=== PATIENT | male | born 1960 | race Caucasian/White ===

== ENCOUNTER 2023-10-10 07:27 | Observation (INO) | payer BC, SELFPAY ==
[2023-10-10] VITALS (17 sets, daily range): BP systolic 120–154; BP diastolic 62–80; PULSE 73–101; RESP 16; TEMP 35.9–36.6; O2SAT 94–98; BMI 29.1
[2023-10-10] MEDS: Gabapentin 600 MG Tablet PO (06:26)
[2023-10-10] MEDS: Lactated Ringers 1,000 ML 999 ML IV (06:26)
[2023-10-10] MEDS: Lactated Ringers 1,000 ML 75 ML IV ×2 (06:26→08:22)
[2023-10-10] MEDS: Acetaminophen 500 MG Tablet 1000 MG PO ×3 (06:26→21:06)
[2023-10-10] MEDS: Insulin Lispro 100 UNIT/ML INSULN.PEN SC ×3 (06:50→23:08)
[2023-10-10 07:03] LABS: Bedside Glucose 202 mg/dL (74-106)
--- NOTE | 2023-10-10 07:14 | PCM.OPRPT ---
Report of Operation Date of Procedure: 10/10/23 Description of Surgical Findings:: Preop diagnosis: 1. Lumbar stenosis, L4-5, L5-S1 with spondylosis 2. Lumbar degenerative disc disease L4-5, L5-S1 Postop diagnosis: 1. Lumbar stenosis, L4-5, L5-S1 with spondylosis 2. Lumbar degenerative disc disease L4-5, L5-S1 Procedures performed: 1. L4-5 posterior lumbar interbody fusion 2. L5-S1 posterior lumbar interbody fusion 3. Insertion of intervertebral biomechanical device x 2 4.. Structural allograft for spinal fusion 5. L4 bilateral laminectomies, foraminotomies, facetectomies, decompression of bilateral nerve roots 6. L5 bilateral laminectomies, foraminotomies, facetectomies, decompression of bilateral nerve roots 7. L3-4, L4-5, L5-S1 posterolateral fusion 8. Pedicle screw fixation L3-4, L4-5, and L5-S1 9. Local autograft for spinal fusion 10. Neuro monitoring bilateral upper and bilateral lower extremities Statement of medical necessity: The patient is a 63-year-old male with intractable back and leg pain. Image studies confirm the above diagnoses. They have failed conservative treatments to include medications physical therapy and injections and have opted for operative intervention understanding the risk to include but not limited to infection, bleeding, damage to nerves arteries and veins, possibility of spinal fluid leak, nonunion, hardware failure, continued pain, need for further surgery, deep vein thrombosis, pulmonary embolism, heart attack, risk of stroke or . Description of the procedure: The patient was identified in the preoperative holding area. There they received preoperative IV antibiotics and was then transferred to the operative suite. Once in the operative suite after general endotracheal anesthesia was established, the patient was positioned prone on the [place] operating table. All bony prominences were padded accordingly. The lumbar spine was prepped and draped in a standard fashion. Bear hugger's were not turned on until the drapes were placed and sealed with Ioban. A midline incision was made and taken down to the fascia. The fascia was divided and subperiosteal dissection was taken down to the level of the transverse processes and sacral ala of L4, L5, and S1 bilaterally. Deep retractors were placed. A bone scalpel was used to make cuts in the lamina and then a series of rongeurs and Kerrisons were used removing the spinous process and lamina of L4 and L5. Then facetectomies of greater than 50% were performed as well as foraminotomies at L4-5 and L5-S1 bilaterally decompressing the bilateral nerve roots. Given the severity of the stenosis I needed to perform wide bilateral laminectomies and near complete facetectomies in order to decompress the neural elements. Disc created instability necessitating the fusion. I then proceeded with interbody fusion. The nerve roots and dura were identified and retracted medially. A knife was utilized to perform an annulotomy at L4-5. Endplate elevators, curettes, and pituitaries were utilized to remove disc material. Endplates were prepared with a rasp. An appropriate sized intervertebral peek cage device measuring was packed with structural allograft and impacted into position completing the posterior lumbar interbody fusion at the L4-5 level. The same steps were repeated at L5-S1. An appropriate sized intervertebral peek cage device measuring was packed with morselized cancellous allograft and impacted into position completing the posterior lumbar interbody fusion at the L5-S1 level. I then proceeded with pedicle screw fixation. After the decompression there was some concern for stability of the L3-4 level. Therefore, I made the decision to put screws at L3 as well to stabilize this level. Starting points were found at the junction of the superior articular process and transverse processes and sacral ala. A power bur was used for the starting points. Pedicle probes were placed bilaterally and then 6.5 x 55 mm screws were placed bilaterally at L3, L4 and L5 and 6.5 x 45 mm screws were placed bilaterally at S1. The screws were tested with intraoperative neurophysiologic monitoring and tested within normal limits. Connector rods were applied and secured with set screws. I then proceeded with the posterolateral fusion. This was accomplished by decorticating the transverse processes bilaterally at L3, L4 and L5 and the sacral ala bilaterally at S1. This decorticated bone was then bridged with local autograft from the decompression as well as morselized cancellous allograft completing the posterolateral fusion of the L3-4, L4-5 and L5-S1 level. The incision was thoroughly irrigated. Tisseel was placed over the dura as a hemostatic agent. The fascia was closed with #1 Vicryl, subcutaneous with 2-0 Vicryl and skin with 2-0 nylon. A sterile dressing was applied with 4 x 4's ABD and tape. Sponge instrument and needle counts were correct at the end of the case. Neurophysiologic monitoring was maintained at baseline throughout the duration of the case. The patient was extubated and taken to the PACU without incident Surgeon: Rolf Jhaveri Type of Anesthesia: General Estimated Blood Loss (mL): 850 cc Fluids Replaced: 2900 cc Grafts/Implants Used: Unified spine Complications None Admit VTE Documentation VTE Present on Admission: No
--- NOTE | 2023-10-10 07:18 | PCM.PN.ORT ---
Subjective Subjective Seen and examined postop. Resting comfortably. Pain controlled. No complaints Objective Data Objective Data Vital Signs: Vital Signs Temp Pulse Resp BP Pulse Ox O2 Del Method 97.4 F L 73 16 153/80 H 96 Room Air 10/10/23 06:07 10/10/23 06:07 10/10/23 06:07 10/10/23 06:07 10/10/23 06:07 10/10/23 06:07 Oxygen Delivery Method Room Air Weight: 186 lb Body Mass Index (BMI) 29.1 Lab / Micro Data Labs: Laboratory Results - last 24 hr 10/10/23 06:06: POC Glucose 202 H 10/10/23 06:22: Magnesium 2.0 Physical Exam Const alert, oriented x3 and no apparent distress General Appearance: cooperative, comfortable and well kempt HEENT normocephalic and head/scalp atraumatic Eyes EOMs intact bilaterally and conjunctivae normal Neck full ROM General: normal visual inspection Chest inspection of chest normal and palpation of chest normal Resp normal respiratory effort and normal air movement Cardio regular rate, regular rhythm and peripheral pulses 2+ throughout GI soft to palpation, non-tender and non-distended Back/Spine Back/Spine Narrative: Dressing clean dry and intact Cervical Spine: cervical ROM normal Thoracic Spine / Upper Back: normal to inspection Lumbar Spine / Lower Back: normal to inspection Extremity normal to inspection, full ROM, normal capillary refill, no clubbing, cyanosis or edema and no calf tenderness Skin no rashes or lesions noted General Skin Exam: no breakdown Neuro oriented x3, CN's II-XII intact bilaterally, moves all extremities, no focal motor deficits, no sensory deficits noted and deep tendon reflexes 2+ bilaterally Motor Exam: muscle tone normal throughout Assessment & Plan Assessment/Plan (1) Lumbar stenosis: PLAN: Okay to admit See orders Discharge planning, likely home tomorrow
--- NOTE | 2023-10-10 07:19 | DS.PCM_ITS ---
Providers Date of Admission: 10/10/23 Primary Care Physician: Dr. Meliton Pelayo MD Reason For Visit: LUMBAR STENOSIS Diagnosis Discharge Diagnosis (1) Lumbar stenosis: Status: Acute Code(s): M48.061 - Spinal stenosis, lumbar region without neurogenic claudication Plan: Okay to admit See orders Discharge planning, likely home tomorrow Medications at Discharge Home Medications albuterol sulfate 90 mcg/actuation aerosol inhaler 1 inh inhalation PRN PRN shortness of breath or wheezing 09/16/23 cetirizine 5 mg-pseudoephedrine ER 120 mg tablet,extended release,12hr (All Day Allergy-D) 1 tab PO DAILY 09/16/23 doxazosin 8 mg tablet 8 mg PO DAILY 09/16/23 dulaglutide 1.5 mg/0.5 mL subcutaneous pen injector (Trulicity) 1.5 mg subcut JALLOH 09/16/23 fluticasone furoate 100 mcg/actuation blister powder for inhalation (Arnuity Ellipta) 1 inh inhalation DAILY 09/16/23 gabapentin 100 mg capsule 100 mg PO BID 09/16/23 loratadine 10 mg capsule 10 mg PO DAILY 09/16/23 metformin 1,000 mg tablet 500 mg PO BID 09/16/23 montelukast 10 mg tablet 10 mg PO QHS 09/16/23 omeprazole 20 mg capsule,delayed release 20 mg PO BID 09/16/23 pravastatin 40 mg tablet 40 mg PO QHS 09/16/23 hydrocodone-acetaminophen 5-325mg 5mg-325mg 1 tab PO Q6H 7 days #28 tabs 10/10/23 Hospital Course Operations - (L4-5, L5-S1 posterior lumbar interbody fusion, decompression, posterior spinal fusion with instrumentation, use of allograft) Summary of Care Provided Minutes Spent on Discharge: 15 Hospital Course: The patient is a 63-year-old male who underwent L4-5 and L5-S1 posterior lumbar interbody fusion, decompression, posterior spinal fusion with instrumentation, use of allograft on 10/10/2023. He was subsequently admitted. The hospitalist was consulted for medical management. The patient progressed well. His pain was controlled and he was mobilizing well. No significant medical issues were reported. He was subsequently discharged home on 10/11/2023 to follow-up with Dr. Jhaveri in 3 weeks Physical Exam Const alert, oriented x3 and no apparent distress General Appearance: cooperative, comfortable and well kempt Neck full ROM General: normal visual inspection Resp normal respiratory effort and normal air movement Effort and Inspection: able to speak in complete sentences Cardio regular rate and peripheral pulses 2+ throughout GI soft to palpation, non-tender and non-distended Back/Spine Back/Spine Narrative: Dressing clean dry and intact. Incision well-approximated with interrupted sutures in place. No tenderness erythema drainage or fluctuance Cervical Spine: cervical ROM normal Thoracic Spine / Upper Back: normal to inspection Lumbar Spine / Lower Back: normal to inspection Extremity normal to inspection, full ROM, normal capillary refill, no clubbing, cyanosis or edema and no calf tenderness Skin no rashes or lesions noted General Skin Exam: no breakdown Neuro oriented x3, CN's II-XII intact bilaterally, moves all extremities, no focal motor deficits, no sensory deficits noted and deep tendon reflexes 2+ bila terally Motor Exam: strength 5/5 throughout and muscle tone normal throughout Weight / BMI Weight Weight: 186 lb Body Mass Index (BMI) 29.1 ABG / Lab / Microbiology Data Laboratory: Laboratory Results - last 24 hr 10/10/23 06:06: POC Glucose 202 H 10/10/23 06:22: Magnesium 2.0 D/C Instructions Discharge Diet: No restrictions Additional Activity Instructions: No repetitive bending twisting or lifting greater than 5 pounds. Wear back brace at all times. Call your doctor if your incision/area has: Continuous Slow Oozing, Sudden Increased Bleeding, Increased Pain/ Swelling, Increased Redness, Foul Smelling Discharge and Swelling at the incision site Call your doctor if you observe: Fever of 101 or Higher, Coldness, Increased Pain, Numbness or Tingling, Change in Color, Inability to urinate, Inability to have a bowel movement, Using more than 1 pad per hour, Shortness of breath, Dizziness, Fainting spells, Swelling in the ankles, Chest pain, Prolonged hiccupping, Increased palpitations (irregular heartbeat), Calf discomfort and Uncontrolled pain Additional Dressing/Incision Instructions: Change dressing daily with gauze and tape Additional Instructions: 1. During your procedure, you received sedation through your IV. Please follow these instructions for the next 24 hours: Do not drive a motor vehicle, do not drink any alcoholic beverages, and do not sign any legal documents or make personal or business decisions. A responsible adult should stay with you at least 6 hours after the procedure. 2. Keep your surgical site/incision clean and the dressing dry and intact. You may use an ice pack at the surgical site to reduce any swelling or discomfort. 3. Monitor the incision site for any signs or symptoms of infection. Watch for redness, excessive swelling or drainage, or continued pain at the incision site after 3 days. Contact your physician immediately for a fever, chills or a temperature of 101.5? F or greater. 4. Take your medication exactly as prescribed by your physician. Do not attempt to wean yourself off any of your medications even though your pain is improving. This process needs to be carefully monitored by your doctor. Take any antibiotics prescribed exactly as directed and until they are gone. 5. Avoid stretching, bending, pulling, twisting or any sudden movements. Do not bend or twist at the waist. Wear back brace at all times 6. No lifting greater than 5 pounds. 7. Do not operate a motor vehicle, equipment or a power tool while taking pain medication 8. Do not have any manipulation done by a chiropractor or any other physician without first consulting with the surgeon 9. Please contact our office if you are even scheduled for a CT scan or an MRI. 10. Please call us if you have any questions, problems or concerns. Please Follow Up With: Rolf Jhaveri DO When: 3 weeks Meaningful Use Info Meaningful Use Diagnoses (Choose all that apply): None applicable Discharge Plan Admission Admit Date/Time: 10/10/23 07:27 Attending Provider: Roly Santana Primary Care Provider: Meliton Pelayo Consulting Providers: Hailee Julien; Chavo Ryan; Danielle,Denise; Angel,Frakes; Sarah Sanchez; Osiris Fournier; Birgit Cantu; Roly Cunningham; Roly Santana; Rashad Kimble; Leland Poe; Barron Enriquez; Jason Guillen; Aleksey Garrett; Glory Goyal; Dion Espino; Claudia Clark; Genaro Thao; Chandra Sainz; Juarez Lucia; Beth Oates; Bradley Killian; Jasmin Sam NP; Gray Rudolph; Rolf Jhaveri Instructions Additional Instructions / Restrictions: 1. During your procedure, you received sedation through your IV. Please follow these instructions for the next 24 hours: Do not drive a motor vehicle, do not drink any alcoholic beverages, and do not sign any legal documents or make personal or business decisions. A responsible adult should stay with you at least 6 hours after the procedure. 2. Keep your surgical site/incision clean and the dressing dry and intact. You may use an ice pack at the surgical site to reduce any swelling or discomfort. 3. Monitor the incision site for any signs or symptoms of infection. Watch for redness, excessive swelling or drainage, or continued pain at the incision site after 3 days. Contact your physician immediately for a fever, chills or a temperature of 101.5? F or greater. 4. Take your medication exactly as prescribed by your physician. Do not attempt to wean yourself off any of your medications even though your pain is improving. This process needs to be carefully monitored by your doctor. Take any antibiotics prescribed exactly as directed and until they are gone. 5. Avoid stretching, bending, pulling, twisting or any sudden movements. Do not bend or twist at the waist. Wear back brace at all times 6. No lifting greater than 5 pounds. 7. Do not operate a motor vehicle, equipment or a power tool while taking pain medication 8. Do not have any manipulation done by a chiropractor or any other physician without first consulting with the surgeon 9. Please contact our office if you are even scheduled for a CT scan or an MRI. 10. Please call us if you have any questions, problems or concerns. Discharge Orders/Prescriptions Prescriptions: New hydrocodone-acetaminophen 5-325 mg tablet 1 tab PO Q6H 7 Days Qty: 28 0RF Continued metformin 1,000 mg tablet 500 mg PO BID Patient Comments: TAKE 1 TABLET BY MOUTH TWICE A DAY Trulicity 1.5 mg/0.5 mL pen injector 1.5 mg SUBCUT JALLOH Patient Comments: INJECT 1.5MG UNDER THE SKIN ONCE WEEKLY albuterol sulfate 90 mcg/actuation HFA aerosol inhaler 1 inh INHALATION PRN PRN (Reason: shortness of breath or wheezing) Patient Comments: INHALE 2 PUFFS BY MOUTH 4 TIMES A DAY NEEDED doxazosin 8 mg tablet 8 mg PO DAILY Patient Comments: TAKE 1 TABLET BY MOUTH EVERY DAY montelukast 10 mg tablet 10 mg PO QHS Patient Comments: TAKE ONE TABLET BY MOUTH EVERY DAY pravastatin 40 mg tablet 40 mg PO QHS Patient Comments: TAKE 1 TABLET BY MOUTH EVERY NIGHT AT BEDTIME loratadine 10 mg capsule 10 mg PO DAILY cetirizine-pseudoephedrine [All Day Allergy-D] 5-120 mg tablet extended release 12 hr 1 tab PO DAILY omeprazole 20 mg capsule,delayed release(DR/EC) 20 mg PO BID Patient Comments: TAKE 1 CAPSULE BY MOUTH TWICE A DAY BEFORE MEALS gabapentin 100 mg capsule 100 mg PO BID Patient Comments: TAKE 1 CAPSULE TWICE DAILY. MAY INCREASE BY 1 CAPSULE EVERY 3 DAYS, MAX OF TAKE 3 CAPSULES TWICE A DAY Arnuity Ellipta 100 mcg/actuation blister with device 1 inh INHALATION DAILY Patient Comments: INHALE 1 PUFF BY MOUTH DAILY (RINSE MOUTH AFTER) Discontinued meloxicam 15 mg tablet 15 mg PO QHS Patient Comments: TAKE 1 TABLET BY MOUTH EVERY DAY Referrals / Follow Up: Rolf Jhaveri DO [Med Staff - Active Staff] - Disposition Disposition (needs filled in before D/C Order can be placed): Home, Self Care
[2023-10-10] MEDS: Magnesium 1 GM over 15 mins IV (07:28)
[2023-10-10] MEDS: Cefazolin 2 GM in 0.9% Normal Saline (100mL Bag) 100 ML IV (07:55)
--- NOTE | 2023-10-10 07:55 | RAD_ITS ---
PROCEDURE: Posterior L4-L5 and L5-S1 fusion. DATE OF EXAMINATION: October 10, 2023. INDICATION: Male, 63 years old. Chronic low back pain. FLUOROSCOPY TIME (if supplied): (149 seconds) minutes/seconds. 62.41 mGy. 5 images were submitted. RAD/Lumbar Spine 2 or 3 Views IMPRESSION: Intraoperative imaging provided for L4-L5 and L5-S1 posterior fusion with prosthetic disc. Electronically Signed: Kieran Cruz MD at 15:21 EDT ,
[2023-10-10] MEDS: THROMBIN (RECOMBINANT) 20,000 UNIT VIAL 20000 UNIT TOPICAL (08:37)
[2023-10-10] MEDS: Heparin 10,000 UNITS/10 ML Vial 10000 UNITS (08:37)
[2023-10-10 10:03] LABS: Bedside Glucose 206 mg/dL (74-106)
[2023-10-10 11:49] LABS: Bedside Glucose 222 mg/dL (74-106)
[2023-10-10] MEDS: Bupivacaine 0.25% 30 ML Vial (13:03)
[2023-10-10 14:31] LABS: Bedside Glucose 267 mg/dL (74-106)
[2023-10-10] MEDS: Cefazolin 1 GM/50 ML BAG IV (16:45)
[2023-10-10] MEDS: Lactated Ringers 1,000 ML 100 ML IV (18:08)
[2023-10-10] MEDS: metFORMIN HCl 500 MG Tablet PO (18:11)
[2023-10-10] MEDS: Ensure Surgery 237 ML LIQUID PO (18:19)
[2023-10-10] MEDS: oxyCODONE 5 MG Tablet PO (19:54)
[2023-10-10] MEDS: Budesonide Respules 0.5 MG/2 ML AMPUL.NEB. INHALATION (20:03)
--- NOTE | 2023-10-10 20:41 | PCM.CONS.GEN ---
Assessment & Plan Assessment/Plan (1) Lumbar stenosis: PLAN: Plan This is scheduled gentleman being seen for perioperative management of lumbar spinal stenosis status post surgery 1. 1. Perioperative management of lumbar spinal stenosis L4-5 and L5-S1 with spondylosis, degenerative disc disease: Patient is admitted on MedSurg floor. Patient had L4-5 and L5-S1 posterior lumbar interbody fusion and intervertebral biomechanical device with allograft. Bilateral L4-5 laminectomies. Patient has operative region pain. PT and OT ordered. Patient has Abraham catheter and urine is clear. Incentive spirometry ordered. DVT prophylaxis as per spine surgeon. 2. Chronic mild persistent asthma: On DuoNeb Q4 hourly as needed. Patient on Ellipta Anoro at home, changed to Pulmicort aerosol. Incentive spirometry to continue. No acute shortness of breath or wheezing. 3. Peripheral neuropathy on gabapentin continued. 4. Diabetes mellitus type 2: Hold metformin. Accu-Chek insulin coverage Humalog sliding scale 5. GERD: On PPI omeprazole. 6. Dyslipidemia on pravastatin 40 mg daily at bedtime. Laboratory Results 10/10/23 06:06: POC Glucose 202 H 10/10/23 06:22: Magnesium 2.0 10/10/23 09:44: POC Glucose 206 H 10/10/23 11:31: POC Glucose 222 H 10/10/23 14:12: POC Glucose 267 H HPI Consult Data Date of Consult: 10/10/23 HPI Narrative Reason for Consultation: Perioperative management for hypertension and history of asthma HPI Narrative: MARGE MICHAUD, is a 63 M who was admitted after surgery for lumbar spinal stenosis L4-5 and L5-S1 spondylosis. Patient is stated that he has a chronic lower back pain with radiation to the right lower extremity up to the foot that is started in July. Patient failed conservative treatment with physical therapy injection and therefore operative treatment was planned. Patient denies coronary artery disease or chronic heart disease. Patient was seen after the surgery on the MedSurg floor. Denies chest pain pressure or tightness. No acute shortness of breath or wheezing. Patient has history of chronic mild asthma and states he needs rescue inhaler sometimes. On maintenance inhaler. Patient has Abraham catheter and the urine in the bag looks clear. [facility] Medical History Arthritis Asthma Back pain Blackout Diabetes Dietary restriction Gastric reflux High cholesterol History of echocardiogram History of irregular heartbeat History of pain when walking Injury of head and neck Leg cramps Low iron Non-smoker Prostate disease Shortness of breath on exertion Wears glasses Home Medications albuterol sulfate 90 mcg/actuation aerosol inhaler 1 inh inhalation PRN PRN shortness of breath or wheezing 09/16/23 [History Last Taken Unknown] cetirizine 5 mg-pseudoephedrine ER 120 mg tablet,extended release,12hr (All Day Allergy-D) 1 tab PO DAILY 09/16/23 [History Last Taken Unknown] doxazosin 8 mg tablet 8 mg PO DAILY 09/16/23 [History Last Taken 10/10/23 04:45] dulaglutide 1.5 mg/0.5 mL subcutaneous pen injector (Trulicity) 1.5 mg subcut JALLOH 09/16/23 [History Last Taken Unknown] fluticasone furoate 100 mcg/actuation blister powder for inhalation (Arnuity Ellipta) 1 inh inhalation DAILY 09/16/23 [History Last Taken 10/10/23 04:45] gabapentin 100 mg capsule 100 mg PO BID 09/16/23 [History Last Taken Unknown] loratadine 10 mg capsule 10 mg PO DAILY 09/16/23 [History Last Taken Unknown] metformin 1,000 mg tablet 500 mg PO BID 09/16/23 [History Last Taken Unknown] montelukast 10 mg tablet 10 mg PO QHS 09/16/23 [History Last Taken Unknown] omeprazole 20 mg capsule,delayed release 20 mg PO BID 09/16/23 [History Last Taken 10/10/23 04:45] pravastatin 40 mg tablet 40 mg PO QHS 09/16/23 [History Last Taken Unknown] hydrocodone-acetaminophen 5-325mg 5mg-325mg 1 tab PO Q6H 7 days #28 tabs 10/10/23 [Rx Last Taken Unknown] Allergy/AdvReac Type Severity Reaction Status Date / Time No Known Allergies Allergy Verified 10/10/23 05:57 Family History Other CVA (cerebral vascular accident) Diabetes Surgical History Hx of colonoscopy Hx of tonsillectomy Social History Smoking Status: Never smoker ROS ROS Narrative Constitutional: Reports fatigue and weakness. No fever. HEENT: Reports systems reviewed and no addt'l complaints, except as documented Respiratory/Chest: No acute shortness of breath or respiratory distress or wheezing. CVS: No chest pain tightness. Gastrointestinal: Denies coffee ground emesis, hematemesis or vomiting Genitourinary: Denies burning urination or new urinary tract symptoms Musculoskeletal: Denies acute joint pain or limited range of motion. No acute injury Spine: L4-L5 lumbar spine surgery. Mild pain expected. Neurologic: Denies seizure-like symptoms. skin: No ulcer. No rash Endocrinology: Reports systems reviewed and no addt'l complaints, except as documented Hematologic/Lymphatic: Reports systems reviewed and no addt'l complaints, except as documented Rest 14 ROS are negative except as mentioned in HPI Physical Exam Narrative General: Alert, Oriented x3, Cooperative HEENT: Atraumatic, PERRLA, EOMI, Normocephalic Oral:Oral mucosa moist. No Gingival or Mucosal Lesions/ Ulcerations Neck: Supple, No JVD, Negative Carotid Bruits Chest wall/Lungs: Air entry diminished in bilateral lung bases. No crepitation/rhonchi Cardiovascular: Regular rate, Regular Rhythm, Normal S1, Normal S2, No M/G/R Abdomen: Bowel Sounds Present, Soft, Non Tender, Non-Distended : No dysuria. No renal angle tenderness. No suprapubic tenderness. Extremities: No edema, Capillary Refill Less than 3 Seconds Skin: No rashes, No breakdown Musculoskeletal: No Tenderness to Palpation of Joints or Extremities. ROM lower extremities intact Spine: Surgical dressing is dry. Mild tenderness present. Neurological: Cranial nerves II-XII grossly intact, DTR 2+/4. No acute focal neurological deficit. Psych/Mental Status: Normal Affect, Appropriate. Lab / Micro Data Labs: Laboratory Results - last 24 hr 10/10/23 06:06: POC Glucose 202 H 10/10/23 06:22: Magnesium 2.0 10/10/23 09:44: POC Glucose 206 H 10/10/23 11:31: POC Glucose 222 H 10/10/23 14:12: POC Glucose 267 H Imaging Radiology Impression Lumbar Spine X-Ray 10/10/23 07:55 IMPRESSION: Intraoperative imaging provided for L4-L5 and L5-S1 posterior fusion with prosthetic disc. Electronically Signed: Kieran Cruz MD at 15:21 EDT , Charges/Coding Visit Charges Office Visits / Consults: [id number] IP Consult L3
[2023-10-10] MEDS: Montelukast 10 MG Tablet PO (21:06)
[2023-10-10] MEDS: Gabapentin 100 MG Capsule PO (21:06)
[2023-10-10] MEDS: Pravastatin 40 MG Tablet PO (21:06)
[2023-10-10] MEDS: Pantoprazole Sodium 20 MG Tablet PO (21:06)
[2023-10-10 23:28] LABS: Bedside Glucose 331 mg/dL (74-106)
[2023-10-11] VITALS (7 sets, daily range): BP systolic 120–151; BP diastolic 55–69; PULSE 68–100; RESP 16–18; TEMP 36.4–37.1; O2SAT 94–98; BMI 29.1
[2023-10-11] MEDS: Cefazolin 1 GM/50 ML BAG IV (00:18)
[2023-10-11] MEDS: BENZOCAINE/MENTHOL 1 LOZENGE MUCOUS MEM ×2 (01:09→21:32)
[2023-10-11] MEDS: oxyCODONE 5 MG Tablet PO ×4 (01:39→19:42)
[2023-10-11] MEDS: Insulin Lispro 100 UNIT/ML INSULN.PEN SC ×4 (06:23→21:26)
[2023-10-11] MEDS: Acetaminophen 500 MG Tablet 1000 MG PO ×3 (06:24→21:26)
[2023-10-11 06:59] LABS: Bedside Glucose 224 mg/dL (74-106)
--- NOTE | 2023-10-11 07:30 | PCM.PN.HOSP ---
Reason for Visit Reason for Visit: Diagnoses Spinal stenosis, lumbar region without neurogenic claudication (10/10/23) Encounter for other preprocedural examination (10/10/23) Subjective Subjective GENERAL: cooperative HEENT: Atraumatic; normocephalic EYES; Anicteric, Normal Conjunctiva NECK; supple, normal thyroid, RESPIRATORY: Diminished to auscultation CARDIOVASCULAR: Regular S1 S2, GI: soft, normoactive bowel sounds, : No Renal angle tenderness; EXTREMITIES: No edema, no clubbing, MUSCULOSKELETAL: no muscle wasting NEURO: Awake; no lateralizing signs. SKIN: No Rash PSYCH; Flat affect Objective Data Objective Data Vital Signs: Vital Signs Temp Pulse Resp BP Pulse Ox O2 Del Method O2 Flow Rate 97.9 F 92 16 127/63 H 96 Room Air 2 10/11/23 04:18 10/11/23 04:18 10/11/23 04:18 10/11/23 04:18 10/11/23 04:18 10/11/23 04:18 10/11/23 00:20 Oxygen Flow Rate (L/min) 2 Oxygen Delivery Method Room Air Weight: 84.36 kg Body Mass Index (BMI) 29.1 Intake & Output: Intake and Output for Last 24 Hours 10/09/23 10/10/23 10/11/23 23:59 23:59 23:59 Intake Total 2834.5 / 2834.5 1593.17 / 1593.17 Output Total 600 / 3200 2900 / 2900 Balance 2234.5 / -365.5 -1306.83 / -1306.83 Lab / Micro Data Labs: Laboratory Results - last 24 hr 10/10/23 09:44: POC Glucose 206 H 10/10/23 11:31: POC Glucose 222 H 10/10/23 14:12: POC Glucose 267 H 10/10/23 23:00: POC Glucose 331 H 10/11/23 06:22: POC Glucose 224 H Radiography Diagnostic Testing: Radiology Impression Lumbar Spine X-Ray 10/10/23 07:55 IMPRESSION: Intraoperative imaging provided for L4-L5 and L5-S1 posterior fusion with prosthetic disc. Electronically Signed: Kieran Cruz MD at 15:21 EDT , Physical Exam Narrative General: Alert, Oriented x3, Cooperative HEENT: Atraumatic, PERRLA, EOMI, Normocephalic Oral:Oral mucosa moist. No Gingival or Mucosal Lesions/ Ulcerations Neck: Supple, No JVD, Negative Carotid Bruits Chest wall/Lungs: Air entry diminished in bilateral lung bases. No crepitation/rhonchi Cardiovascular: Regular rate, Regular Rhythm, Normal S1, Normal S2, No M/G/R Abdomen: Bowel Sounds Present, Soft, Non Tender, Non-Distended : No dysuria. No renal angle tenderness. No suprapubic tenderness. Extremities: No edema, Capillary Refill Less than 3 Seconds Skin: No rashes, No breakdown Musculoskeletal: No Tenderness to Palpation of Joints or Extremities. ROM lower extremities intact Spine: Surgical dressing is dry. Mild tenderness present. Neurological: Cranial nerves II-XII grossly intact, DTR 2+/4. No acute focal neurological deficit. Psych/Mental Status: Normal Affect, Appropriate. Assessment & Plan Assessment/Plan (1) Lumbar stenosis: PLAN: Plan Patient is a 63-year-old gentleman who was admitted with lumbar stenosis involving L4-L5, L5-S1 with spondylosis as well as lumbar degenerative disc disease who underwent lumbar interbody fusion as well as L4 and L5 laminectomy, foraminotomies, facetectomies, decompression of bilateral nerve roots the hospitalist service was consulted to assist with management of patient medical comorbidities 1.. Lumbar stenosis involving L4-L5, L5-S1 with spondylosis as well as lumbar degenerative disc disease ? underwent lumbar interbody fusion as well as L4 and L5 laminectomy, foraminotomies, facetectomies, decompression of bilateral nerve roots on 10/10/[address] Jhaveri. Patient postoperative orders regarding pain management DVT prophylaxis and PT OT deferred to primary service 2. Diabetes mellitus type II -patient's oral hypoglycemics held. Placed on long acting insulin, Accu-Cheks a.c. and at bedtime and covered with sliding scale insulin 3. Overweight with BMI of 29.1 ? Complicating care weight loss advised 4. Mild intermittent asthma ? Currently not in exacerbation did continue with home meds 5. Peripheral neuropathy ? Patient is on gabapentin discontinued 6. GERD ? On PPI 7. Dyslipidemia -Patient is on statin therapy, continued at home dose 8. DVT prophylaxis ? Deferred to primary service Time spent in the patient's overall evaluation,decision-making process, review of diagnostic data, adjustment of management, discussion with other providers, nursing nursing and ancillary staff involved in patient's care documentation, 35 minutes Charges/Coding Visit Charges Inpatient E&M: 16474 Subs Hosp L2
[2023-10-11] MEDS: Budesonide Respules 0.5 MG/2 ML AMPUL.NEB. INHALATION ×2 (07:39→19:18)
[2023-10-11] MEDS: Pantoprazole Sodium 20 MG Tablet PO ×2 (08:33→21:25)
[2023-10-11] MEDS: Ensure Surgery 237 ML LIQUID PO ×3 (08:33→16:50)
[2023-10-11] MEDS: Gabapentin 100 MG Capsule PO ×2 (08:33→21:25)
[2023-10-11] MEDS: Doxazosin 4 MG Tablet 8 MG PO (08:33)
--- NOTE | 2023-10-11 09:32 | CASEMGMT ---
Pt DC order is in place. This RN CM to pt bedside at this time regarding DC planning. Pt states that he is ind and lives at home with his and also that he has a walker. Pt states that he is about to work with PT. Pt sitting up in chair currently. At this time, the pt states that he wishes to DC home with no additional needs. Pt is denying the need for HHC or OP therapy. This RN CM stated to the pt that we will see how the pt does with therapy. Will follow. Pt states that his can help the pt at home if needs. Pt states that his had the same surgery x 6 months ago and they still have all of the DME from that surgery. This includes a walker, shower chair/seat with GB. Pt states that his will pick him up from [facility] around 1400. Pt denies further needs at this time. CM to follow for safe DC home.
--- NOTE | 2023-10-11 09:53 | PHA.DC.MC.R ---
Pharmacy [facility] has performed discharge medication reconciliation and counseling for this patient. The patient's discharge medication list was reviewed for discrepancies and discrepancies were resolved. The patient was counseled on the following discharge medications and changes in medications for homegoing were reviewed. The Reason for Use, instructions for use, and potential side effects were reviewed for all new medications. The patient's questions regarding all of their medications were answered. 1. Hydrocodone-acetaminophen 5/325 mg PO Q6H The patient was able to verbally demonstrate an understanding of their discharge medications. Medications at Discharge Home Medications albuterol sulfate 90 mcg/actuation aerosol inhaler 1 inh inhalation PRN PRN shortness of breath or wheezing 09/16/23 cetirizine 5 mg-pseudoephedrine ER 120 mg tablet,extended release,12hr (All Day Allergy-D) 1 tab PO DAILY 09/16/23 doxazosin 8 mg tablet 8 mg PO DAILY 09/16/23 dulaglutide 1.5 mg/0.5 mL subcutaneous pen injector (Trulicity) 1.5 mg subcut JALLOH 09/16/23 fluticasone furoate 100 mcg/actuation blister powder for inhalation (Arnuity Ellipta) 1 inh inhalation DAILY 09/16/23 gabapentin 100 mg capsule 100 mg PO BID 09/16/23 loratadine 10 mg capsule 10 mg PO DAILY 09/16/23 metformin 1,000 mg tablet 500 mg PO BID 09/16/23 montelukast 10 mg tablet 10 mg PO QHS 09/16/23 omeprazole 20 mg capsule,delayed release 20 mg PO BID 09/16/23 pravastatin 40 mg tablet 40 mg PO QHS 09/16/23 hydrocodone-acetaminophen 5-325mg 5mg-325mg 1 tab PO Q6H 7 days #28 tabs 10/10/23
--- NOTE | 2023-10-11 10:22 | CASEMGMT ---
Social Work SW met with pt to discuss advance directives.? Pt confirms she has completed a living will and health care POA naming his Rita Cantor.? Pt notified that documents are not on file at [facility] and SW requested they be brought in for scanning into the EMR.? YUKI Haro
[2023-10-11 11:35] LABS: Bedside Glucose 338 mg/dL (74-106)
[2023-10-11] MEDS: 0.9% NaCl Peripheral Flush Adult/Peds IV (17:03)
[2023-10-11] MEDS: Morphine 4 MG/ML Syringe IV (17:03)
[2023-10-11 17:10] LABS: Bedside Glucose 371 mg/dL (74-106)
[2023-10-11] MEDS: Senna Tablet 2 TABLET PO (21:23)
[2023-10-11] MEDS: Montelukast 10 MG Tablet PO (21:23)
[2023-10-11] MEDS: Pravastatin 40 MG Tablet PO (21:25)
[2023-10-11 22:26] LABS: Bedside Glucose 332 mg/dL (74-106)
[2023-10-12] MEDS: oxyCODONE 5 MG Tablet PO ×3 (00:05→08:44)
[2023-10-12 02:26] VITALS: BP 145/76; PULSE 92; RESP 18; TEMP 36.9; O2SAT 94
[2023-10-12] MEDS: Acetaminophen 500 MG Tablet 1000 MG PO (05:52)
[2023-10-12] MEDS: Insulin Lispro 100 UNIT/ML INSULN.PEN SC (06:29)
[2023-10-12] MEDS: Budesonide Respules 0.5 MG/2 ML AMPUL.NEB. INHALATION (07:21)
[2023-10-12 07:30] VITALS: PULSE 92; RESP 18
--- NOTE | 2023-10-12 07:43 | PCM.PN.HOSP ---
Reason for Visit Reason for Visit: Diagnoses Spinal stenosis, lumbar region without neurogenic claudication (10/10/23) Encounter for other preprocedural examination (10/10/23) Subjective Subjective Plan also patient to be discharged home the day prior however his discharge was canceled given significant pain. CBC a.m. pain is much improved. Blood glucose levels reviewed glucose levels not optimal Objective Data Objective Data Vital Signs: Vital Signs Temp Pulse Resp BP Pulse Ox O2 Del Method O2 Flow Rate 98.4 F 92 18 145/76 H 94 Room Air 2 10/12/23 02:26 10/12/23 02:26 10/12/23 02:26 10/12/23 02:26 10/12/23 02:10/12/23 02:10/11/23 00:20 Oxygen Flow Rate (L/min) 2 Oxygen Delivery Method Room Air Weight: 84.36 kg Body Mass Index (BMI) 29.1 Intake & Output: Intake and Output for Last 24 Hours 10/10/23 10/11/23 10/12/23 23:59 23:59 23:59 Intake Total 2834.5 / 2834.5 1593.17 / 1593.17 1400 / 1400 Output Total 600 / 3200 3200 / 3200 450 / 450 Balance 2234.5 / -365.5 -1606.83 / -1606.83 950 / 950 Lab / Micro Data Labs: Laboratory Results - last 24 hr 10/11/23 11:15: POC Glucose 338 H 10/11/23 16:48: POC Glucose 371 H 10/11/23 21:22: POC Glucose 332 H Physical Exam Narrative GENERAL: cooperative HEENT: Atraumatic; normocephalic EYES; Anicteric, Normal Conjunctiva NECK; supple, normal thyroid, RESPIRATORY: Diminished to auscultation CARDIOVASCULAR: Regular S1 S2, GI: soft, normoactive bowel sounds, : No Renal angle tenderness; EXTREMITIES: No edema, no clubbing, MUSCULOSKELETAL: no muscle wasting NEURO: Awake; no lateralizing signs. SKIN: No Rash PSYCH; Flat affect Assessment & Plan Assessment/Plan (1) Lumbar stenosis: PLAN: Plan Patient is a 63-year-old gentleman who was admitted with lumbar stenosis involving L4-L5, L5-S1 with spondylosis as well as lumbar degenerative disc disease who underwent lumbar interbody fusion as well as L4 and L5 laminectomy, foraminotomies, facetectomies, decompression of bilateral nerve roots the hospitalist service was consulted to assist with management of patient medical comorbidities 1.. Lumbar stenosis involving L4-L5, L5-S1 with spondylosis as well as lumbar degenerative disc disease ? underwent lumbar interbody fusion as well as L4 and L5 laminectomy, foraminotomies, facetectomies, decompression of bilateral nerve roots on 10/10/[address] Jhaveri. Patient postoperative orders regarding pain management DVT prophylaxis and PT OT deferred to primary service ? 10/12/2023; pain control optimal 2. Diabetes mellitus type II -patient's oral hypoglycemics held. Placed on long acting insulin, Accu-Cheks a.c. and at bedtime and covered with sliding scale insulin ? 10/12/2023 added long-acting insulin to patient insulin regimen 3. Overweight with BMI of 29.1 ? Complicating care weight loss advised 4. Mild intermittent asthma ? Currently not in exacerbation did continue with home meds 5. Peripheral neuropathy ? Patient is on gabapentin discontinued 6. GERD ? On PPI 7. Dyslipidemia -Patient is on statin therapy, continued at home dose 8. DVT prophylaxis ? Deferred to primary service Time spent in the patient's overall evaluation,decision-making process, review of diagnostic data, adjustment of management, discussion with other providers, nursing nursing and ancillary staff involved in patient's care documentation, 35 minutes Charges/Coding Visit Charges Inpatient E&M: 38067 Subs Hosp L2
[2023-10-12 08:42] VITALS: BP 136/74; PULSE 95; RESP 18; TEMP 36.6; O2SAT 95
[2023-10-12] MEDS: Doxazosin 4 MG Tablet 8 MG PO (08:44)
[2023-10-12] MEDS: Gabapentin 100 MG Capsule PO (08:45)
[2023-10-12] MEDS: Pantoprazole Sodium 20 MG Tablet PO (08:45)
[2023-10-12] MEDS: Insulin Glargine-YFGN 100 UNIT/ML Pen 20 UNIT SC (08:45)
[2023-10-12] MEDS: Senna Tablet 2 TABLET PO (08:53)
[2023-10-12] MEDS: Ensure Surgery 237 ML LIQUID PO (08:53)
[2023-10-12 10:33] LABS: Bedside Glucose 220 mg/dL (74-106)
== END 2023-10-12 12:26 | disposition home or self-care (01) ==
LOC: SDC 14:41 → MS3 14:41
PROVIDERS: Anesthesiology; Admitting Provider Orthopaedic Surgery; PCP Internal Medicine; Referring Provider Orthopaedic Surgery; Visit Provider Internal Medicine
PROC: 0SG10AJ Fusion of 2 or more Lumbar Vertebral Joints with Interbody Fusion Device, Posterior Approach, Anterior Column, Open Approach (ICD-10-PCS; CPT 22630; principal; 2023-10-10 07:00)
DX: M48.061 Spinal stenosis, lumbar region without neurogenic claudication (principal); E11.42 Type 2 diabetes mellitus with diabetic polyneuropathy; E78.00 Pure hypercholesterolemia, unspecified; M47.816 Spondylosis without myelopathy or radiculopathy, lumbar region; M47.817 Spondylosis without myelopathy or radiculopathy, lumbosacral region; Z79.51 Long term (current) use of inhaled steroids; I10 Essential (primary) hypertension; M51.36 Other intervertebral disc degeneration, lumbar region; J45.909 Unspecified asthma, uncomplicated; Z79.899 Other long term (current) drug therapy; Z79.84 Long term (current) use of oral hypoglycemic drugs; K21.9 Gastro-esophageal reflux disease without esophagitis; R06.02 Shortness of breath
CPT/HCPCS: 22633; 22634 ×2; 22853 ×2; 20930; 20936; 22842; 63052; 63053 ×2; 00670; 72100; 76000; 82962; 83735; 94640; 94668; 96361; 96365; 96366; 96375; 97116; 97162; 97530; 99221; C1713; J7120; A4216; G0378; J2405; J3475; J3490

== ENCOUNTER 2023-10-26 09:31 | Emergency (ER) | payer BC, SELFPAY ==
[2023-10-26 09:32] VITALS: BP 150/79; PULSE 104; RESP 16; TEMP 36.4; O2SAT 95; BMI 29.2
--- NOTE | 2023-10-26 09:58 | EX.ED.DYSGE1 ---
HPI History of Present Illness Chief Complaint: Wound Check Informant: patient and spouse/S.O. Onset/Context/Timing Onset: Today Context: Gradual Onset Timing: Continuous Maximum Severity: Mild Narrative Narrative: 63-year-old male history of lumbar stenosis, recent back surgery on October 09 about 16 days ago and history of diabetes. Patient been doing well. He had L4-5 and [address] Jhaveri of orthopedic spine and is now having some drainage. Denies any fever. Denies any leg weakness. Denies any pain going down his legs. Prior similar symptoms: No Recent Illness/Hospitalization: Yes [facility] Medical History Arthritis Asthma Back pain Blackout Diabetes Dietary restriction Gastric reflux High cholesterol History of echocardiogram History of irregular heartbeat History of pain when walking Injury of head and neck Leg cramps Low iron Non-smoker Prostate disease Shortness of breath on exertion Wears glasses Home Medications albuterol sulfate 90 mcg/actuation aerosol inhaler 1 inh inhalation PRN PRN shortness of breath or wheezing 09/16/23 [History Last Taken Unknown] cetirizine 5 mg-pseudoephedrine ER 120 mg tablet,extended release,12hr (All Day Allergy-D) 1 tab PO DAILY 09/16/23 [History Last Taken Unknown] doxazosin 8 mg tablet 8 mg PO DAILY 09/16/23 [History Last Taken 10/10/23 04:45] dulaglutide 1.5 mg/0.5 mL subcutaneous pen injector (Trulicity) 1.5 mg subcut JALLOH 09/16/23 [History Last Taken Unknown] fluticasone furoate 100 mcg/actuation blister powder for inhalation (Arnuity Ellipta) 1 inh inhalation DAILY 09/16/23 [History Last Taken 10/10/23 04:45] gabapentin 100 mg capsule 100 mg PO BID 09/16/23 [History Last Taken Unknown] loratadine 10 mg capsule 10 mg PO DAILY 09/16/23 [History Last Taken Unknown] metformin 1,000 mg tablet 500 mg PO BID 09/16/23 [History Last Taken Unknown] montelukast 10 mg tablet 10 mg PO QHS 09/16/23 [History Last Taken Unknown] omeprazole 20 mg capsule,delayed release 20 mg PO BID 09/16/23 [History Last Taken 10/10/23 04:45] pravastatin 40 mg tablet 40 mg PO QHS 09/16/23 [History Last Taken Unknown] hydrocodone-acetaminophen 5-325mg 5mg-325mg 1 tab PO Q6H 7 days #28 tabs 10/10/23 [Rx Last Taken Unknown] cephalexin 500 mg capsule 500 mg PO Q8H 7 days #21 caps 10/26/23 [Rx Last Taken Unknown] Allergy/AdvReac Type Severity Reaction Status Date / Time No Known Allergies Allergy Verified 10/26/23 09:32 Family History Other CVA (cerebral vascular accident) Diabetes Surgical History Hx of colonoscopy Hx of tonsillectomy Social History Smoking Status: Never smoker ROS ROS ED ROS Narrative Denies any fever, vomiting or diarrhea. No recent illness. Review of Systems ROS Unobtainable: Denies due to encephalopathy Constitutional Constitutional ED: Denies chills or fever(s) Eyes Eyes: Denies blurry vision ENT ENT ED: Denies ear pain Cardiovascular Cardiovascular: Denies chest pain Respiratory/Chest Respiratory/Chest: Denies cough or dyspnea Gastrointestinal Gastrointestinal: Denies abdominal pain, diarrhea, nausea or vomiting Genitourinary Genitourinary ED: Denies dysuria or hematuria Musculoskeletal Musculoskeletal: Denies arthralgias or back pain Integumentary Denies abscess or Abrasions Neurologic Neurologic: Denies headache(s) Psychiatric Psychiatric: Denies anxiety or depression Endocrine Endocrinology: Denies cold intolerance Hematologic/Lymphatic Hematologic/Lymphatic: Reports none Allergic/Immunologic Allergic/Immunologic ED: Denies mouth swelling, tongue swelling or urticaria EXAM Physical Exam Narrative Exam Narrative: Well-appearing 63-year-old male. Vital signs stable afebrile. Patient does not look septic toxic or in any distress. H EENT exam unremarkable. Neck nontender no lymphadenopathy. Lungs clear to auscultation bilaterally. Heart regular rhythm rate about 100 no murmur. Abdomen soft nontender. Moving all 4 extremities. Normal motor strength. Normal dorsi plantarflexion both lower extremities. No cauda equina. No saddle anesthesia. Normal sensation. Back is about a 6 inch lumbar surgical incision. At the proximal end at the top he appears to have a small amount of pus and wound infection. I do not see any obvious abscess. I am unable to express any more pus. I do not visualize an abscess. There is no fluctuance. There is no signs signs of cellulitis. The wound otherwise is in good shape. The sutures are in place. Patient is awake and alert. He has no focal motor or sensory deficits. Const Vital Signs: 10/26/23 09:32 Temperature 97.6 F L Temperature Source Temporal Pulse Rate 104 H Respiratory Rate 16 Blood Pressure 150/79 H Blood Pressure Mean 102 Pulse Ox 95 Oxygen Delivery Method Room Air Positive well nourished and well developed; Negative for obese, cachectic, contractures or unkempt General Appearance ED: well developed and NAD; Negative for unkempt, cachectic, contractures, cyanotic, diaphoretic or pallor Nutritional Appearance: Negative for cachectic or obese HEENT Reports moist mucous membranes Negative for trauma or tenderness Eyes PERRL and EOMs intact bilaterally General Eye ED: Negative for pale conjunctiva or scleral icterus Neck no lymphadenopathy, supple and no JVD General: Negative for tenderness Lymph Lymphatic: Negative for other Chest Wall inspection of chest normal and palpation of chest normal Chest: Negative for other Resp clear to auscultation bilaterally Effort and Inspection: Negative for retractions Auscultation: Negative for rales, rhonchi or wheezes Cardio regular rate, regular rhythm, S1 normal heart sound, S2 normal heart sound and no murmurs Palpation: Negative for palpable S3 or palpable S4 Rate: Negative for bradycardia or tachycardic Rhythm: Negative for abnormal rhythm GI normal to inspection, nondistended, normoactive bowel sounds, non-tender, non-distended and no masses Inspection: Negative for abdominal distention Auscultation: normoactive bowel sounds Palpation: soft; Negative for tender, guarding or rebound tenderness present Back/Spine no CVA tenderness Back/Spine Narrative: Well-healing lumbar spine surgical incision. Proximal and there is an area of the small amount of pus at the proximal aspect of the incision. The sutures are in place. There is no surrounding cellulitis. I do not palpate any abscess and I am unable to express any larger amount of pus. The wound will be cleaned. Redressed. Patient be started on Keflex. Cervical Spine: Negative for cervical spine tenderness Thoracic Spine / Upper Back: Negative for thoracic spinal tenderness Lumbar Spine / Lower Back: Negative for lumbar spinal tenderness Extremity normal to inspection Extremity Narrative: Both lower extremities have normal sensation. Normal motor strength. General Extremety ED: Negative for edema or tenderness General Extremity: Negative for edema Neuro oriented x3 and CN's II-XII intact bilaterally Sensorium / Orientation: alert; Negative for orientation impaired, lethargic or stuporous Motor Exam: strength 5/5 throughout Psych mental status grossly normal Appearance: Negative for unkempt Attitude: No agitated Mood & Affect: Negative for depressed, anxious or tearful Skin no rashes or lesions noted and no wounds General Skin Exam: Negative for jaundice or pallor Lesions: No lesion noted Rashes: No rashes noted Wounds: Negative for wounds noted Image ED - Body Diagram Man: 1. Status post back surgery with lumbar incision. Proximal and small amount of pus. Early wound infection. No abscess. No cellulitis. MDM MDM MDM Narrative Medical decision making narrative: 63-year-old male diabetic status post lumbar back surgery. Has an early wound infection. He will be started on Keflex 503 times a day for 1 week. He has an appointment to see his spine surgeon this coming Saturday I explained to him and his that he should call them on Saturday and possibly move up the appointment. He does not need any imaging or labs. He has no systemic symptoms. He has no weakness or numbness in his lower extremities at this time. Discharge Plan Triage Chief Complaint: Wound Check ED Provider: Kyle Renee Dx/Rx/DC Orders Clinical Impression: Postoperative wound infection, History of back surgery, History of diabetes mellitus Instructions: ED Wound Check (Infection) Prescriptions: New cephalexin 500 mg capsule 500 mg PO Q8H 7 Days Qty: 21 0RF No Action metformin 1,000 mg tablet 500 mg PO BID Patient Comments: TAKE 1 TABLET BY MOUTH TWICE A DAY Trulicity 1.5 mg/0.5 mL pen injector 1.5 mg SUBCUT JALLOH Patient Comments: INJECT 1.5MG UNDER THE SKIN ONCE WEEKLY albuterol sulfate 90 mcg/actuation HFA aerosol inhaler 1 inh INHALATION PRN PRN (Reason: shortness of breath or wheezing) Patient Comments: INHALE 2 PUFFS BY MOUTH 4 TIMES A DAY NEEDED doxazosin 8 mg tablet 8 mg PO DAILY Patient Comments: TAKE 1 TABLET BY MOUTH EVERY DAY montelukast 10 mg tablet 10 mg PO QHS Patient Comments: TAKE ONE TABLET BY MOUTH EVERY DAY pravastatin 40 mg tablet 40 mg PO QHS Patient Comments: TAKE 1 TABLET BY MOUTH EVERY NIGHT AT BEDTIME loratadine 10 mg capsule 10 mg PO DAILY cetirizine-pseudoephedrine [All Day Allergy-D] 5-120 mg tablet extended release 12 hr 1 tab PO DAILY omeprazole 20 mg capsule,delayed release(DR/EC) 20 mg PO BID Patient Comments: TAKE 1 CAPSULE BY MOUTH TWICE A DAY BEFORE MEALS gabapentin 100 mg capsule 100 mg PO BID Patient Comments: TAKE 1 CAPSULE TWICE DAILY. MAY INCREASE BY 1 CAPSULE EVERY 3 DAYS, MAX OF TAKE 3 CAPSULES TWICE A DAY Arnuity Ellipta 100 mcg/actuation blister with device 1 inh INHALATION DAILY Patient Comments: INHALE 1 PUFF BY MOUTH DAILY (RINSE MOUTH AFTER) hydrocodone-acetaminophen 5-325 mg tablet 1 tab PO Q6H 7 Days Qty: 28 0RF Primary Care Provider: Meliton Pelayo Referrals: Rolf Jhaveri DO [Med Staff - Active Staff] - 2 Days Meliton Pelayo MD [Primary Care Provider] - Activity Restrictions/Additional Instructions: Clean daily with peroxide and water. Keep dry. The antibiotic Keflex 1 pill 3 times a day for the next week. You have an early wound infection. Call and follow-up with Dr. Jhaveri on this on Saturday. If you are getting worse it is getting significantly red on your back. You develop a fever you need to be reevaluated. Otherwise follow-up with Dr. Jhaveri. Disposition Disposition: Home, Self Care
[2023-10-26] MEDS: Cephalexin 250 MG Capsule 500 MG PO (10:13)
[2023-10-26 10:18] VITALS: BP 145/78; PULSE 78; RESP 18; TEMP 36.6; O2SAT 97
== END 2023-10-26 10:24 | disposition home or self-care (01) ==
LOC: ED 10:03
PROVIDERS: Emergency Provider Emergency Medicine; Visit Provider Emergency Medicine
DX: T81.49XA Infection following a procedure, other surgical site, initial encounter (principal); E11.9 Type 2 diabetes mellitus without complications; E78.00 Pure hypercholesterolemia, unspecified; Z79.85 Long-term (current) use of injectable non-insulin antidiabetic drugs; Z79.84 Long term (current) use of oral hypoglycemic drugs; K21.9 Gastro-esophageal reflux disease without esophagitis; Z79.899 Other long term (current) drug therapy
CPT/HCPCS: 99282; A4216

== ENCOUNTER 2023-10-27 16:40 | Inpatient (IN) | payer BC, SELFPAY ==
[2023-10-27] VITALS (10 sets, daily range): BP systolic 98–162; BP diastolic 63–98; PULSE 84–110; RESP 15–26; TEMP 36.4–36.9; O2SAT 96–98; BMI 28.5; BMI 25.8
--- NOTE | 2023-10-27 18:15 | EDS_ITS ---
HPI History of Present Illness Chief Complaint: Wound Check Informant: patient and spouse/S.O. Narrative Narrative: 63-year-old male presenting to the emergency room with a chief complaint of concerns for surgical incision infection. Patient was seen in the emergency room yesterday. He has noted to have lumbar surgery with Dr. Jhaveri for October of this year: 1. L4-5 posterior lumbar interbody fusion 2. L5-S1 posterior lumbar interbody fusion 3. Insertion of intervertebral biomechanical device x 2 4.. Structural allograft for spinal fusion 5. L4 bilateral laminectomies, foraminotomies, facetectomies, decompression of bilateral nerve roots 6. L5 bilateral laminectomies, foraminotomies, facetectomies, decompression of bilateral nerve roots 7. L3-4, L4-5, L5-S1 posterolateral fusion 8. Pedicle screw fixation L3-4, L4-5, and L5-S1 9. Local autograft for spinal fusion The patient's notes that she noticed some increased drainage today particularly after a shower. He is a diabetic. Have not spoken with Dr. Jhaveri. He has had 4 doses of Keflex which was prescribed yesterday. [facility] Medical History Arthritis Asthma Back pain Blackout Diabetes Dietary restriction Gastric reflux High cholesterol History of echocardiogram History of irregular heartbeat History of pain when walking Injury of head and neck Leg cramps Low iron Non-smoker Prostate disease Shortness of breath on exertion Wears glasses Home Medications albuterol sulfate 90 mcg/actuation aerosol inhaler 1 inh inhalation PRN PRN shortness of breath or wheezing 09/16/23 [History Last Taken Unknown] cetirizine 5 mg-pseudoephedrine ER 120 mg tablet,extended release,12hr (All Day Allergy-D) 1 tab PO DAILY 09/16/23 [History Last Taken Unknown] doxazosin 8 mg tablet 8 mg PO DAILY 09/16/23 [History Last Taken 10/10/23 04:45] dulaglutide 1.5 mg/0.5 mL subcutaneous pen injector (Trulicity) 1.5 mg subcut JALLOH 09/16/23 [History Last Taken Unknown] fluticasone furoate 100 mcg/actuation blister powder for inhalation (Arnuity Ellipta) 1 inh inhalation DAILY 09/16/23 [History Last Taken 10/10/23 04:45] gabapentin 100 mg capsule 100 mg PO BID 09/16/23 [History Last Taken Unknown] loratadine 10 mg capsule 10 mg PO DAILY 09/16/23 [History Last Taken Unknown] metformin 1,000 mg tablet 500 mg PO BID 09/16/23 [History Last Taken Unknown] montelukast 10 mg tablet 10 mg PO QHS 09/16/23 [History Last Taken Unknown] omeprazole 20 mg capsule,delayed release 20 mg PO BID 09/16/23 [History Last Taken 10/10/23 04:45] pravastatin 40 mg tablet 40 mg PO QHS 09/16/23 [History Last Taken Unknown] hydrocodone-acetaminophen 5-325mg 5mg-325mg 1 tab PO Q6H 7 days #28 tabs 10/10/23 [Rx Last Taken Unknown] cephalexin 500 mg capsule 500 mg PO Q8H 7 days #21 caps 10/26/23 [Rx Last Taken Unknown] Allergy/AdvReac Type Severity Reaction Status Date / Time No Known Allergies Allergy Verified 10/27/23 16:41 Family History Other CVA (cerebral vascular accident) Diabetes Surgical History Hx of colonoscopy Hx of tonsillectomy Social History Smoking Status: Never smoker ROS ROS ED Constitutional Constitutional ED: Denies chills, fever(s) or weight loss Eyes Eyes: Denies change in vision or diplopia ENT ENT ED: Denies ear pain, rhinorrhea or sore throat Cardiovascular Cardiovascular: Denies chest pain, orthopnea, palpitations or racing heartbeat Respiratory/Chest Respiratory/Chest: Denies cough, dyspnea or orthopnea Gastrointestinal Gastrointestinal: Denies abdominal pain, diarrhea, nausea or vomiting Genitourinary Genitourinary ED: Denies dysuria, hematuria or urinary frequency Musculoskeletal Musculoskeletal: Reports back pain and other; Denies arthralgias or myalgias Integumentary Reports other Details: Surgical incision and drainage ; Denies abscess or rash Neurologic Neurologic: Denies headache(s) or weakness Psychiatric Psychiatric: Denies anxiety, depression, suicidal ideation or suicidal thoughts Endocrine Endocrinology: Denies polydipsia, polyphagia or polyuria Allergic/Immunologic Allergic/Immunologic ED: Denies mouth swelling, tongue swelling or urticaria EXAM Physical Exam Const Vital Signs: 10/27/23 16:41 10/27/23 16:41 10/27/23 17:46 Temperature 97.8 F 97.8 F 98.2 F Temperature Source Temporal Temporal Oral Pulse Rate 110 H 110 H 95 Respiratory Rate 18 18 16 Blood Pressure 126/65 H 126/65 H 154/63 H Blood Pressure Mean 85 85 93 Pulse Ox 97 97 97 Oxygen Delivery Method Room Air Room Air Room Air 10/27/23 17:59 10/27/23 18:59 10/27/23 19:19 Temperature 98.3 F 98.5 F 98.2 F Temperature Source Oral Oral Oral Pulse Rate 98 88 87 Respiratory Rate 16 16 17 Blood Pressure 146/67 H 124/76 H 121/98 H Blood Pressure Mean 93 92 105 Pulse Ox 97 96 97 Oxygen Delivery Method Room Air Room Air Room Air Positive well nourished and well developed General Appearance ED: well developed HEENT Reports normocephalic, head/scalp atraumatic and moist mucous membranes Eyes PERRL and EOMs intact bilaterally Neck no lymphadenopathy, supple and no JVD Resp normal respiratory effort and clear to auscultation bilaterally Cardio regular rate, regular rhythm and no murmurs Rate: tachycardic GI normal to inspection, nondistended, normoactive bowel sounds and non-tender Palpation: soft Back/Spine no CVA tenderness Extremity normal to inspection General Extremety ED: Negative for edema General Extremity: Negative for edema Neuro oriented x3 and CN's II-XII intact bilaterally Sensorium / Orientation: alert Motor Exam: strength 5/5 throughout Psych mental status grossly normal Mood & Affect: Negative for depressed or tearful Skin no rashes or lesions noted Skin Narrative: The skin lumbar surgical midline incision shows some mild erythema of the incise skin but the surrounding tissue is not erythematous. There are some mild edema of the incision. Once I remove the dressing there presents to be spontaneously draining from the cephalad and inferior points of the incision. The cephalad incision continue to drain. A new dressing was applied. Mild increased warmth. MDM MDM MDM Narrative Medical decision making narrative: After evaluating the patient I spoke with Dr. Jhaveri who is coming to the emergency room to see the patient. White count 8.6 with 78.4 neutrophils. ESR is 58 CRP is 79.1 glucose 325 ALT is 70 creatinine 0.91. Blood cultures were obtained. Wound culture was obtained from the drainage. Dressing was reapplied. Patient has been able to ambulate to the bathroom on his own. He received vancomycin and Zosyn after discussion of antibiotics with Dr. Jhaveri. Hospitalist has been consulted for medical management. Plan is admission. History & Record Review Discussion w/independent historian: Patient and Significant other Additional record(s) reviewed:: Prior inpatient record and Prior labs Lab Data Attestation: I reviewed the patient's lab results. Labs: Laboratory Results - last 24 hr 10/27/23 18:15 WBC 8.6 RBC 3.30 L Hgb 9.9 L Hct 28.4 L MCV 86.1 MCH 30.0 MCHC 34.9 RDW Std Deviation 38.3 RDW Coeff of Jacob 12.1 Plt Count 595 H MPV 8.8 Immature Gran % (Auto) 0.900 Neut % (Auto) 78.4 H Lymph % (Auto) 9.0 L [place] % (Auto) 10.7 H Eos % (Auto) 0.5 Baso % (Auto) 0.5 Absolute Neuts (auto) 6.8 Absolute Lymphs (auto) 0.78 L Nucleated RBC % 0 ESR 58 H Sodium 128 L Potassium 3.8 Chloride 96 L Carbon Dioxide 24.0 Anion Gap 8 BUN 14 Creatinine 0.91 Estim Creat Clear Calc 86.60 Est GFR (MDRD) Af Amer 109 Est GFR (MDRD) Non-Af 90 BUN/Creatinine Ratio 15.4 Glucose 325 H Calcium 8.8 Total Bilirubin 0.50 Direct Bilirubin 0.19 AST 24 ALT 70 H Alkaline Phosphatase 90 C-React Prot Ext Range 79.10 H Total Protein 7.2 Albumin 2.7 L Globulin 4.5 H Management Discussion w/another healthcare provider: Hospitalist (Dr. Sanchez) and [place] [employer] (Dr Jhaveri) Discharge Plan Triage Chief Complaint: Wound Check ED Provider: Rashad Moore Dx/Rx/DC Orders Primary Care Provider: Meliton Rosado
[2023-10-27 18:27] LABS: Absolute Lymphocyte Count 0.78 X10^3/uL (0.83-4.51); Absolute Neutrophil Count 6.8 X10^3/uL (2.0-7.7); Basophil# 0.04 X10^3/uL; Basophil% 0.5 % (0-1); Eosinophil# 0.04 X10^3/uL; Eosinophils% 0.5 % (0-5); Hematocrit 28.4 % (40-54); Hemoglobin 9.9 g/dL (13.0-16.5); Lymphocyte # 0.78 X10^3/ul (0.83-4.51); Mean Corp Hgb Conc 34.9 g/dL (32-36); Mean Corpuscular Volume 86.1 fL (80-94); Mean Platelet Vol. 8.8 fl (6.2-12.0); Monocyte# 0.92 X10^3/uL; Monocyte% 10.7 % (0-10); NRBC Flagged by Analyzer 0 % (0-5); Neutrophil # 6.77 X10^3/uL (2.7-7.7); Neutrophil % 78.4 % (47-70); Platelet Count 595 K/mm3 (150-450); RBC Distribution Width CV 12.1 % (11.6-14.6); RBC Distribution Width SD 38.3 fl (35.1-43.9); White Blood Count 8.6 K/mm3 (4.4-11.0)
[2023-10-27 18:30] LABS: Erythrocyte Sedimentation Rate 58 mm/hr (0-20)
[2023-10-27] MEDS: Piperacil/Tazobactam 4.5 GM in 0.9% Normal Saline (100mL MB+) 100 ML IV (18:42)
[2023-10-27 18:49] LABS: AST(SGOT) 24 U/L (15-37); Alanine Aminotransfer ALT/SGPT 70 U/L (16-61); Albumin, Serum 2.7 g/dL (3.2-5.0); Alkaline Phosphatase 90 U/L (45-117); Anion Gap 8 (5-15); BUN 14 mg/dL (7-18); BUN/Creat Ratio 15.4 RATIO (10-20); Bilirubin, Direct 0.19 mg/dL (0.00-0.30); Calcium,Total 8.8 mg/dL (8.5-10.1); Chloride 96 mmol/L (98-107); Creatinine, Serum 0.91 mg/dL (0.70-1.30); EST Glomerular Filtration Rate 90 mL/min (>60); Est Glom Filt Rate - Afr Amer 109 mL/min (>60); Globulin 4.5 g/dL (2.2-4.2); Glucose 325 mg/dL (74-106); Potassium 3.8 mmol/L (3.5-5.1); Protein, Total 7.2 g/dL (6.4-8.2); Sodium Level 128 mmol/L (136-145)
--- NOTE | 2023-10-27 19:21 | PN.HOSP_ITS ---
Reason for Visit Reason for Visit: Surgical site infection Subjective Subjective 63-year-old male with history of type 2 diabetes, asthma presenting for concerns regarding surgical incisions site infection. He underwent L4-L5 posterior lumbar interbody fusion on 10/10/2023. Internal medicine team has been consulted for management of his medications during the perioperative period. He was examined in ED. Presented to the ED for concerns of worsening back pa in and discharge from his surgical site. Feels that his diabetes is overall well controlled. No significant cardiac history. Has a history of asthma but not on any home oxygen. Overall, no concerns other that the pain Objective Data Objective Data Vital Signs: Vital Signs Temp Pulse Resp BP Pulse Ox O2 Del Method 98.2 F 87 17 121/98 H 97 Room Air 10/27/23 19:19 10/27/23 19:19 10/27/23 19:19 10/27/23 19:19 10/27/23 19:19 10/27/23 19:19 Oxygen Delivery Method Room Air Weight: 182 lb 5.156 oz Body Mass Index (BMI) 28.5 Intake & Output: Intake and Output for Last 24 Hours 10/25/23 10/26/23 10/27/23 23:59 23:59 23:59 Intake Total 100 / 100 Balance 100 / 100 Lab / Micro Data Attestation: I reviewed the patient's lab results. 10/27/23 18:15 10/27/23 18:15 Labs: Laboratory Results - last 24 hr 10/27/23 18:15: WBC 8.6, RBC 3.30 L, Hgb 9.9 L, Hct 28.4 L, MCV 86.1, MCH 30.0, MCHC 34.9, RDW Std Deviation 38.3, RDW Coeff of Jacob 12.1, Plt Count 595 H, MPV 8.8, Immature Gran % (Auto) 0.900, Neut % (Auto) 78.4 H, Lymph % (Auto) 9.0 L, [place] % (Auto) 10.7 H, Eos % (Auto) 0.5, Baso % (Auto) 0.5, Absolute Neuts (auto) 6.8, Absolute Lymphs (auto) 0.78 L, Nucleated RBC % 0, ESR 58 H, Sodium 128 L, Potassium 3.8, Chloride 96 L, Carbon Dioxide 24.0, Anion Gap 8, BUN 14, Creatinine 0.91, Estim Creat Clear Calc 86.60, Est GFR (MDRD) Af Amer 109, Est GFR (MDRD) Non-Af 90, BUN/Creatinine Ratio 15.4, Glucose 325 H, Calcium 8.8, To zulma Bilirubin 0.50, Direct Bilirubin 0.19, AST 24, ALT 70 H, Alkaline Phospha tase 90, C-React Prot Ext Range 79.10 H, Total Protein 7.2, Albumin 2.7 L, Globulin 4.5 H Physical Exam Const alert and oriented x3 HEENT head/scalp atraumatic Eyes PERRL Neck no lymphadenopathy Resp normal respiratory effort Cardio regular rate GI normal to inspection, nondistended, normoactive bowel sounds Extremity normal to inspection Extremity Narrative: Back examination: Surgical site dressing is dry, LANDEN suture site inflamed and swollen, mild leakage of pus from the lower border of the suture Neuro oriented x3 Assessment & Plan Assessment/Plan (1) History of back surgery: PLAN: Plan 63-year-old male presents to the ED for concerns regarding surgical site infection as it being planned for drainage tomorrow morning. He has a history of type 2 diabetes that is controlled with metformin and Trulicity. #Type 2 diabetes: -Hold metformin while inpatient -Sliding scale insulin to control target glucose 140 to 180 mg/dL #Chronic mild persistent asthma: -Patient on Ellipta Anoro at home, changed to Pulmicort aerosol -Incentive spirometry #Peripheral neuropathy: Continue gabapentin #GERD: PPI omeprazole continue same #Dyslipidemia: Continue pravastatin 40 mg daily #DVT prophylaxis: After the surgery can be started on heparin as deemed appropriate by the surgery team
[2023-10-27] MEDS: Vancomycin HCl 2,000 MG in 0.9% Normal Saline (500mL Bag) 500 ML 250 MG IV (19:31)
--- NOTE | 2023-10-27 20:26 | HP.PCM_ITS ---
HPI - General General Date of Admission: 10/27/23 Date of Service: 10/27/23 HPI Narrative The patient is a 63-year-old male who underwent L3-S1 fusion on 10/10/2023. He is accompanied by his who contributed to the medical history. He states that Saturday he noticed drainage coming from his incision. They did present to the ER yesterday for evaluation and were subsequently discharged home. However drainage persisted and they return to the ER today. He denies any fever chills nausea or vomiting. He does have some mild pain and stiffness in the back which is manageable. He does complain of mild episodic paresthesias in the lower extremities which are not present at this time. [facility] Medical History Arthritis Asthma Back pain Blackout Diabetes Dietary restriction Gastric reflux High cholesterol History of echocardiogram History of irregular heartbeat History of pain when walking Injury of head and neck Leg cramps Low iron Non-smoker Prostate disease Shortness of breath on exertion Wears glasses Home Medications albuterol sulfate 90 mcg/actuation aerosol inhaler 1 inh inhalation PRN PRN shortness of breath or wheezing 09/16/23 [History Last Taken Unknown] cetirizine 5 mg-pseudoephedrine ER 120 mg tablet,extended release,12hr (All Day Allergy-D) 1 tab PO DAILY 09/16/23 [History Last Taken Unknown] doxazosin 8 mg tablet 8 mg PO DAILY 09/16/23 [History Last Taken 10/10/23 04:45] dulaglutide 1.5 mg/0.5 mL subcutaneous pen injector (Trulicity) 1.5 mg subcut JALLOH 09/16/23 [History Last Taken Unknown] fluticasone furoate 100 mcg/actuation blister powder for inhalation (Arnuity Ellipta) 1 inh inhalation DAILY 09/16/23 [History Last Taken 10/10/23 04:45] gabapentin 100 mg capsule 100 mg PO BID 09/16/23 [History Last Taken Unknown] loratadine 10 mg capsule 10 mg PO DAILY 09/16/23 [History Last Taken Unknown] metformin 1,000 mg tablet 500 mg PO BID 09/16/23 [History Last Taken Unknown] montelukast 10 mg tablet 10 mg PO QHS 09/16/23 [History Last Taken Unknown] omeprazole 20 mg capsule,delayed release 20 mg PO BID 09/16/23 [History Last Taken 10/10/23 04:45] pravastatin 40 mg tablet 40 mg PO QHS 09/16/23 [History Last Taken Unknown] hydrocodone-acetaminophen 5-325mg 5mg-325mg 1 tab PO Q6H 7 days #28 tabs 10/10/23 [Rx Last Taken Unknown] cephalexin 500 mg capsule 500 mg PO Q8H 7 days #21 caps 10/26/23 [Rx Last Taken Unknown] Allergy/AdvReac Type Severity Reaction Status Date / Time No Known Allergies Allergy Verified 10/27/23 16:41 Family History Other CVA (cerebral vascular accident) Diabetes Surgical History Hx of colonoscopy Hx of tonsillectomy Social History Smoking Status: Never smoker Vital Signs Vital Signs Vital Signs: 10/27/23 16:41 10/27/23 16:41 10/27/23 17:46 Temperature 97.8 F 97.8 F 98.2 F Temperature Source Temporal Temporal Oral Pulse Rate 110 H 110 H 95 Respiratory Rate 18 18 16 Blood Pressure 126/65 H 126/65 H 154/63 H Blood Pressure Mean 85 85 93 Pulse Ox 97 97 97 Oxygen Delivery Method Room Air Room Air Room Air 10/27/23 17:59 10/27/23 18:59 10/27/23 19:19 Temperature 98.3 F 98.5 F 98.2 F Temperature Source Oral Oral Oral Pulse Rate 98 88 87 Respiratory Rate 16 16 17 Blood Pressure 146/67 H 124/76 H 121/98 H Blood Pressure Mean 93 92 105 Pulse Ox 97 96 97 Oxygen Delivery Method Room Air Room Air Room Air Weight Weight: 182 lb 5.156 oz Body Mass Index (BMI) 28.5 Physical Exam Const alert, oriented x3 and no apparent distress General Appearance: cooperative, comfortable and well kempt Neck full ROM General: normal visual inspection Chest inspection of chest normal and palpation of chest normal Resp normal respiratory effort and normal air movement Effort and Inspection: able to speak in complete sentences Cardio regular rate, regular rhythm and peripheral pulses 2+ throughout GI soft to palpation, non-tender and non-distended Back/Spine Back/Spine Narrative: Back dressing clean dry and intact. There is a 6 inch vertical incision in the lumbar midline that is well-approximated with interrupted sutures in place. Mild erythema. Scant purulent drainage able to be expressed from the superior and inferior corners of the incision. Minimal tenderness. No fluctuance Cervical Spine: cervical ROM normal Thoracic Spine / Upper Back: normal to inspection Lumbar Spine / Lower Back: normal to inspection Extremity normal to inspection, full ROM, normal capillary refill, no clubbing, cyanosis or edema and no calf tenderness Skin no rashes or lesions noted General Skin Exam: no breakdown Neuro oriented x3, CN's II-XII intact bilaterally, moves all extremities, no focal motor deficits, no sensory deficits noted and deep tendon reflexes 2+ bilaterally Motor Exam: strength 5/5 throughout and muscle tone normal throughout Results Lab / Micro Data 10/27/23 18:15 10/27/23 18:15 Labs: Laboratory Results - last 24 hr 10/27/23 18:15: WBC 8.6, RBC 3.30 L, Hgb 9.9 L, Hct 28.4 L, MCV 86.1, MCH 30.0, MCHC 34.9, RDW Std Deviation 38.3, RDW Coeff of Jacob 12.1, Plt Count 595 H, MPV 8.8, Immature Gran % (Auto) 0.900, Neut % (Auto) 78.4 H, Lymph % (Auto) 9.0 L, Henry % (Auto) 10.7 H, Eos % (Auto) 0.5, Baso % (Auto) 0.5, Absolute Neuts (auto) 6.8, Absolute Lymphs (auto) 0.78 L, Nucleated RBC % 0, ESR 58 H, Sodium 128 L, Potassium 3.8, Chloride 96 L, Carbon Dioxide 24.0, Anion Gap 8, BUN 14, Creatinine 0.91, Estim Creat Clear Calc 86.60, Est GFR (MDRD) Af Amer 109, Est GFR (MDRD) Non-Af 90, BUN/Creatinine Ratio 15.4, Glucose 325 H, Calcium 8.8, Total Bilirubin 0.50, Direct Bilirubin 0.19, AST 24, ALT 70 H, Alkaline Phosphatase 90, C-React Prot Ext Range 79.10 H, Total Protein 7.2, Albumin 2.7 L , Globulin 4.5 H Assessment & Plan Assessment/Plan (1) Postoperative wound infection: PLAN: I had a lengthy discussion with the patient. He does appear to have purulent drainage coming from his back incision. After discussing the risk benefits and alternatives and answering all of his questions I recommend lumbar irrigation debridement, wound exploration with primary closure versus wound VAC placement. We discussed the procedure in detail along with expected outcome and recovery and he agrees to proceed. We will get him admitted and plan to return to the OR tomorrow. The hospitalist has been consulted for medical management. He understands and agrees with treatment plan (2) Lumbar stenosis:
[2023-10-27] MEDS: Acetaminophen 500 MG Tablet 1000 MG PO (22:39)
[2023-10-27] MEDS: Montelukast 10 MG Tablet PO (22:41)
[2023-10-27] MEDS: Pantoprazole Sodium 20 MG Tablet PO (22:41)
[2023-10-27] MEDS: metFORMIN HCl 1,000 MG Tablet 500 MG PO (22:41)
[2023-10-27] MEDS: Pravastatin 40 MG Tablet PO (22:42)
[2023-10-27] MEDS: Gabapentin 100 MG Capsule PO (22:52)
[2023-10-27] MEDS: Lactated Ringers 1,000 ML 100 ML IV (22:58)
[2023-10-28] VITALS (18 sets, daily range): BP systolic 97–179; BP diastolic 53–79; PULSE 76–100; RESP 14–18; TEMP 36.2–37; O2SAT 92–97; BMI 25.8
[2023-10-28] MEDS: oxyCODONE 5 MG Tablet PO (03:24)
--- NOTE | 2023-10-28 05:00 | EKG12_ITS ---
Test Reason : AM EKG Blood Pressure : / mmHG Vent. Rate : 087 BPM Atrial Rate : 087 BPM P-R Int : 148 ms QRS Dur : 086 ms QT Int : 378 ms P-R-T Axes : 048 046 040 degrees QTc Int : 454 ms Normal sinus rhythm Normal ECG No previous ECGs available Confirmed by DEBI HIGGINS, ANIYAH ([id number]), health editor JUAN MEYERS ([id number]) on 11/04/2023 1:14:03 PM Referred By: ANTONIO Confirmed By:MODE CARRERA MD
[2023-10-28 05:46] LABS: Absolute Lymphocyte Count 0.77 X10^3/uL (0.83-4.51); Absolute Neutrophil Count 6.8 X10^3/uL (2.0-7.7); Basophil# 0.03 X10^3/uL; Basophil% 0.3 % (0-1); Eosinophil# 0.05 X10^3/uL; Eosinophils% 0.6 % (0-5); Hematocrit 27.6 % (40-54); Hemoglobin 9.4 g/dL (13.0-16.5); Lymphocyte # 0.77 X10^3/ul (0.83-4.51); Lymphocyte % 8.9 % (19-41); Mean Corp Hgb Conc 34.1 g/dL (32-36); Mean Corpuscular Hgb 29.3 pg (27.0-32.0); Monocyte# 0.85 X10^3/uL; Monocyte% 9.9 % (0-10); NRBC Flagged by Analyzer 0 % (0-5); Neutrophil # 6.82 X10^3/uL (2.7-7.7); Neutrophil % 79.3 % (47-70); Platelet Count 516 K/mm3 (150-450); RBC Distribution Width CV 12.1 % (11.6-14.6); RBC Distribution Width SD 37.8 fl (35.1-43.9); Red Blood Count 3.21 M/mm3 (4.6-6.2); White Blood Count 8.6 K/mm3 (4.4-11.0)
[2023-10-28 06:23] LABS: Anion Gap 9 (5-15); BUN 10 mg/dL (7-18); BUN/Creat Ratio 14.4 RATIO (10-20); Calcium,Total 8.3 mg/dL (8.5-10.1); Chloride 98 mmol/L (98-107); Creatinine, Serum 0.69 mg/dL (0.70-1.30); EST Glomerular Filtration Rate 123 mL/min (>60); Est Glom Filt Rate - Afr Amer 148 mL/min (>60); Estimated Creatinine Clearance 100.17 ml/min; Glucose 250 mg/dL (74-106); Potassium 3.8 mmol/L (3.5-5.1); Sodium Level 130 mmol/L (136-145)
[2023-10-28] MEDS: Budesonide Respules 0.5 MG/2 ML AMPUL.NEB. INHALATION ×2 (06:59→20:19)
--- NOTE | 2023-10-28 07:00 | NURSING ---
PT HAS AMBULATED AROUND LONG HALLS X 4 TIMES WITH SLOW STEADY GAIT. PT DOES REPORT SOME NUMBNESS TO BILAT LOWER EXTREMITIES.
[2023-10-28 07:02] LABS: Bedside Glucose 227 mg/dL (74-106)
[2023-10-28 07:38] LABS: Hemoglobin A1c 8.4 % (3.8-5.6)
[2023-10-28] MEDS: Acetaminophen 500 MG Tablet 1000 MG PO ×3 (07:53→21:46)
[2023-10-28] MEDS: Pantoprazole Sodium 20 MG Tablet PO ×2 (07:54→21:46)
[2023-10-28] MEDS: Doxazosin 4 MG Tablet 8 MG PO (07:54)
[2023-10-28] MEDS: Loratadine 10 MG Tablet PO (07:54)
[2023-10-28] MEDS: Gabapentin 100 MG Capsule PO ×2 (07:56→21:46)
[2023-10-28] MEDS: Lactated Ringers 1,000 ML 100 ML IV ×2 (07:59→16:53)
--- NOTE | 2023-10-28 08:44 | WOUNDNOTE ---
Received call form Dr Jhaveri. Dr Jhaveri plans to take patient to surgery today for an I&D of the lumbar incision. plan is to leave incision open and place a wound VAC. home VAC authorization started. will discuss with case management for home health care for dressing changes.
--- NOTE | 2023-10-28 09:23 | PCM.OPRPT ---
Problems Associated Problem List Diagnoses (1) History of back surgery: (2) Postoperative wound infection: (3) Lumbar stenosis: Report of Operation Date of Procedure: 10/28/23 Pre-Operative Diagnosis: 1. Postoperative wound infection, lumbar Post-Operative Diagnosis: 1. Postoperative wound infection, lumbar Surgery/Procedure Performed:: 1. Lumbar irrigation, debridement, wound exploration 2. Application of wound VAC Description of Surgical Findings:: Statement of medical necessity: The patient is a 63-year-old male status post lumbar fusion who presented to the ER with wound drainage. It was determined that he had a postoperative lumbar wound infection. They have opted for operative intervention understanding the risk to include but not limited to infection, bleeding, damage to nerves arteries and veins, possibility of spinal fluid leak, nonunion, hardware failure, continued pain, need for further surgery, deep vein thrombosis, pulmonary embolism, heart attack, risk of stroke or . Description of the procedure: The patient was identified in the preoperative holding area. There they received preoperative IV antibiotics and was then transferred to the operative suite. Once in the operative suite after general endotracheal anesthesia was established, the patient was positioned prone on the [facility] operating table. All bony prominences were padded accordingly. The lumbar spine was prepped and draped in a standard fashion. Bear hugger's were not turned on until the drapes were placed and sealed with Ioban. The previous midline lumbar incision was reopened. A moderate amount of purulent fluid was encountered and this was cultured. The incision was thoroughly irrigated. Any necrotic tissue was debrided including around the wound margins with a 15 blade scalpel. The fascia was inspected and found to have a 1 cm rent at the superior incision. The fascia was reopened. A small amount of purulent fluid was encountered. A second set of cultures were taken of this. The wound was then thoroughly irrigated with 6 L of saline through a pulse fire extinguisher tester. The wound was then inspected. No further necrotic tissue or purulent material was found. The fascia was closed with #1 PDS. A wound VAC was then applied to the lumbar incision. Sponge instrument and needle counts were correct at the end of the case. The patient was extubated and taken to the PACU without incident Surgeon: Rolf Jhaveri Type of Anesthesia: General Estimated Blood Loss (mL): 30 cc Fluids Replaced: 1000 cc Complications None Admit VTE Documentation VTE Present on Admission: No
--- NOTE | 2023-10-28 09:28 | DS.PCM_ITS ---
Providers Date of Admission: 10/27/23 Primary Care Physician: Dr. Meliton Rosado, Consultations 10/27/23 20:31 Consult: Hospitalist Routine Consulting Provider: Agustin Saavedra Reason for Consult: Medical Management EMERGENT Consult: No MD Notified: Yes Date Notified: 10/27/23 Time Notified: 20:31 Method of Notification: ED Physician Initiated Reason For Visit: POST OP INFECTION Diagnosis Discharge Diagnosis (1) History of back surgery: Status: Acute Code(s): Z98.890 - Other specified postprocedural states (2) Postoperative wound infection: Status: Acute Code(s): T81.49XA - Infection following a procedure, other surgical site, initial encounter Plan: I had a lengthy discussion with the patient. He does appear to have purulent drainage coming from his back incision. After discussing the risk benefits and alternatives and answering all of his questions I recommend lumbar irrigation debridement, wound exploration with primary closure versus wound VAC placement. We discussed the procedure in detail along with expected outcome and recovery and he agrees to proceed. We will get him admitted and plan to return to the OR tomorrow. The hospitalist has been consulted for medical management. He understands and agrees with treatment plan (3) Lumbar stenosis: Status: Acute Code(s): M48.061 - Spinal stenosis, lumbar region without neurogenic claudication Medications at Discharge Home Medications albuterol sulfate 90 mcg/actuation aerosol inhaler 1 inh inhalation PRN PRN shortness of breath or wheezing 09/16/23 cetirizine 5 mg-pseudoephedrine ER 120 mg tablet,extended release,12hr (All Day Allergy-D) 1 tab PO DAILY 09/16/23 doxazosin 8 mg tablet 8 mg PO DAILY bladder 09/16/23 dulaglutide 1.5 mg/0.5 mL subcutaneous pen injector (Trulicity) 3 mg subcut JALLOH diabetes 09/16/23 fluticasone furoate 100 mcg/actuation blister powder for inhalation (Arnuity Ellipta) 1 inh inhalation DAILY asthma 09/16/23 gabapentin 100 mg capsule 100 mg PO BID nerve release 09/16/23 loratadine 10 mg capsule 10 mg PO DAILY allergies 09/16/23 metformin 1,000 mg tablet 500 mg PO BID sugar 09/16/23 montelukast 10 mg tablet 10 mg PO DAILY asthma 09/16/23 omeprazole 20 mg capsule,delayed release 20 mg PO BID acid reflux 09/16/23 pravastatin 40 mg tablet 40 mg PO QHS cholesterol 09/16/23 hydrocodone-acetaminophen 5-325mg 5mg-325mg 1 tab PO Q6H 7 days #28 tabs 10/28/23 Hospital Course Operations - (Lumbar irrigation, debridement, wound exploration, application of wound VAC) Summary of Care Provided Minutes Spent on Discharge: 15 Hospital Course: The patient is a 63-year-old male who underwent lumbar irrigation, debridement, wound exploration, application of wound VAC for postoperative lumbar wound infection after lumbar fusion surgery. The hospitalist was consulted for medical management. Wound care was consulted for arrangement of home health for wound VAC changes. The patient progressed well. His pain was controlled and he was mobilizing well. He was subsequently discharged home on 10/29/2023 to follow-up with Dr. Jhaveri in 3 weeks Physical Exam Const alert, oriented x3 and no apparent distress General Appearance: cooperative, comfortable and well kempt HEENT normocephalic and head/scalp atraumatic Head and Scalp: normal to inspection Eyes EOMs intact bilaterally and conjunctivae normal Neck full ROM General: normal visual inspection Chest inspection of chest normal and palpation of chest normal Resp normal respiratory effort and normal air movement Effort and Inspection: able to speak in complete sentences Cardio regular rate and peripheral pulses 2+ throughout GI soft to palpation, non-tender and non-distended Back/Spine Back/Spine Narrative: Wound VAC in place and functioning in the lumbar region. No erythema or tenderness Cervical Spine: cervical ROM normal Thoracic Spine / Upper Back: normal to inspection Lumbar Spine / Lower Back: normal to inspection Extremity normal to inspection, full ROM, normal capillary refill, no clubbing, cyanosis or edema and no calf tenderness Skin no rashes or lesions noted General Skin Exam: no breakdown Neuro oriented x3, CN's II-XII intact bilaterally, moves all extremities, no focal motor deficits, no sensory deficits noted and deep tendon reflexes 2+ bilaterally Motor Exam: strength 5/5 throughout and muscle tone normal throughout Weight / BMI Weight Weight: 160 lb 4.417 oz Body Mass Index (BMI) 25.8 ABG / Lab / Microbiology Data 10/28/23 05:19 10/28/23 05:19 Laboratory: Laboratory Results - last 24 hr 10/27/23 18:15: WBC 8.6, RBC 3.30 L, Hgb 9.9 L, Hct 28.4 L, MCV 86.1, MCH 30.0, MCHC 34.9, RDW Std Deviation 38.3, RDW Coeff of Jacob 12.1, Plt Count 595 H, MPV 8.8, Immature Gran % (Auto) 0.900, Neut % (Auto) 78.4 H, Lymph % (Auto) 9.0 L, [place] % (Auto) 10.7 H, Eos % (Auto) 0.5, Baso % (Auto) 0.5, Absolute Neuts (auto) 6.8, Absolute Lymphs (auto) 0.78 L, Nucleated RBC % 0, ESR 58 H, Sodium 128 L, Potassium 3.8, Chloride 96 L, Carbon Dioxide 24.0, Anion Gap 8, BUN 14, Creatinine 0.91, Estim Creat Clear Calc 86.60, Est GFR (MDRD) Af Amer 109, Est GFR (MDRD) Non-Af 90, BUN/Creatinine Ratio 15.4, Glucose 325 H, Calcium 8.8, Total Bilirubin 0.50, Direct Bilirubin 0.19, AST 24, ALT 70 H, Alkaline Phosphatase 90, C-React Prot Ext Range 79.10 H, Total Protein 7.2, Albumin 2.7 L , Globulin 4.5 H 10/28/23 05:19: WBC 8.6, RBC 3.21 L, Hgb 9.4 L, Hct 27.6 L, MCV 86.0, MCH 29.3, MCHC 34.1, RDW Std Deviation 37.8, RDW Coeff of Jacob 12.1, Plt Count 516 H, MPV 9.0, Immature Gran % (Auto) 1.000 H, Neut % (Auto) 79.3 H, Lymph % (Auto) 8.9 L, [place] % (Auto) 9.9, Eos % (Auto) 0.6, Baso % (Auto) 0.3, Absolute Neuts (auto) 6.8, Absolute Lymphs (auto) 0.77 L, Nucleated RBC % 0, Sodium 130 L, Potassium 3.8, Chloride 98, Carbon Dioxide 23.0, Anion Gap 9, BUN 10, Creatinine 0.69 L, Estim Creat Clear Calc 100.17, Est GFR (MDRD) Af Amer 148, Est GFR (MDRD) Non-Af 123, BUN/Creatinine Ratio 14.4, Glucose 250 H, Hemoglobin A1c 8.4 H, Calcium 8.3 L 10/28/23 06:43: POC Glucose 227 H Microbiology: Microbiology 10/27/23 17:50 Wound - Back Gram Stain - Final D/C Instructions Discharge Diet: No restrictions Additional Activity Instructions: No repetitive bending twisting or lifting greater than 5 pounds. Wear back brace at all times Call your doctor if your incision/area has: Continuous Slow Oozing, Sudden Incre ased Bleeding, Increased Pain/ Swelling, Increased Redness, Foul Smelling Discharge and Swelling at the incision site Call your doctor if you observe: Fever of 101 or Higher, Coldness, Increased Pain, Numbness or Tingling, Change in Color, Inability to urinate, Inability to have a bowel movement, Using more than 1 pad per hour, Shortness of breath, Dizziness, Fainting spells, Swelling in the ankles, Chest pain, Prolonged hiccupping, Increased palpitations (irregular heartbeat), Calf discomfort and Uncontrolled pain Additional Dressing/Incision Instructions: Keep wound VAC clean dry and intact Additional Instructions: 1. During your procedure, you received sedation through your IV. Please follow these instructions for the next 24 hours: Do not drive a motor vehicle, do not drink any alcoholic beverages, and do not sign any legal documents or make personal or business decisions. A responsible adult should stay with you at least 6 hours after the procedure. 2. Keep your wound VAC clean dry and intact. You may use an ice pack at the surgical site to reduce any swelling or discomfort. 3. Monitor the incision site for any signs or symptoms of infection. Watch for redness, excessive swelling or drainage, or continued pain at the incision site after 3 days. Contact your physician immediately for a fever, chills or a temperature of 101.5? F or greater. 4. Take your medication exactly as prescribed by your physician. Do not attempt to wean yourself off any of your medications even though your pain is improving. This process needs to be carefully monitored by your doctor. Take any antibiotics prescribed exactly as directed and until they are gone. 5. Avoid stretching, bending, pulling, twisting or any sudden movements. Do not bend or twist at the waist. Wear back brace at all times 6. No lifting greater than 5 pounds. 7. Do not operate a motor vehicle, equipment or a power tool while taking pain medication 8. Do not have any manipulation done by a chiropractor or any other physician without first consulting with the surgeon 9. Please contact our office if you are even scheduled for a CT scan or an MRI. 10. Please call us if you have any questions, problems or concerns. Please Follow Up With: Rolf Jhaveri DO When: 3 weeks Meaningful Use Info Meaningful Use Meaningful Use Diagnoses (Choose all that apply): None applicable Ischemic Stroke Statin Dosing Therapy Reference: STATIN DOSE THERAPY REFERENCE: * Patients > 75 years receive moderate or high dose statin therapy. * Patients 75 years or YOUNGER should receive HIGH intensity statin dose unless contraindicated. You will be required to document reason for non-treatment if statin daily dose does not meet guidelines. HIGH DOSE STATIN THERAPY DAILY Atorvastatin > than or = to 40 mg Rosuvastatin > than or = to 20 mg Amlodipine + Atorvastatin > than or = to 2.5/40 mg Ezetimibe + Simvastatin 10/80 mg Simvastatin 80mg Discharge Plan Admission Admit Date/Time: 10/27/23 20:34 Attending Provider: Rolf Jhaveri Primary Care Provider: Meliton Rosado Consulting Providers: Chavo Ryan; Denise Ortiz; Sarah Sanchez; Osiris Fournier; Roly Cunningham; Roly Santana; Rashad Kimble; Leland Poe; Glory Goyal; Dion Espino; Claudia Clark; Genaro Thao; Chandra Sainz; Juarez Lucia; Beth Oates; Bradley Killian Instructions Additional Instructions / Restrictions: 1. During your procedure, you received sedation through your IV. Please follow these instructions for the next 24 hours: Do not drive a motor vehicle, do not drink any alcoholic beverages, and do not sign any legal documents or make personal or business decisions. A responsible adult should stay with you at least 6 hours after the procedure. 2. Keep your wound VAC clean dry and intact. You may use an ice pack at the surgical site to reduce any swelling or discomfort. 3. Monitor the incision site for any signs or symptoms of infection. Watch for redness, excessive swelling or drainage, or continued pain at the incision site after 3 days. Contact your physician immediately for a fever, chills or a temperature of 101.5? F or greater. 4. Take your medication exactly as prescribed by your physician. Do not attempt to wean yourself off any of your medications even though your pain is improving. This process needs to be carefully monitored by your doctor. Take any antibiotics prescribed exactly as directed and until they are gone. 5. Avoid stretching, bending, pulling, twisting or any sudden movements. Do not bend or twist at the waist. Wear back brace at all times 6. No lifting greater than 5 pounds. 7. Do not operate a motor vehicle, equipment or a power tool while taking pain medication 8. Do not have any manipulation done by a chiropractor or any other physician without first consulting with the surgeon 9. Please contact our office if you are even scheduled for a CT scan or an MRI. 10. Please call us if you have any questions, problems or concerns. Discharge Orders/Prescriptions Prescriptions: New hydrocodone-acetaminophen 5-325 mg tablet 1 tab PO Q6H 7 Days Qty: 28 0RF Continued metformin 1,000 mg tablet 500 mg PO BID Patient Comments: TAKE 1 TABLET BY MOUTH TWICE A DAY Trulicity 1.5 mg/0.5 mL pen injector 3 mg SUBCUT JALLOH Patient Comments: INJECT 1.5MG UNDER THE SKIN ONCE WEEKLY albuterol sulfate 90 mcg/actuation HFA aerosol inhaler 1 inh INHALATION PRN PRN (Reason: shortness of breath or wheezing) Patient Comments: INHALE 2 PUFFS BY MOUTH 4 TIMES A DAY NEEDED doxazosin 8 mg tablet 8 mg PO DAILY Patient Comments: TAKE 1 TABLET BY MOUTH EVERY DAY montelukast 10 mg tablet 10 mg PO DAILY Patient Comments: TAKE ONE TABLET BY MOUTH EVERY DAY pravastatin 40 mg tablet 40 mg PO QHS Patient Comments: TAKE 1 TABLET BY MOUTH EVERY NIGHT AT BEDTIME loratadine 10 mg capsule 10 mg PO DAILY cetirizine-pseudoephedrine [All Day Allergy-D] 5-120 mg tablet extended relea se 12 hr 1 tab PO DAILY omeprazole 20 mg capsule,delayed release(DR/EC) 20 mg PO BID Patient Comments: TAKE 1 CAPSULE BY MOUTH TWICE A DAY BEFORE MEALS gabapentin 100 mg capsule 100 mg PO BID Patient Comments: TAKE 1 CAPSULE TWICE DAILY. MAY INCREASE BY 1 CAPSULE EVERY 3 DAYS, MAX OF TAKE 3 CAPSULES TWICE A DAY Arnuity Ellipta 100 mcg/actuation blister with device 1 inh INHALATION DAILY Patient Comments: INHALE 1 PUFF BY MOUTH DAILY (RINSE MOUTH AFTER) Discontinued hydrocodone-acetaminophen 5-325 mg tablet 1 tab PO Q6H PRN (Reason: pain) cephalexin 500 mg capsule 500 mg PO Q8H 7 Days Qty: 21 0RF Referrals / Follow Up: Meliton Rosado DO [Primary Care Provider] - Rolf Jhaveri DO [Med Staff - Active Staff] - Disposition Disposition (needs filled in before D/C Order can be placed): Home Health Service
--- NOTE | 2023-10-28 09:53 | PCM.PN.HOSP ---
Reason for Visit Reason for Visit: Purulent drainage from recent spinal incision Subjective Subjective Mr. Cantor is a 63-year-old white male who recently had a posterior interbody fusion at L4-L5 on 10/10/2023 and presented to the emergency department due to purulent drainage from the incision site. He denied any fever, chills, nausea, or vomiting but did have some mild pain and stiffness in the back which was manageable. He was complaining of some mild episodic paresthesias in the lower extremity which were not present at the time of evaluation the emergency department. He was admitted by orthopedic surgery (Dr. Jhaveri) and taken to the OR for debridement and washout today. Hemoglobin A1c was obtained and found to be 8.4. He is on Trulicity and metformin at home. Objective Data Objective Data Vital Signs: Vital Signs Temp Pulse Resp BP Pulse Ox O2 Del Method 98.0 F 85 18 179/78 H 96 Room Air 10/28/23 07:43 10/28/23 07:43 10/28/23 07:43 10/28/23 07:43 10/28/23 07:43 10/28/23 07:43 Oxygen Delivery Method Room Air Weight: 72.7 kg Body Mass Index (BMI) 25.8 Intake & Output: Intake and Output for Last 24 Hours 10/26/23 10/27/23 10/28/23 23:59 23:59 23:59 Intake Total 100 / 300 1641.67 / 1641.67 Balance 100 / 300 1641.67 / 1641.67 Lab / Micro Data 10/28/23 05:19 10/28/23 05:19 Labs: Laboratory Results - last 24 hr 10/27/23 18:15: WBC 8.6, RBC 3.30 L, Hgb 9.9 L, Hct 28.4 L, MCV 86.1, MCH 30.0, MCHC 34.9, RDW Std Deviation 38.3, RDW Coeff of Jacob 12.1, Plt Count 595 H, MPV 8.8, Immature Gran % (Auto) 0.900, Neut % (Auto) 78.4 H, Lymph % (Auto) 9.0 L, [place] % (Auto) 10.7 H, Eos % (Auto) 0.5, Baso % (Auto) 0.5, Absolute Neuts (auto) 6.8, Absolute Lymphs (auto) 0.78 L, Nucleated RBC % 0, ESR 58 H, Sodium 128 L, Potassium 3.8, Chloride 96 L, Carbon Dioxide 24.0, Anion Gap 8, BUN 14, Creatinine 0.91, Estim Creat Clear Calc 86.60, Est GFR (MDRD) Af Amer 109, Est GFR (MDRD) Non-Af 90, BUN/Creatinine Ratio 15.4, Glucose 325 H, Calcium 8.8, Total Bilirubin 0.50, Direct Bilirubin 0.19, AST 24, ALT 70 H, Alkaline Phosphatase 90, C-React Prot Ext Range 79.10 H, Total Protein 7.2, Albumin 2.7 L, Globulin 4.5 H 10/28/23 05:19: WBC 8.6, RBC 3.21 L, Hgb 9.4 L, Hct 27.6 L, MCV 86.0, MCH 29.3, MCHC 34.1, RDW Std Deviation 37.8, RDW Coeff of Jacob 12.1, Plt Count 516 H, MPV 9.0, Immature Gran % (Auto) 1.000 H, Neut % (Auto) 79.3 H, Lymph % (Auto) 8.9 L, [place] % (Auto) 9.9, Eos % (Auto) 0.6, Baso % (Auto) 0.3, Absolute Neuts (auto) 6.8, Absolute Lymphs (auto) 0.77 L, Nucleated RBC % 0, Sodium 130 L, Potassium 3.8, Chloride 98, Carbon Dioxide 23.0, Anion Gap 9, BUN 10, Creatinine 0.69 L, Estim Creat Clear Calc 100.17, Est GFR (MDRD) Af Amer 148, Est GFR (MDRD) Non-Af 123, BUN/Creatinine Ratio 14.4, Glucose 250 H, Hemoglobin A1c 8.4 H, Calcium 8.3 L 10/28/23 06:43: POC Glucose 227 H Micro: Microbiology 10/27/23 17:50 Wound - Back Gram Stain - Final Physical Exam Const alert, oriented x3, no apparent distress, average body habitus, healthy appearing and well nourished Constitutional Narrative: Upper middle-aged, white male, lying in bed, at bedside, currently appears comfortable, eating Jell-O, nontoxic HEENT head/scalp atraumatic and moist oral mucous membranes Head and Scalp: normocephalic Resp normal respiratory effort, no retractions, no use of accessory muscles and clear to auscultation bilaterally Auscultation: Negative for rales, rhonchi or wheezes Cardio regular rate, regular rhythm, S1 normal heart sound, S2 normal heart sound, no murmurs, no rub, no gallops and no clicks GI normal to inspection, nondistended, normoactive bowel sounds, soft to palpation and non-tender Extremity no clubbing, cyanosis or edema Extremity Narrative: Pedal pulses are 2+ Neuro oriented x3 and no focal motor deficits Speech: speech normal Psych Psych Narrative: Affect is slightly flat, eye contact is good, mood seems slightly depressed Assessment & Plan Assessment/Plan (1) Postoperative wound infection: (2) History of back surgery: (3) Lumbar stenosis: PLAN: Plan Postoperative lumbar wound infection -OR on 10/10/2023 for interbody posterior fusion at L4-L5 -Wound with purulent drainage -Lumbar irrigation and debridement with wound exploration and primary closure versus wound VAC placement to be done today -A1c is not well-controlled at 8.4 which may be contributing to infection -Management per primary service Lumbar stenosis -Status post interbody posterior fusion L4-L5 -Management per primary service DM-2 -Uncontrolled with an A1c of 8.4 -Continue home metformin -Continue home Trulicity -Add SSI -Patient and his report he recently seen in the diabetes clinic and they have increased his Trulicity due to his elevating glucose numbers -Has outpatient follow-up with the diabetes clinic Asthma -As needed albuterol -Continue inhalers -Continue home loratadine -Continue home Singulair GERD -Continue home PPI Hyperlipidemia -Continue home statin Neuropathy -Continue home gabapentin 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 It sounds as if they need to arrange his home health care and his wound VAC needs to be approved by his insurance company and then he will be able to go home. He already has follow-up with the diabetes clinic and he has had recent changes in his regimen for his diabetes. Charges/Coding Visit Charges Inpatient E&M: 82623 Subs Hosp L2
[2023-10-28] MEDS: Cefazolin 2 GM in 0.9% Normal Saline (100mL Bag) 100 ML IV (10:31)
[2023-10-28 11:49] LABS: Bedside Glucose 202 mg/dL (74-106)
--- NOTE | 2023-10-28 14:48 | CASEMGMT ---
Addendum entered by Debby Villalobos 10/28/23 15:43: Received tc back from Akua at [facility], they are able to accept pt for SOC on Saturday. Updated pt. Original Note: RUDY CLEMENT Assessment: Face to Face with pt for initial transition planning/care coordination assessment. RUDY CLEMENT introduced self and role at [facility], pt voices understanding and consents to assessment. Pt is A&O x4 and answers all questions appropriately at this time. Pt defers to for all questions as he is with nurse. Pt agreeable to assessment questions. Care providers, pharmacy, and demographics verified/updated. Admitting Dx: post op infection PCP:Meliton Rosado Specialists:abby Jhaveri; Carla pulregine; Diabetic Clinic through [facility] Pharmacy: [facility] Insurance: [employer] Prescription Benefit: yes LNOK: Rita Cantor, ; Christie Gonzalezer, dtr Living Arrangements: Pt lives with in a two story home with 2 steps to enter that allows room for the walker with each step. Pt has been assisting pt with dressing and bathing since initial surgery. Pt provides meals, does laundry and gets groceries. Pt denies concerns at home. Transportation: Pt has not been driving. Pt has been providing transportation for pt. DME:shower chair, FWW x2, crutches, raised toilet seat, BGM with sufficient supply of strips and lancets HHC/SNF: Denies hx of Pt states no concerns with going home at time of dc. Patient's was provided a list of [facility] providers including quality and resource use data and consistent with the patient?s preferred geographic region, medical needs, and insurance network were provided from the [employer] Guide. Pt chose [facility] as first choice and [facility] as second choice. Pt is agreeable to 's choice. Pt states no further concerns/needs. CM to follow. Advised pt to ask CM if any further question/concerns/needs arise, voices understanding. Pt Goal: Home with HHC Plan: Home with C TC to [facility], referral left on vm. 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 Tae GRANT CM
[2023-10-28] MEDS: metFORMIN HCl 1,000 MG Tablet 1000 MG PO (16:47)
[2023-10-28] MEDS: Juven (unflavored) Packet 1 PACKET PO (16:47)
[2023-10-28] MEDS: Amox/Clavulanate 875 MG Tablet PO (16:47)
[2023-10-28] MEDS: Insulin Lispro 100 UNIT/ML INSULN.PEN SC ×2 (16:50→23:48)
[2023-10-28] MEDS: Ensure Surgery 237 ML LIQUID PO (16:50)
[2023-10-28 17:16] LABS: Bedside Glucose 225 mg/dL (74-106)
[2023-10-28] MEDS: Pravastatin 40 MG Tablet PO (21:46)
[2023-10-28] MEDS: Montelukast 10 MG Tablet PO (21:46)
[2023-10-28] MEDS: Doxycycline 100 MG CAPSULE PO (21:46)
[2023-10-28 22:33] LABS: Bedside Glucose 325 mg/dL (74-106)
[2023-10-28] MEDS: BENZOCAINE/MENTHOL 1 LOZENGE MUCOUS MEM (23:48)
[2023-10-29 00:59] VITALS: BP 158/71; PULSE 93; RESP 16; TEMP 36.9; O2SAT 99
[2023-10-29] MEDS: BENZOCAINE/MENTHOL 1 LOZENGE MUCOUS MEM ×2 (02:10→07:43)
[2023-10-29 04:59] VITALS: BP 151/86; PULSE 90; RESP 16; TEMP 36.8; O2SAT 95
[2023-10-29] MEDS: Acetaminophen 500 MG Tablet 1000 MG PO (05:55)
[2023-10-29] MEDS: Insulin Lispro 100 UNIT/ML INSULN.PEN SC ×2 (05:55→11:32)
[2023-10-29 06:31] LABS: Bedside Glucose 209 mg/dL (74-106)
[2023-10-29] MEDS: Budesonide Respules 0.5 MG/2 ML AMPUL.NEB. INHALATION (07:20)
[2023-10-29 07:21] VITALS: PULSE 85; RESP 16; O2SAT 96
[2023-10-29] MEDS: Ensure Surgery 237 ML LIQUID PO (07:40)
[2023-10-29] MEDS: Juven (unflavored) Packet 1 PACKET PO (07:41)
[2023-10-29] MEDS: Loratadine 10 MG Tablet PO (07:41)
[2023-10-29] MEDS: Pantoprazole Sodium 20 MG Tablet PO (07:41)
[2023-10-29] MEDS: metFORMIN HCl 1,000 MG Tablet 1000 MG PO (07:41)
[2023-10-29] MEDS: Doxazosin 4 MG Tablet 8 MG PO (07:42)
[2023-10-29] MEDS: Doxycycline 100 MG CAPSULE PO (07:42)
[2023-10-29] MEDS: Amox/Clavulanate 875 MG Tablet PO (07:42)
[2023-10-29] MEDS: Gabapentin 100 MG Capsule PO (07:43)
--- NOTE | 2023-10-29 10:08 | PHA.DC.MC.R ---
Pharmacy [facility] has performed discharge medication reconciliation and counseling for this patient. The patient's discharge medication list was reviewed for discrepancies and discrepancies were resolved. The patient was counseled on the following discharge medications and changes in medications for homegoing were reviewed. The Reason for Use, instructions for use, and potential side effects were reviewed for all new medications. The patient's questions regarding all of their medications were answered. 1. Hydrocodone/acetaminophen 5/325 mg PO Q6H The patient was able to verbally demonstrate an understanding of their discharge medications. Medications at Discharge Home Medications albuterol sulfate 90 mcg/actuation aerosol inhaler 1 inh inhalation PRN PRN shortness of breath or wheezing 09/16/23 cetirizine 5 mg-pseudoephedrine ER 120 mg tablet,extended release,12hr (All Day Allergy-D) 1 tab PO DAILY 09/16/23 doxazosin 8 mg tablet 8 mg PO DAILY bladder 09/16/23 dulaglutide 1.5 mg/0.5 mL subcutaneous pen injector (Trulicity) 3 mg subcut JALLOH diabetes 09/16/23 fluticasone furoate 100 mcg/actuation blister powder for inhalation (Arnuity Ellipta) 1 inh inhalation DAILY asthma 09/16/23 gabapentin 100 mg capsule 100 mg PO BID nerve release 09/16/23 loratadine 10 mg capsule 10 mg PO DAILY allergies 09/16/23 metformin 1,000 mg tablet 500 mg PO BID sugar 09/16/23 montelukast 10 mg tablet 10 mg PO DAILY asthma 09/16/23 omeprazole 20 mg capsule,delayed release 20 mg PO BID acid reflux 09/16/23 pravastatin 40 mg tablet 40 mg PO QHS cholesterol 09/16/23 hydrocodone-acetaminophen 5-325mg 5mg-325mg 1 tab PO Q6H 7 days #28 tabs 10/28/23
--- NOTE | 2023-10-29 10:11 | WOUNDNOTE ---
Pt had a Prevena Plus VAC in place. Dr Jhaveri had called this nurse prior to surgery yesterday and asked if a hospital VAC should be applied until a home VAC could get approved. this nurse had informed him that yes a hospital VAC should be applied and then this nurse could just switch over the tubing. This nurse had to remove the disposable VAC. did place more foam into the wound bed as well and placed a new trac pad. pt was place on a home VAC for discharge later today. will review alarms, etc. with when she arrives. pt tolerated well. home health will be out to change the VAC dressing tomorrow.
[2023-10-29 11:53] LABS: Bedside Glucose 323 mg/dL (74-106)
--- NOTE | 2023-10-29 14:27 | CASEMGMT ---
RUDY CLEMENT into pt room, pt aware that [facility] accepted. She requested that they call her number and call an hour ahead of visit so pt can shower. Updated Omayra at [facility] of this request.
[2023-10-29 14:32] VITALS: BP 119/54; PULSE 106; RESP 16; TEMP 36.6; O2SAT 95
== END 2023-10-29 14:38 | disposition home health service (06) | DRG 857 ==
LOC: ED 18:20 → MS3 20:54
PROVIDERS: Anesthesiology; Admitting Provider Orthopaedic Surgery; Emergency Provider Emergency Medicine; Visit Provider Orthopaedic Surgery
PROC: 0JB70ZZ Excision of Back Subcutaneous Tissue and Fascia, Open Approach (ICD-10-PCS; principal; 2023-10-28 09:20)
DX: T81.41XA Infection following a procedure, superficial incisional surgical site, initial encounter (principal); N13.8 Other obstructive and reflux uropathy; G62.9 Polyneuropathy, unspecified; E11.40 Type 2 diabetes mellitus with diabetic neuropathy, unspecified; J45.30 Mild persistent asthma, uncomplicated; M48.061 Spinal stenosis, lumbar region without neurogenic claudication; E78.5 Hyperlipidemia, unspecified; K21.9 Gastro-esophageal reflux disease without esophagitis; Z98.1 Arthrodesis status; Z79.51 Long term (current) use of inhaled steroids; Y82.9 Unspecified medical devices associated with adverse incidents; N40.1 Benign prostatic hyperplasia with lower urinary tract symptoms
CPT/HCPCS: 36415; 80048; 80076; 82962; 83036; 85025; 85652; 86140; 87040; 87070; 87075; 87077; 87186; 87205; 93005; 94640; 94668; 97110; 97116; 97161; 97802; 99285; J7040; J7120; A4216; J2405

== ENCOUNTER 2023-12-04 10:15 | Outpatient (RCR) | payer BC, SELFPAY ==
[2023-11-06 09:59] VITALS: BP 175/73; PULSE 105; TEMP 36.2; BMI 26.3
--- NOTE | 2023-11-06 14:04 | HP.PCM_ITS ---
History of Present Illness Date of Service: 11/06/23 Chief Complaint: dehisced lumbar surgical wound History of Wound: 63 year old white male with uncontrolled diabetes and had back surgery then dehisced and had an I&D done in . appears in severe pain with a wound vac that they want us to transfer of care. He also needs main managed also .He has home health from the hospital coming in 2 days a week and they change the vac once a week and the black foam has been sticking. He also picked up MRSA on cultures and is on 2 different antibiotics also. [facility] Medical History Arthritis Asthma Back pain Blackout Diabetes Dietary restriction Gastric reflux High cholesterol History of echocardiogram History of irregular heartbeat History of pain when walking Injury of head and neck Leg cramps Low iron Non-smoker Prostate disease Shortness of breath on exertion Wears glasses Home Medications albuterol sulfate 90 mcg/actuation aerosol inhaler 1 inh inhalation PRN PRN shortness of breath or wheezing 09/16/23 [History Last Taken Unknown] cetirizine 5 mg-pseudoephedrine ER 120 mg tablet,extended release,12hr (All Day Allergy-D) 1 tab PO DAILY 09/16/23 [History Last Taken Unknown] doxazosin 8 mg tablet 8 mg PO DAILY bladder 09/16/23 [History Last Taken 10/10/23 04:45] dulaglutide 1.5 mg/0.5 mL subcutaneous pen injector (Trulicity) 3 mg subcut JALLOH diabetes 09/16/23 [History Last Taken Unknown] fluticasone furoate 100 mcg/actuation blister powder for inhalation (Arnuity Ellipta) 1 inh inhalation DAILY asthma 09/16/23 [History Last Taken 10/10/23 04:45] gabapentin 100 mg capsule 100 mg PO BID nerve release 09/16/23 [History Last Taken Unknown] loratadine 10 mg capsule 10 mg PO DAILY allergies 09/16/23 [History Last Taken Unknown] metformin 1,000 mg tablet 1,000 mg PO BID sugar 09/16/23 [History Last Taken Unknown] montelukast 10 mg tablet 10 mg PO DAILY asthma 09/16/23 [History Last Taken Unknown] omeprazole 20 mg capsule,delayed release 20 mg PO BID acid reflux 09/16/23 [History Last Taken 10/10/23 04:45] pravastatin 40 mg tablet 40 mg PO QHS cholesterol 09/16/23 [History Last Taken Unknown] hydrocodone-acetaminophen 5-325mg 5mg-325mg 1 tab PO Q6H 7 days #28 tabs 10/28/23 [Rx Last Taken Unknown] amoxicillin 875 mg-potassium clavulanate 125 mg tablet 1 tab PO BID 11/06/23 [History Last Taken Unknown] doxycycline monohydrate 100 mg capsule 100 mg PO BID 11/06/23 [History Last Taken Unknown] Allergy/AdvReac Type Severity Reaction Status Date / Time No Known Allergies Allergy Verified 11/06/23 10:14 Family History Other CVA (cerebral vascular accident) Diabetes Surgical History Hx of colonoscopy Hx of tonsillectomy Social History Smoking Status: Never smoker ROS Constitutional Constitutional: Reports systems reviewed and no addt'l complaints, except as documented Eyes Eyes: Reports systems reviewed and no addt'l complaints, except as documented ENT HEENT: Reports systems reviewed and no addt'l complaints, except as documented Cardiovascular Cardiovascular: Reports systems reviewed and no addt'l complaints, except as documented Respiratory/Chest Respiratory/Chest: Reports systems reviewed and no addt'l complaints, except as documented Gastrointestinal Gastrointestinal: Reports systems reviewed and no addt'l complaints, except as documented Genitourinary Genitourinary: Reports systems reviewed and no addt'l complaints, except as documented Musculoskeletal Musculoskeletal: Reports systems reviewed and no addt'l complaints, except as documented Integumentary Integumentary: Reports wounds and other Details: open lumbar surgical wound with sutures and some hardware visible . Neurologic Neurologic: Reports systems reviewed and no addt'l complaints, except as documented Psychiatric Psychiatric: Reports systems reviewed and no addt'l complaints, except as d ocumented Endocrine Endocrinology: Reports systems reviewed and no addt'l complaints, except as documented Hematologic/Lymphatic Hematologic/Lymphatic: Reports systems reviewed and no addt'l complaints, except as documented Allergic/Immunologic Allergic/Immunologic: Reports systems reviewed and no addt'l complaints, except as documented Vital Signs Vital Signs Vital Signs: 11/06/23 09:59 Temperature 97.2 F L Temperature Source Temporal Pulse Rate 105 H Blood Pressure 175/73 H Blood Pressure Mean 107 Blood Pressure Source Monitor Blood Pressure Position Sitting Blood Pressure Location Right Arm Weight Weight: 168 lb Body Mass Index (BMI) 26.3 Physical Exam Const oriented x3 General Appearance: cooperative Exam Limitations: no limitations HEENT normocephalic Eyes PERRL General Eye: normal appearance of both eyes Resp normal respiratory effort Effort and Inspection: able to speak in complete sentences Auscultation: clear to auscultation bilaterally Cardio regular rate and regular rhythm Palpation: normal PMI Rate: regular rate Rhythm: regular rhythm Back/Spine Cervical Spine: cervical ROM normal Thoracic Spine / Upper Back: normal to inspection Lumbar Spine / Lower Back: normal to inspection Psych Appearance: grossly normal Speech: normal speech Thought Content: normal thought content Judgement: judgement good Debridement Note Debridement Note Wound debrided: lumbar dehisced wound Type of Debridement: Excisional debridement Anesthesia Used: 4% Lidocaine Solution and 5% Lidocaine Gel Depth: Down to and including healthy tissue, in the subcutaneous layer and to muscle Percentage of wound debrided: 100 Instrument Used: #15 blade, Forceps and - (scissors) Tissue Removed: devitalized tissue and fibrin Amount of bleeding with debridement: Mild Bleeding Controlled with: Compression and gauze Patient tolerated procedure: Patient tolerated procedure well Post-Debridement Measurements and Additional Note: Post-Debridement Measurements/Treatment ESTELLE - Nurse 1 - General Ulcer Assessment Start: 11/06/23 09:57 Freq: Status: Active Protocol: CULLEN Activity Type Activity Date Activity User E-sign Co-sign Detail Recorded Client Recorded Date Recorded By Document 11/06/23 09:59 DS Desktop 11/06/23 10:14 DS Edit Result 11/06/23 09:59 DS (1) Desktop 11/06/23 10:21 DS (1) Preferred language => [place] Channel Lip Wetter Required => No Able to Read => Yes Able to Write => Yes Communication Tools => None Right Hearing Abillity => Normal Left Hearing Abillity => Normal Visual Assistive Devices => Glasses Preferences => Verbal,Written, => Demonstration Barriers to Learning => None Readiness To Learn => Good Willingness to Engage in Self Management => High Activies Readiness to Engage in Self Management => High Activities Anxiety Level => Anxious Cooperation => Cooperative Perception => Coherent Interest in Health Problem => Asks Questions Education Importance => Acknowledges Need Does Patient Smoke tobacco or other => No substances Smoking Status => Never smoker Is Patient Diabetic => Yes Recent Decline in Ability to Perform => Ambulation Assistive Device With Patient => Yes Cultural/Jain Needs that may affect => No Treatment Plan *Welcome to the Wound Center - Person Taught => Patient,Family - Teaching Method => Discussion - Response to teaching => Verbalize => understanding 11/06/23 09:59 WC - Today's Visit Information Type of service Initial Visit Arrival Mode Ambulatory, Walker Safety Precautions NA Finger Stick Blood Sugar(mg/dl) (if 227 indicated): Blood Sugar Stated by Patient Height and Weight Height 5 ft 7 in Weight 168 lb Weight in Pounds 168.0 lbs Weight Measurement Method Estimated by Patient Body Mass Index (BMI) 26.3 BMI Classification Overweight BSA - John 1.88 Vital Signs Temperature (97.8 F-99.1 F) 97.2 F L Temperature Source Temporal Pulse Rate (60-100) 105 H Pulse Location Monitor Blood Pressure (90/60-120/80) 175/73 H Blood Pressure Mean 107 Source Monitor Position Sitting Blood Pressure Location Right Arm History Since Last Visit- (Skip if this is Patient's initial visit) Left Footwear Regular Shoe Right Footwear Regular Shoe Pain Scale: 0-10 Numeric Is Patient Pain Free? No back -Description Aching -Intensity 4 -Duration (hours) Acute -Pain Aggravating Factors Surgery -Alleviating Factors/Interventions Will continue to monitor, Patient denies need for intervention, Emotional Support Communication Assessment Preferred language [place] Channel Lip Wetter Required No Able to Read Yes Able to Write Yes Communication Tools None Right Hearing Abillity Normal Left Hearing Abillity Normal Visual Assistive Devices Glasses Teaching Assessment Preferences Verbal,Written, Demonstration Barriers to Learning None Readiness To Learn Good Willingness to Engage in Self Management High Activies Readiness to Engage in Self Management High Activities Anxiety Level Anxious Cooperation Cooperative Perception Coherent Interest in Health Problem Asks Questions Education Importance Acknowledges Need Does Patient Smoke tobacco or other No substances Smoking Status Never smoker Is Patient Diabetic Yes Functional Assessment Recent Decline in Ability to Perform Ambulation Assistive Device With Patient Yes Culture/Jain/[employer] Dean Cultural/Jain Needs that may affect No Treatment Plan Teaching: Wound Center *Welcome to the Wound Center -Person Taught Patient,Family -Teaching Method Discussion -Response to teaching Verbalize understanding ESTELLE - Nurse 1 - General Ulcer Measurement Start: 11/06/23 09:57 Freq: Status: Active Protocol: Activity Type Activity Date Activity User E-sign Co-sign Detail Recorded Client Recorded Date Recorded By Document 11/06/23 09:59 Desktop 11/06/23 10:14 DS 11/06/23 09:59 Wound Center Nurse 1 back -Current Size (cm) - Length 9.5 -Current Size (cm) - Width 3 -Current Size (cm) - Depth 1.2 -Total Square Cm 28.5 -Date of Last Picture (Recall this 11/06/23 field) -Photo Taken Yes -Tunneling No -Undermining/Tunneling No -Exudate Amt Large -Exudate Type Serosanguineous -Wound Margin Distinct, Outline Attached -Granulation Quality Red -Slough/Fibrin Yes -Necrosis Amt Large (67-100%) -Necrotic Tissue Type Adherent Slough -Texture (Neena-wound Skin Appearance) Assessed -Moisture (Neena-wound Skin Appearance) Assessed -Color (Neena-wound Skin Appearance) Assessed, Erythema -Temperature (Neena-wound Skin No Abnormality Appearance) (Pt Warm) -Tenderness on Palpation (Neena-wound Yes Skin Appearance) -Ulcer Cleansing Soap and Water -Anesthetic Used 4% Lidocaine Solution ESTELLE - Nurse 2 - General Ulcer CM Notes Start: 11/06/23 09:57 Freq: Status: Active Protocol: Activity Type Activity Date Activity User E-sign Co-sign Detail Recorded Client Recorded Date Recorded By Document 11/06/23 10:31 [facility] Desktop 11/06/23 10:42 [facility] 11/06/23 10:31 Wound Center Nurse 2 -Time 10:31 -Correct Patient Yes -Correct Side, Site, Position Yes -Correct Procedure Yes -Procedure Performed Yes -Type of Procedure Debridement -Clinical Debridement Subcutaneous -Tissue Removed Subcutaneous -Post Debridement (cm) - Length 9.7 -Post Debridement (cm) - Width 2.9 -Post Debridement (cm) - Depth 1.8 -Total Square (Post) (cm) 28.13 -Area of Debridement (cm) - Length 9.7 -Area of Debridement (cm) - Width 2.9 -Total Square (Area) (cm) 28.13 -Tunneling No -Undermining/Tunneling Yes -Undermining/Tunneling Starts (O'clock 12 ) -Undermining/Tunneling Ends (O'clock) 6 -Maximum Distance (cm) 1.4 -Circular Undermining No -Wound/Ulcer Outcome Not Healed -Ulcer Cleansing Rinsed/ Irrigated with Saline -Foul Odor after Cleansing No -Bioengineered Tissue No -Bleeding Controlled with Pressure -Treatment Response Procedure Tolerated Well -Offloading No -Debridement - Subq, 1st 20sq cm Yes -Debridement, SubQ, ea addt'l 20sq cm 8 or part thereof Pain Scale: 0-10 Numeric Is Patient Pain Free? Yes WC - Nurse 3 - General Ulcer D/C NN Start: 11/06/23 09:57 Freq: Status: Active Protocol: Activity Type Activity Date Activity User E-sign Co-sign Detail Recorded Client Recorded Date Recorded By Document 11/06/23 11:17 DS [id number] 11/06/23 13:47 DS Document 11/06/23 11:54 RB Desktop 11/06/23 11:59 RB 11/06/23 11/06/23 11:17 11:54 Wound Care Center Nurse 3 back -Ulcer Cleansing Rinsed/ Irrigated with Saline -Negative Pressure Wound Therapy Continue Continue -Setting (mmHg) 150 150 -Negative Pressure is Continuous Continuous -Other Dressing white base and undermining -NPWT Application Charge NPWT & NPWT & Debridement (nc Debridement (nc ) ) Neena-Wound Care Barrier Treatment Response Procedure Tolerated Well Pain Scale: 0-10 Numeric Is Patient Pain Free? No No back -Description Aching Aching -Intensity 8 8 -Pain Aggravating Factors Debridement Debridement -Alleviating Factors/Interventions Medication Medication -Effectiveness of Alleviating Factor/ Minimally Minimally Intervention effective effective WC - Visit Discharge Discharge Condition Stable Stable Ambulatory Status Ambulatory, Ambulatory Walker Transportation Private Auto Private Auto Medication Reconcilliation completed & No No provided to patient/care provider Clinical Summary of Care Provided Yes Yes Notes: pt applied adjustable back brace Assessment/Plan Assessment/Plan (1) Lumbar stenosis: CODE(S): M48.061 - Spinal stenosis, lumbar region without neurogenic claudication QUALIFIERS: Neurogenic claudication status: without neurogenic claudication Qualified Code(s): M48.061 - Spinal stenosis, lumbar region without neurogenic claudication PLAN: increase the wound vac to 150 mg ghh Use more white packing for the undermining and then black so non sticking follow up n 1 week (2) Dehiscence of surgical wound: CODE(S): T81.31XA - Disruption of external operation (surgical) wound, not elsewhere classified, initial encounter QUALIFIERS: Encounter type: initial encounter Qualified Code(s): T81.31XA - Disruption of external operation (surgical) wound, not elsewhere classified, initial encounter (3) Pain at surgical incision: CODE(S): L76.82 - Other postprocedural complications of skin and subcutaneous tissue PLAN: discussed using tramadol and Tylenol for the pain and may still use the gabapentin increase dose to 200 mg tid for pain (4) Uncontrolled diabetes mellitus with hyperglycemia: CODE(S): E11.65 - Type 2 diabetes mellitus with hyperglycemia QUALIFIERS: Diabetes mellitus type: type 2 Qualified Code(s): E11.65 - Type 2 diabetes mellitus with hyperglycemia PLAN: discussed at lenght about his diabetes and food plans and frequent small 1-2 oz of protein based snacks
[2023-11-13 09:58] VITALS: BP 138/66; PULSE 90; RESP 20; TEMP 36.4; BMI 26.3
--- NOTE | 2023-11-13 12:06 | PN.PCM_ITS ---
History of Present Illness Date of Service: 11/13/23 Chief Complaint: dehisced lumbar surgical wound History of Wound: 63 year old white male with uncontrolled diabetes and had back surgery then dehisced and had an I&D done in . appears in severe pain with a wound vac that they want us to transfer of care. He also needs main managed also .He has home health from the hospital coming in 2 days a week and they change the vac once a week and the black foam has been sticking. He also picked up MRSA on cultures and is on 2 different antibiotics also. Progress of Wound: Using the white foam has really helped with the wound VAC today much smaller no undermining noted. Wound looks beefy red and is starting to grow over the suturing and fascia. Patient is diabetic and has been very good about trying to get his blood sugars down and using Trulicity. Subjective Subjective and are extremely pleased with outcome so far. They are going to see their primary care doctor today about his blood sugars and his change in diet. Patient is tolerating the wound VAC at 150 mmHg. Still getting a lot of drainage in the containers. Objective Data Objective Data Measurements are definitely smaller we will continue using the wound VAC at this point too early to culture just finished antibiotics last week we will follow-up in 1 week Vital Signs: Vital Signs Temp Pulse Resp BP 97.6 F L 90 20 H 138/66 H 11/13/23 09:58 11/13/23 09:58 11/13/23 09:58 11/13/23 09:58 Weight: 168 lb Body Mass Index (BMI) 26.3 Physical Exam Const oriented x3 General Appearance: cooperative Exam Limitations: no limitations HEENT normocephalic Eyes PERRL General Eye: normal appearance of both eyes Resp normal respiratory effort Effort and Inspection: able to speak in complete sentences Auscultation: clear to auscultation bilaterally Cardio regular rate and regular rhythm Palpation: normal PMI Rate: regular rate Rhythm: regular rhythm Back/Spine Cervical Spine: cervical ROM normal Thoracic Spine / Upper Back: normal to inspection Lumbar Spine / Lower Back: normal to inspection Psych Appearance: grossly normal Speech: normal speech Thought Content: normal thought content Judgement: judgement good Debridement Note Debridement Note Wound debrided: lumbar dehisced wound Type of Debridement: Excisional debridement Anesthesia Used: 4% Lidocaine Solution and 5% Lidocaine Gel Depth: Down to and including healthy tissue, in the subcutaneous layer and to muscle Percentage of wound debrided: 100 Instrument Used: #15 blade, Forceps and - (scissors) Tissue Removed: devitalized tissue and fibrin Amount of bleeding with debridement: Mild Bleeding Controlled with: Compression and gauze Patient tolerated procedure: Patient tolerated procedure well Post-Debridement Measurements and Additional Note: Post-Debridement Measurements/Treatment - Nurse 1 - General Ulcer Assessment Start: 11/06/23 09:57 Freq: Status: Active Protocol: CULLEN Activity Type Activity Date Activity User E-sign Co-sign Detail Recorded Client Recorded Date Recorded By Document 11/06/23 09:59 DS Desktop 11/06/23 10:14 DS Edit Result 11/06/23 09:59 DS (1) Desktop 11/06/23 10:21 DS Document 11/13/23 09:58 DL Desktop 11/13/23 10:09 DL (1) Preferred language => Mexican 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 Maintenance Required => No Able to Read => Yes Able to Write => Yes Communication Tools => None Right Hearing Abillity => Normal Left Hearing Abillity => Normal Visual Assistive Devices => Glasses Preferences => Verbal,Written, => Demonstration Barriers to Learning => None Readiness To Learn => Good Willingness to Engage in Self Management => High Activies Readiness to Engage in Self Management => High Activities Anxiety Level => Anxious Cooperation => Cooperative Perception => Coherent Interest in Health Problem => Asks Questions Education Importance => Acknowledges Need Does Patient Smoke tobacco or other => No substances Smoking Status => Never smoker Is Patient Diabetic => Yes Recent Decline in Ability to Perform => Ambulation Assistive Device With Patient => Yes Cultural/Yarsanism Needs that may affect => No Treatment Plan *Welcome to the Wound Center - Person Taught => Patient,Family - Teaching Method => Discussion - Response to teaching => Verbalize => understanding 11/06/23 11/13/23 09:59 09:58 - Today's Visit Information Type of service Initial Visit Follow-up Visit (Physician/COMBER FIXER ) Arrival Mode Ambulatory, Ambulatory, Walker Walker Transfer Assistance None Patient Identification Verified (Name & Yes ) Patient Requires Transmission-Based No Precautions Safety Precautions NA Finger Stick Blood Sugar(mg/dl) (if 227 141 indicated): Blood Sugar Stated by Stated by Patient Patient Height and Weight Height 5 ft 7 in Weight 168 lb Weight in Pounds 168.0 lbs Weight Measurement Method Estimated by Patient Body Mass Index (BMI) 26.3 26.3 BMI Classification Overweight Overweight BSA - John 1.88 Vital Signs Temperature (97.8 F-99.1 F) 97.2 F L 97.6 F L Temperature Source Temporal Temporal Pulse Rate (60-100) 105 H 90 Pulse Location Monitor Monitor Respiratory Rate (12-18) 20 H Respiratory rate source Observation Blood Pressure (90/60-120/80) 175/73 H 138/66 H Blood Pressure Mean (mm Hg) 107 90 Source Monitor Monitor Position Sitting Blood Pressure Location Right Arm History Since Last Visit- (Skip if this is Patient's initial visit) Have you changed medications since your No last visit? Any new allergies or adverse reactions No Had a fall/change in ADL's that may No increase risk of falls Signs or symptoms of abuse and/or No neglect since last visit Have you been in the hospital since your No last visit? Has dressing in place as prescribed Yes Has compression in place as prescribed N/A Has offloadiing in place as prescribed Yes Experienced any changes in pain level or No management Left Footwear Regular Shoe Right Footwear Regular Shoe Pain Scale: 0-10 Numeric Is Patient Pain Free? No Yes back -Description Aching -Intensity 4 -Duration (hours) Acute -Pain Aggravating Factors Surgery -Alleviating Factors/Interventions Will continue to monitor, Patient denies need for intervention, Emotional Support Communication Assessment Preferred language [place] 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 Maintenance Required No Able to Read Yes Able to Write Yes Communication Tools None Right Hearing Abillity Normal Left Hearing Abillity Normal Visual Assistive Devices Glasses Teaching Assessment Preferences Verbal,Written, Demonstration Barriers to Learning None Readiness To Learn Good Willingness to Engage in Self Management High Activies Readiness to Engage in Self Management High Activities Anxiety Level Anxious Cooperation Cooperative Perception Coherent Interest in Health Problem Asks Questions Education Importance Acknowledges Need Does Patient Smoke tobacco or other No substances Smoking Status Never smoker Is Patient Diabetic Yes Functional Assessment Recent Decline in Ability to Perform Ambulation Assistive Device With Patient Yes 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 Cultural/Yarsanism Needs that may affect No Treatment Plan Teaching: Wound Center *Welcome to the Wound Center -Person Taught Patient,Family -Teaching Method Discussion -Response to teaching Verbalize understanding WC - Nurse 1 - General Ulcer Measurement Start: 11/06/23 09:57 Freq: Status: Active Protocol: Activity Type Activity Date Activity User E-sign Co-sign Detail Recorded Client Recorded Date Recorded By Document 11/06/23 09:59 DS Desktop 11/06/23 10:14 DS Document 11/13/23 09:58 DL Desktop 11/13/23 10:09 DL 11/06/23 11/13/23 09:59 09:58 Wound Center Nurse 1 back -Current Size (cm) - Length 9.5 9.6 -Current Size (cm) - Width 3 2.8 -Current Size (cm) - Depth 1.2 1.3 -Total Square Cm 28.5 26.88 -Date of Last Picture (Recall this 11/06/23 field) -Photo Taken Yes -Tunneling No -Undermining/Tunneling No -Undermining/Tunneling Starts (O'clock 9 ) -Undermining/Tunneling Ends (O'clock) 12 -Maximum Distance (cm) 1 -Exudate Amt Large Medium -Exudate Type Serosanguineous Yellow/Green -Wound Margin Distinct, Distinct, Outline Outline Attached Attached -Granulation Amt Large (67-100%) -Granulation Quality Red [place] -Slough/Fibrin Yes -Necrosis Amt Large (67-100%) Small (1-33%) -Necrotic Tissue Type Adherent Slough Adherent Slough -Structure Exposed N/A -Texture (Neena-wound Skin Appearance) Assessed Scarring -Moisture (Neena-wound Skin Appearance) Assessed No Abnormality -Color (Neena-wound Skin Appearance) Assessed, No Abnormality Erythema -Temperature (Neena-wound Skin No Abnormality No Abnormality Appearance) (Pt Warm) (Pt Warm) -Tenderness on Palpation (Neena-wound Yes No Skin Appearance) -Ulcer Cleansing Soap and Water Soap and Water -Foul Odor after Cleansing No -Anesthetic Used 4% Lidocaine 4% Lidocaine Solution Solution -Wound Comment(s) sutures intact WC - Nurse 2 - General Ulcer CM Notes Start: 11/06/23 09:57 Freq: Status: Active Protocol: Activity Type Activity Date Activity User E-sign Co-sign Detail Recorded Client Recorded Date Recorded By Document 11/06/23 10:31 F Desktop 11/06/23 10:42 [facility] Document 11/13/23 10:20 [facility] Desktop 11/13/23 10:26 BMF 11/06/23 11/13/23 10:31 10:20 Wound Center Nurse 2 back -Time 10:31 10:21 -Correct Patient Yes Yes -Correct Side, Site, Position Yes Yes -Correct Procedure Yes Yes -Procedure Performed Yes Yes -Type of Procedure Debridement Debridement -Clinical Debridement Subcutaneous Subcutaneous -Tissue Removed Subcutaneous Subcutaneous -Post Debridement (cm) - Length 9.7 9.5 -Post Debridement (cm) - Width 2.9 3.4 -Post Debridement (cm) - Depth 1.8 1.5 -Total Square (Post) (cm) 28.13 32.30 -Area of Debridement (cm) - Length 9.7 9.5 -Area of Debridement (cm) - Width 2.9 3.4 -Total Square (Area) (cm) 28.13 32.30 -Tunneling No No -Undermining/Tunneling Yes Yes -Undermining/Tunneling Starts (O'clock 12 11 ) -Undermining/Tunneling Ends (O'clock) 6 1 -Maximum Distance (cm) 1.4 0.5 -Circular Undermining No No -Wound/Ulcer Outcome Not Healed Not Healed -Ulcer Cleansing Rinsed/ Rinsed/ Irrigated with Irrigated with Saline Saline -Foul Odor after Cleansing No No -Bioengineered Tissue No No -Bleeding Controlled with Pressure Pressure -Treatment Response Procedure Procedure Tolerated Well Tolerated Well -Offloading No -Debridement - Subq, 1st 20sq cm Yes Yes -Debridement, SubQ, ea addt'l 20sq cm 8 1 or part thereof Pain Scale: 0-10 Numeric Is Patient Pain Free? Yes Yes WC - Nurse 3 - General Ulcer D/C NN Start: 11/06/23 09:57 Freq: Status: Active Protocol: Activity Type Activity Date Activity User E-sign Co-sign Detail Recorded Client Recorded Date Recorded By Document 11/06/23 11:17 DS [id number] 11/06/23 13:47 DS Document 11/06/23 11:54 RB Desktop 11/06/23 11:59 RB 11/06/23 11/06/23 11:17 11:54 Wound Care Center Nurse 3 back -Ulcer Cleansing Rinsed/ Irrigated with Saline -Negative Pressure Wound Therapy Continue Continue -Setting (mmHg) 150 150 -Negative Pressure is Continuous Continuous -Other Dressing white base and undermining -NPWT Application Charge NPWT & NPWT & Debridement (nc Debridement (nc ) ) Neena-Wound Care Barrier Treatment Response Procedure Tolerated Well Pain Scale: 0-10 Numeric Is Patient Pain Free? No No back -Description Aching Aching -Intensity 8 8 -Pain Aggravating Factors Debridement Debridement -Alleviating Factors/Interventions Medication Medication -Effectiveness of Alleviating Factor/ Minimally Minimally Intervention effective effective WC - Visit Discharge Discharge Condition Stable Stable Ambulatory Status Ambulatory, Ambulatory Walker Transportation Private Auto Private Auto Medication Reconcilliation completed & No No provided to patient/care provider Clinical Summary of Care Provided Yes Yes Notes: pt applied adjustable back brace Assessment/Plan Assessment/Plan (1) Lumbar stenosis: CODE(S): M48.061 - Spinal stenosis, lumbar region without neurogenic claudication QUALIFIERS: Neurogenic claudication status: without neurogenic claudication Qualified Code(s): M48.061 - Spinal stenosis, lumbar region without neurogenic claudication PLAN: increase the wound vac to 150 mg ghh Use more white packing for the undermining and then black so non sticking follow up n 1 week (2) Dehiscence of surgical wound: CODE(S): T81.31XA - Disruption of external operation (surgical) wound, not elsewhere classified, initial encounter QUALIFIERS: Encounter type: initial encounter Qualified Code(s): T81.31XA - Disruption of external operation (surgical) wound, not elsewhere classified, initial encounter (3) Pain at surgical incision: CODE(S): L76.82 - Other postprocedural complications of skin and subcutaneous tissue PLAN: discussed using tramadol and Tylenol for the pain and may still use the gabapentin increase dose to 200 mg tid for pain (4) Uncontrolled diabetes mellitus with hyperglycemia: CODE(S): E11.65 - Type 2 diabetes mellitus with hyperglycemia QUALIFIERS: Diabetes mellitus type: type 2 Qualified Code(s): E11.65 - Type 2 diabetes mellitus with hyperglycemia PLAN: discussed at lenght about his diabetes and food plans and frequent small 1-2 oz of protein based snacks
[2023-11-20 10:24] VITALS: BP 119/56; PULSE 112; RESP 20; TEMP 36.4; BMI 26.3
--- NOTE | 2023-11-20 12:44 | PN.PCM_ITS ---
History of Present Illness Date of Service: 11/20/23 Chief Complaint: dehisced lumbar surgical wound History of Wound: 63 year old white male with uncontrolled diabetes and had back surgery then dehisced and had an I&D done in . appears in severe pain with a wound vac that they want us to transfer of care. He also needs main managed also .He has home health from the hospital coming in 2 days a week and they change the vac once a week and the black foam has been sticking. He also picked up MRSA on cultures and is on 2 different antibiotics also. Progress of Wound: Lumbar wound healing nicely measurements are much smaller. Tolerating wound VAC very well. Undermining is gone new skin buds are forming throughout the wound covering the sutures finally. And some of the fascia. No sign of infection noted no odor no smells still drains a lot in the canisters. Subjective Subjective Patient and are very happy with outcomes. [facility] is hesitant with large crowds. I suggested they sit in the back and not be real close with people but he can go and listen and then leave minimal walking. Patient has appointment with physician next Saturday about physical therapy. With home health he has been refused physical therapy. I suggested we stop taking the wound VAC off 3 times a week and just put it on here and leave it on that would open him up so he can have physical therapy. We will discontinue home health care and manage the wound VAC only by us. Patient was very happy with this he is to continue minimal walking and good eating Objective Data Objective Data As stated above patient is doing well on the wound VAC measurements are better we discussed using alternative measures after the wound VAC is done such as skin substitutions. [facility] would like to [facility] and that is fine with me we will go ahead and allow him to visit with them but not stay for any length of time. He can talk with his doctor about physical therapy. Vital Signs: Vital Signs Temp Pulse Resp BP 97.5 F L 112 H 20 H 119/56 L 11/20/23 10:24 11/20/23 10:24 11/20/23 10:24 11/20/23 10:24 Weight: 168 lb Body Mass Index (BMI) 26.3 Physical Exam Const oriented x3 General Appearance: cooperative Exam Limitations: no limitations HEENT normocephalic Eyes PERRL General Eye: normal appearance of both eyes Resp normal respiratory effort Effort and Inspection: able to speak in complete sentences Auscultation: clear to auscultation bilaterally Cardio regular rate and regular rhythm Palpation: normal PMI Rate: regular rate Rhythm: regular rhythm Back/Spine Cervical Spine: cervical ROM normal Thoracic Spine / Upper Back: normal to inspection Lumbar Spine / Lower Back: normal to inspection Psych Appearance: grossly normal Speech: normal speech Thought Content: normal thought content Judgement: judgement good Debridement Note Debridement Note Wound debrided: lumbar dehisced wound Type of Debridement: Excisional debridement Anesthesia Used: 4% Lidocaine Solution and 5% Lidocaine Gel Depth: Down to and including healthy tissue, in the subcutaneous layer and to muscle Percentage of wound debrided: 100 Instrument Used: #15 blade, Forceps and - (scissors) Tissue Removed: devitalized tissue and fibrin Amount of bleeding with debridement: Mild Bleeding Controlled with: Compression and gauze Patient tolerated procedure: Patient tolerated procedure well Post-Debridement Measurements and Additional Note: Post-Debridement Measurements/Treatment WC - Nurse 1 - General Ulcer Assessment Start: 11/06/23 09:57 Freq: Status: Active Protocol: CULLEN Activity Type Activity Date Activity User E-sign Co-sign Detail Recorded Client Recorded Date Recorded By Document 11/06/23 09:59 DS Desktop 11/06/23 10:14 DS Edit Result 11/06/23 09:59 DS (1) Desktop 11/06/23 10:21 DS Document 11/13/23 09:58 DL Desktop 11/13/23 10:09 DL Document 11/20/23 10:24 DL [email or web address] 11/20/23 10:33 DL (1) Preferred language => Portuguese [employer] Required => No Able to Read => Yes Able to Write => Yes Communication Tools => None Right Hearing Abillity => Normal Left Hearing Abillity => Normal Visual Assistive Devices => Glasses Preferences => Verbal,Written, => Demonstration Barriers to Learning => None Readiness To Learn => Good Willingness to Engage in Self Management => High Activies Readiness to Engage in Self Management => High Activities Anxiety Level => Anxious Cooperation => Cooperative Perception => Coherent Interest in Health Problem => Asks Questions Education Importance => Acknowledges Need Does Patient Smoke tobacco or other => No substances Smoking Status => Never smoker Is Patient Diabetic => Yes Recent Decline in Ability to Perform => Ambulation Assistive Device With Patient => Yes Cultural/Religion Needs that may affect => No Treatment Plan *Welcome to the Wound Center - Person Taught => Patient,Family - Teaching Method => Discussion - Response to teaching => Verbalize => understanding 11/06/23 11/13/23 11/20/23 09:59 09:58 10:24 WC - Today's Visit Information Type of service Initial Visit Follow-up Visit Follow-up Visit (Physician/CREDIT CHARGE AUTHORIZER (Physician/CREDIT CHARGE AUTHORIZER ) ) Arrival Mode Ambulatory, Ambulatory, Ambulatory,Cane Walker Walker Transfer Assistance None None Patient Identification Verified (Name & Yes Yes ) Patient Requires Transmission-Based No No Precautions Safety Precautions NA Finger Stick Blood Sugar(mg/dl) (if [phone] indicated): Blood Sugar Stated by Stated by Stated by Patient Patient Patient Height and Weight Height 5 ft 7 in Weight 168 lb Weight in Pounds 168.0 lbs Weight Measurement Method Estimated by Patient Body Mass Index (BMI) 26.3 26.3 26.3 BMI Classification Overweight Overweight Overweight BSA - John 1.88 Vital Signs Temperature (97.8 F-99.1 F) 97.2 F L 97.6 F L 97.5 F L Temperature Source Temporal Temporal Temporal Pulse Rate (60-100) 105 H 90 112 H Pulse Location Monitor Monitor Monitor Respiratory Rate (12-18) 20 H 20 H Respiratory rate source Observation Observation Blood Pressure (90/60-120/80) 175/73 H 138/66 H 119/56 L Blood Pressure Mean (mm Hg) 107 90 77 Source Monitor Monitor Monitor Position Sitting Blood Pressure Location Right Arm History Since Last Visit- (Skip if this is Patient's initial visit) Have you changed medications since your No No last visit? Any new allergies or adverse reactions No No Had a fall/change in ADL's that may No No increase risk of falls Signs or symptoms of abuse and/or No No neglect since last visit Have you been in the hospital since your No No last visit? Has dressing in place as prescribed Yes Yes Has compression in place as prescribed N/A N/A Has offloadiing in place as prescribed Yes Yes Experienced any changes in pain level or No No management Left Footwear Regular Shoe Right Footwear Regular Shoe Pain Scale: 0-10 Numeric Is Patient Pain Free? No Yes Yes back -Description Aching -Intensity 4 -Duration (hours) Acute -Pain Aggravating Factors Surgery -Alleviating Factors/Interventions Will continue to monitor, Patient denies need for intervention, Emotional Support Communication Assessment Preferred language Portuguese [employer] Required No Able to Read Yes Able to Write Yes Communication Tools None Right Hearing Abillity Normal Left Hearing Abillity Normal Visual Assistive Devices Glasses Teaching Assessment Preferences Verbal,Written, Demonstration Barriers to Learning None Readiness To Learn Good Willingness to Engage in Self Management High Activies Readiness to Engage in Self Management High Activities Anxiety Level Anxious Cooperation Cooperative Perception Coherent Interest in Health Problem Asks Questions Education Importance Acknowledges Need Does Patient Smoke tobacco or other No substances Smoking Status Never smoker Is Patient Diabetic Yes Functional Assessment Recent Decline in Ability to Perform Ambulation Assistive Device With Patient Yes 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 Cultural/Religion Needs that may affect No Treatment Plan Teaching: Wound Center *Welcome to the Wound Center -Person Taught Patient,Family -Teaching Method Discussion -Response to teaching Verbalize understanding WC - Nurse 1 - General Ulcer Measurement Start: 11/06/23 09:57 Freq: Status: Active Protocol: Activity Type Activity Date Activity User E-sign Co-sign Detail Recorded Client Recorded Date Recorded By Document 11/06/23 09:59 DS Desktop 11/06/23 10:14 DS Document 11/13/23 09:58 DL Desktop 11/13/23 10:09 DL Document 11/20/23 10:24 DL [email or web address] 11/20/23 10:33 DL 11/06/23 11/13/23 11/20/23 09:59 09:58 10:24 Wound Center Nurse 1 back -Current Size (cm) - Length 9.5 9.6 8.8 -Current Size (cm) - Width 3 2.8 2.8 -Current Size (cm) - Depth 1.2 1.3 1.1 -Total Square Cm 28.5 26.88 24.64 -Date of Last Picture (Recall this 11/06/23 field) -Photo Taken Yes -Tunneling No -Undermining/Tunneling No -Undermining/Tunneling Starts (O'clock 9 10 ) -Undermining/Tunneling Ends (O'clock) 12 2 -Maximum Distance (cm) 1 0.8 -Undermining/Tunneling Starts #2 (O' 4 clock) -Undermining/Tunneling Ends #2 (O' 5 clock) -Maximum Distance #2 (cm) 0.4 -Exudate Amt Large Medium Medium -Exudate Type Serosanguineous Yellow/Green Serosanguineous -Wound Margin Distinct, Distinct, Distinct, Outline Outline Outline Attached Attached Attached -Granulation Amt Large (67-100%) Large (67-100%) -Granulation Quality Red [place] Red -Slough/Fibrin Yes -Necrosis Amt Large (67-100%) Small (1-33%) Small (1-33%) -Necrotic Tissue Type Adherent Slough Adherent Slough Adherent Slough -Structure Exposed N/A Tendon,Fascia -Texture (Neena-wound Skin Appearance) Assessed Scarring Scarring,Rash -Moisture (Neena-wound Skin Appearance) Assessed No Abnormality No Abnormality -Color (Neena-wound Skin Appearance) Assessed, No Abnormality No Abnormality Erythema -Temperature (Neena-wound Skin No Abnormality No Abnormality No Abnormality Appearance) (Pt Warm) (Pt Warm) (Pt Warm) -Tenderness on Palpation (Neena-wound Yes No No Skin Appearance) -Ulcer Cleansing Soap and Water Soap and Water Soap and Water -Foul Odor after Cleansing No No -Anesthetic Used 4% Lidocaine 4% Lidocaine 4% Lidocaine Solution Solution Solution -Wound Comment(s) sutures intact WC - Nurse 2 - General Ulcer CM Notes Start: 11/06/23 09:57 Freq: Status: Active Protocol: Activity Type Activity Date Activity User E-sign Co-sign Detail Recorded Client Recorded Date Recorded By Document 11/06/23 10:31 [facility] Desktop 11/06/23 10:42 [facility] Document 11/13/23 10:20 [facility] Desktop 11/13/23 10:26 [facility] Document 11/20/23 10:43 [facility] wound center 11/20/23 10:48 [facility] 11/06/23 11/13/23 11/20/23 10:31 10:20 10:43 Wound Center Nurse 2 back -Time 10:31 10:21 10:43 -Correct Patient Yes Yes Yes -Correct Side, Site, Position Yes Yes Yes -Correct Procedure Yes Yes Yes -Procedure Performed Yes Yes Yes -Type of Procedure Debridement Debridement Debridement -Clinical Debridement Subcutaneous Subcutaneous Subcutaneous -Tissue Removed Subcutaneous Subcutaneous Subcutaneous -Post Debridement (cm) - Length 9.7 9.5 9 -Post Debridement (cm) - Width 2.9 3.4 3 -Post Debridement (cm) - Depth 1.8 1.5 1.1 -Total Square (Post) (cm) 28.13 32.30 27 -Area of Debridement (cm) - Length 9.7 9.5 9 -Area of Debridement (cm) - Width 2.9 3.4 3 -Total Square (Area) (cm) 28.13 32.30 27 -Tunneling No No No -Undermining/Tunneling Yes Yes No -Undermining/Tunneling Starts (O'clock 12 11 ) -Undermining/Tunneling Ends (O'clock) 6 1 -Maximum Distance (cm) 1.4 0.5 -Circular Undermining No No No -Wound/Ulcer Outcome Not Healed Not Healed Not Healed -Ulcer Cleansing Rinsed/ Rinsed/ Rinsed/ Irrigated with Irrigated with Irrigated with Saline Saline Saline -Foul Odor after Cleansing No No No -Bioengineered Tissue No No No -Bleeding Controlled with Pressure Pressure Pressure -Treatment Response Procedure Procedure Procedure Tolerated Well Tolerated Well Tolerated Well -Offloading No -Debridement - Subq, 1st 20sq cm Yes Yes Yes -Debridement, SubQ, ea addt'l 20sq cm 8 1 7 or part thereof -Debridement - Muscle / Fascia, 1st No 20sq cm -Debridement - Bone, 1st 20sq cm No Pain Scale: 0-10 Numeric Is Patient Pain Free? Yes Yes Yes WC - Nurse 3 - General Ulcer D/C NN Start: 11/06/23 09:57 Freq: Status: Active Protocol: Activity Type Activity Date Activity User E-sign Co-sign Detail Recorded Client Recorded Date Recorded By Document 11/06/23 11:17 DS [id number] 11/06/23 13:47 DS Document 11/06/23 11:54 RB Desktop 11/06/23 11:59 RB Document 11/20/23 11:35 [id number] 11/20/23 11:36 JF 11/06/23 11/06/23 11/20/23 11:17 11:54 11:35 Wound Care Center Nurse 3 back -Ulcer Cleansing Rinsed/ Rinsed/ Irrigated with Irrigated with Saline Saline -Foul Odor after Cleansing No -Negative Pressure Wound Therapy Continue Continue Continue -Setting (mmHg) 150 150 150 -Negative Pressure is Continuous Continuous Continuous -Other Dressing white base and undermining -NPWT Application Charge NPWT & NPWT & NPWT & Debridement (nc Debridement (nc Debridement (nc ) ) ) Neena-Wound Care Barrier Treatment Response Procedure Tolerated Well Pain Scale: 0-10 Numeric Is Patient Pain Free? No No Yes back -Description Aching Aching -Intensity 8 8 -Pain Aggravating Factors Debridement Debridement -Alleviating Factors/Interventions Medication Medication -Effectiveness of Alleviating Factor/ Minimally Minimally Intervention effective effective WC - Visit Discharge Discharge Condition Stable Stable Stable Ambulatory Status Ambulatory, Ambulatory Ambulatory Walker Transportation Private Auto Private Auto Private Auto Accompanied by Medication Reconcilliation completed & No No Yes provided to patient/care provider Clinical Summary of Care Provided Yes Yes Yes Notes: pt applied adjustable back brace Assessment/Plan Assessment/Plan (1) Lumbar stenosis: CODE(S): M48.061 - Spinal stenosis, lumbar region without neurogenic claudication QUALIFIERS: Neurogenic claudication status: without neurogenic claudication Qualified Code(s): M48.061 - Spinal stenosis, lumbar region without neurogenic claudication PLAN: increase the wound vac to 150 mg Hgg only have changed once a week with us discontinue home health care Follow-up with surgeon for physical therapy start up Patient may start going to [facility] but no other extra activity follow up 1 week (2) Dehiscence of surgical wound: CODE(S): T81.31XA - Disruption of external operation (surgical) wound, not elsewhere classified, initial encounter QUALIFIERS: Encounter type: initial encounter Qualified Code(s): T81.31XA - Disruption of external operation (surgical) wound, not elsewhere classified, initial encounter (3) Pain at surgical incision: CODE(S): L76.82 - Other postprocedural complications of skin and subcutaneous tissue PLAN: discussed using tramadol and Tylenol for the pain and may still use the gabapentin increase dose to 200 mg tid for pain Can try extending hours rather than decreasing dose if getting better. Patient has already stopped gabapentin (4) Uncontrolled diabetes mellitus with hyperglycemia: CODE(S): E11.65 - Type 2 diabetes mellitus with hyperglycemia QUALIFIERS: Diabetes mellitus type: type 2 Qualified Code(s): E11.65 - Type 2 diabetes mellitus with hyperglycemia PLAN: discussed at lent about his diabetes and food plans and frequent small 1-2 oz of protein based snacks
--- NOTE | 2023-11-25 08:36 | WC ---
Patient's Rita called in this am emotional that her 's vac has been alarming since 2am this morning. She was upset that she had no one to contact and his HH was cancelled to where the vac was to be changed once a week at [facility]. Spoke to her over the phone and vac is working currently but very positional, would like him to be seen today for nurse visit and get HH reestablished for Saturday visits. [facility] is the HH and Rita spoke to Shahida who said to have an order sent over. Messaged Puja Medeiros NP who is the provider and awaiting for the okay to send them an order.
--- NOTE | 2023-11-25 08:42 | WC ---
Received okay from Puja Medeiros NP to have wound vac changed on Saturdays. Order to be sent to [facility].
[2023-11-25 09:56] VITALS: BP 150/69; PULSE 102; RESP 20; TEMP 36.4; BMI 26.3
[2023-11-27 09:55] VITALS: RESP 18; TEMP 36.3; BMI 26.3
--- NOTE | 2023-11-27 12:42 | PCM.WC.PN ---
History of Present Illness Date of Service: 11/27/23 Chief Complaint: dehisced lumbar surgical wound History of Wound: 63 year old white male with uncontrolled diabetes and had back surgery then dehisced and had an I&D done in . appears in severe pain with a wound vac that they want us to transfer of care. He also needs main managed also .He has home health from the hospital coming in 2 days a week and they change the vac once a week and the black foam has been sticking. He also picked up MRSA on cultures and is on 2 different antibiotics also. Progress of Wound: Lumbar wound healing nicely measurements are much smaller. Tolerating wound VAC very well. Had a bit of a problem last weekend where they could not get the wound VAC to work overall Saturday night kind of panicked we will have nursing go back into the home twice a week and only have the wound VAC change twice weekly. Undermining is gone new skin buds are forming throughout the wound covering the sutures finally. And some of the fascia. No sign of infection noted no odor no smells still drains a lot in the canisters. Subjective Subjective They are good with wound VAC continuing patient was able to go to [facility] on Saturday very happy. Objective Data Objective Data Healing well appears the sutures are being covered now with new skin fascia still open but the inferior side is better than the superior side it is deeper but coming along very well Vital Signs: Vital Signs Temp Pulse Resp BP 97.3 F L 102 H 18 150/69 H 11/27/23 09:55 11/25/23 09:56 11/27/23 09:55 11/25/23 09:56 Weight: 168 lb Body Mass Index (BMI) 26.3 Physical Exam Const oriented x3 General Appearance: cooperative Exam Limitations: no limitations HEENT normocephalic Eyes PERRL General Eye: normal appearance of both eyes Resp normal respiratory effort Effort and Inspection: able to speak in complete sentences Auscultation: clear to auscultation bilaterally Cardio regular rate and regular rhythm Palpation: normal PMI Rate: regular rate Rhythm: regular rhythm Back/Spine Cervical Spine: cervical ROM normal Thoracic Spine / Upper Back: normal to inspection Lumbar Spine / Lower Back: normal to inspection Psych Appearance: grossly normal Speech: normal speech Thought Content: normal thought content Judgement: judgement good Debridement Note Debridement Note Wound debrided: lumbar dehisced wound Type of Debridement: Excisional debridement Anesthesia Used: 4% Lidocaine Solution and 5% Lidocaine Gel Depth: Down to and including healthy tissue, in the subcutaneous layer and to muscle Percentage of wound debrided: 100 Instrument Used: #15 blade, Forceps and - (scissors) Tissue Removed: devitalized tissue and fibrin Amount of bleeding with debridement: Mild Bleeding Controlled with: Compression and gauze Patient tolerated procedure: Patient tolerated procedure well Post-Debridement Measurements and Additional Note: Post-Debridement Measurements/Treatment - Nurse 1 - General Ulcer Assessment Start: 11/06/23 09:57 Freq: Status: Active Protocol: CULLEN Activity Type Activity Date Activity User E-sign Co-sign Detail Recorded Client Recorded Date Recorded By Document 11/06/23 09:59 DS Desktop 11/06/23 10:14 DS Edit Result 11/06/23 09:59 DS (1) Desktop 11/06/23 10:21 DS Document 11/13/23 09:58 DL Desktop 11/13/23 10:09 DL Document 11/20/23 10:24 DL [id number] 11/20/23 10:33 DL Document 11/25/23 09:56 DL [email or web address] 11/25/23 10:13 DL Document 11/27/23 09:55 DL [email or web address] 11/27/23 10:02 DL (1) Preferred language => [place] Sheep Clipper Required => No Able to Read => Yes Able to Write => Yes Communication Tools => None Right Hearing Abillity => Normal Left Hearing Abillity => Normal Visual Assistive Devices => Glasses Preferences => Verbal,Written, => Demonstration Barriers to Learning => None Readiness To Learn => Good Willingness to Engage in Self Management => High Activies Readiness to Engage in Self Management => High Activities Anxiety Level => Anxious Cooperation => Cooperative Perception => Coherent Interest in Health Problem => Asks Questions Education Importance => Acknowledges Need Does Patient Smoke tobacco or other => No substances Smoking Status => Never smoker Is Patient Diabetic => Yes Recent Decline in Ability to Perform => Ambulation Assistive Device With Patient => Yes Cultural/Judaism Needs that may affect => No Treatment Plan *Welcome to the Wound Center - Person Taught => Patient,Family - Teaching Method => Discussion - Response to teaching => Verbalize => understanding 11/06/23 11/13/23 11/20/23 09:59 09:58 10:24 WC - Today's Visit Information Type of service Initial Visit Follow-up Visit Follow-up Visit (Physician/MACHINE DEICER ELEMENT WINDER (Physician/MACHINE DEICER ELEMENT WINDER ) ) Arrival Mode Ambulatory, Ambulatory, Ambulatory,Cane Walker Walker Transfer Assistance None None Patient Identification Verified (Name & Yes Yes ) Patient Requires Transmission-Based No No Precautions Safety Precautions NA Finger Stick Blood Sugar(mg/dl) (if [phone] indicated): Blood Sugar Stated by Stated by Stated by Patient Patient Patient Height and Weight Height 5 ft 7 in Weight 168 lb Weight in Pounds 168.0 lbs Weight Measurement Method Estimated by Patient Body Mass Index (BMI) 26.3 26.3 26.3 BMI Classification Overweight Overweight Overweight BSA - John 1.88 Vital Signs Temperature (97.8 F-99.1 F) 97.2 F L 97.6 F L 97.5 F L Temperature Source Temporal Temporal Temporal Pulse Rate (60-100) 105 H 90 112 H Pulse Location Monitor Monitor Monitor Respiratory Rate (12-18) 20 H 20 H Respiratory rate source Observation Observation Blood Pressure (90/60-120/80) 175/73 H 138/66 H 119/56 L Blood Pressure Mean (mm Hg) 107 90 77 Source Monitor Monitor Monitor Position Sitting Blood Pressure Location Right Arm History Since Last Visit- (Skip if this is Patient's initial visit) Have you changed medications since your No No last visit? Any new allergies or adverse reactions No No Had a fall/change in ADL's that may No No increase risk of falls Signs or symptoms of abuse and/or No No neglect since last visit Have you been in the hospital since your No No last visit? Has dressing in place as prescribed Yes Yes Has compression in place as prescribed N/A N/A Has offloadiing in place as prescribed Yes Yes Experienced any changes in pain level or No No management Left Footwear Regular Shoe Right Footwear Regular Shoe Pain Scale: 0-10 Numeric Is Patient Pain Free? No Yes Yes back -Description Aching -Intensity 4 -Duration (hours) Acute -Pain Aggravating Factors Surgery -Alleviating Factors/Interventions Will continue to monitor, Patient denies need for intervention, Emotional Support Communication Assessment Preferred language [place] Sheep Clipper Required No Able to Read Yes Able to Write Yes Communication Tools None Right Hearing Abillity Normal Left Hearing Abillity Normal Visual Assistive Devices Glasses Teaching Assessment Preferences Verbal,Written, Demonstration Barriers to Learning None Readiness To Learn Good Willingness to Engage in Self Management High Activies Readiness to Engage in Self Management High Activities Anxiety Level Anxious Cooperation Cooperative Perception Coherent Interest in Health Problem Asks Questions Education Importance Acknowledges Need Does Patient Smoke tobacco or other No substances Smoking Status Never smoker Is Patient Diabetic Yes Functional Assessment Recent Decline in Ability to Perform Ambulation Assistive Device With Patient Yes Culture/Judaism/[place] Cultural/Judaism Needs that may affect No Treatment Plan Teaching: Wound Center *Welcome to the Wound Center -Person Taught Patient,Family -Teaching Method Discussion -Response to teaching Verbalize understanding 11/25/23 11/27/23 09:56 09:55 WC - Today's Visit Information Type of service Nurse-only Follow-up Visit Visit (Physician/MACHINE DEICER ELEMENT WINDER ) Arrival Mode Ambulatory Ambulatory Transfer Assistance None None Patient Identification Verified (Name & Yes Yes ) Patient Requires Transmission-Based No No Precautions Safety Precautions Finger Stick Blood Sugar(mg/dl) (if 144 indicated): Blood Sugar Stated by Patient Height and Weight Height Weight Weight in Pounds Weight Measurement Method Body Mass Index (BMI) 26.3 26.3 BMI Classification Overweight Overweight [facility] [place] Vital Signs Temperature (97.8 F-99.1 F) 97.5 F L 97.3 F L Temperature Source Temporal Temporal Pulse Rate (60-100) 102 H Pulse Location Monitor Respiratory Rate (12-18) 20 H 18 Respiratory rate source Observation Blood Pressure (90/60-120/80) 150/69 H Blood Pressure Mean (mm Hg) 96 Source Monitor Position Blood Pressure Location History Since Last Visit- (Skip if this is Patient's initial visit) Have you changed medications since your No No last visit? Any new allergies or adverse reactions No No Had a fall/change in ADL's that may No No increase risk of falls Signs or symptoms of abuse and/or No No neglect since last visit Have you been in the hospital since your No No last visit? Has dressing in place as prescribed Yes Yes Has compression in place as prescribed N/A N/A Has offloadiing in place as prescribed Yes Yes Experienced any changes in pain level or No No management Left Footwear Right Footwear Pain Scale: 0-10 Numeric Is Patient Pain Free? Yes Yes back -Description -Intensity -Duration (hours) -Pain Aggravating Factors -Alleviating Factors/Interventions Communication Assessment Preferred border measurer Required Able to Read Able to Write Communication Tools Right Hearing Abillity Left Hearing Abillity Visual Assistive Devices Teaching Assessment Preferences Barriers to Learning Readiness To Learn Willingness to Engage in Self Management Activies Readiness to Engage in Self Management Activities Anxiety Level Cooperation Perception Interest in Health Problem Education Importance Does Patient Smoke tobacco or other substances Smoking Status Is Patient Diabetic Functional Assessment Recent Decline in Ability to Perform Assistive Device With Patient Culture/Judaism/[place] Cultural/Judaism Needs that may affect Treatment Plan Teaching: Wound Center *Welcome to the Wound Center -Person Taught -Teaching Method -Response to teaching WC - Nurse 1 - General Ulcer Measurement Start: 11/06/23 09:57 Freq: Status: Active Protocol: Activity Type Activity Date Activity User E-sign Co-sign Detail Recorded Client Recorded Date Recorded By Document 11/06/23 09:59 DS Desktop 11/06/23 10:14 DS Document 11/13/23 09:58 DL Desktop 11/13/23 10:09 DL Document 11/20/23 10:24 DL [email or web address] 11/20/23 10:33 DL Document 11/25/23 09:56 DL [email or web address] 11/25/23 10:13 DL Document 11/27/23 09:55 DL [email or web address] 11/27/23 10:02 DL 11/06/23 11/13/23 11/20/23 09:59 09:58 10:24 Wound Center Nurse 1 back -Current Size (cm) - Length 9.5 9.6 8.8 -Current Size (cm) - Width 3 2.8 2.8 -Current Size (cm) - Depth 1.2 1.3 1.1 -Total Square Cm 28.5 26.88 24.64 -Date of Last Picture (Recall this 11/06/23 field) -Photo Taken Yes -Tunneling No -Undermining/Tunneling No -Undermining/Tunneling Starts (O'clock 9 10 ) -Undermining/Tunneling Ends (O'clock) 12 2 -Maximum Distance (cm) 1 0.8 -Undermining/Tunneling Starts #2 (O' 4 clock) -Undermining/Tunneling Ends #2 (O' 5 clock) -Maximum Distance #2 (cm) 0.4 -Exudate Amt Large Medium Medium -Exudate Type Serosanguineous Yellow/Green Serosanguineous -Wound Margin Distinct, Distinct, Distinct, Outline Outline Outline Attached Attached Attached -Granulation Amt Large (67-100%) Large (67-100%) -Granulation Quality [place] Red -Slough/Fibrin Yes -Necrosis Amt Large (67-100%) Small (1-33%) Small (1-33%) -Necrotic Tissue Type Adherent Slough Adherent Slough Adherent Slough -Structure Exposed N/A Tendon,Fascia -Texture (Neena-wound Skin Appearance) Assessed Scarring Scarring,Rash -Moisture (Neena-wound Skin Appearance) Assessed No Abnormality No Abnormality -Color (Neena-wound Skin Appearance) Assessed, No Abnormality No Abnormality Erythema -Temperature (Neena-wound Skin No Abnormality No Abnormality No Abnormality Appearance) (Pt Warm) (Pt Warm) (Pt Warm) -Tenderness on Palpation (Neena-wound Yes No No Skin Appearance) -Ulcer Cleansing Soap and Water Soap and Water Soap and Water -Foul Odor after Cleansing No No -Anesthetic Used 4% Lidocaine 4% Lidocaine 4% Lidocaine Solution Solution Solution -Wound Comment(s) sutures intact 11/25/23 11/27/23 09:56 09:55 Wound Center Nurse 1 back -Current Size (cm) - Length 9 -Current Size (cm) - Width 2.6 -Current Size (cm) - Depth 0.5 -Total Square Cm 23.4 -Date of Last Picture (Recall this field) -Photo Taken Yes -Tunneling -Undermining/Tunneling -Undermining/Tunneling Starts (O'clock ) -Undermining/Tunneling Ends (O'clock) -Maximum Distance (cm) -Undermining/Tunneling Starts #2 (O' clock) -Undermining/Tunneling Ends #2 (O' clock) -Maximum Distance #2 (cm) -Exudate Amt Small Medium -Exudate Type Serosanguineous Serosanguineous -Wound Margin Distinct, Distinct, Outline Outline Attached Attached -Granulation Amt Large (67-100%) Large (67-100%) -Granulation Quality Red Red -Slough/Fibrin -Necrosis Amt None Present (0 None Present (0 %) %) -Necrotic Tissue Type -Structure Exposed Tendon,Fascia Tendon,Fascia -Texture (Neena-wound Skin Appearance) Scarring,Rash Scarring -Moisture (Neena-wound Skin Appearance) No Abnormality No Abnormality -Color (Neena-wound Skin Appearance) No Abnormality No Abnormality -Temperature (Neena-wound Skin No Abnormality No Abnormality Appearance) (Pt Warm) (Pt Warm) -Tenderness on Palpation (Neena-wound No No Skin Appearance) -Ulcer Cleansing Soap and Water Soap and Water -Foul Odor after Cleansing No No -Anesthetic Used 5% Lidocaine Gel -Wound Comment(s) WC - Nurse 2 - General Ulcer CM Notes Start: 11/06/23 09:57 Freq: Status: Active Protocol: Activity Type Activity Date Activity User E-sign Co-sign Detail Recorded Client Recorded Date Recorded By Document 11/06/23 10:[address] [facility] Desktop 11/06/23 10:42 BMF Document 11/13/23 10:20 BMF Desktop 11/13/23 10:26 BMF Document 11/20/23 10:[address] [facility] wound center 11/20/23 10:[address] [facility] Edit Result 11/20/23 10:[address] [facility] (1) [id number] 11/27/23 09:40 BM Document 11/27/23 10:[address] [facility] [id number] 11/27/23 10:11 BMF (1) back - Debridement - Muscle / Fascia, 1st No => 20sq cm - Debridement - Bone, 1st 20sq cm No => 11/06/23 11/13/23 11/20/23 10:31 10:20 10:43 Wound Center Nurse 2 back -Time 10:31 10:21 10:43 -Correct Patient Yes Yes Yes -Correct Side, Site, Position Yes Yes Yes -Correct Procedure Yes Yes Yes -Procedure Performed Yes Yes Yes -Type of Procedure Debridement Debridement Debridement -Clinical Debridement Subcutaneous Subcutaneous Subcutaneous -Tissue Removed Subcutaneous Subcutaneous Subcutaneous -Post Debridement (cm) - Length 9.7 9.5 9 -Post Debridement (cm) - Width 2.9 3.4 3 -Post Debridement (cm) - Depth 1.8 1.5 1.1 -Total Square (Post) (cm) 28.13 32.30 27 -Area of Debridement (cm) - Length 9.7 9.5 9 -Area of Debridement (cm) - Width 2.9 3.4 3 -Total Square (Area) (cm) 28.13 32.30 27 -Tunneling No No No -Undermining/Tunneling Yes Yes No -Undermining/Tunneling Starts (O'clock 12 11 ) -Undermining/Tunneling Ends (O'clock) 6 1 -Maximum Distance (cm) 1.4 0.5 -Circular Undermining No No No -Wound/Ulcer Outcome Not Healed Not Healed Not Healed -Ulcer Cleansing Rinsed/ Rinsed/ Rinsed/ Irrigated with Irrigated with Irrigated with Saline Saline Saline -Foul Odor after Cleansing No No No -Bioengineered Tissue No No No -Bleeding Controlled with Pressure Pressure Pressure -Treatment Response Procedure Procedure Procedure Tolerated Well Tolerated Well Tolerated Well -Offloading No -Debridement - Subq, 1st 20sq cm Yes Yes Yes -Debridement, SubQ, ea addt'l 20sq cm 8 1 7 or part thereof Pain Scale: 0-10 Numeric Is Patient Pain Free? Yes Yes Yes 11/27/23 10:08 Wound Center Nurse 2 back -Time 10:08 -Correct Patient Yes -Correct Side, Site, Position Yes -Correct Procedure Yes -Procedure Performed Yes -Type of Procedure Debridement -Clinical Debridement Subcutaneous -Tissue Removed Subcutaneous -Post Debridement (cm) - Length 9 -Post Debridement (cm) - Width 2.5 -Post Debridement (cm) - Depth 0.7 -Total Square (Post) (cm) 22.5 -Area of Debridement (cm) - Length 9 -Area of Debridement (cm) - Width 2.5 -Total Square (Area) (cm) 22.5 -Tunneling No -Undermining/Tunneling No -Undermining/Tunneling Starts (O'clock ) -Undermining/Tunneling Ends (O'clock) -Maximum Distance (cm) -Circular Undermining -Wound/Ulcer Outcome Not Healed -Ulcer Cleansing Rinsed/ Irrigated with Saline -Foul Odor after Cleansing No -Bioengineered Tissue No -Bleeding Controlled with Pressure -Treatment Response Procedure Tolerated Well -Offloading -Debridement - Subq, 1st 20sq cm Yes -Debridement, SubQ, ea addt'l 20sq cm 3 or part thereof Pain Scale: 0-10 Numeric Is Patient Pain Free? Yes WC - Nurse 3 - General Ulcer D/C NN Start: 11/06/23 09:57 Freq: Status: Active Protocol: Activity Type Activity Date Activity User E-sign Co-sign Detail Recorded Client Recorded Date Recorded By Document 11/06/23 11:17 DS [id number] 11/06/23 13:47 DS Document 11/06/23 11:54 RB Desktop 11/06/23 11:59 RB Document 11/20/23 11:35 [id number] 11/20/23 11:36 JF Document 11/25/23 09:56 DL [id number] 11/25/23 10:13 DL Document 11/27/23 10:41 RB wound center 11/27/23 10:42 RB 11/06/23 11/06/23 11/20/23 11:17 11:54 11:35 Wound Care Center Nurse 3 back -Ulcer Cleansing Rinsed/ Rinsed/ Irrigated with Irrigated with Saline Saline -Foul Odor after Cleansing No -Negative Pressure Wound Therapy Continue Continue Continue -Setting (mmHg) 150 150 150 -Negative Pressure is Continuous Continuous Continuous -Other Dressing white base and undermining -NPWT Application Charge NPWT & NPWT & NPWT & Debridement (nc Debridement (nc Debridement (nc ) ) ) Neena-Wound Care Barrier Treatment Response Procedure Tolerated Well Vital Signs Temperature (97.8 F-99.1 F) Temperature Source Pulse Rate (60-100) Pulse Location Respiratory Rate (12-18) Respiratory rate source Blood Pressure (90/60-120/80) Blood Pressure Mean (mm Hg) Source Pain Scale: 0-10 Numeric Is Patient Pain Free? No No Yes back -Description Aching Aching -Intensity 8 8 -Pain Aggravating Factors Debridement Debridement -Alleviating Factors/Interventions Medication Medication -Effectiveness of Alleviating Factor/ Minimally Minimally Intervention effective effective WC - Visit Discharge Discharge Condition Stable Stable Stable Ambulatory Status Ambulatory, Ambulatory Ambulatory Walker Transportation Private Auto Private Auto Private Auto Accompanied by Medication Reconcilliation completed & No No Yes provided to patient/care provider Clinical Summary of Care Provided Yes Yes Yes Notes: pt applied adjustable back brace Facility Type Orders Sent 11/25/23 11/27/23 09:56 10:41 Wound Care Center Nurse 3 back -Ulcer Cleansing Not Cleansed -Foul Odor after Cleansing No -Negative Pressure Wound Therapy Continue Continue -Setting (mmHg) 150 150 -Negative Pressure is Continuous Continuous -Other Dressing -NPWT Application Charge NPWT > 50 sq cm NPWT & ($) Debridement (nc ) Neena-Wound Care Barrier Treatment Response Procedure Procedure Tolerated Well Tolerated Well Vital Signs Temperature (97.8 F-99.1 F) 97.5 F L Temperature Source Temporal Pulse Rate (60-100) 102 H Pulse Location Monitor Respiratory Rate (12-18) 20 H Respiratory rate source Observation Blood Pressure (90/60-120/80) 150/69 H Blood Pressure Mean (mm Hg) 96 Source Monitor Pain Scale: 0-10 Numeric Is Patient Pain Free? Yes Yes back -Description -Intensity -Pain Aggravating Factors -Alleviating Factors/Interventions -Effectiveness of Alleviating Factor/ Intervention WC - Visit Discharge Discharge Condition Stable Stable Ambulatory Status Ambulatory Ambulatory Transportation Private Auto Private Auto Accompanied by Medication Reconcilliation completed & No provided to patient/care provider Clinical Summary of Care Provided Yes Notes: Facility Type Home Health Orders Sent Yes Assessment/Plan Assessment/Plan (1) Lumbar stenosis: CODE(S): M48.061 - Spinal stenosis, lumbar region without neurogenic claudication QUALIFIERS: Neurogenic claudication status: without neurogenic claudication Qualified Code(s): M48.061 - Spinal stenosis, lumbar region without neurogenic claudication PLAN: increase the wound vac to 150 mg Hgg continue home health care Follow-up with surgeon for physical therapy start up Patient may start going to [facility] on Saturday but no other extra activity follow up 1 week (2) Dehiscence of surgical wound: CODE(S): T81.31XA - Disruption of external operation (surgical) wound, not elsewhere classified, initial encounter QUALIFIERS: Encounter type: initial encounter Qualified Code(s): T81.31XA - Disruption of external operation (surgical) wound, not elsewhere classified, initial encounter (3) Pain at surgical incision: CODE(S): L76.82 - Other postprocedural complications of skin and subcutaneous tissue PLAN: discussed using tramadol and Tylenol for the pain and may still use the gabapentin increase dose to 200 mg tid for pain Can try extending hours rather than decreasing dose if getting better. Patient has already stopped gabapentin (4) Uncontrolled diabetes mellitus with hyperglycemia: CODE(S): E11.65 - Type 2 diabetes mellitus with hyperglycemia QUALIFIERS: Diabetes mellitus type: type 2 Qualified Code(s): E11.65 - Type 2 diabetes mellitus with hyperglycemia PLAN: discussed at lenght about his diabetes and food plans and frequent small 1-2 oz of protein based snacks
[2023-12-04 10:19] VITALS: BP 124/70; PULSE 102; RESP 18; TEMP 36; BMI 26.3
--- NOTE | 2023-12-04 13:31 | PN.PCM_ITS ---
History of Present Illness Date of Service: 12/04/23 Chief Complaint: dehisced lumbar surgical wound History of Wound: 63 year old white male with uncontrolled diabetes and had back surgery then dehisced and had an I&D done in . appears in severe pain with a wound vac that they want us to transfer of care. He also needs main managed also .He has home health from the hospital coming in 2 days a week and they change the vac once a week and the black foam has been sticking. He also picked up MRSA on cultures and is on 2 different antibiotics also. Progress of Wound: Lumbar wound healing nicely measurements are much smaller. Tolerating wound VAC very well. Had a bit of a problem last weekend where they could not get the wound VAC to work overall Saturday night kind of panicked we will have nursing go back into the home twice a week and only have the wound VAC change twice weekly. Undermining is gone new skin buds are forming throughout the wound covering the sutures finally. And some of the fascia. No sign of infection noted no odor no smells still drains a lot in the canisters. Subjective Subjective Very pleased with outcomes Objective Data Objective Data The superior side of the wound closest to his head is the deepest and and it is still showing visible sutures and fascia. The bottom half of the wound is is healing closing nicely with new skin over top. Unable to see sutures at this time. Will continue using a wound VAC at this time patient is to continue good sugar control. He will follow-up with his surgeon in another week. Vital Signs: Vital Signs Temp Pulse Resp BP 96.8 F L 102 H 18 124/70 H 12/04/23 10:19 12/04/23 10:19 12/04/23 10:19 12/04/23 10:19 Weight: 168 lb Body Mass Index (BMI) 26.3 Physical Exam Const oriented x3 General Appearance: cooperative Exam Limitations: no limitations HEENT normocephalic Eyes PERRL General Eye: normal appearance of both eyes Resp normal respiratory effort Effort and Inspection: able to speak in complete sentences Auscultation: clear to auscultation bilaterally Cardio regular rate and regular rhythm Palpation: normal PMI Rate: regular rate Rhythm: regular rhythm Back/Spine Cervical Spine: cervical ROM normal Thoracic Spine / Upper Back: normal to inspection Lumbar Spine / Lower Back: normal to inspection Psych Appearance: grossly normal Speech: normal speech Thought Content: normal thought content Judgement: judgement good Debridement Note Debridement Note Wound debrided: lumbar dehisced wound Type of Debridement: Excisional debridement Anesthesia Used: 4% Lidocaine Solution and 5% Lidocaine Gel Depth: Down to and including healthy tissue and in the subcutaneous layer Percentage of wound debrided: 100 Instrument Used: 7mm curette Tissue Removed: devitalized tissue and fibrin Amount of bleeding with debridement: Mild Bleeding Controlled with: Compression and gauze Patient tolerated procedure: Patient tolerated procedure well Post-Debridement Measurements and Additional Note: Post-Debridement Measurements/Treatment - Nurse 1 - General Ulcer Assessment Start: 11/06/23 09:57 Freq: Status: Active Protocol: CULLEN Activity Type Activity Date Activity User E-sign Co-sign Detail Recorded Client Recorded Date Recorded By Document 11/06/23 09:59 DS Desktop 11/06/23 10:14 DS Edit Result 11/06/23 09:59 DS (1) Desktop 11/06/23 10:21 DS Document 11/13/23 09:58 DL Desktop 11/13/23 10:09 DL Document 11/20/23 10:24 DL [email or web address] 11/20/23 10:33 DL Document 11/25/23 09:56 DL [email or web address] 11/25/23 10:13 DL Document 11/27/23 09:55 DL [email or web address] 11/27/23 10:02 DL Document 12/04/23 10:19 DL [email or web address] 12/04/23 10:28 DL (1) Preferred language => [place] Power Systems Engineer Required => No Able to Read => Yes Able to Write => Yes Communication Tools => None Right Hearing Abillity => Normal Left Hearing Abillity => Normal Visual Assistive Devices => Glasses Preferences => Verbal,Written, => Demonstration Barriers to Learning => None Readiness To Learn => Good Willingness to Engage in Self Management => High Activies Readiness to Engage in Self Management => High Activities Anxiety Level => Anxious Cooperation => Cooperative Perception => Coherent Interest in Health Problem => Asks Questions Education Importance => Acknowledges Need Does Patient Smoke tobacco or other => No substances Smoking Status => Never smoker Is Patient Diabetic => Yes Recent Decline in Ability to Perform => Ambulation Assistive Device With Patient => Yes Cultural/Samaritan Needs that may affect => No Treatment Plan *Welcome to the Wound Center - Person Taught => Patient,Family - Teaching Method => Discussion - Response to teaching => Verbalize => understanding 11/06/23 11/13/23 11/20/23 09:59 09:58 10:24 WC - Today's Visit Information Type of service Initial Visit Follow-up Visit Follow-up Visit (Physician/DIRECTOR OF HEALTH EDUCATION (Physician/DIRECTOR OF HEALTH EDUCATION ) ) Arrival Mode Ambulatory, Ambulatory, Ambulatory,Cane Walker Walker Transfer Assistance None None Patient Identification Verified (Name & Yes Yes ) Patient Requires Transmission-Based No No Precautions Safety Precautions NA Finger Stick Blood Sugar(mg/dl) (if 227 [id number] indicated): Blood Sugar Stated by Stated by Stated by Patient Patient Patient Height and Weight Height 5 ft 7 in Weight 168 lb Weight in Pounds 168.0 lbs Weight Measurement Method Estimated by Patient Body Mass Index (BMI) 26.3 26.3 26.3 BMI Classification Overweight Overweight Overweight BSA - John 1.88 Vital Signs Temperature (97.8 F-99.1 F) 97.2 F L 97.6 F L 97.5 F L Temperature Source Temporal Temporal Temporal Pulse Rate (60-100) 105 H 90 112 H Pulse Location Monitor Monitor Monitor Respiratory Rate (12-18) 20 H 20 H Respiratory rate source Observation Observation Blood Pressure (90/60-120/80) 175/73 H 138/66 H 119/56 L Blood Pressure Mean (mm Hg) 107 90 77 Source Monitor Monitor Monitor Position Sitting Blood Pressure Location Right Arm History Since Last Visit- (Skip if this is Patient's initial visit) Have you changed medications since your No No last visit? Any new allergies or adverse reactions No No Had a fall/change in ADL's that may No No increase risk of falls Signs or symptoms of abuse and/or No No neglect since last visit Have you been in the hospital since your No No last visit? Has dressing in place as prescribed Yes Yes Has compression in place as prescribed N/A N/A Has offloadiing in place as prescribed Yes Yes Experienced any changes in pain level or No No management Left Footwear Regular Shoe Right Footwear Regular Shoe Pain Scale: 0-10 Numeric Is Patient Pain Free? No Yes Yes back -Description Aching -Intensity 4 -Duration (hours) Acute -Pain Aggravating Factors Surgery -Alleviating Factors/Interventions Will continue to monitor, Patient denies need for intervention, Emotional Support Communication Assessment Preferred language [place] Power Systems Engineer Required No Able to Read Yes Able to Write Yes Communication Tools None Right Hearing Abillity Normal Left Hearing Abillity Normal Visual Assistive Devices Glasses Teaching Assessment Preferences Verbal,Written, Demonstration Barriers to Learning None Readiness To Learn Good Willingness to Engage in Self Management High Activies Readiness to Engage in Self Management High Activities Anxiety Level Anxious Cooperation Cooperative Perception Coherent Interest in Health Problem Asks Questions Education Importance Acknowledges Need Does Patient Smoke tobacco or other No substances Smoking Status Never smoker Is Patient Diabetic Yes Functional Assessment Recent Decline in Ability to Perform Ambulation Assistive Device With Patient Yes Culture/Samaritan/Back Panel Padder Cultural/Samaritan Needs that may affect No Treatment Plan Teaching: Wound Center *Welcome to the Wound Center -Person Taught Patient,Family -Teaching Method Discussion -Response to teaching Verbalize understanding 11/25/23 11/27/23 12/04/23 09:56 09:55 10:19 WC - Today's Visit Information Type of service Nurse-only Follow-up Visit Follow-up Visit Visit (Physician/DIRECTOR OF HEALTH EDUCATION (Physician/DIRECTOR OF HEALTH EDUCATION ) ) Arrival Mode Ambulatory Ambulatory Ambulatory Transfer Assistance None None None Patient Identification Verified (Name & Yes Yes Yes ) Patient Requires Transmission-Based No No No Precautions Safety Precautions Finger Stick Blood Sugar(mg/dl) (if 144 127 indicated): Blood Sugar Stated by Stated by Patient Patient Height and Weight Height Weight Weight in Pounds Weight Measurement Method Body Mass Index (BMI) 26.3 26.3 26.3 BMI Classification Overweight Overweight Overweight [facility] - John Vital Signs Temperature (97.8 F-99.1 F) 97.5 F L 97.3 F L 96.8 F L Temperature Source Temporal Temporal Temporal Pulse Rate (60-100) 102 H 102 H Pulse Location Monitor Monitor Respiratory Rate (12-18) 20 H 18 18 Respiratory rate source Observation Observation Blood Pressure (90/60-120/80) 150/69 H 124/70 H Blood Pressure Mean (mm Hg) 96 88 Source Monitor Monitor Position Blood Pressure Location History Since Last Visit- (Skip if this is Patient's initial visit) Have you changed medications since your No No No last visit? Any new allergies or adverse reactions No No No Had a fall/change in ADL's that may No No No increase risk of falls Signs or symptoms of abuse and/or No No No neglect since last visit Have you been in the hospital since your No No No last visit? Has dressing in place as prescribed Yes Yes Yes Has compression in place as prescribed N/A N/A N/A Has offloadiing in place as prescribed Yes Yes Yes Experienced any changes in pain level or No No No management Left Footwear Right Footwear Pain Scale: 0-10 Numeric Is Patient Pain Free? Yes Yes Yes back -Description -Intensity -Duration (hours) -Pain Aggravating Factors -Alleviating Factors/Interventions Communication Assessment Preferred languages and literature instructor Required Able to Read Able to Write Communication Tools Right Hearing Abillity Left Hearing Abillity Visual Assistive Devices Teaching Assessment Preferences Barriers to Learning Readiness To Learn Willingness to Engage in Self Management Activies Readiness to Engage in Self Management Activities Anxiety Level Cooperation Perception Interest in Health Problem Education Importance Does Patient Smoke tobacco or other substances Smoking Status Is Patient Diabetic Functional Assessment Recent Decline in Ability to Perform Assistive Device With Patient Culture/Samaritan/Back Panel Padder Cultural/Samaritan Needs that may affect Treatment Plan Teaching: Wound Center *Welcome to the Wound Center -Person Taught -Teaching Method -Response to teaching WC - Nurse 1 - General Ulcer Measurement Start: 11/06/23 09:57 Freq: Status: Active Protocol: Activity Type Activity Date Activity User E-sign Co-sign Detail Recorded Client Recorded Date Recorded By Document 11/06/23 09:59 DS Desktop 11/06/23 10:14 DS Document 11/13/23 09:58 DL Desktop 11/13/23 10:09 DL Document 11/20/23 10:24 DL [email or web address] 11/20/23 10:33 DL Document 11/25/23 09:56 DL [email or web address] 11/25/23 10:13 DL Document 11/27/23 09:55 DL [email or web address] 11/27/23 10:02 DL Document 12/04/23 10:19 DL [email or web address] 12/04/23 10:28 DL 11/06/23 11/13/23 11/20/23 09:59 09:58 10:24 Wound Center Nurse 1 back -Current Size (cm) - Length 9.5 9.6 8.8 -Current Size (cm) - Width 3 2.8 2.8 -Current Size (cm) - Depth 1.2 1.3 1.1 -Total Square Cm 28.5 26.88 24.64 -Date of Last Picture (Recall this 11/06/23 field) -Photo Taken Yes -Tunneling No -Undermining/Tunneling No -Undermining/Tunneling Starts (O'clock 9 10 ) -Undermining/Tunneling Ends (O'clock) 12 2 -Maximum Distance (cm) 1 0.8 -Undermining/Tunneling Starts #2 (O' 4 clock) -Undermining/Tunneling Ends #2 (O' 5 clock) -Maximum Distance #2 (cm) 0.4 -Exudate Amt Large Medium Medium -Exudate Type Serosanguineous Yellow/Green Serosanguineous -Wound Margin Distinct, Distinct, Distinct, Outline Outline Outline Attached Attached Attached -Granulation Amt Large (67-100%) Large (67-100%) -Granulation Quality Red [place] Red -Slough/Fibrin Yes -Necrosis Amt Large (67-100%) Small (1-33%) Small (1-33%) -Necrotic Tissue Type Adherent Slough Adherent Slough Adherent Slough -Structure Exposed N/A Tendon,Fascia -Texture (Neena-wound Skin Appearance) Assessed Scarring Scarring,Rash -Moisture (Neena-wound Skin Appearance) Assessed No Abnormality No Abnormality -Color (Neena-wound Skin Appearance) Assessed, No Abnormality No Abnormality Erythema -Temperature (Neena-wound Skin No Abnormality No Abnormality No Abnormality Appearance) (Pt Warm) (Pt Warm) (Pt Warm) -Tenderness on Palpation (Neena-wound Yes No No Skin Appearance) -Ulcer Cleansing Soap and Water Soap and Water Soap and Water -Foul Odor after Cleansing No No -Anesthetic Used 4% Lidocaine 4% Lidocaine 4% Lidocaine Solution Solution Solution -Wound Comment(s) sutures intact 11/25/23 11/27/23 12/04/23 09:56 09:55 10:19 Wound Center Nurse 1 back -Current Size (cm) - Length 9 8.8 -Current Size (cm) - Width 2.6 2.5 -Current Size (cm) - Depth 0.5 0.8 -Total Square Cm 23.4 22.00 -Date of Last Picture (Recall this field) -Photo Taken Yes -Tunneling -Undermining/Tunneling -Undermining/Tunneling Starts (O'clock ) -Undermining/Tunneling Ends (O'clock) -Maximum Distance (cm) -Undermining/Tunneling Starts #2 (O' clock) -Undermining/Tunneling Ends #2 (O' clock) -Maximum Distance #2 (cm) -Exudate Amt Small Medium Medium -Exudate Type Serosanguineous Serosanguineous Serosanguineous -Wound Margin Distinct, Distinct, Distinct, Outline Outline Outline Attached Attached Attached -Granulation Amt Large (67-100%) Large (67-100%) Large (67-100%) -Granulation Quality Red Red Red -Slough/Fibrin -Necrosis Amt None Present (0 None Present (0 Small (1-33%) %) %) -Necrotic Tissue Type Adherent Slough -Structure Exposed Tendon,Fascia Tendon,Fascia Tendon,Fascia -Texture (Neena-wound Skin Appearance) Scarring,Rash Scarring Scarring -Moisture (Neena-wound Skin Appearance) No Abnormality No Abnormality No Abnormality -Color (Neena-wound Skin Appearance) No Abnormality No Abnormality No Abnormality -Temperature (Neena-wound Skin No Abnormality No Abnormality No Abnormality Appearance) (Pt Warm) (Pt Warm) (Pt Warm) -Tenderness on Palpation (Neena-wound No No No Skin Appearance) -Ulcer Cleansing Soap and Water Soap and Water Soap and Water -Foul Odor after Cleansing No No No -Anesthetic Used 5% Lidocaine 5% Lidocaine Gel Gel -Wound Comment(s) WC - Nurse 2 - General Ulcer CM Notes Start: 11/06/23 09:57 Freq: Status: Active Protocol: Activity Type Activity Date Activity User E-sign Co-sign Detail Recorded Client Recorded Date Recorded By Document 11/06/23 10:31 [facility] Desktop 11/06/23 10:42 [facility] Document 11/13/23 10:20 [facility] Desktop 11/13/23 10:26 [facility] Document 11/20/23 10:43 [facility] wound center 11/20/23 10:48 [facility] Edit Result 11/20/23 10:43 [facility] (1) [id number] 11/27/23 09:40 [facility] Document 11/27/23 10:08 [facility] [id number] 11/27/23 10:11 [facility] Document 12/04/23 10:56 DS [id number] 12/04/23 11:00 DS Edit Result 12/04/23 10:56 DS (2) [id number] 12/04/23 11:02 DS (1) back - Debridement - Muscle / Fascia, 1st No => 20sq cm - Debridement - Bone, 1st 20sq cm No => (2) back - Debridement, SubQ, ea addt'l 20sq cm 3 => 1 or part thereof 11/06/23 11/13/23 11/20/23 10:31 10:20 10:43 Wound Center Nurse 2 back -Time 10:31 10:21 10:43 -Correct Patient Yes Yes Yes -Correct Side, Site, Position Yes Yes Yes -Correct Procedure Yes Yes Yes -Procedure Performed Yes Yes Yes -Type of Procedure Debridement Debridement Debridement -Clinical Debridement Subcutaneous Subcutaneous Subcutaneous -Tissue Removed Subcutaneous Subcutaneous Subcutaneous -Post Debridement (cm) - Length 9.7 9.5 9 -Post Debridement (cm) - Width 2.9 3.4 3 -Post Debridement (cm) - Depth 1.8 1.5 1.1 -Total Square (Post) (cm) 28.13 32.30 27 -Area of Debridement (cm) - Length 9.7 9.5 9 -Area of Debridement (cm) - Width 2.9 3.4 3 -Total Square (Area) (cm) 28.13 32.30 27 -Tunneling No No No -Undermining/Tunneling Yes Yes No -Undermining/Tunneling Starts (O'clock 12 11 ) -Undermining/Tunneling Ends (O'clock) 6 1 -Maximum Distance (cm) 1.4 0.5 -Circular Undermining No No No -Wound/Ulcer Outcome Not Healed Not Healed Not Healed -Ulcer Cleansing Rinsed/ Rinsed/ Rinsed/ Irrigated with Irrigated with Irrigated with Saline Saline Saline -Foul Odor after Cleansing No No No -Bioengineered Tissue No No No -Bleeding Controlled with Pressure Pressure Pressure -Treatment Response Procedure Procedure Procedure Tolerated Well Tolerated Well Tolerated Well -Offloading No -Debridement - Subq, 1st 20sq cm Yes Yes Yes -Debridement, SubQ, ea addt'l 20sq cm 8 1 7 or part thereof Pain Scale: 0-10 Numeric Is Patient Pain Free? Yes Yes Yes 11/27/23 12/04/23 10:08 10:56 Wound Center Nurse 2 back -Time 10:08 10:57 -Correct Patient Yes Yes -Correct Side, Site, Position Yes Yes -Correct Procedure Yes Yes -Procedure Performed Yes Yes -Type of Procedure Debridement Debridement -Clinical Debridement Subcutaneous Subcutaneous -Tissue Removed Subcutaneous Subcutaneous -Post Debridement (cm) - Length 9 8.9 -Post Debridement (cm) - Width 2.5 2.5 -Post Debridement (cm) - Depth 0.7 0.7 -Total Square (Post) (cm) 22.5 22.25 -Area of Debridement (cm) - Length 9 8.9 -Area of Debridement (cm) - Width 2.5 2.5 -Total Square (Area) (cm) 22.5 22.25 -Tunneling No No -Undermining/Tunneling No No -Undermining/Tunneling Starts (O'clock ) -Undermining/Tunneling Ends (O'clock) -Maximum Distance (cm) -Circular Undermining No -Wound/Ulcer Outcome Not Healed Not Healed -Ulcer Cleansing Rinsed/ Rinsed/ Irrigated with Irrigated with Saline Saline -Foul Odor after Cleansing No -Bioengineered Tissue No -Bleeding Controlled with Pressure Pressure -Treatment Response Procedure Procedure Tolerated Well Tolerated Well -Offloading -Debridement - Subq, 1st 20sq cm Yes Yes -Debridement, SubQ, ea addt'l 20sq cm 3 1 or part thereof Pain Scale: 0-10 Numeric Is Patient Pain Free? Yes Yes WC - Nurse 3 - General Ulcer D/C NN Start: 11/06/23 09:57 Freq: Status: Active Protocol: Activity Type Activity Date Activity User E-sign Co-sign Detail Recorded Client Recorded Date Recorded By Document 11/06/23 11:17 DS [id number] 11/06/23 13:47 DS Document 11/06/23 11:54 RB Desktop 11/06/23 11:59 RB Document 11/20/23 11:35 [id number] [id number] 11/20/23 11:36 JF Document 11/25/23 09:56 DL [email or web address] 11/25/23 10:13 DL Document 11/27/23 10:41 RB wound center 11/27/23 10:42 RB Document 12/04/23 11:08 BM [id number] 12/04/23 11:10 BM 11/06/23 11/06/23 11/20/23 11:17 11:54 11:35 Wound Care Center Nurse 3 back -Ulcer Cleansing Rinsed/ Rinsed/ Irrigated with Irrigated with Saline Saline -Foul Odor after Cleansing No -Negative Pressure Wound Therapy Continue Continue Continue -Setting (mmHg) 150 150 150 -Negative Pressure is Continuous Continuous Continuous -Other Dressing white base and undermining -NPWT Application Charge NPWT & NPWT & NPWT & Debridement (nc Debridement (nc Debridement (nc ) ) ) Neena-Wound Care Barrier Treatment Response Procedure Tolerated Well Vital Signs Temperature (97.8 F-99.1 F) Temperature Source Pulse Rate (60-100) Pulse Location Respiratory Rate (12-18) Respiratory rate source Blood Pressure (90/60-120/80) Blood Pressure Mean (mm Hg) Source Pain Scale: 0-10 Numeric Is Patient Pain Free? No No Yes back -Description Aching Aching -Intensity 8 8 -Pain Aggravating Factors Debridement Debridement -Alleviating Factors/Interventions Medication Medication -Effectiveness of Alleviating Factor/ Minimally Minimally Intervention effective effective WC - Visit Discharge Discharge Condition Stable Stable Stable Ambulatory Status Ambulatory, Ambulatory Ambulatory Walker Transportation Private Auto Private Auto Private Auto Accompanied by Medication Reconcilliation completed & No No Yes provided to patient/care provider Clinical Summary of Care Provided Yes Yes Yes Notes: pt applied adjustable back brace Facility Type Orders Sent 11/25/23 11/27/23 12/04/23 09:56 10:41 11:08 Wound Care Center Nurse 3 back -Ulcer Cleansing Not Cleansed Rinsed/ Irrigated with Saline -Foul Odor after Cleansing No No -Negative Pressure Wound Therapy Continue Continue Continue -Setting (mmHg) 150 150 150 -Negative Pressure is Continuous Continuous Continuous -Other Dressing vac applied per dl platform worker -NPWT Application Charge NPWT > 50 sq cm NPWT & NPWT & ($) Debridement (nc Debridement (nc ) ) Neena-Wound Care Barrier Treatment Response Procedure Procedure Procedure Tolerated Well Tolerated Well Tolerated Well Vital Signs Temperature (97.8 F-99.1 F) 97.5 F L Temperature Source Temporal Pulse Rate (60-100) 102 H Pulse Location Monitor Respiratory Rate (12-18) 20 H Respiratory rate source Observation Blood Pressure (90/60-120/80) 150/69 H Blood Pressure Mean (mm Hg) 96 Source Monitor Pain Scale: 0-10 Numeric Is Patient Pain Free? Yes Yes Yes back -Description -Intensity -Pain Aggravating Factors -Alleviating Factors/Interventions -Effectiveness of Alleviating Factor/ Intervention WC - Visit Discharge Discharge Condition Stable Stable Stable Ambulatory Status Ambulatory Ambulatory Ambulatory Transportation Private Auto Private Auto Private Auto Accompanied by Medication Reconcilliation completed & No provided to patient/care provider Clinical Summary of Care Provided Yes Notes: Facility Type Home Health Orders Sent Yes Assessment/Plan Assessment/Plan (1) Lumbar stenosis: CODE(S): M48.061 - Spinal stenosis, lumbar region without neurogenic claudication QUALIFIERS: Neurogenic claudication status: without neurogenic claudication Qualified Code(s): M48.061 - Spinal stenosis, lumbar region without neurogenic claudication PLAN: increase the wound vac to 150 mg Hgg continue home health care Follow-up with surgeon for physical therapy start up Patient may start going to [facility] on Saturday but no other extra activity follow up 1 week (2) Dehiscence of surgical wound: CODE(S): T81.31XA - Disruption of external operation (surgical) wound, not elsewhere classified, initial encounter QUALIFIERS: Encounter type: initial encounter Qualified Code(s): T81.31XA - Disruption of external operation (surgical) wound, not elsewhere classified, initial encounter (3) Pain at surgical incision: CODE(S): L76.82 - Other postprocedural complications of skin and subcutaneous tissue PLAN: discussed using tramadol and Tylenol for the pain and may still use the gabapentin increase dose to 200 mg tid for pain Can try extending hours rather than decreasing dose if getting better. Patient has already stopped gabapentin (4) Uncontrolled diabetes mellitus with hyperglycemia: CODE(S): E11.65 - Type 2 diabetes mellitus with hyperglycemia QUALIFIERS: Diabetes mellitus type: type 2 Qualified Code(s): E11.65 - Type 2 diabetes mellitus with hyperglycemia PLAN: discussed at [facility] about his diabetes and food plans and frequent small 1-2 oz of protein based snacks
== END 2023-12-06 23:59 | disposition home or self-care (01) ==
LOC: WC 10:15
PROVIDERS: Referring Provider Orthopaedic Surgery; Visit Provider Nurse Practitioner
DX: T81.31XA Disruption of external operation (surgical) wound, not elsewhere classified, initial encounter (principal); E11.65 Type 2 diabetes mellitus with hyperglycemia; L76.82 Other postprocedural complications of skin and subcutaneous tissue; Y83.8 Other surgical procedures as the cause of abnormal reaction of the patient, or of later complication, without mention of misadventure at the time of the procedure; M48.061 Spinal stenosis, lumbar region without neurogenic claudication; E78.00 Pure hypercholesterolemia, unspecified; Z79.85 Long-term (current) use of injectable non-insulin antidiabetic drugs; Z79.84 Long term (current) use of oral hypoglycemic drugs; Z79.899 Other long term (current) drug therapy
CPT/HCPCS: 11042; 11045; 97606; 99214; G0463

== ENCOUNTER 2024-01-01 10:15 | Outpatient (RCR) | payer BC, SELFPAY ==
[2023-12-07 01:33] VITALS: BP 124/70; PULSE 102; RESP 18; TEMP 36; BMI 26.3
[2023-12-11 10:29] VITALS: BP 103/66; PULSE 88; RESP 20; TEMP 36.4; BMI 26.3
--- NOTE | 2023-12-11 11:35 | PCM.WC.PN ---
History of Present Illness Date of Service: 12/11/23 Chief Complaint: dehisced lumbar surgical wound History of Wound: 63 year old white male with uncontrolled diabetes and had back surgery then dehisced and had an I&D done in . appears in severe pain with a wound vac that they want us to transfer of care. He also needs main managed also .He has home health from the hospital coming in 2 days a week and they change the vac once a week and the black foam has been sticking. He also picked up MRSA on cultures and is on 2 different antibiotics also. Progress of Wound: The suture lines appear to be completely covered now with new skin still has some yellow connective tissue apparently still open the deeper side which is the right upper end of the wound. Tolerating the wound VAC well they are going to increase his protein shakes to twice a day. Otherwise everything looks really good the skin around the wound is soft and supple and pink and warm and no sign of infection at all. Patient denies any pain at this time Subjective Subjective Patient is agreeable to the wound VAC in and encouragement was given Objective Data Objective Data No sign of infection and the measurements are smaller than last week he is doing very well continue to continue the good work continue changing the wound VAC as needed will follow-up in 1 week Vital Signs: Vital Signs Temp Pulse Resp BP 97.5 F L 88 20 H 103/66 12/11/23 10:29 12/11/23 10:29 12/11/23 10:29 12/11/23 10:29 Weight: 168 lb Body Mass Index (BMI) 26.3 Physical Exam Const oriented x3 General Appearance: cooperative Exam Limitations: no limitations HEENT normocephalic Eyes PERRL General Eye: normal appearance of both eyes Resp normal respiratory effort Effort and Inspection: able to speak in complete sentences Auscultation: clear to auscultation bilaterally Cardio regular rate and regular rhythm Palpation: normal PMI Rate: regular rate Rhythm: regular rhythm Back/Spine Cervical Spine: cervical ROM normal Thoracic Spine / Upper Back: normal to inspection Lumbar Spine / Lower Back: normal to inspection Psych Appearance: grossly normal Speech: normal speech Thought Content: normal thought content Judgement: judgement good Debridement Note Debridement Note Wound debrided: lumbar dehisced wound Type of Debridement: Excisional debridement Anesthesia Used: 4% Lidocaine Solution and 5% Lidocaine Gel Depth: Down to and including healthy tissue and in the subcutaneous layer Percentage of wound debrided: 100 Instrument Used: 7mm curette Tissue Removed: devitalized tissue and fibrin Amount of bleeding with debridement: Mild Bleeding Controlled with: Compression and gauze Patient tolerated procedure: Patient tolerated procedure well Post-Debridement Measurements and Additional Note: Post-Debridement Measurements/Treatment WC - Nurse 1 - General Ulcer Assessment Start: 12/11/23 10:27 Freq: Status: Active Protocol: CULLEN Activity Type Activity Date Activity User E-sign Co-sign Detail Recorded Client Recorded Date Recorded By Document 12/11/23 10:29 DL [email or web address] 12/11/23 10:36 DL 12/11/23 10:29 WC - Today's Visit Information Type of service Follow-up Visit (Physician/CANCER GENETIC COUNSELOR ) Arrival Mode Ambulatory Transfer Assistance None Patient Identification Verified (Name & Yes ) Patient Requires Transmission-Based No Precautions Height and Weight Body Mass Index (BMI) 26.3 BMI Classification Overweight Vital Signs Temperature (97.8 F-99.1 F) 97.5 F L Temperature Source Temporal Pulse Rate (60-100) 88 Pulse Location Monitor Respiratory Rate (12-18) 20 H Respiratory rate source Observation Blood Pressure (90/60-120/80) 103/66 Blood Pressure Mean (mm Hg) 78 Source Monitor History Since Last Visit- (Skip if this is Patient's initial visit) Have you changed medications since your No last visit? Any new allergies or adverse reactions No Had a fall/change in ADL's that may No increase risk of falls Signs or symptoms of abuse and/or No neglect since last visit Have you been in the hospital since your No last visit? Has dressing in place as prescribed Yes Has compression in place as prescribed N/A Has offloadiing in place as prescribed Yes Experienced any changes in pain level or No management Pain Scale: 0-10 Numeric Is Patient Pain Free? Yes - Nurse 1 - General Ulcer Measurement Start: 12/11/23 10:27 Freq: Status: Active Protocol: Activity Type Activity Date Activity User E-sign Co-sign Detail Recorded Client Recorded Date Recorded By Document 12/11/23 10:29 DL [email or web address] 12/11/23 10:36 DL 12/11/23 10:29 Wound Center Nurse 1 back -Current Size (cm) - Length 8.8 -Current Size (cm) - Width 2 -Current Size (cm) - Depth 0.4 -Total Square Cm 17.6 -Photo Taken Yes -Tunneling Position (O'clock) 12 -Tunneling Distance (cm) 0.4 -Exudate Amt Medium -Exudate Type Serosanguineous -Wound Margin Distinct, Outline Attached -Granulation Amt Large (67-100%) -Granulation Quality Red -Necrosis Amt None Present (0 %) -Structure Exposed Tendon,Fascia -Texture (Neena-wound Skin Appearance) Scarring -Moisture (Neena-wound Skin Appearance) No Abnormality -Color (Neena-wound Skin Appearance) No Abnormality -Temperature (Neena-wound Skin No Abnormality Appearance) (Pt Warm) -Ulcer Cleansing Soap and Water -Foul Odor after Cleansing No -Anesthetic Used 5% Lidocaine Gel WC - Nurse 2 - General Ulcer CM Notes Start: 12/11/23 10:27 Freq: Status: Active Protocol: Activity Type Activity Date Activity User E-sign Co-sign Detail Recorded Client Recorded Date Recorded By Document 12/11/23 10:49 [facility] [id number] 12/11/23 10:53 [facility] 12/11/23 10:49 Wound Center Nurse 2 -Time 10:50 -Correct Patient Yes -Correct Side, Site, Position Yes -Correct Procedure Yes -Procedure Performed Yes -Type of Procedure Debridement -Clinical Debridement Subcutaneous -Tissue Removed Subcutaneous -Post Debridement (cm) - Length 8 -Post Debridement (cm) - Width 2 -Post Debridement (cm) - Depth 0.7 -Total Square (Post) (cm) 16 -Area of Debridement (cm) - Length 8 -Area of Debridement (cm) - Width 2 -Total Square (Area) (cm) 16 -Tunneling No -Undermining/Tunneling No -Circular Undermining No -Wound/Ulcer Outcome Not Healed -Ulcer Cleansing Rinsed/ Irrigated with Saline -Foul Odor after Cleansing No -Bioengineered Tissue No -Bleeding Controlled with Pressure -Treatment Response Procedure Tolerated Well -Debridement - Subq, 1st 20sq cm Yes -Debridement, SubQ, ea addt'l 20sq cm 1 or part thereof Pain Scale: 0-10 Numeric Is Patient Pain Free? Yes WC - Nurse 3 - General Ulcer D/C NN Start: 12/11/23 10:27 Freq: Status: Active Protocol: Activity Type Activity Date Activity User E-sign Co-sign Detail Recorded Client Recorded Date Recorded By Document 12/11/23 11:07 DL [email or web address] 12/11/23 11:07 DL 12/11/23 11:07 Wound Care Center Nurse 3 back -Ulcer Cleansing Soap and Water -Negative Pressure Wound Therapy Continue -Setting (mmHg) 150 -Negative Pressure is Continuous -NPWT Application Charge NPWT & Debridement (nc ) Neena-Wound Care Barrier Treatment Response Procedure Tolerated Well Pain Scale: 0-10 Numeric Is Patient Pain Free? Yes WC - Visit Discharge Discharge Condition Stable Ambulatory Status Ambulatory Transportation Private Auto Facility Type Home Health Orders Sent Yes Assessment/Plan Assessment/Plan (1) Lumbar stenosis: CODE(S): M48.061 - Spinal stenosis, lumbar region without neurogenic claudication QUALIFIERS: Neurogenic claudication status: without neurogenic claudication Qualified Code(s): M48.061 - Spinal stenosis, lumbar region without neurogenic claudication PLAN: increase the wound vac to 150 mg Hgg continue home health care [facility] but no other extra activity follow up 1 week (2) Dehiscence of surgical wound: CODE(S): T81.31XA - Disruption of external operation (surgical) wound, not elsewhere classified, initial encounter QUALIFIERS: Encounter type: initial encounter Qualified Code(s): T81.31XA - Disruption of external operation (surgical) wound, not elsewhere classified, initial encounter (3) Pain at surgical incision: CODE(S): L76.82 - Other postprocedural complications of skin and subcutaneous tissue PLAN: discussed using tramadol and Tylenol for the pain and may still use the gabapentin increase dose to 200 mg tid for pain Can try extending hours rather than decreasing dose if getting better. Patient has already stopped gabapentin (4) Uncontrolled diabetes mellitus with hyperglycemia: CODE(S): E11.65 - Type 2 diabetes mellitus with hyperglycemia QUALIFIERS: Diabetes mellitus type: type 2 Qualified Code(s): E11.65 - Type 2 diabetes mellitus with hyperglycemia PLAN: discussed at lent about his diabetes and food plans and frequent small 1-2 oz of protein based snacks
[2023-12-18 10:09] VITALS: BP 127/72; PULSE 92; RESP 16; TEMP 36.1; BMI 26.3
--- NOTE | 2023-12-18 10:58 | PCM.WC.PN ---
History of Present Illness Date of Service: 12/18/23 Chief Complaint: dehisced lumbar surgical wound History of Wound: 63 year old white male with uncontrolled diabetes and had back surgery then dehisced and had an I&D done in . appears in severe pain with a wound vac that they want us to transfer of care. He also needs main managed also .He has home health from the hospital coming in 2 days a week and they change the vac once a week and the black foam has been sticking. He also picked up MRSA on cultures and is on 2 different antibiotics also. Progress of Wound: Still improving measurements are much smaller but still has his tendon showing on the lower half of the wound. Had the rep come in and check for the skin so that that would be good enough now to start thinking of getting a skin substitute on him and he suggested we do with the wound VAC which is good. We will apply for EpiFix's and see if we can get this tendon to cover with EpiFix then. He is not getting that much drainage anymore he is definitely getting good skin coverage. Subjective Subjective Both patient and are agreeable to plan Objective Data Objective Data Again no sign of infection no odor beefy tissue coming up but still has tendon showing on the superior end of the wound which is the deeper end. Will apply for EpiFix this and still use wound VAC along with that. Patient states blood sugars are running about 08/07/1938 he has been eating a lot of proteins and we suggested increasing the Jacoby drinks to twice a day Vital Signs: Vital Signs Temp Pulse Resp BP O2 Del Method 96.9 F L 92 16 127/72 H Room Air 12/18/23 10:12/18/23 10:12/18/23 10:12/18/23 10:12/18/23 10:09 Oxygen Delivery Method Room Air Weight: 168 lb Body Mass Index (BMI) 26.3 Lab / Micro Data Attestation: I reviewed the patient's lab results. Physical Exam Const oriented x3 General Appearance: cooperative Exam Limitations: no limitations HEENT normocephalic Eyes PERRL General Eye: normal appearance of both eyes Resp normal respiratory effort Effort and Inspection: able to speak in complete sentences Auscultation: clear to auscultation bilaterally Cardio regular rate and regular rhythm Palpation: normal PMI Rate: regular rate Rhythm: regular rhythm Back/Spine Cervical Spine: cervical ROM normal Thoracic Spine / Upper Back: normal to inspection Lumbar Spine / Lower Back: normal to inspection Psych Appearance: grossly normal Speech: normal speech Thought Content: normal thought content Judgement: judgement good Debridement Note Debridement Note Wound debrided: lumbar dehisced wound Type of Debridement: Excisional debridement Anesthesia Used: 4% Lidocaine Solution and 5% Lidocaine Gel Depth: Down to and including healthy tissue and in the subcutaneous layer Percentage of wound debrided: 100 Instrument Used: 7mm curette Tissue Removed: devitalized tissue and fibrin Amount of bleeding with debridement: Mild Bleeding Controlled with: Compression and gauze Patient tolerated procedure: Patient tolerated procedure well Post-Debridement Measurements and Additional Note: Post-Debridement Measurements/Treatment WC - Nurse 1 - General Ulcer Assessment Start: 12/11/23 10:27 Freq: Status: Active Protocol: CULLEN Activity Type Activity Date Activity User E-sign Co-sign Detail Recorded Client Recorded Date Recorded By Document 12/11/23 10:29 DL [email or web address] 12/11/23 10:36 DL Document 12/18/23 10:09 KW wound center 12/18/23 10:18 KW 12/11/23 12/18/23 10:29 10:09 - Today's Visit Information Type of service Follow-up Visit Follow-up Visit (Physician/CORE ANALYST (Physician/CORE ANALYST ) ) Arrival Mode Ambulatory Ambulatory,Cane Transfer Assistance None Accompanied by Patient Identification Verified (Name & Yes Yes ) Patient Requires Transmission-Based No Precautions Finger Stick Blood Sugar(mg/dl) (if 142 indicated): Blood Sugar Stated by Patient Height and Weight Body Mass Index (BMI) 26.3 26.3 BMI Classification Overweight Overweight Vital Signs Temperature (97.8 F-99.1 F) 97.5 F L 96.9 F L Temperature Source Temporal Temporal Pulse Rate (60-100) 88 92 Pulse Location Monitor Respiratory Rate (12-18) 20 H 16 Respiratory rate source Observation Observation Oxygen Delivery Method Room Air Blood Pressure (90/60-120/80) 103/66 127/72 H Blood Pressure Mean (mm Hg) 78 90 Source Monitor Monitor Position Sitting Blood Pressure Location Left Arm History Since Last Visit- (Skip if this is Patient's initial visit) Have you changed medications since your No No last visit? Any new allergies or adverse reactions No No Had a fall/change in ADL's that may No No increase risk of falls Signs or symptoms of abuse and/or No No neglect since last visit Have you been in the hospital since your No No last visit? Has dressing in place as prescribed Yes Yes Has compression in place as prescribed N/A N/A Has offloadiing in place as prescribed Yes N/A Experienced any changes in pain level or No No management Left Footwear Regular Shoe Right Footwear Regular Shoe Pain Scale: 0-10 Numeric Is Patient Pain Free? Yes Yes WC - Nurse 1 - General Ulcer Measurement Start: 12/11/23 10:27 Freq: Status: Active Protocol: Activity Type Activity Date Activity User E-sign Co-sign Detail Recorded Client Recorded Date Recorded By Document 12/11/23 10:29 DL ..[email or web address] 12/11/23 10:36 DL Document 12/18/23 10:09 wound center 12/18/23 10:18 KW 12/11/23 12/18/23 10:29 10:09 Wound Center Nurse 1 back -Current Size (cm) - Length 8.8 9 -Current Size (cm) - Width 2 2 -Current Size (cm) - Depth 0.4 0.4 -Total Square Cm 17.6 18 -Photo Taken Yes -Tunneling Position (O'clock) 12 -Tunneling Distance (cm) 0.4 -Exudate Amt Medium Small -Exudate Type Serosanguineous Serosanguineous -Wound Margin Distinct, Thickened & Outline Rolled Under Attached -Granulation Amt Large (67-100%) Small (1-33%) -Granulation Quality Red Red -Necrosis Amt None Present (0 Large (67-100%) %) -Necrotic Tissue Type Adherent Slough -Structure Exposed Tendon,Fascia -Texture (Neena-wound Skin Appearance) Scarring Assessed -Moisture (Neena-wound Skin Appearance) No Abnormality Assessed -Color (Neena-wound Skin Appearance) No Abnormality Assessed -Temperature (Neena-wound Skin No Abnormality No Abnormality Appearance) (Pt Warm) (Pt Warm) -Tenderness on Palpation (Neena-wound No Skin Appearance) -Ulcer Cleansing Soap and Water Soap and Water -Foul Odor after Cleansing No No -Anesthetic Used 5% Lidocaine 4% Lidocaine Gel Solution -Wound Comment(s) exposed suture WC - Nurse 2 - General Ulcer CM Notes Start: 12/11/23 10:27 Freq: Status: Active Protocol: Activity Type Activity Date Activity User E-sign Co-sign Detail Recorded Client Recorded Date Recorded By Document 12/11/23 10:49 [facility] [id number] 12/11/23 10:53 [facility] Document 12/18/23 10:23 [facility] [id number] 12/18/23 10:30 [facility] 12/11/23 12/18/23 10:49 10:23 Wound Center Nurse 2 back -Time 10:50 10:23 -Correct Patient Yes Yes -Correct Side, Site, Position Yes Yes -Correct Procedure Yes Yes -Procedure Performed Yes Yes -Type of Procedure Debridement Debridement -Clinical Debridement Subcutaneous Subcutaneous -Tissue Removed Subcutaneous Subcutaneous -Post Debridement (cm) - Length 8 8.3 -Post Debridement (cm) - Width 2 2 -Post Debridement (cm) - Depth 0.7 0.5 -Total Square (Post) (cm) 16 16.6 -Area of Debridement (cm) - Length 8 8.3 -Area of Debridement (cm) - Width 2 2 -Total Square (Area) (cm) 16 16.6 -Tunneling No No -Undermining/Tunneling No No -Circular Undermining No No -Wound/Ulcer Outcome Not Healed Not Healed -Ulcer Cleansing Rinsed/ Rinsed/ Irrigated with Irrigated with Saline Saline -Foul Odor after Cleansing No No -Bioengineered Tissue No No -Bleeding Controlled with Pressure Pressure -Treatment Response Procedure Procedure Tolerated Well Tolerated Well -Debridement - Subq, 1st 20sq cm Yes Yes -Debridement, SubQ, ea addt'l 20sq cm 1 or part thereof Pain Scale: 0-10 Numeric Is Patient Pain Free? Yes Yes WC - Nurse 3 - General Ulcer D/C NN Start: 12/11/23 10:27 Freq: Status: Active Protocol: Activity Type Activity Date Activity User E-sign Co-sign Detail Recorded Client Recorded Date Recorded By Document 12/11/23 11:07 DL [email or web address] 12/11/23 11:07 DL Document 12/18/23 10:41 KW wound center 12/18/23 10:41 KW 12/11/23 12/18/23 11:07 10:41 Wound Care Center Nurse 3 back -Ulcer Cleansing Soap and Water -Negative Pressure Wound Therapy Continue Continue -Setting (mmHg) 150 150 -Negative Pressure is Continuous Continuous -NPWT Application Charge NPWT & NPWT </= 50 sq Debridement (nc cm (disp) ($) ) Nenea-Wound Care Barrier Treatment Response Procedure Tolerated Well Pain Scale: 0-10 Numeric Is Patient Pain Free? Yes Yes WC - Visit Discharge Discharge Condition Stable Stable Ambulatory Status Ambulatory Ambulatory,Cane Transportation Private Auto Private Auto Medication Reconcilliation completed & No provided to patient/care provider Clinical Summary of Care Provided Yes Facility Type Home Health Orders Sent Yes Assessment/Plan Assessment/Plan (1) Lumbar stenosis: CODE(S): M48.061 - Spinal stenosis, lumbar region without neurogenic claudication QUALIFIERS: Neurogenic claudication status: without neurogenic claudication Qualified Code(s): M48.061 - Spinal stenosis, lumbar region without neurogenic claudication PLAN: increase the wound vac to 150 mg Hgg continue home health care once a week Patient may start going to [facility] on Saturday but no other extra activity follow up 1 week (2) Dehiscence of surgical wound: CODE(S): T81.31XA - Disruption of external operation (surgical) wound, not elsewhere classified, initial encounter QUALIFIERS: Encounter type: initial encounter Qualified Code(s): T81.31XA - Disruption of external operation (surgical) wound, not elsewhere classified, initial encounter (3) 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 Continue the wound VAC with the black foam at 150 mmHg for now until we get the approval. (4) Type 2 diabetes mellitus with other skin ulcer: CODE(S): E11.622 - Type 2 diabetes mellitus with other skin ulcer; L98.499 - Non-pressure chronic ulcer of skin of other sites with unspecified severity QUALIFIERS: Diabetes mellitus middle or intermediate school principal insulin use: without retirement use Qualified Code(s): E11.622 - Type 2 diabetes mellitus with other skin ulcer PLAN: Continue good control of blood sugars states they are running between 130 and 150 which is very good.
[2023-12-25 10:10] VITALS: BP 135/67; PULSE 101; RESP 16; BMI 26.3
--- NOTE | 2023-12-25 11:43 | PN.PCM_ITS ---
History of Present Illness Date of Service: 12/25/23 Chief Complaint: dehisced lumbar surgical wound History of Wound: 63 year old white male with uncontrolled diabetes and had back surgery then dehisced and had an I&D done in . appears in severe pain with a wound vac that they want us to transfer of care. He also needs main managed also .He has home health from the hospital coming in 2 days a week and they change the vac once a week and the black foam has been sticking. He also picked up MRSA on cultures and is on 2 different antibiotics also. Progress of Wound: This week the wound has taken a big jump in healing he has skin actually developing along the perimeter all the way around which he lost like a centimeter in length and width. We had started him on Jacoby just last week and it is just made a big difference. Epi is still being approved by his insurance company were still pending. We will continue the wound VAC till at least we get the EpiFix approved. No sign of infection he is complaining of less and less pain he can actually lay on his back now without pain he says Subjective Subjective Patient is very excited about how good that wound is going. Objective Data Objective Data No sign of infection skin is actually developing around the perimeter of the wound which is very good and he is on Jacoby which seems to be really helping him with wound healing. Will continue to wait for the EpiFix to be approved and continue the wound VAC in the process. His tendons are starting to be covered there is just a little area on the superior side of it that needs to be covered. Vital Signs: Vital Signs Temp Pulse Resp BP O2 Del Method 96.9 F L 101 H 16 135/67 H Room Air 12/18/23 10:09 12/25/23 10:10 12/25/23 10:10 12/25/23 10:10 12/25/23 10:10 Oxygen Delivery Method Room Air Weight: 168 lb Body Mass Index (BMI) 26.3 Physical Exam Const oriented x3 General Appearance: cooperative Exam Limitations: no limitations HEENT normocephalic Eyes PERRL General Eye: normal appearance of both eyes Resp normal respiratory effort Effort and Inspection: able to speak in complete sentences Auscultation: clear to auscultation bilaterally Cardio regular rate and regular rhythm Palpation: normal PMI Rate: regular rate Rhythm: regular rhythm Back/Spine Cervical Spine: cervical ROM normal Thoracic Spine / Upper Back: normal to inspection Lumbar Spine / Lower Back: normal to inspection Psych Appearance: grossly normal Speech: normal speech Thought Content: normal thought content Judgement: judgement good Debridement Note Debridement Note Wound debrided: lumbar dehisced wound Type of Debridement: Excisional debridement Anesthesia Used: 4% Lidocaine Solution and 5% Lidocaine Gel Depth: Down to and including healthy tissue and in the subcutaneous layer Percentage of wound debrided: 100 Instrument Used: 7mm curette Tissue Removed: devitalized tissue and fibrin Amount of bleeding with debridement: Mild Bleeding Controlled with: Compression and gauze Patient tolerated procedure: Patient tolerated procedure well Post-Debridement Measurements and Additional Note: Post-Debridement Measurements/Treatment - Nurse 1 - General Ulcer Assessment Start: 12/11/23 10:27 Freq: Status: Active Protocol: CULLEN Activity Type Activity Date Activity User E-sign Co-sign Detail Recorded Client Recorded Date Recorded By Document 12/11/23 10:29 DL [email or web address] 12/11/23 10:36 DL Document 12/18/23 10:09 KW wound center 12/18/23 10:18 KW Document 12/25/23 10:10 [facility] 1606-06-16 12/25/23 10:17 [facility] 12/11/23 12/18/23 12/25/23 10:29 10:09 10:10 [facility] Today's Visit Information Type of service Follow-up Visit Follow-up Visit Follow-up Visit (Physician/LAY OUT HELPER (Physician/LAY OUT HELPER (Physician/LAY OUT HELPER ) ) ) Arrival Mode Ambulatory Ambulatory,Cane Ambulatory Transfer Assistance None None Accompanied by Patient Identification Verified (Name & Yes Yes Yes ) Patient Requires Transmission-Based No No Precautions Finger Stick Blood Sugar(mg/dl) (if 142 indicated): Blood Sugar Stated by Patient Height and Weight Body Mass Index (BMI) 26.3 26.3 26.3 BMI Classification Overweight Overweight Overweight Vital Signs Temperature (97.8 F-99.1 F) 97.5 F L 96.9 F L Temperature Source Temporal Temporal Pulse Rate (60-100) 88 92 101 H Pulse Location Monitor Monitor Respiratory Rate (12-18) 20 H 16 16 Respiratory rate source Observation Observation Observation Oxygen Delivery Method Room Air Room Air Blood Pressure (90/60-120/80) 103/66 127/72 H 135/67 H Blood Pressure Mean (mm Hg) 78 90 89 Source Monitor Monitor Monitor Position Sitting Sitting Blood Pressure Location Left Arm History Since Last Visit- (Skip if this is Patient's initial visit) Have you changed medications since your No No No last visit? Any new allergies or adverse reactions No No No Had a fall/change in ADL's that may No No No increase risk of falls Signs or symptoms of abuse and/or No No No neglect since last visit Have you been in the hospital since your No No No last visit? Has dressing in place as prescribed Yes Yes Yes Has compression in place as prescribed N/A N/A N/A Has offloadiing in place as prescribed Yes N/A N/A Experienced any changes in pain level or No No No management Left Footwear Regular Shoe Regular Shoe Right Footwear Regular Shoe Regular Shoe Pain Scale: 0-10 Numeric Is Patient Pain Free? Yes Yes Yes Teaching: Wound Center STATUS OF WOUND -Person Taught Patient, Significant Other -Teaching Method Discussion -Response to teaching Verbalize understanding Skin Care -Person Taught Patient, Significant Other -Teaching Method Discussion -Response to teaching Verbalize understanding *Nutrition -Person Taught Patient, Significant Other -Teaching Method Discussion -Response to teaching Verbalize understanding Dressing Your Wound -Person Taught Patient, Significant Other -Teaching Method Discussion -Response to teaching Verbalize understanding *Wound/Skin Impairment -Person Taught Patient, Significant Other -Teaching Method Discussion -Response to teaching Verbalize understanding WC - Nurse 1 - General Ulcer Measurement Start: 12/11/23 10:27 Freq: Status: Active Protocol: Activity Type Activity Date Activity User E-sign Co-sign Detail Recorded Client Recorded Date Recorded By Document 12/11/23 10:29 DL [email or web address] 12/11/23 10:36 DL Document 12/18/23 10:09 KW wound center 12/18/23 10:18 KW Document 12/25/23 10:10 [facility] 1606-06-16 12/25/23 10:17 [facility] 12/11/23 12/18/23 12/25/23 10:29 10:09 10:10 Wound Center Nurse 1 back -Combined with other wound No -Current Size (cm) - Length 8.8 9 8.5 -Current Size (cm) - Width 2 2 2 -Current Size (cm) - Depth 0.4 0.4 0.2 -Total Square Cm 17.6 18 17.0 -Photo Taken Yes -Epithelialization Small 1-33% -Tunneling Position (O'clock) 12 -Tunneling Distance (cm) 0.4 -Undermining/Tunneling No -Undermining/Tunneling Starts (O'clock 12 ) -Undermining/Tunneling Ends (O'clock) 12 -Maximum Distance (cm) 0.4 -Circular Undermining No -Exudate Amt Medium Small Medium -Exudate Type Serosanguineous Serosanguineous Serosanguineous -Wound Margin Distinct, Thickened & Distinct, Outline Rolled Under Outline Attached Attached -Granulation Amt Large (67-100%) Small (1-33%) Large (67-100%) -Granulation Quality Red Red [place] -Slough/Fibrin Yes -Necrosis Amt None Present (0 Large (67-100%) Small (1-33%) %) -Necrotic Tissue Type Adherent Slough Adherent Slough -Structure Exposed Tendon,Fascia Fascia -Texture (Neena-wound Skin Appearance) Scarring Assessed Assessed, Scarring -Moisture (Neena-wound Skin Appearance) No Abnormality Assessed Assessed -Color (Neena-wound Skin Appearance) No Abnormality Assessed Assessed -Temperature (Neena-wound Skin No Abnormality No Abnormality No Abnormality Appearance) (Pt Warm) (Pt Warm) (Pt Warm) -Tenderness on Palpation (Neena-wound No No Skin Appearance) -Ulcer Cleansing Soap and Water Soap and Water Soap and Water -Foul Odor after Cleansing No No No -Anesthetic Used 5% Lidocaine 4% Lidocaine 4% Lidocaine Gel Solution Solution -Wound Comment(s) exposed suture WC - Nurse 2 - General Ulcer CM Notes Start: 12/11/23 10:27 Freq: Status: Active Protocol: Activity Type Activity Date Activity User E-sign Co-sign Detail Recorded Client Recorded Date Recorded By Document 12/11/23 10:49 [facility] 1606-06-16 12/11/23 10:53 [facility] Document 12/18/23 10:23 [facility] 1606-04-16 12/18/23 10:30 [facility] Document 12/25/23 10:17 [facility] 1606-06-16 12/25/23 10:21 BMF 12/11/23 12/18/23 12/25/23 10:49 10:23 10:17 Wound Center Nurse 2 back -Time 10:50 10:23 10:18 -Correct Patient Yes Yes Yes -Correct Side, Site, Position Yes Yes Yes -Correct Procedure Yes Yes Yes -Procedure Performed Yes Yes Yes -Type of Procedure Debridement Debridement Debridement -Clinical Debridement Subcutaneous Subcutaneous Subcutaneous -Tissue Removed Subcutaneous Subcutaneous Subcutaneous -Post Debridement (cm) - Length 8 8.3 7.7 -Post Debridement (cm) - Width 2 2 1.7 -Post Debridement (cm) - Depth 0.7 0.5 0.5 -Total Square (Post) (cm) 16 16.6 13.09 -Area of Debridement (cm) - Length 8 8.3 7.7 -Area of Debridement (cm) - Width 2 2 1.7 -Total Square (Area) (cm) 16 16.6 13.09 -Tunneling No No No -Undermining/Tunneling No No No -Circular Undermining No No No -Wound/Ulcer Outcome Not Healed Not Healed Not Healed -Ulcer Cleansing Rinsed/ Rinsed/ Rinsed/ Irrigated with Irrigated with Irrigated with Saline Saline Saline -Foul Odor after Cleansing No No No -Bioengineered Tissue No No No -Bleeding Controlled with Pressure Pressure Pressure -Treatment Response Procedure Procedure Procedure Tolerated Well Tolerated Well Tolerated Well -Debridement - Subq, 1st 20sq cm Yes Yes Yes -Debridement, SubQ, ea addt'l 20sq cm 1 or part thereof Pain Scale: 0-10 Numeric Is Patient Pain Free? Yes Yes Yes WC - Nurse 3 - General Ulcer D/C NN Start: 12/11/23 10:27 Freq: Status: Active Protocol: Activity Type Activity Date Activity User E-sign Co-sign Detail Recorded Client Recorded Date Recorded By Document 12/11/23 11:07 DL [email or web address] 12/11/23 11:07 DL Document 12/18/23 10:41 KW wound center 12/18/23 10:41 KW Edit Result 12/18/23 10:41 KW (1) [id number] 12/23/23 13:30 BMF Document 12/25/23 10:48 MT [id number] 12/25/23 10:50 MT (1) back - NPWT Application Charge NPWT </= 50 sq cm => NPWT & Debridement (disp) ($) => (nc) 12/11/23 12/18/23 12/25/23 11:07 10:41 10:48 Wound Care Center Nurse 3 back -Ulcer Cleansing Soap and Water Soap and Water -Foul Odor after Cleansing No -Negative Pressure Wound Therapy Continue Continue N/A -Setting (mmHg) 150 150 150 -Negative Pressure is Continuous Continuous Continuous -Regranex (If Applicable) Continue -NPWT Application Charge NPWT & NPWT & NPWT </= 50 sq Debridement (nc Debridement (nc cm ($) ) ) Neena-Wound Care Barrier Treatment Response Procedure Tolerated Well Pain Scale: 0-10 Numeric Is Patient Pain Free? Yes Yes Yes WC - Visit Discharge Discharge Condition Stable Stable Stable Ambulatory Status Ambulatory Ambulatory,Cane Ambulatory Transportation Private Auto Private Auto Private Auto Medication Reconcilliation completed & No No provided to patient/care provider Clinical Summary of Care Provided Yes Yes Notes: PT HAD OWN WOUND VAC SUPPLIES Facility Type Home Health Orders Sent Yes Assessment/Plan Assessment/Plan (1) Lumbar stenosis: CODE(S): M48.061 - Spinal stenosis, lumbar region without neurogenic claudication QUALIFIERS: Neurogenic claudication status: without neurogenic claudication Qualified Code(s): M48.061 - Spinal stenosis, lumbar region without neurogenic claudication PLAN: increase the wound vac to 150 mg Hgg continue home health care once a week Patient may start going to worship on Saturday but no other extra activity follow up 1 week (2) Dehiscence of surgical wound: CODE(S): T81.31XA - Disruption of external operation (surgical) wound, not elsewhere classified, initial encounter QUALIFIERS: Encounter type: initial encounter Qualified Code(s): T81.31XA - Disruption of external operation (surgical) wound, not elsewhere classified, initial encounter (3) 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 (4) Type 2 diabetes mellitus with other skin ulcer: CODE(S): E11.622 - Type 2 diabetes mellitus with other skin ulcer; L98.499 - Non-pressure chronic ulcer of skin of other sites with unspecified severity QUALIFIERS: Diabetes mellitus manager long term care insulin use: without manager long term care use Qualified Code(s): E11.622 - Type 2 diabetes mellitus with other skin ulcer PLAN: Continue good control of blood sugars states they are running between 130 and 150 which is very good. Patient has been drinking Jacoby and making a big difference in his wound care
[2024-01-01 10:56] VITALS: BP 147/79; PULSE 84; RESP 18; TEMP 36.3; BMI 26.3
--- NOTE | 2024-01-01 12:50 | PCM.WC.PN ---
History of Present Illness Date of Service: 01/01/24 Chief Complaint: dehisced lumbar surgical wound History of Wound: 63 year old white male with uncontrolled diabetes and had back surgery then dehisced and had an I&D done in . appears in severe pain with a wound vac that they want us to transfer of care. He also needs main managed also .He has home health from the hospital coming in 2 days a week and they change the vac once a week and the black foam has been sticking. He also picked up MRSA on cultures and is on 2 different antibiotics also. Progress of Wound: Continues to grow more and new skin around the perimeter of the wound moving in. Still has some areas not covered yet. EpiFix is still pending according to his insurance company. Will continue using the wound VAC till we get the approval at least. Cultured again just to make sure we are on the same page and everything is going well with healing Subjective Subjective Patient complains of his back is a little stiffer this week Objective Data Objective Data Will obtain cultures at the deeper end of the wound it is not as well covered. Will continue the wound VAC at 150 mmHg and having them changed once by the home health care and worker. Vital Signs: Vital Signs Temp Pulse Resp BP O2 Del Method 97.3 F L 84 18 147/79 H Room Air 01/01/24 10:56 01/01/24 10:56 01/01/24 10:56 01/01/24 10:56 12/25/23 10:10 Oxygen Delivery Method Room Air Weight: 168 lb Body Mass Index (BMI) 26.3 Physical Exam Const oriented x3 General Appearance: cooperative Exam Limitations: no limitations HEENT normocephalic Eyes PERRL General Eye: normal appearance of both eyes Resp normal respiratory effort Effort and Inspection: able to speak in complete sentences Auscultation: clear to auscultation bilaterally Cardio regular rate and regular rhythm Palpation: normal PMI Rate: regular rate Rhythm: regular rhythm Back/Spine Cervical Spine: cervical ROM normal Thoracic Spine / Upper Back: normal to inspection Lumbar Spine / Lower Back: normal to inspection Psych Appearance: grossly normal Speech: normal speech Thought Content: normal thought content Judgement: judgement good Debridement Note Debridement Note Wound debrided: lumbar dehisced wound Type of Debridement: Excisional debridement Anesthesia Used: 4% Lidocaine Solution and 5% Lidocaine Gel Depth: Down to and including healthy tissue and in the subcutaneous layer Percentage of wound debrided: 100 Instrument Used: 7mm curette Tissue Removed: devitalized tissue and fibrin Amount of bleeding with debridement: Mild Bleeding Controlled with: Compression and gauze Patient tolerated procedure: Patient tolerated procedure well Post-Debridement Measurements and Additional Note: Post-Debridement Measurements/Treatment WC - Nurse 1 - General Ulcer Assessment Start: 12/11/23 10:27 Freq: Status: Active Protocol: CULLEN Activity Type Activity Date Activity User E-sign Co-sign Detail Recorded Client Recorded Date Recorded By Document 12/11/23 10:29 DL 10.10.25.7 12/11/23 10:36 DL Document 12/18/23 10:09 KW wound center 12/18/23 10:18 KW Document 12/25/23 10:10 [facility] 1606-06-16 12/25/23 10:17 [facility] Document 01/01/24 10:56 RB wound 01/01/24 10:59 RB 12/11/23 12/18/23 12/25/23 10:29 10:09 10:10 - Today's Visit Information Type of service Follow-up Visit Follow-up Visit Follow-up Visit (Physician/MANAGEMENT TECHNICIAN (Physician/MANAGEMENT TECHNICIAN (Physician/MANAGEMENT TECHNICIAN ) ) ) Arrival Mode Ambulatory Ambulatory,Cane Ambulatory Transfer Assistance None None Accompanied by Patient Identification Verified (Name & Yes Yes Yes ) Patient Requires Transmission-Based No No Precautions Finger Stick Blood Sugar(mg/dl) (if 142 indicated): Blood Sugar Stated by Patient Height and Weight Body Mass Index (BMI) 26.3 26.3 26.3 BMI Classification Overweight Overweight Overweight Vital Signs Temperature (97.8 F-99.1 F) 97.5 F L 96.9 F L Temperature Source Temporal Temporal Pulse Rate (60-100) 88 92 101 H Pulse Location Monitor Monitor Respiratory Rate (12-18) 20 H 16 16 Respiratory rate source Observation Observation Observation Oxygen Delivery Method Room Air Room Air Blood Pressure (90/60-120/80) 103/66 127/72 H 135/67 H Blood Pressure Mean (mm Hg) 78 90 89 Source Monitor Monitor Monitor Position Sitting Sitting Blood Pressure Location Left Arm History Since Last Visit- (Skip if this is Patient's initial visit) Have you changed medications since your No No No last visit? Any new allergies or adverse reactions No No No Had a fall/change in ADL's that may No No No increase risk of falls Signs or symptoms of abuse and/or No No No neglect since last visit Have you been in the hospital since your No No No last visit? Has dressing in place as prescribed Yes Yes Yes Has compression in place as prescribed N/A N/A N/A Has offloadiing in place as prescribed Yes N/A N/A Experienced any changes in pain level or No No No management Left Footwear Regular Shoe Regular Shoe Right Footwear Regular Shoe Regular Shoe Pain Scale: 0-10 Numeric Is Patient Pain Free? Yes Yes Yes Teaching: Wound Center STATUS OF WOUND -Person Taught Patient, Significant Other -Teaching Method Discussion -Response to teaching Verbalize understanding Skin Care -Person Taught Patient, Significant Other -Teaching Method Discussion -Response to teaching Verbalize understanding *Nutrition -Person Taught Patient, Significant Other -Teaching Method Discussion -Response to teaching Verbalize understanding Dressing Your Wound -Person Taught Patient, Significant Other -Teaching Method Discussion -Response to teaching Verbalize understanding *Wound/Skin Impairment -Person Taught Patient, Significant Other -Teaching Method Discussion -Response to teaching Verbalize understanding 01/01/24 10:56 WC - Today's Visit Information Type of service Follow-up Visit (Physician/MANAGEMENT TECHNICIAN ) Arrival Mode Ambulatory Transfer Assistance None Accompanied by Patient Identification Verified (Name & Yes ) Patient Requires Transmission-Based No Precautions Finger Stick Blood Sugar(mg/dl) (if indicated): Blood Sugar Height and Weight Body Mass Index (BMI) 26.3 BMI Classification Overweight Vital Signs Temperature (97.8 F-99.1 F) 97.3 F L Temperature Source Temporal Pulse Rate (60-100) 84 Pulse Location Monitor Respiratory Rate (12-18) 18 Respiratory rate source Observation Oxygen Delivery Method Blood Pressure (90/60-120/80) 147/79 H Blood Pressure Mean (mm Hg) 101 Source Monitor Position Semi-Fowlers Blood Pressure Location Left Arm History Since Last Visit- (Skip if this is Patient's initial visit) Have you changed medications since your No last visit? Any new allergies or adverse reactions No Had a fall/change in ADL's that may No increase risk of falls Signs or symptoms of abuse and/or No neglect since last visit Have you been in the hospital since your No last visit? Has dressing in place as prescribed Yes Has compression in place as prescribed No Has offloadiing in place as prescribed No Experienced any changes in pain level or No management Left Footwear Right Footwear Pain Scale: 0-10 Numeric Is Patient Pain Free? Yes Teaching: Wound Center STATUS OF WOUND -Person Taught -Teaching Method -Response to teaching Skin Care -Person Taught -Teaching Method -Response to teaching *Nutrition -Person Taught -Teaching Method -Response to teaching Dressing Your Wound -Person Taught -Teaching Method -Response to teaching *Wound/Skin Impairment -Person Taught -Teaching Method -Response to teaching WC - Nurse 1 - General Ulcer Measurement Start: 12/11/23 10:27 Freq: Status: Active Protocol: Activity Type Activity Date Activity User E-sign Co-sign Detail Recorded Client Recorded Date Recorded By Document 12/11/23 10:29 DL 10.10..7 12/11/23 10:36 DL Document 12/18/23 10:09 KW wound center 12/18/23 10:18 KW Document 12/25/23 10:10 [facility] 1606-06-16 12/25/23 10:17 [facility] Document 01/01/24 10:56 RB wound 01/01/24 10:59 RB 12/11/23 12/18/23 12/25/23 10:29 10:09 10:10 Wound Center Nurse 1 back -Combined with other wound No -Current Size (cm) - Length 8.8 9 8.5 -Current Size (cm) - Width 2 2 2 -Current Size (cm) - Depth 0.4 0.4 0.2 -Total Square Cm 17.6 18 17.0 -Photo Taken Yes -Epithelialization Small 1-33% -Tunneling -Tunneling Position (O'clock) 12 -Tunneling Distance (cm) 0.4 -Undermining/Tunneling No -Undermining/Tunneling Starts (O'clock 12 ) -Undermining/Tunneling Ends (O'clock) 12 -Maximum Distance (cm) 0.4 -Circular Undermining No -Exudate Amt Medium Small Medium -Exudate Type Serosanguineous Serosanguineous Serosanguineous -Wound Margin Distinct, Thickened & Distinct, Outline Rolled Under Outline Attached Attached -Granulation Amt Large (67-100%) Small (1-33%) Large (67-100%) -Granulation Quality [place] -Slough/Fibrin Yes -Necrosis Amt None Present (0 Large (67-100%) Small (1-33%) %) -Necrotic Tissue Type Adherent Slough Adherent Slough -Structure Exposed Tendon,Fascia Fascia -Texture (Neena-wound Skin Appearance) Scarring Assessed Assessed, Scarring -Moisture (Neena-wound Skin Appearance) No Abnormality Assessed Assessed -Color (Neena-wound Skin Appearance) No Abnormality Assessed Assessed -Temperature (Neena-wound Skin No Abnormality No Abnormality No Abnormality Appearance) (Pt Warm) (Pt Warm) (Pt Warm) -Tenderness on Palpation (Neena-wound No No Skin Appearance) -Ulcer Cleansing Soap and Water Soap and Water Soap and Water -Foul Odor after Cleansing No No No -Anesthetic Used 5% Lidocaine 4% Lidocaine 4% Lidocaine Gel Solution Solution -Wound Comment(s) exposed suture 01/01/24 10:56 Wound Center Nurse 1 back -Combined with other wound No -Current Size (cm) - Length 7.5 -Current Size (cm) - Width 1.5 -Current Size (cm) - Depth 0.6 -Total Square Cm 11.25 -Photo Taken -Epithelialization -Tunneling No -Tunneling Position (O'clock) -Tunneling Distance (cm) -Undermining/Tunneling No -Undermining/Tunneling Starts (O'clock ) -Undermining/Tunneling Ends (O'clock) -Maximum Distance (cm) -Circular Undermining No -Exudate Amt Medium -Exudate Type Serosanguineous -Wound Margin Thickened & Rolled Under -Granulation Amt Medium (34-66%) -Granulation Quality [place] -Slough/Fibrin Yes -Necrosis Amt Medium (34-66%) -Necrotic Tissue Type Adherent Slough -Structure Exposed N/A -Texture (Neena-wound Skin Appearance) Assessed, Scarring -Moisture (Neena-wound Skin Appearance) Assessed -Color (Neena-wound Skin Appearance) Assessed -Temperature (Neena-wound Skin No Abnormality Appearance) (Pt Warm) -Tenderness on Palpation (Neena-wound No Skin Appearance) -Ulcer Cleansing Wound Cleanser -Foul Odor after Cleansing No -Anesthetic Used 4% Lidocaine Solution -Wound Comment(s) WC - Nurse 2 - General Ulcer CM Notes Start: 12/11/23 10:27 Freq: Status: Active Protocol: Activity Type Activity Date Activity User E-sign Co-sign Detail Recorded Client Recorded Date Recorded By Document 12/11/23 10:49 [facility] 1606-06-16 12/11/23 10:53 [facility] Document 12/18/23 10:23 [facility] 1606-04-16 12/18/23 10:30 [facility] Document 12/25/23 10:17 [facility] 1606-06-16 12/25/23 10:21 [facility] Document 01/01/24 11:18 [facility] 10.10.25.7 01/01/24 11:23 [facility] 12/11/23 12/18/23 12/25/23 10:49 10:23 10:17 Wound Center Nurse 2 back -Time 10:50 10:23 10:18 -Correct Patient Yes Yes Yes -Correct Side, Site, Position Yes Yes Yes -Correct Procedure Yes Yes Yes -Procedure Performed Yes Yes Yes -Type of Procedure Debridement Debridement Debridement -Clinical Debridement Subcutaneous Subcutaneous Subcutaneous -Tissue Removed Subcutaneous Subcutaneous Subcutaneous -Post Debridement (cm) - Length 8 8.3 7.7 -Post Debridement (cm) - Width 2 2 1.7 -Post Debridement (cm) - Depth 0.7 0.5 0.5 -Total Square (Post) (cm) 16 16.6 13.09 -Area of Debridement (cm) - Length 8 8.3 7.7 -Area of Debridement (cm) - Width 2 2 1.7 -Total Square (Area) (cm) 16 16.6 13.09 -Tunneling No No No -Undermining/Tunneling No No No -Circular Undermining No No No -Wound/Ulcer Outcome Not Healed Not Healed Not Healed -Ulcer Cleansing Rinsed/ Rinsed/ Rinsed/ Irrigated with Irrigated with Irrigated with Saline Saline Saline -Foul Odor after Cleansing No No No -Bioengineered Tissue No No No -Bleeding Controlled with Pressure Pressure Pressure -Treatment Response Procedure Procedure Procedure Tolerated Well Tolerated Well Tolerated Well -Debridement - Subq, 1st 20sq cm Yes Yes Yes -Debridement, SubQ, ea addt'l 20sq cm 1 or part thereof Pain Scale: 0-10 Numeric Is Patient Pain Free? Yes Yes Yes 01/01/24 11:18 Wound Center Nurse 2 back -Time 11:18 -Correct Patient Yes -Correct Side, Site, Position Yes -Correct Procedure Yes -Procedure Performed -Type of Procedure Debridement -Clinical Debridement Subcutaneous -Tissue Removed Subcutaneous -Post Debridement (cm) - Length 8.5 -Post Debridement (cm) - Width 1.5 -Post Debridement (cm) - Depth 0.7 -Total Square (Post) (cm) 12.75 -Area of Debridement (cm) - Length 8.5 -Area of Debridement (cm) - Width 1.5 -Total Square (Area) (cm) 12.75 -Tunneling No -Undermining/Tunneling No -Circular Undermining No -Wound/Ulcer Outcome Not Healed -Ulcer Cleansing Rinsed/ Irrigated with Saline -Foul Odor after Cleansing No -Bioengineered Tissue No -Bleeding Controlled with Pressure -Treatment Response Procedure Tolerated Well -Debridement - Subq, 1st 20sq cm Yes -Debridement, SubQ, ea addt'l 20sq cm or part thereof Pain Scale: 0-10 Numeric Is Patient Pain Free? Yes WC - Nurse 3 - General Ulcer D/C NN Start: 12/11/23 10:27 Freq: Status: Active Protocol: Activity Type Activity Date Activity User E-sign Co-sign Detail Recorded Client Recorded Date Recorded By Document 12/11/23 11:07 DL 10..25.7 12/11/23 11:07 DL Document 12/18/23 10:41 KW wound center 12/18/23 10:41 KW Edit Result 12/18/23 10:41 KW (1) [id number] 12/23/23 13:30 [facility] Document 12/25/23 10:48 MT [id number] 12/25/23 10:50 MT Document 01/01/24 11:46 DL 10.10.25.7 01/01/24 11:47 DL (1) back - NPWT Application Charge NPWT </= 50 sq cm => NPWT & Debridement (disp) ($) => (nc) 12/11/23 12/18/23 12/25/23 11:07 10:41 10:48 Wound Care Center Nurse 3 back -Ulcer Cleansing Soap and Water Soap and Water -Foul Odor after Cleansing No -Negative Pressure Wound Therapy Continue Continue N/A -Setting (mmHg) 150 150 150 -Negative Pressure is Continuous Continuous Continuous -Regranex (If Applicable) Continue -NPWT Application Charge NPWT & NPWT & NPWT </= 50 sq Debridement (nc Debridement (nc cm ($) ) ) Neena-Wound Care Barrier Treatment Response Procedure Tolerated Well Pain Scale: 0-10 Numeric Is Patient Pain Free? Yes Yes Yes WC - Visit Discharge Discharge Condition Stable Stable Stable Ambulatory Status Ambulatory Ambulatory,Cane Ambulatory Transportation Private Auto Private Auto Private Auto Medication Reconcilliation completed & No No provided to patient/care provider Clinical Summary of Care Provided Yes Yes Notes: PT HAD OWN WOUND VAC SUPPLIES Facility Type Home Health Orders Sent Yes 01/01/24 11:46 Wound Care Center Nurse 3 back -Ulcer Cleansing Soap and Water -Foul Odor after Cleansing No -Negative Pressure Wound Therapy Continue -Setting (mmHg) 150 -Negative Pressure is Continuous -Regranex (If Applicable) -NPWT Application Charge NPWT & Debridement (nc ) Neena-Wound Care Treatment Response Procedure Tolerated Well Pain Scale: 0-10 Numeric Is Patient Pain Free? Yes WC - Visit Discharge Discharge Condition Stable Ambulatory Status Ambulatory Transportation Private Auto Medication Reconcilliation completed & provided to patient/care provider Clinical Summary of Care Provided Notes: Facility Type Orders Sent Assessment/Plan Assessment/Plan (1) Lumbar stenosis: CODE(S): M48.061 - Spinal stenosis, lumbar region without neurogenic claudication QUALIFIERS: Neurogenic claudication status: without neurogenic claudication Qualified Code(s): M48.061 - Spinal stenosis, lumbar region without neurogenic claudication PLAN: increase the wound vac to 150 mg Hgg continue home health care once a week Patient may start going [facility] but no other extra activity follow up 1 week (2) Dehiscence of surgical wound: CODE(S): T81.31XA - Disruption of external operation (surgical) wound, not elsewhere classified, initial encounter QUALIFIERS: Encounter type: initial encounter Qualified Code(s): T81.31XA - Disruption of external operation (surgical) wound, not elsewhere classified, initial encounter (3) 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 (4) Type 2 diabetes mellitus with other skin ulcer: CODE(S): E11.622 - Type 2 diabetes mellitus with other skin ulcer; L98.499 - Non-pressure chronic ulcer of skin of other sites with unspecified severity QUALIFIERS: Diabetes mellitus residential insulin use: without residential use Qualified Code(s): E11.622 - Type 2 diabetes mellitus with other skin ulcer PLAN: Continue good control of blood sugars states they are running between 130 and 150 which is very good. Patient has been drinking Jacoby and making a big difference in his wound care
== END 2024-01-05 23:59 | disposition home or self-care (01) ==
LOC: WC 10:15
PROVIDERS: Referring Provider Orthopaedic Surgery; Visit Provider Nurse Practitioner
DX: T81.31XA Disruption of external operation (surgical) wound, not elsewhere classified, initial encounter (principal); L98.425 Non-pressure chronic ulcer of back with muscle involvement without evidence of necrosis; E11.622 Type 2 diabetes mellitus with other skin ulcer; M48.061 Spinal stenosis, lumbar region without neurogenic claudication; Z79.84 Long term (current) use of oral hypoglycemic drugs; Z79.85 Long-term (current) use of injectable non-insulin antidiabetic drugs; Z79.899 Other long term (current) drug therapy
CPT/HCPCS: 11042; 11045; 87070; 87075; 87077; 87186; 87205; 97605; 97607

== ENCOUNTER 2024-02-05 10:00 | Outpatient (RCR) | payer BC, SELFPAY ==
[2024-01-06 00:18] VITALS: BP 124/70; PULSE 102; RESP 18; TEMP 36; BMI 26.3
--- NOTE | 2024-01-06 08:09 | WC ---
RECEIVED N.O. FOR LEVAQUIN 500 1 PO DAILY X 14 DAYS. NO REFILLS. PER ADRIANNA LEUNG, IN RESPONSE TO CX RESULTS. ALLERGIES REVIEWED. UPDATED. RX CALLED TO [facility] IN [place]. ALSO UPDATED THAT EPIFIX WAS APPROVED BY [facility], PER [facility]. REVIEWED POSSIBLE COPAYS WHICH LOOK TO BE 0. ENCOURAGED HER TO CALL INSURANCE TO VERIFY.
--- NOTE | 2024-01-06 13:13 | WC ---
n.o.'s to start linezolid and metronidazole received from [facility] per cx results +anaerobic cocci. godfrey notifed. allergies reviewed. rx's called to [facility] in [place].
[2024-01-08 09:51] VITALS: BP 150/82; PULSE 85; RESP 18; TEMP 36.6; BMI 26.3
--- NOTE | 2024-01-08 10:36 | PCM.WC.PN ---
History of Present Illness Date of Service: 01/08/24 Chief Complaint: dehisced lumbar surgical wound History of Wound: 63 year old white male with uncontrolled diabetes and had back surgery then dehisced and had an I&D done in . appears in severe pain with a wound vac that they want us to transfer of care. He also needs main managed also .He has home health from the hospital coming in 2 days a week and they change the vac once a week and the black foam has been sticking. He also picked up MRSA on cultures and is on 2 different antibiotics also. Progress of Wound: The wound progressively is getting better and better on the wound VAC. More of the tendon is being covered still at the superior and its deeper and more open. Cultures came back positive for bacteria and anaerobes. Patient was started on metronidazole 3 times a day Levaquin which she would not take because he felt he was going to get tendon rupture that he refused and were still trying to get the okay for Linzolide. Measurements are improving he was approved also for EpiFix so we will still apply #1 today underneath the wound VAC. Subjective Subjective Changing his Levaquin to the sulfa patient agreed to take along with his metronidazole and the Linzoid as soon as he gets approved. Still agreeable with plan on the wound VAC and they agree it is looking much better. Objective Data Objective Data Measurements are it very good on the wound VAC depth is better filling and covering the tendons much improved from his first visit. I think it will help with the EpiFix and getting on the right antibiotics. Vital Signs: Vital Signs Temp Pulse Resp BP 97.8 F 85 18 150/82 H 01/08/24 09:51 01/08/24 09:51 01/08/24 09:51 01/08/24 09:51 Weight: 168 lb Body Mass Index (BMI) 26.3 Physical Exam Const oriented x3 General Appearance: cooperative Exam Limitations: no limitations HEENT normocephalic Eyes PERRL General Eye: normal appearance of both eyes Resp normal respiratory effort Effort and Inspection: able to speak in complete sentences Auscultation: clear to auscultation bilaterally Cardio regular rate and regular rhythm Palpation: normal PMI Rate: regular rate Rhythm: regular rhythm Back/Spine Cervical Spine: cervical ROM normal Thoracic Spine / Upper Back: normal to inspection Lumbar Spine / Lower Back: normal to inspection Psych Appearance: grossly normal Speech: normal speech Thought Content: normal thought content Judgement: judgement good Debridement Note Debridement Note Wound debrided: lumbar dehisced wound Type of Debridement: Excisional debridement Anesthesia Used: 4% Lidocaine Solution and 5% Lidocaine Gel Depth: Down to and including healthy tissue and in the subcutaneous layer Percentage of wound debrided: 100 Instrument Used: 7mm curette Tissue Removed: devitalized tissue and fibrin Amount of bleeding with debridement: Mild Bleeding Controlled with: Compression and gauze Patient tolerated procedure: Patient tolerated procedure well Post-Debridement Measurements and Additional Note: Post-Debridement Measurements/Treatment - Nurse 1 - General Ulcer Assessment Start: 01/08/24 09:51 Freq: Status: Active Protocol: CULLEN Activity Type Activity Date Activity User E-sign Co-sign Detail Recorded Client Recorded Date Recorded By Document 01/08/24 09:51 RB wound 01/08/24 09:53 RB 01/08/24 09:51 WC - Today's Visit Information Type of service Follow-up Visit (Physician/MEALS ON WHEELS DRIVER ) Arrival Mode Ambulatory Transfer Assistance None Patient Identification Verified (Name & Yes ) Patient Requires Transmission-Based No Precautions Height and Weight Body Mass Index (BMI) 26.3 BMI Classification Overweight Vital Signs Temperature (97.8 F-99.1 F) 97.8 F Temperature Source Temporal Pulse Rate (60-100) 85 Pulse Location Monitor Respiratory Rate (12-18) 18 Respiratory rate source Observation Blood Pressure (90/60-120/80) 150/82 H Blood Pressure Mean (mm Hg) 104 Source Monitor Position Semi-Fowlers Blood Pressure Location Left Arm History Since Last Visit- (Skip if this is Patient's initial visit) Have you changed medications since your No last visit? Any new allergies or adverse reactions No Had a fall/change in ADL's that may No increase risk of falls Signs or symptoms of abuse and/or No neglect since last visit Have you been in the hospital since your No last visit? Has dressing in place as prescribed Yes Has compression in place as prescribed No Has offloadiing in place as prescribed No Experienced any changes in pain level or No management Pain Scale: 0-10 Numeric Is Patient Pain Free? Yes - Nurse 1 - General Ulcer Measurement Start: 01/08/24 09:51 Freq: Status: Active Protocol: Activity Type Activity Date Activity User E-sign Co-sign Detail Recorded Client Recorded Date Recorded By Document 01/08/24 09:51 RB wound 01/08/24 09:53 RB 01/08/24 09:51 Wound Center Nurse 1 back -Combined with other wound No -Current Size (cm) - Length 7.2 -Current Size (cm) - Width 0.8 -Current Size (cm) - Depth 0.7 -Total Square Cm 5.76 -Tunneling No -Undermining/Tunneling No -Circular Undermining No -Exudate Amt Large -Exudate Type Serosanguineous -Wound Margin Thickened & Rolled Under -Granulation Amt Medium (34-66%) -Granulation Quality [place] -Slough/Fibrin Yes -Necrosis Amt Medium (34-66%) -Necrotic Tissue Type Adherent Slough -Structure Exposed N/A -Texture (Neena-wound Skin Appearance) Assessed, Scarring -Moisture (Neena-wound Skin Appearance) Assessed -Color (Neena-wound Skin Appearance) Assessed -Temperature (Neena-wound Skin No Abnormality Appearance) (Pt Warm) -Tenderness on Palpation (Neena-wound No Skin Appearance) -Ulcer Cleansing Wound Cleanser -Foul Odor after Cleansing No -Anesthetic Used 5% Lidocaine Gel WC - Nurse 2 - General Ulcer CM Notes Start: 01/08/24 09:51 Freq: Status: Active Protocol: Activity Type Activity Date Activity User E-sign Co-sign Detail Recorded Client Recorded Date Recorded By Document 01/08/24 09:58 [facility] 10.10.25.7 01/08/24 10:13 [facility] 01/08/24 09:58 Wound Center Nurse 2 -Time 10:02 -Correct Patient Yes -Correct Side, Site, Position Yes -Correct Procedure Yes -Procedure Performed Yes -Type of Procedure Debridement -Clinical Debridement Subcutaneous -Tissue Removed Subcutaneous -Post Debridement (cm) - Length 8.9 -Post Debridement (cm) - Width 1.5 -Post Debridement (cm) - Depth 0.5 -Total Square (Post) (cm) 13.35 -Area of Debridement (cm) - Length 8.9 -Area of Debridement (cm) - Width 1.5 -Total Square (Area) (cm) 13.35 -Tunneling No -Undermining/Tunneling No -Circular Undermining No -Wound/Ulcer Outcome Not Healed -Ulcer Cleansing Rinsed/ Irrigated with Saline -Foul Odor after Cleansing No -Bioengineered Tissue Yes -Type of Bioengineered Tissue Epifix Mesh -Expiration Date 07/08/28 -Product Lot Number [id number] -Percent Used 100 -Lot number of Saline Used [id number] -Bleeding Controlled with Pressure -Treatment Response Procedure Tolerated Well -Debridement - Subq, 1st 20sq cm No -Apply Skin Sub - 1st 25 sq cm - Legs 1 -Epifix Mesh (per sq cm) 11 Pain Scale: 0-10 Numeric Is Patient Pain Free? Yes Assessment/Plan Assessment/Plan (1) Lumbar stenosis: CODE(S): M48.061 - Spinal stenosis, lumbar region without neurogenic claudication QUALIFIERS: Neurogenic claudication status: without neurogenic claudication Qualified Code(s): M48.061 - Spinal stenosis, lumbar region without neurogenic claudication PLAN: EpiFix #1 applied to wound base Covered with wound veil Steri-Strips and then the wound VAC on top Decrease the wound vac to 125 mg Hgg continue home health care once a week do not go below Steri-Strips Patient may start going to [facility] on Saturday but no other extra activity follow up 1 week (2) Dehiscence of surgical wound: CODE(S): T81.31XA - Disruption of external operation (surgical) wound, not elsewhere classified, initial encounter QUALIFIERS: Encounter type: initial encounter Qualified Code(s): T81.31XA - Disruption of external operation (surgical) wound, not elsewhere classified, initial encounter (3) 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 (4) Type 2 diabetes mellitus with other skin ulcer: CODE(S): E11.622 - Type 2 diabetes mellitus with other skin ulcer; L98.499 - Non-pressure chronic ulcer of skin of other sites with unspecified severity QUALIFIERS: Diabetes mellitus prison insulin use: without moth exterminator use Qualified Code(s): E11.622 - Type 2 diabetes mellitus with other skin ulcer PLAN: Continue good control of blood sugars states they are running between 130 and 150 which is very good. Patient has been drinking Jacoby and making a big difference in his wound care
--- NOTE | 2024-01-10 12:05 | WC ---
Rita Cantor the of patient called in asking if we have received authorization for the Linezolid yet. Nothing has come thru on the fax machine and I called the company and there was not answer and I had to leave a voicemail message for someone to call back regarding this matter. Called rita back letting her know there has been not info yet. I told her that if approved or denied, a mesage will be sent to his pharmacy also and to stay in contact with them. She verbalized understanding. I reviewed with her s/s of infection and if there is a concern over the weekend to report to ER. She verbalized understanding.
[2024-01-15 10:01] VITALS: BP 125/84; PULSE 87; RESP 18; TEMP 36.5; BMI 26.3
--- NOTE | 2024-01-15 12:17 | PCM.WC.PN ---
History of Present Illness Date of Service: 01/15/24 Chief Complaint: dehisced lumbar surgical wound History of Wound: 63 year old white male with uncontrolled diabetes and had back surgery then dehisced and had an I&D done in . appears in severe pain with a wound vac that they want us to transfer of care. He also needs main managed also .He has home health from the hospital coming in 2 days a week and they change the vac once a week and the black foam has been sticking. He also picked up MRSA on cultures and is on 2 different antibiotics also. Progress of Wound: The wound progressively is getting better and better on the wound VAC. More of the tendon is being covered still at the superior and its deeper and more open. Cultures came back positive for bacteria and anaerobes. Patient was started on metronidazole 3 times a day Levaquin which she would not take because he felt he was going to get tendon rupture that he refused and were still trying to get the okay for Linzolide. We started EpiFix's last week very much improvement on the measurements amazing results. We will continue the wound VAC and the EpiFix still has on the superior side of the wound open and tendons and sutures are still exposed the deeper side of the wound. Subjective Subjective Patient and are excited that it looks so good pictures are being taken weekly Objective Data Objective Data Antibiotic therapy is helping a lot with healing the wound VAC is doing its job and the EpiFix's are really working for new skin. Will continue with same treatment Vital Signs: Vital Signs Temp Pulse Resp BP 97.7 F L 87 18 125/84 H 01/15/24 10:01/15/24 10:01/15/24 10:01/15/24 10:01 Weight: 168 lb Body Mass Index (BMI) 26.3 Lab / Micro Data Attestation: I reviewed the patient's lab results. Physical Exam Const oriented x3 General Appearance: cooperative Exam Limitations: no limitations HEENT normocephalic Eyes PERRL General Eye: normal appearance of both eyes Resp normal respiratory effort Effort and Inspection: able to speak in complete sentences Auscultation: clear to auscultation bilaterally Cardio regular rate and regular rhythm Palpation: normal PMI Rate: regular rate Rhythm: regular rhythm Back/Spine Cervical Spine: cervical ROM normal Thoracic Spine / Upper Back: normal to inspection Lumbar Spine / Lower Back: normal to inspection Psych Appearance: grossly normal Speech: normal speech Thought Content: normal thought content Judgement: judgement good Debridement Note Debridement Note Wound debrided: lumbar dehisced wound Type of Debridement: Excisional debridement Anesthesia Used: 4% Lidocaine Solution and 5% Lidocaine Gel Depth: Down to and including healthy tissue and in the subcutaneous layer Percentage of wound debrided: 100 Instrument Used: 7mm curette Tissue Removed: devitalized tissue and fibrin Amount of bleeding with debridement: Mild Bleeding Controlled with: Compression and gauze Patient tolerated procedure: Patient tolerated procedure well Post-Debridement Measurements and Additional Note: Post-Debridement Measurements/Treatment - Nurse 1 - General Ulcer Assessment Start: 01/08/24 09:51 Freq: Status: Active Protocol: CULLEN Activity Type Activity Date Activity User E-sign Co-sign Detail Recorded Client Recorded Date Recorded By Document 01/08/24 09:51 RB wound 01/08/24 09:53 RB Document 01/15/24 10:01 DL 10.10.25.7 01/15/24 10:13 DL 01/08/24 01/15/24 09:51 10:01 - Today's Visit Information Type of service Follow-up Visit Follow-up Visit (Physician/RELIGION INSTRUCTOR (Physician/RELIGION INSTRUCTOR ) ) Arrival Mode Ambulatory Ambulatory Transfer Assistance None None Patient Identification Verified (Name & Yes Yes ) Patient Requires Transmission-Based No No Precautions Finger Stick Blood Sugar(mg/dl) (if 143 indicated): Blood Sugar Stated by Patient Height and Weight Body Mass Index (BMI) 26.3 26.3 BMI Classification Overweight Overweight Vital Signs Temperature (97.8 F-99.1 F) 97.8 F 97.7 F L Temperature Source Temporal Temporal Pulse Rate (60-100) 85 87 Pulse Location Monitor Monitor Respiratory Rate (12-18) 18 18 Respiratory rate source Observation Observation Blood Pressure (90/60-120/80) 150/82 H 125/84 H Blood Pressure Mean (mm Hg) 104 97 Source Monitor Monitor Position Semi-Fowlers Blood Pressure Location Left Arm History Since Last Visit- (Skip if this is Patient's initial visit) Have you changed medications since your No No last visit? Any new allergies or adverse reactions No No Had a fall/change in ADL's that may No No increase risk of falls Signs or symptoms of abuse and/or No No neglect since last visit Have you been in the hospital since your No No last visit? Has dressing in place as prescribed Yes Yes Has compression in place as prescribed No N/A Has offloadiing in place as prescribed No Yes Experienced any changes in pain level or No No management Pain Scale: 0-10 Numeric Is Patient Pain Free? Yes Yes WC - Nurse 1 - General Ulcer Measurement Start: 01/08/24 09:51 Freq: Status: Active Protocol: Activity Type Activity Date Activity User E-sign Co-sign Detail Recorded Client Recorded Date Recorded By Document 01/08/24 09:51 RB wound 01/08/24 09:53 RB Document 01/15/24 10:01 DL ..25.7 01/15/24 10:13 DL 01/08/24 01/15/24 09:51 10:01 Wound Center Nurse 1 back -Combined with other wound No -Current Size (cm) - Length 7.2 6.7 -Current Size (cm) - Width 0.8 0.7 -Current Size (cm) - Depth 0.7 0.4 -Total Square Cm 5.76 4.69 -Photo Taken Yes -Tunneling No -Undermining/Tunneling No -Circular Undermining No -Exudate Amt Large Medium -Exudate Type Serosanguineous Serosanguineous -Wound Margin Thickened & Distinct, Rolled Under Outline Attached -Granulation Amt Medium (34-66%) Large (67-100%) -Granulation Quality [place],Red -Slough/Fibrin Yes -Necrosis Amt Medium (34-66%) Small (1-33%) -Necrotic Tissue Type Adherent Slough Adherent Slough -Structure Exposed N/A Fascia -Texture (Neena-wound Skin Appearance) Assessed, Scarring Scarring -Moisture (Neena-wound Skin Appearance) Assessed Maceration -Color (Neena-wound Skin Appearance) Assessed No Abnormality -Temperature (Neena-wound Skin No Abnormality No Abnormality Appearance) (Pt Warm) (Pt Warm) -Tenderness on Palpation (Neena-wound No Skin Appearance) -Ulcer Cleansing Wound Cleanser Soap and Water -Foul Odor after Cleansing No No -Anesthetic Used 5% Lidocaine 5% Lidocaine Gel Gel WC - Nurse 2 - General Ulcer CM Notes Start: 01/08/24 09:51 Freq: Status: Active Protocol: Activity Type Activity Date Activity User E-sign Co-sign Detail Recorded Client Recorded Date Recorded By Document 01/08/24 09:58 [facility] 10.10.25.7 01/08/24 10:13 [facility] Document 01/15/24 10:38 [facility] 10.10.25.7 01/15/24 10:43 [facility] 01/08/24 01/15/24 09:58 10:38 Wound Center Nurse 2 back -Time 10:02 10:38 -Correct Patient Yes Yes -Correct Side, Site, Position Yes Yes -Correct Procedure Yes Yes -Procedure Performed Yes Yes -Type of Procedure Debridement Debridement -Clinical Debridement Subcutaneous Subcutaneous -Tissue Removed Subcutaneous Subcutaneous -Post Debridement (cm) - Length 8.9 7.7 -Post Debridement (cm) - Width 1.5 0.8 -Post Debridement (cm) - Depth 0.5 0.3 -Total Square (Post) (cm) 13.35 6.16 -Area of Debridement (cm) - Length 8.9 7.7 -Area of Debridement (cm) - Width 1.5 0.8 -Total Square (Area) (cm) 13.35 6.16 -Tunneling No No -Undermining/Tunneling No No -Circular Undermining No No -Wound/Ulcer Outcome Not Healed Not Healed -Ulcer Cleansing Rinsed/ Rinsed/ Irrigated with Irrigated with Saline Saline -Foul Odor after Cleansing No No -Bioengineered Tissue Yes Yes -Type of Bioengineered Tissue Epifix Mesh -Expiration Date 07/08/28 07/08/28 -Product Lot Number [id number] -Percent Used 100 100 -Lot number of Saline Used [id number] -Bleeding Controlled with Pressure Pressure -Treatment Response Procedure Procedure Tolerated Well Tolerated Well -Debridement - Subq, 1st 20sq cm No No -Apply Skin Sub - 1st 25 sq cm - Legs 1 1 -Epifix Mesh (per sq cm) 11 11 Pain Scale: 0-10 Numeric Is Patient Pain Free? Yes Yes - Nurse 3 - General Ulcer D/C NN Start: 01/08/24 09:51 Freq: Status: Active Protocol: Activity Type Activity Date Activity User E-sign Co-sign Detail Recorded Client Recorded Date Recorded By Document 01/08/24 10:46 RB wound 01/08/24 10:47 RB Document 01/15/24 11:29 [id number] 01/15/24 11:30 MT 01/08/24 01/15/24 10:46 11:29 Wound Care Center Nurse 3 back -Foul Odor after Cleansing No -Negative Pressure Wound Therapy Continue Continue -Setting (mmHg) 125 125 -Negative Pressure is Continuous Continuous -Regranex (If Applicable) Continue -NPWT Application Charge NPWT & NPWT </= 50 sq Debridement (nc cm ($) ) Neena-Wound Care Barrier Treatment Response Procedure Tolerated Well Pain Scale: 0-10 Numeric Is Patient Pain Free? Yes Yes WC - Visit Discharge Discharge Condition Stable Ambulatory Status Ambulatory Transportation Private Auto Medication Reconcilliation completed & No provided to patient/care provider Clinical Summary of Care Provided Yes Assessment/Plan Assessment/Plan (1) Lumbar stenosis: CODE(S): M48.061 - Spinal stenosis, lumbar region without neurogenic claudication QUALIFIERS: Neurogenic claudication status: without neurogenic claudication Qualified Code(s): M48.061 - Spinal stenosis, lumbar region without neurogenic claudication PLAN: EpiFix #2 applied to wound base Covered with Adaptic touch then and Steri-Strips and then the wound VAC on top Decrease the wound vac to 125 mg Hg continue home health care once a week do not go below Steri-Strips Patient may start going to [facility] on Saturday , he may also go to [facility] follow up 1 week (2) Dehiscence of surgical wound: CODE(S): T81.31XA - Disruption of external operation (surgical) wound, not elsewhere classified, initial encounter QUALIFIERS: Encounter type: initial encounter Qualified Code(s): T81.31XA - Disruption of external operation (surgical) wound, not elsewhere classified, initial encounter (3) 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 (4) Type 2 diabetes mellitus with other skin ulcer: CODE(S): E11.622 - Type 2 diabetes mellitus with other skin ulcer; L98.499 - Non-pressure chronic ulcer of skin of other sites with unspecified severity QUALIFIERS: Diabetes mellitus sales leader insulin use: without sales leader use Qualified Code(s): E11.622 - Type 2 diabetes mellitus with other skin ulcer PLAN: Continue good control of blood sugars states they are running between 130 and 150 which is very good. Patient has been drinking Jacoby and making a big difference in his wound care
[2024-01-22 09:37] VITALS: BP 132/87; PULSE 90; RESP 18; TEMP 36.2; BMI 26.3
--- NOTE | 2024-01-22 12:53 | PCM.WC.PN ---
History of Present Illness Date of Service: 01/22/24 Chief Complaint: dehisced lumbar surgical wound History of Wound: 63 year old white male with uncontrolled diabetes and had back surgery then dehisced and had an I&D done in . appears in severe pain with a wound vac that they want us to transfer of care. He also needs main managed also .He has home health from the hospital coming in 2 days a week and they change the vac once a week and the black foam has been sticking. He also picked up MRSA on cultures and is on 2 different antibiotics also. Progress of Wound: The wound progressively is much better this week on the wound VAC I project he might be healed in the next couple of weeks. He is showing some hypergranulation in the inferior side of the wound. The tendons are all covered he still had a 1 small area where the sutures and the tendons were showing I cut them off with the nippers and reapplied the EpiFix over for top. Patient is still taking his Linzode at this time. Subjective Subjective and are very excited about seeing the end of the tunnel they see their surgeon this Saturday and he is going to okay him to start physical therapy Objective Data Objective Data As stated above healing nicely getting good skin growth over top he only has probably another couple of weeks before he will heal with the EpiFix and we will stop the wound VAC this week and just started on regular dressing changes he is healing so well. So EpiFix #3 was applied with no wound VAC Vital Signs: Vital Signs Temp Pulse Resp BP 97.2 F L 90 18 132/87 H 01/22/24 09:37 01/22/24 09:37 01/22/24 09:37 01/22/24 09:37 Weight: 168 lb Body Mass Index (BMI) 26.3 Lab / Micro Data Attestation: I reviewed the patient's lab results. Debridement Note Debridement Note Wound debrided: lumbar dehisced wound Type of Debridement: Excisional debridement Anesthesia Used: 4% Lidocaine Solution and 5% Lidocaine Gel Depth: Down to and including healthy tissue and in the subcutaneous layer Percentage of wound debrided: 100 Instrument Used: 7mm curette Tissue Removed: devitalized tissue and fibrin Amount of bleeding with debridement: Mild Bleeding Controlled with: Compression and gauze Patient tolerated procedure: Patient tolerated procedure well Post-Debridement Measurements and Additional Note: Post-Debridement Measurements/Treatment WC - Nurse 1 - General Ulcer Assessment Start: 01/08/24 09:51 Freq: Status: Active Protocol: CULLEN Activity Type Activity Date Activity User E-sign Co-sign Detail Recorded Client Recorded Date Recorded By Document 01/08/24 09:51 RB wound 01/08/24 09:53 RB Document 01/15/24 10:01 DL [email or web address] 01/15/24 10:13 DL Document 01/22/24 09:37 DL [email or web address] 01/22/24 09:44 DL 01/08/24 01/15/24 01/22/24 09:51 10:01 09:37 WC - Today's Visit Information Type of service Follow-up Visit Follow-up Visit Follow-up Visit (Physician/FRONT END ENGINEER (Physician/FRONT END ENGINEER (Physician/FRONT END ENGINEER ) ) ) Arrival Mode Ambulatory Ambulatory Ambulatory Transfer Assistance None None None Patient Identification Verified (Name & Yes Yes Yes ) Patient Requires Transmission-Based No No No Precautions Finger Stick Blood Sugar(mg/dl) (if 143 indicated): Blood Sugar Stated by Patient Height and Weight Body Mass Index (BMI) 26.3 26.3 26.3 BMI Classification Overweight Overweight Overweight Vital Signs Temperature (97.8 F-99.1 F) 97.8 F 97.7 F L 97.2 F L Temperature Source Temporal Temporal Temporal Pulse Rate (60-100) 85 87 90 Pulse Location Monitor Monitor Monitor Respiratory Rate (12-18) 18 18 18 Respiratory rate source Observation Observation Observation Blood Pressure (90/60-120/80) 150/82 H 125/84 H 132/87 H Blood Pressure Mean (mm Hg) 104 97 102 Source Monitor Monitor Monitor Position Semi-Fowlers Blood Pressure Location Left Arm History Since Last Visit- (Skip if this is Patient's initial visit) Have you changed medications since your No No No last visit? Any new allergies or adverse reactions No No No Had a fall/change in ADL's that may No No No increase risk of falls Signs or symptoms of abuse and/or No No No neglect since last visit Have you been in the hospital since your No No No last visit? Has dressing in place as prescribed Yes Yes Yes Has compression in place as prescribed No N/A N/A Has offloadiing in place as prescribed No Yes Yes Experienced any changes in pain level or No No No management Pain Scale: 0-10 Numeric Is Patient Pain Free? Yes Yes Yes WC - Nurse 1 - General Ulcer Measurement Start: 01/08/24 09:51 Freq: Status: Active Protocol: Activity Type Activity Date Activity User E-sign Co-sign Detail Recorded Client Recorded Date Recorded By Document 01/08/24 09:51 RB wound 01/08/24 09:53 RB Document 01/15/24 10:01 DL [email or web address] 01/15/24 10:13 DL Document 01/22/24 09:37 DL [email or web address] 01/22/24 09:44 DL 01/08/24 01/15/24 01/22/24 09:51 10:01 09:37 Wound Center Nurse 1 back -Combined with other wound No -Current Size (cm) - Length 7.2 6.7 6.6 -Current Size (cm) - Width 0.8 0.7 0.6 -Current Size (cm) - Depth 0.7 0.4 0.4 -Total Square Cm 5.76 4.69 3.96 -Photo Taken Yes Yes -Tunneling No -Undermining/Tunneling No -Circular Undermining No -Exudate Amt Large Medium Medium -Exudate Type Serosanguineous Serosanguineous Serosanguineous -Wound Margin Thickened & Distinct, Distinct, Rolled Under Outline Outline Attached Attached -Granulation Amt Medium (34-66%) Large (67-100%) Large (67-100%) -Granulation Quality [place] -Slough/Fibrin Yes -Necrosis Amt Medium (34-66%) Small (1-33%) Small (1-33%) -Necrotic Tissue Type Adherent Slough Adherent Slough Adherent Slough -Structure Exposed N/A Fascia Fascia -Texture (Neena-wound Skin Appearance) Assessed, Scarring Scarring Scarring -Moisture (Neena-wound Skin Appearance) Assessed Maceration No Abnormality -Color (Neena-wound Skin Appearance) Assessed No Abnormality No Abnormality -Temperature (Neena-wound Skin No Abnormality No Abnormality No Abnormality Appearance) (Pt Warm) (Pt Warm) (Pt Warm) -Tenderness on Palpation (Neena-wound No No Skin Appearance) -Ulcer Cleansing Wound Cleanser Soap and Water Soap and Water -Foul Odor after Cleansing No No No -Anesthetic Used 5% Lidocaine 5% Lidocaine 5% Lidocaine Gel Gel Gel WC - Nurse 2 - General Ulcer CM Notes Start: 01/08/24 09:51 Freq: Status: Active Protocol: Activity Type Activity Date Activity User E-sign Co-sign Detail Recorded Client Recorded Date Recorded By Document 01/08/24 09:58 BMF ..25.7 01/08/24 10:13 BMF Document 01/15/24 10:38 BMF ..25.7 01/15/24 10:43 BMF Document 01/22/24 10:05 BMF ..25.7 01/22/24 10:14 BMF 01/08/24 01/15/24 01/22/24 09:58 10:38 10:05 Wound Center Nurse 2 back -Time 10:02 10:38 10:05 -Correct Patient Yes Yes Yes -Correct Side, Site, Position Yes Yes Yes -Correct Procedure Yes Yes Yes -Procedure Performed Yes Yes Yes -Type of Procedure Debridement Debridement Debridement -Clinical Debridement Subcutaneous Subcutaneous Subcutaneous -Tissue Removed Subcutaneous Subcutaneous Subcutaneous -Post Debridement (cm) - Length 8.9 7.7 7 -Post Debridement (cm) - Width 1.5 0.8 0.7 -Post Debridement (cm) - Depth 0.5 0.3 0.2 -Total Square (Post) (cm) 13.35 6.16 4.9 -Area of Debridement (cm) - Length 8.9 7.7 7 -Area of Debridement (cm) - Width 1.5 0.8 0.7 -Total Square (Area) (cm) 13.35 6.16 4.9 -Tunneling No No No -Undermining/Tunneling No No No -Circular Undermining No No No -Wound/Ulcer Outcome Not Healed Not Healed Not Healed -Ulcer Cleansing Rinsed/ Rinsed/ Rinsed/ Irrigated with Irrigated with Irrigated with Saline Saline Saline -Foul Odor after Cleansing No No No -Bioengineered Tissue Yes Yes No -Type of Bioengineered Tissue Epifix Mesh Epifix Mesh -Expiration Date 07/08/28 07/08/28 07/08/28 -Product Lot Number [id number] -Percent Used 100 100 100 -Lot number of Saline Used [id number] -Bleeding Controlled with Pressure Pressure Pressure -Treatment Response Procedure Procedure Procedure Tolerated Well Tolerated Well Tolerated Well -Debridement - Subq, 1st 20sq cm No No No -Apply Skin Sub - 1st 25 sq cm - Legs 1 1 1 -Epifix Mesh (per sq cm) 11 11 11 Pain Scale: 0-10 Numeric Is Patient Pain Free? Yes Yes Yes WC - Nurse 3 - General Ulcer D/C NN Start: 01/08/24 09:51 Freq: Status: Active Protocol: Activity Type Activity Date Activity User E-sign Co-sign Detail Recorded Client Recorded Date Recorded By Document 01/08/24 10:46 RB wound 01/08/24 10:47 RB Document 01/15/24 11:29 MT [id number] 01/15/24 11:30 MT Edit Result 01/15/24 11:29 MT (1) [id number] 01/15/24 14:30 MT Document 01/22/24 12:08 RB WOUND 01/22/24 12:10 RB (1) back - NPWT Application Charge NPWT </= 50 sq cm => NPWT & Debridement ($) => (nc) 01/08/24 01/15/24 01/22/24 10:46 11:29 12:08 Wound Care Center Nurse 3 back -Foul Odor after Cleansing No No -Negative Pressure Wound Therapy Continue Continue -Setting (mmHg) 125 125 -Negative Pressure is Continuous Continuous -Regranex (If Applicable) Continue -Primary Dressing Applied Aquacel Extra -Other Dressing epifix -Primary Dressing Covered/Secured with Dry Gauze, Secured with Tape -NPWT Application Charge NPWT & NPWT & Debridement (nc Debridement (nc ) ) -Aquacel Extra 1 Neena-Wound Care Barrier Treatment Response Procedure Procedure Tolerated Well Tolerated Well Pain Scale: 0-10 Numeric Is Patient Pain Free? Yes Yes Yes WC - Visit Discharge Discharge Condition Stable Stable Ambulatory Status Ambulatory Ambulatory Transportation Private Auto Private Auto Medication Reconcilliation completed & No provided to patient/care provider Clinical Summary of Care Provided Yes Facility Type Home Health Orders Sent Yes Assessment/Plan Assessment/Plan (1) Lumbar stenosis: CODE(S): M48.061 - Spinal stenosis, lumbar region without neurogenic claudication QUALIFIERS: Neurogenic claudication status: without neurogenic claudication Qualified Code(s): M48.061 - Spinal stenosis, lumbar region without neurogenic claudication PLAN: EpiFix #3 applied to wound base Covered with Adaptic touch then and Steri-Strips and then the wound VAC on top Hold the wound VAC this week (2) Dehiscence of surgical wound: CODE(S): T81.31XA - Disruption of external operation (surgical) wound, not elsewhere classified, initial encounter QUALIFIERS: Encounter type: initial encounter Qualified Code(s): T81.31XA - Disruption of external operation (surgical) wound, not elsewhere classified, initial encounter (3) 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 Patient has been drinking Jacoby and making a big difference in his wound care
[2024-01-29 10:08] VITALS: BP 135/74; PULSE 92; RESP 18; TEMP 36.1; BMI 26.3
--- NOTE | 2024-01-29 12:28 | PN.PCM_ITS ---
History of Present Illness Date of Service: 01/22/24 Chief Complaint: dehisced lumbar surgical wound History of Wound: 63 year old white male with uncontrolled diabetes and had back surgery then dehisced and had an I&D done in . appears in severe pain with a wound vac that they want us to transfer of care. He also needs main managed also .He has home health from the hospital coming in 2 days a week and they change the vac once a week and the black foam has been sticking. He also picked up MRSA on cultures and is on 2 different antibiotics also. Progress of Wound: The wound progressively is much better this week off the wound VAC. We will discontinue the wound VAC he is very shallow now and needs in the last phase of healing we will continue just using the EpiFix which #4 was applied. And he starts physical therapy tomorrow. The tendons are still not all covered he still had a 1 small area where the sutures and the tendons were showing I cut them off with the nippers and reapplied the EpiFix over for top. Patient is still taking his Linzoid at this time. Subjective Subjective Patient is very excited to start physical therapy and to discontinue the wound VAC totally. Objective Data Objective Data Said above it is healing nicely is getting nice new skin around the perimeter it is creeping and outward debriding the center only it looks very good beefy red no sign of infection he still has tendon apparent in the superior side of the wound that is the deepest side but it is filling in nicely. Will continue using EpiFix Vital Signs: Vital Signs Temp Pulse Resp BP 97 F L 92 18 135/74 H 01/29/24 10:08 01/29/24 10:08 01/29/24 10:08 01/29/24 10:08 Weight: 168 lb Body Mass Index (BMI) 26.3 Lab / Micro Data Attestation: I reviewed the patient's lab results. Physical Exam Const oriented x3 General Appearance: cooperative Exam Limitations: no limitations HEENT normocephalic Eyes PERRL General Eye: normal appearance of both eyes Resp normal respiratory effort Effort and Inspection: able to speak in complete sentences Auscultation: clear to auscultation bilaterally Cardio regular rate and regular rhythm Palpation: normal PMI Rate: regular rate Rhythm: regular rhythm Back/Spine Cervical Spine: cervical ROM normal Thoracic Spine / Upper Back: normal to inspection Lumbar Spine / Lower Back: normal to inspection Psych Appearance: grossly normal Speech: normal speech Thought Content: normal thought content Judgement: judgement good Debridement Note Debridement Note Wound debrided: lumbar dehisced wound Type of Debridement: Excisional debridement Anesthesia Used: 4% Lidocaine Solution and 5% Lidocaine Gel Depth: Down to and including healthy tissue and in the subcutaneous layer Percentage of wound debrided: 100 Instrument Used: 7mm curette Tissue Removed: devitalized tissue and fibrin Amount of bleeding with debridement: Mild Bleeding Controlled with: Compression and gauze Patient tolerated procedure: Patient tolerated procedure well Post-Debridement Measurements and Additional Note: Post-Debridement Measurements/Treatment - Nurse 1 - General Ulcer Assessment Start: 01/08/24 09:51 Freq: Status: Active Protocol: CULLEN Activity Type Activity Date Activity User E-sign Co-sign Detail Recorded Client Recorded Date Recorded By Document 01/08/24 09:51 RB wound 01/08/24 09:53 RB Document 01/15/24 10:01 DL 10.10.25.7 01/15/24 10:13 DL Document 01/22/24 09:37 DL 10.10.25.7 01/22/24 09:44 DL Document 01/29/24 10:08 [facility] [id number] 01/29/24 10:17 IA 01/08/24 01/15/24 01/22/24 09:51 10:01 09:37 - Today's Visit Information Type of service Follow-up Visit Follow-up Visit Follow-up Visit (Physician/ASSURANCE AUDITOR (Physician/ASSURANCE AUDITOR (Physician/ASSURANCE AUDITOR ) ) ) Arrival Mode Ambulatory Ambulatory Ambulatory Transfer Assistance None None None Accompanied by Patient Identification Verified (Name & Yes Yes Yes ) Patient Requires Transmission-Based No No No Precautions Safety Precautions Finger Stick Blood Sugar(mg/dl) (if 143 indicated): Blood Sugar Stated by Patient Height and Weight Body Mass Index (BMI) 26.3 26.3 26.3 BMI Classification Overweight Overweight Overweight Vital Signs Temperature (97.8 F-99.1 F) 97.8 F 97.7 F L 97.2 F L Temperature Source Temporal Temporal Temporal Pulse Rate (60-100) 85 87 90 Pulse Location Monitor Monitor Monitor Respiratory Rate (12-18) 18 18 18 Respiratory rate source Observation Observation Observation Blood Pressure (90/60-120/80) 150/82 H 125/84 H 132/87 H Blood Pressure Mean (mm Hg) 104 97 102 Source Monitor Monitor Monitor Position Semi-Fowlers Blood Pressure Location Left Arm History Since Last Visit- (Skip if this is Patient's initial visit) Have you changed medications since your No No No last visit? Any new allergies or adverse reactions No No No Had a fall/change in ADL's that may No No No increase risk of falls Signs or symptoms of abuse and/or No No No neglect since last visit Have you been in the hospital since your No No No last visit? Has dressing in place as prescribed Yes Yes Yes Has compression in place as prescribed No N/A N/A Has offloadiing in place as prescribed No Yes Yes Experienced any changes in pain level or No No No management Left Footwear Right Footwear Pain Scale: 0-10 Numeric Is Patient Pain Free? Yes Yes Yes 01/29/24 10:08 WC - Today's Visit Information Type of service Follow-up Visit (Physician/ASSURANCE AUDITOR ) Arrival Mode Ambulatory Transfer Assistance Accompanied by Patient Identification Verified (Name & Yes ) Patient Requires Transmission-Based Precautions Safety Precautions Fall Prevention Finger Stick Blood Sugar(mg/dl) (if indicated): Blood Sugar Height and Weight Body Mass Index (BMI) 26.3 BMI Classification Overweight Vital Signs Temperature (97.8 F-99.1 F) 97 F L Temperature Source Temporal Pulse Rate (60-100) 92 Pulse Location Monitor Respiratory Rate (12-18) 18 Respiratory rate source Observation Blood Pressure (90/60-120/80) 135/74 H Blood Pressure Mean (mm Hg) 94 Source Monitor Position Sitting Blood Pressure Location Left Arm History Since Last Visit- (Skip if this is Patient's initial visit) Have you changed medications since your last visit? Any new allergies or adverse reactions Had a fall/change in ADL's that may increase risk of falls Signs or symptoms of abuse and/or neglect since last visit Have you been in the hospital since your last visit? Has dressing in place as prescribed Yes Has compression in place as prescribed Yes Has offloadiing in place as prescribed Yes Experienced any changes in pain level or Yes management Left Footwear Regular Shoe Right Footwear Regular Shoe Pain Scale: 0-10 Numeric Is Patient Pain Free? Yes - Nurse 1 - General Ulcer Measurement Start: 07/03/24 09:51 Freq: Status: Active Protocol: Activity Type Activity Date Activity User E-sign Co-sign Detail Recorded Client Recorded Date Recorded By Document 01/08/24 09:51 RB wound 01/08/24 09:53 RB Document 01/15/24 10:01 DL 10..25.7 01/15/24 10:13 DL Document 01/22/24 09:37 DL 10..25.7 01/22/24 09:44 DL Document 01/29/24 10:08 IA [id number] 01/29/24 10:17 IA 01/08/24 01/15/24 01/22/24 09:51 10:01 09:37 Wound Center Nurse 1 back -Combined with other wound No -Current Size (cm) - Length 7.2 6.7 6.6 -Current Size (cm) - Width 0.8 0.7 0.6 -Current Size (cm) - Depth 0.7 0.4 0.4 -Total Square Cm 5.76 4.69 3.96 -Photo Taken Yes Yes -Tunneling No -Undermining/Tunneling No -Circular Undermining No -Exudate Amt Large Medium Medium -Exudate Type Serosanguineous Serosanguineous Serosanguineous -Wound Margin Thickened & Distinct, Distinct, Rolled Under Outline Outline Attached Attached -Granulation Amt Medium (34-66%) Large (67-100%) Large (67-100%) -Granulation Quality [place],Red [place],Red -Slough/Fibrin Yes -Necrosis Amt Medium (34-66%) Small (1-33%) Small (1-33%) -Necrotic Tissue Type Adherent Slough Adherent Slough Adherent Slough -Structure Exposed N/A Fascia Fascia -Texture (Neena-wound Skin Appearance) Assessed, Scarring Scarring Scarring -Moisture (Neena-wound Skin Appearance) Assessed Maceration No Abnormality -Color (Neena-wound Skin Appearance) Assessed No Abnormality No Abnormality -Temperature (Neena-wound Skin No Abnormality No Abnormality No Abnormality Appearance) (Pt Warm) (Pt Warm) (Pt Warm) -Tenderness on Palpation (Neena-wound No No Skin Appearance) -Ulcer Cleansing Wound Cleanser Soap and Water Soap and Water -Foul Odor after Cleansing No No No -Anesthetic Used 5% Lidocaine 5% Lidocaine 5% Lidocaine Gel Gel Gel Lower Limb Edema Present 01/29/24 10:08 Wound Center Nurse 1 back -Combined with other wound -Current Size (cm) - Length 9 -Current Size (cm) - Width 1.6 -Current Size (cm) - Depth 0.2 -Total Square Cm 14.4 -Photo Taken No -Tunneling No -Undermining/Tunneling No -Circular Undermining No -Exudate Amt Medium -Exudate Type Serosanguineous -Wound Margin Flat & Intact -Granulation Amt Large (67-100%) -Granulation Quality Pale,[place] -Slough/Fibrin -Necrosis Amt -Necrotic Tissue Type -Structure Exposed -Texture (Neena-wound Skin Appearance) Assessed -Moisture (Neena-wound Skin Appearance) Assessed, Maceration -Color (Neena-wound Skin Appearance) Assessed -Temperature (Neena-wound Skin No Abnormality Appearance) (Pt Warm) -Tenderness on Palpation (Neena-wound No Skin Appearance) -Ulcer Cleansing Rinsed/ Irrigated with Saline -Foul Odor after Cleansing No -Anesthetic Used 5% Lidocaine Gel Lower Limb Edema Present NA - Nurse 2 - General Ulcer CM Notes Start: 01/08/24 09:51 Freq: Status: Active Protocol: Activity Type Activity Date Activity User E-sign Co-sign Detail Recorded Client Recorded Date Recorded By Document 01/08/24 09:58 BMF 10.10.25.7 01/08/24 10:13 BMF Document 01/15/24 10:38 BMF 10.10.25.7 01/15/24 10:43 BMF Document 01/22/24 10:05 BMF 10.10.25.7 01/22/24 10:14 BMF Document 01/29/24 10:27 BMF 10.10.25.7 01/29/24 10:35 BMF 01/08/24 01/15/24 01/22/24 09:58 10:38 10:05 Wound Center Nurse 2 back -Time 10:02 10:38 10:05 -Correct Patient Yes Yes Yes -Correct Side, Site, Position Yes Yes Yes -Correct Procedure Yes Yes Yes -Procedure Performed Yes Yes Yes -Type of Procedure Debridement Debridement Debridement -Clinical Debridement Subcutaneous Subcutaneous Subcutaneous -Tissue Removed Subcutaneous Subcutaneous Subcutaneous -Post Debridement (cm) - Length 8.9 7.7 7 -Post Debridement (cm) - Width 1.5 0.8 0.7 -Post Debridement (cm) - Depth 0.5 0.3 0.2 -Total Square (Post) (cm) 13.35 6.16 4.9 -Area of Debridement (cm) - Length 8.9 7.7 7 -Area of Debridement (cm) - Width 1.5 0.8 0.7 -Total Square (Area) (cm) 13.35 6.16 4.9 -Tunneling No No No -Undermining/Tunneling No No No -Circular Undermining No No No -Wound/Ulcer Outcome Not Healed Not Healed Not Healed -Ulcer Cleansing Rinsed/ Rinsed/ Rinsed/ Irrigated with Irrigated with Irrigated with Saline Saline Saline -Foul Odor after Cleansing No No No -Bioengineered Tissue Yes Yes No -Type of Bioengineered Tissue Epifix Mesh Epifix Mesh -Expiration Date 07/08/28 07/08/28 07/08/28 -Product Lot Number [id number] -Percent Used 100 100 100 -Lot number of Saline Used [id number] -Bleeding Controlled with Pressure Pressure Pressure -Treatment Response Procedure Procedure Procedure Tolerated Well Tolerated Well Tolerated Well -Debridement - Subq, 1st 20sq cm No No No -Apply Skin Sub - 1st 25 sq cm - Legs 1 1 1 -Epifix Mesh (per sq cm) 11 11 11 Pain Scale: 0-10 Numeric Is Patient Pain Free? Yes Yes Yes 01/29/24 10:27 Wound Center Nurse 2 back -Time 10:27 -Correct Patient Yes -Correct Side, Site, Position Yes -Correct Procedure Yes -Procedure Performed Yes -Type of Procedure Debridement -Clinical Debridement Subcutaneous -Tissue Removed Subcutaneous -Post Debridement (cm) - Length 6.7 -Post Debridement (cm) - Width 0.8 -Post Debridement (cm) - Depth 0.1 -Total Square (Post) (cm) 5.36 -Area of Debridement (cm) - Length 6.7 -Area of Debridement (cm) - Width 0.8 -Total Square (Area) (cm) 5.36 -Tunneling No -Undermining/Tunneling No -Circular Undermining No -Wound/Ulcer Outcome Not Healed -Ulcer Cleansing Rinsed/ Irrigated with Saline -Foul Odor after Cleansing No -Bioengineered Tissue No -Type of Bioengineered Tissue Epifix Mesh -Expiration Date 07/08/28 -Product Lot Number [id number] -Percent Used 100 -Lot number of Saline Used [id number] -Bleeding Controlled with Pressure -Treatment Response Procedure Tolerated Well -Debridement - Subq, 1st 20sq cm No -Apply Skin Sub - 1st 25 sq cm - Legs 1 -Epifix Mesh (per sq cm) 11 Pain Scale: 0-10 Numeric Is Patient Pain Free? Yes - Nurse 3 - General Ulcer D/C NN Start: 01/08/24 09:51 Freq: Status: Active Protocol: Activity Type Activity Date Activity User E-sign Co-sign Detail Recorded Client Recorded Date Recorded By Document 01/08/24 10:46 RB wound 01/08/24 10:47 RB Document 01/15/24 11:29 MT [id number] 01/15/24 11:30 MT Edit Result 01/15/24 11:29 MT (1) [id number] 01/15/24 14:30 MT Document 01/22/24 12:08 RB WOUND 01/22/24 12:10 RB Document 01/29/24 10:48 MT [id number] 01/29/24 10:52 MT (1) back - NPWT Application Charge NPWT </= 50 sq cm => NPWT & Debridement ($) => (nc) 01/08/24 01/15/24 01/22/24 10:46 11:29 12:08 Wound Care Center Nurse 3 back -Foul Odor after Cleansing No No -Negative Pressure Wound Therapy Continue Continue -Setting (mmHg) 125 125 -Negative Pressure is Continuous Continuous -Regranex (If Applicable) Continue -Primary Dressing Applied Aquacel Extra -Other Dressing epifix -Primary Dressing Covered/Secured with Dry Gauze, Secured with Tape -NPWT Application Charge NPWT & NPWT & Debridement (nc Debridement (nc ) ) -Aquacel Extra 1 Neena-Wound Care Barrier Treatment Response Procedure Procedure Tolerated Well Tolerated Well Pain Scale: 0-10 Numeric Is Patient Pain Free? Yes Yes Yes WC - Visit Discharge Discharge Condition Stable Stable Ambulatory Status Ambulatory Ambulatory Transportation Private Auto Private Auto Medication Reconcilliation completed & No provided to patient/care provider Clinical Summary of Care Provided Yes Facility Type Home Health Orders Sent Yes 01/29/24 10:48 Wound Care Center Nurse 3 back -Foul Odor after Cleansing -Negative Pressure Wound Therapy -Setting (mmHg) -Negative Pressure is -Regranex (If Applicable) -Primary Dressing Applied Aquacel Extra -Other Dressing abd -Primary Dressing Covered/Secured with Dry Gauze, Secured with Tape -NPWT Application Charge -Aquacel Extra 1 Neena-Wound Care Treatment Response Pain Scale: 0-10 Numeric Is Patient Pain Free? Yes WC - Visit Discharge Discharge Condition Ambulatory Status Transportation Medication Reconcilliation completed & provided to patient/care provider Clinical Summary of Care Provided Facility Type Orders Sent Assessment/Plan Assessment/Plan (1) Lumbar stenosis: CODE(S): M48.061 - Spinal stenosis, lumbar region without neurogenic claudication QUALIFIERS: Neurogenic claudication status: without neurogenic claudication Qualified Code(s): M48.061 - Spinal stenosis, lumbar region without neurogenic claudication PLAN: EpiFix #4 applied to wound base Covered with Adaptic touch then and Steri-Strips and then Aquacel extra over top Follow-up in 1 week (2) Dehiscence of surgical wound: CODE(S): T81.31XA - Disruption of external operation (surgical) wound, not elsewhere classified, initial encounter QUALIFIERS: Encounter type: initial encounter Qualified Code(s): T81.31XA - Disruption of external operation (surgical) wound, not elsewhere classified, initial encounter (3) 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 Patient has been drinking Jacoby and making a big difference in his wound care
[2024-02-05 10:18] VITALS: BP 134/76; PULSE 95; RESP 18; TEMP 36.3; BMI 26.3
--- NOTE | 2024-02-05 12:08 | PCM.WC.PN ---
History of Present Illness Date of Service: 02/05/24 Chief Complaint: dehisced lumbar surgical wound History of Wound: 63 year old white male with uncontrolled diabetes and had back surgery then dehisced and had an I&D done in . appears in severe pain with a wound vac that they want us to transfer of care. He also needs main managed also .He has home health from the hospital coming in 2 days a week and they change the vac once a week and the black foam has been sticking. He also picked up MRSA on cultures and is on 2 different antibiotics also. Progress of Wound: The wound progressively gets better every week . He started physical therapy this week. The tendons are still not all covered at the very superior end of the wound. Will continue EpiFix #5 and hopefully he will be healed in the next couple of weeks. Subjective Subjective They are very pleased with his outcomes and he is able to go back to physical therapy he is just complaining of stiffness which we reassured him that is all normal. Objective Data Objective Data Healing is great he is got skin developing there is just like a small strip along the top and to the superior and he still got a tendon exposed we will get that covered with the EpiFix. Vital Signs: Vital Signs Temp Pulse Resp BP 97.3 F L 95 18 134/76 H 02/05/24 10:18 02/05/24 10:18 02/05/24 10:18 02/05/24 10:18 Weight: 168 lb Body Mass Index (BMI) 26.3 Lab / Micro Data Attestation: I reviewed the patient's lab results. Physical Exam Const oriented x3 General Appearance: cooperative Exam Limitations: no limitations HEENT normocephalic Eyes PERRL General Eye: normal appearance of both eyes Resp normal respiratory effort Effort and Inspection: able to speak in complete sentences Auscultation: clear to auscultation bilaterally Cardio regular rate and regular rhythm Palpation: normal PMI Rate: regular rate Rhythm: regular rhythm Back/Spine Cervical Spine: cervical ROM normal Thoracic Spine / Upper Back: normal to inspection Lumbar Spine / Lower Back: normal to inspection Psych Appearance: grossly normal Speech: normal speech Thought Content: normal thought content Judgement: judgement good Debridement Note Debridement Note Wound debrided: lumbar dehisced wound Type of Debridement: Excisional debridement Anesthesia Used: 4% Lidocaine Solution and 5% Lidocaine Gel Depth: Down to and including healthy tissue and in the subcutaneous layer Percentage of wound debrided: 100 Instrument Used: 7mm curette Tissue Removed: devitalized tissue and fibrin Amount of bleeding with debridement: Mild Bleeding Controlled with: Compression and gauze Patient tolerated procedure: Patient tolerated procedure well Post-Debridement Measurements and Additional Note: Post-Debridement Measurements/Treatment - Nurse 1 - General Ulcer Assessment Start: 01/08/24 09:51 Freq: Status: Active Protocol: CULLEN Activity Type Activity Date Activity User E-sign Co-sign Detail Recorded Client Recorded Date Recorded By Document 01/08/24 09:51 RB wound 01/08/24 09:53 RB Document 01/15/24 10:01 DL 10.10.25.7 01/15/24 10:13 DL Document 01/22/24 09:37 DL 10.10.25.7 01/22/24 09:44 DL Document 01/29/24 10:08 VT [id number] 01/29/24 10:17 VT Document 02/05/24 10:18 RB wound 02/05/24 10:20 RB 01/08/24 01/15/24 01/22/24 09:51 10:01 09:37 - Today's Visit Information Type of service Follow-up Visit Follow-up Visit Follow-up Visit (Physician/ANALYTICAL STATISTICIAN (Physician/ANALYTICAL STATISTICIAN (Physician/ANALYTICAL STATISTICIAN ) ) ) Arrival Mode Ambulatory Ambulatory Ambulatory Transfer Assistance None None None Accompanied by Patient Identification Verified (Name & Yes Yes Yes ) Patient Requires Transmission-Based No No No Precautions Safety Precautions Finger Stick Blood Sugar(mg/dl) (if 143 indicated): Blood Sugar Stated by Patient Height and Weight Body Mass Index (BMI) 26.3 26.3 26.3 BMI Classification Overweight Overweight Overweight Vital Signs Temperature (97.8 F-99.1 F) 97.8 F 97.7 F L 97.2 F L Temperature Source Temporal Temporal Temporal Pulse Rate (60-100) 85 87 90 Pulse Location Monitor Monitor Monitor Respiratory Rate (12-18) 18 18 18 Respiratory rate source Observation Observation Observation Blood Pressure (90/60-120/80) 150/82 H 125/84 H 132/87 H Blood Pressure Mean (mm Hg) 104 97 102 Source Monitor Monitor Monitor Position Semi-Fowlers Blood Pressure Location Left Arm History Since Last Visit- (Skip if this is Patient's initial visit) Have you changed medications since your No No No last visit? Any new allergies or adverse reactions No No No Had a fall/change in ADL's that may No No No increase risk of falls Signs or symptoms of abuse and/or No No No neglect since last visit Have you been in the hospital since your No No No last visit? Has dressing in place as prescribed Yes Yes Yes Has compression in place as prescribed No N/A N/A Has offloadiing in place as prescribed No Yes Yes Experienced any changes in pain level or No No No management Left Footwear Right Footwear Pain Scale: 0-10 Numeric Is Patient Pain Free? Yes Yes Yes 01/29/24 02/05/24 10:08 10:18 WC - Today's Visit Information Type of service Follow-up Visit Follow-up Visit (Physician/ANALYTICAL STATISTICIAN (Physician/ANALYTICAL STATISTICIAN ) ) Arrival Mode Ambulatory Ambulatory Transfer Assistance None Accompanied by Patient Identification Verified (Name & Yes Yes ) Patient Requires Transmission-Based No Precautions Safety Precautions Fall Prevention Finger Stick Blood Sugar(mg/dl) (if indicated): Blood Sugar Height and Weight Body Mass Index (BMI) 26.3 26.3 BMI Classification Overweight Overweight Vital Signs Temperature (97.8 F-99.1 F) 97 F L 97.3 F L Temperature Source Temporal Temporal Pulse Rate (60-100) 92 95 Pulse Location Monitor Monitor Respiratory Rate (12-18) 18 18 Respiratory rate source Observation Observation Blood Pressure (90/60-120/80) 135/74 H 134/76 H Blood Pressure Mean (mm Hg) 94 95 Source Monitor Monitor Position Sitting Semi-Fowlers Blood Pressure Location Left Arm Left Arm History Since Last Visit- (Skip if this is Patient's initial visit) Have you changed medications since your No last visit? Any new allergies or adverse reactions No Had a fall/change in ADL's that may No increase risk of falls Signs or symptoms of abuse and/or No neglect since last visit Have you been in the hospital since your No last visit? Has dressing in place as prescribed Yes Yes Has compression in place as prescribed Yes No Has offloadiing in place as prescribed Yes No Experienced any changes in pain level or Yes No management Left Footwear Regular Shoe Right Footwear Regular Shoe Pain Scale: 0-10 Numeric Is Patient Pain Free? Yes Yes - Nurse 1 - General Ulcer Measurement Start: 01/08/24 09:51 Freq: Status: Active Protocol: Activity Type Activity Date Activity User E-sign Co-sign Detail Recorded Client Recorded Date Recorded By Document 01/08/24 09:51 RB wound 01/08/24 09:53 RB Document 01/15/24 10:01 DL 10.10.25.7 01/15/24 10:13 DL Document 01/22/24 09:37 DL 10.10.25.7 01/22/24 09:44 DL Document 01/29/24 10:08 VT [id number] 01/29/24 10:17 VT Document 02/05/24 10:18 RB wound 02/05/24 10:20 RB 01/08/24 01/15/24 01/22/24 09:51 10:01 09:37 Wound Center Nurse 1 back -Combined with other wound No -Current Size (cm) - Length 7.2 6.7 6.6 -Current Size (cm) - Width 0.8 0.7 0.6 -Current Size (cm) - Depth 0.7 0.4 0.4 -Total Square Cm 5.76 4.69 3.96 -Photo Taken Yes Yes -Tunneling No -Undermining/Tunneling No -Circular Undermining No -Exudate Amt Large Medium Medium -Exudate Type Serosanguineous Serosanguineous Serosanguineous -Wound Margin Thickened & Distinct, Distinct, Rolled Under Outline Outline Attached Attached -Granulation Amt Medium (34-66%) Large (67-100%) Large (67-100%) -Granulation Quality Rosine Rosine,Red Rosine,Red -Slough/Fibrin Yes -Necrosis Amt Medium (34-66%) Small (1-33%) Small (1-33%) -Necrotic Tissue Type Adherent Slough Adherent Slough Adherent Slough -Structure Exposed N/A Fascia Fascia -Texture (Neena-wound Skin Appearance) Assessed, Scarring Scarring Scarring -Moisture (Neena-wound Skin Appearance) Assessed Maceration No Abnormality -Color (Neena-wound Skin Appearance) Assessed No Abnormality No Abnormality -Temperature (Neena-wound Skin No Abnormality No Abnormality No Abnormality Appearance) (Pt Warm) (Pt Warm) (Pt Warm) -Tenderness on Palpation (Neena-wound No No Skin Appearance) -Ulcer Cleansing Wound Cleanser Soap and Water Soap and Water -Foul Odor after Cleansing No No No -Anesthetic Used 5% Lidocaine 5% Lidocaine 5% Lidocaine Gel Gel Gel Lower Limb Edema Present 01/29/24 02/05/24 10:08 10:18 Wound Center Nurse 1 back -Combined with other wound No -Current Size (cm) - Length 9 6.6 -Current Size (cm) - Width 1.6 0.8 -Current Size (cm) - Depth 0.2 0.5 -Total Square Cm 14.4 5.28 -Photo Taken No -Tunneling No No -Undermining/Tunneling No No -Circular Undermining No No -Exudate Amt Medium Large -Exudate Type Serosanguineous Serosanguineous -Wound Margin Flat & Intact Thickened & Rolled Under -Granulation Amt Large (67-100%) Medium (34-66%) -Granulation Quality Pale,Rosine Rosine -Slough/Fibrin Yes -Necrosis Amt Medium (34-66%) -Necrotic Tissue Type Adherent Slough -Structure Exposed N/A -Texture (Neena-wound Skin Appearance) Assessed Assessed, Scarring -Moisture (Neena-wound Skin Appearance) Assessed, Assessed Maceration -Color (Neena-wound Skin Appearance) Assessed Assessed -Temperature (Neena-wound Skin No Abnormality No Abnormality Appearance) (Pt Warm) (Pt Warm) -Tenderness on Palpation (Neena-wound No No Skin Appearance) -Ulcer Cleansing Rinsed/ Wound Cleanser Irrigated with Saline -Foul Odor after Cleansing No No -Anesthetic Used 5% Lidocaine 4% Lidocaine Gel Solution Lower Limb Edema Present NA WC - Nurse 2 - General Ulcer CM Notes Start: 01/08/24 09:51 Freq: Status: Active Protocol: Activity Type Activity Date Activity User E-sign Co-sign Detail Recorded Client Recorded Date Recorded By Document 01/08/24 09:58 BMF 10.05.01.7 01/08/24 10:13 BMF Document 01/15/24 10:38 BMF 10.05.01.7 01/15/24 10:43 BMF Document 01/22/24 10:05 BMF 10.05.01.7 01/22/24 10:14 BMF Document 01/29/24 10:27 BMF 10.05.01.7 01/29/24 10:35 BMF Document 02/05/24 10:25 BMF 10.10.25.7 02/05/24 10:31 [facility] 01/08/24 01/15/24 01/22/24 09:58 10:38 10:05 Wound Center Nurse 2 back -Time 10:02 10:38 10:05 -Correct Patient Yes Yes Yes -Correct Side, Site, Position Yes Yes Yes -Correct Procedure Yes Yes Yes -Procedure Performed Yes Yes Yes -Type of Procedure Debridement Debridement Debridement -Clinical Debridement Subcutaneous Subcutaneous Subcutaneous -Tissue Removed Subcutaneous Subcutaneous Subcutaneous -Post Debridement (cm) - Length 8.9 7.7 7 -Post Debridement (cm) - Width 1.5 0.8 0.7 -Post Debridement (cm) - Depth 0.5 0.3 0.2 -Total Square (Post) (cm) 13.35 6.16 4.9 -Area of Debridement (cm) - Length 8.9 7.7 7 -Area of Debridement (cm) - Width 1.5 0.8 0.7 -Total Square (Area) (cm) 13.35 6.16 4.9 -Tunneling No No No -Undermining/Tunneling No No No -Circular Undermining No No No -Wound/Ulcer Outcome Not Healed Not Healed Not Healed -Ulcer Cleansing Rinsed/ Rinsed/ Rinsed/ Irrigated with Irrigated with Irrigated with Saline Saline Saline -Foul Odor after Cleansing No No No -Bioengineered Tissue Yes Yes No -Type of Bioengineered Tissue Epifix Mesh Epifix Mesh -Expiration Date 07/08/28 07/08/28 07/08/28 -Product Lot Number [id number] -Percent Used 100 100 100 -Lot number of Saline Used [id number] -Bleeding Controlled with Pressure Pressure Pressure -Treatment Response Procedure Procedure Procedure Tolerated Well Tolerated Well Tolerated Well -Debridement - Subq, 1st 20sq cm No No No -Apply Skin Sub - 1st 25 sq cm - Legs 1 1 1 -Epifix (per sq cm) -Epifix Mesh (per sq cm) 11 11 11 Pain Scale: 0-10 Numeric Is Patient Pain Free? Yes Yes Yes 01/29/24 02/05/24 10:27 10:25 Wound Center Nurse 2 back -Time 10:27 10:25 -Correct Patient Yes Yes -Correct Side, Site, Position Yes Yes -Correct Procedure Yes Yes -Procedure Performed Yes Yes -Type of Procedure Debridement Debridement -Clinical Debridement Subcutaneous Subcutaneous -Tissue Removed Subcutaneous Subcutaneous -Post Debridement (cm) - Length 6.7 6 -Post Debridement (cm) - Width 0.8 0.5 -Post Debridement (cm) - Depth 0.1 0.2 -Total Square (Post) (cm) 5.36 3.0 -Area of Debridement (cm) - Length 6.7 6 -Area of Debridement (cm) - Width 0.8 0.5 -Total Square (Area) (cm) 5.36 3.0 -Tunneling No No -Undermining/Tunneling No No -Circular Undermining No No -Wound/Ulcer Outcome Not Healed Not Healed -Ulcer Cleansing Rinsed/ Rinsed/ Irrigated with Irrigated with Saline Saline -Foul Odor after Cleansing No No -Bioengineered Tissue No No -Type of Bioengineered Tissue Epifix Mesh -Expiration Date 07/08/28 09/05/28 -Product Lot Number [id number] -Percent Used 100 100 -Lot number of Saline Used [id number] -Bleeding Controlled with Pressure Pressure -Treatment Response Procedure Procedure Tolerated Well Tolerated Well -Debridement - Subq, 1st 20sq cm No No -Apply Skin Sub - 1st 25 sq cm - Legs 1 1 -Epifix (per sq cm) 4 -Epifix Mesh (per sq cm) 11 Pain Scale: 0-10 Numeric Is Patient Pain Free? Yes Yes - Nurse 3 - General Ulcer D/C NN Start: 01/08/24 09:51 Freq: Status: Active Protocol: Activity Type Activity Date Activity User E-sign Co-sign Detail Recorded Client Recorded Date Recorded By Document 01/08/24 10:46 RB wound 01/08/24 10:47 RB Document 01/15/24 11:29 MT [id number] 01/15/24 11:30 MT Edit Result 01/15/24 11:29 MT (1) [id number] 01/15/24 14:30 MT Document 01/22/24 12:08 RB WOUND 01/22/24 12:10 RB Document 01/29/24 10:48 MT [id number] 01/29/24 10:52 MT Document 02/05/24 10:37 MT [id number] 02/05/24 10:38 MT (1) back - NPWT Application Charge NPWT </= 50 sq cm => NPWT & Debridement ($) => (nc) 01/08/24 01/15/24 01/22/24 10:46 11:29 12:08 Wound Care Center Nurse 3 back -Foul Odor after Cleansing No No -Negative Pressure Wound Therapy Continue Continue -Setting (mmHg) 125 125 -Negative Pressure is Continuous Continuous -Regranex (If Applicable) Continue -Primary Dressing Applied Aquacel Extra -Other Dressing epifix -Primary Dressing Covered/Secured with Dry Gauze, Secured with Tape -NPWT Application Charge NPWT & NPWT & Debridement (nc Debridement (nc ) ) -Aquacel Extra 1 Neena-Wound Care Barrier Treatment Response Procedure Procedure Tolerated Well Tolerated Well Pain Scale: 0-10 Numeric Is Patient Pain Free? Yes Yes Yes WC - Visit Discharge Discharge Condition Stable Stable Ambulatory Status Ambulatory Ambulatory Transportation Private Auto Private Auto Medication Reconcilliation completed & No provided to patient/care provider Clinical Summary of Care Provided Yes Facility Type Home Health Orders Sent Yes 01/29/24 02/05/24 10:48 10:37 Wound Care Center Nurse 3 back -Foul Odor after Cleansing -Negative Pressure Wound Therapy -Setting (mmHg) -Negative Pressure is -Regranex (If Applicable) -Primary Dressing Applied Aquacel Extra Aquacel Extra -Other Dressing abd ABD -Primary Dressing Covered/Secured with Dry Gauze, Dry Gauze, Secured with Secured with Tape Tape -NPWT Application Charge -Aquacel Extra 1 1 Neena-Wound Care Treatment Response Pain Scale: 0-10 Numeric Is Patient Pain Free? Yes Yes WC - Visit Discharge Discharge Condition Ambulatory Status Transportation Medication Reconcilliation completed & provided to patient/care provider Clinical Summary of Care Provided Facility Type Orders Sent Assessment/Plan Assessment/Plan (1) Lumbar stenosis: CODE(S): M48.061 - Spinal stenosis, lumbar region without neurogenic claudication QUALIFIERS: Neurogenic claudication status: without neurogenic claudication Qualified Code(s): M48.061 - Spinal stenosis, lumbar region without neurogenic claudication PLAN: EpiFix #5 applied to wound base Covered with Adaptic touch then and Steri-Strips and then Aquacel extra over top Continue physical therapy Follow-up in 1 week (2) Dehiscence of surgical wound: CODE(S): T81.31XA - Disruption of external operation (surgical) wound, not elsewhere classified, initial encounter QUALIFIERS: Encounter type: initial encounter Qualified Code(s): T81.31XA - Disruption of external operation (surgical) wound, not elsewhere classified, initial encounter (3) 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: CODE(S): L98.425 - 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 Patient has been drinking Jacoby and making a big difference in his wound care
== END 2024-02-05 23:59 | disposition home or self-care (01) ==
LOC: WC 10:00
PROVIDERS: Referring Provider Orthopaedic Surgery; Visit Provider Nurse Practitioner
DX: T81.31XA Disruption of external operation (surgical) wound, not elsewhere classified, initial encounter (principal); L98.425 Non-pressure chronic ulcer of back with muscle involvement without evidence of necrosis; E11.622 Type 2 diabetes mellitus with other skin ulcer; M48.061 Spinal stenosis, lumbar region without neurogenic claudication; Z79.84 Long term (current) use of oral hypoglycemic drugs; Z79.85 Long-term (current) use of injectable non-insulin antidiabetic drugs; Z79.899 Other long term (current) drug therapy
CPT/HCPCS: 15271; 97605; Q4186

== ENCOUNTER 2024-03-04 10:00 | Outpatient (RCR) | payer BC, SELFPAY ==
[2024-02-06 00:37] VITALS: BP 124/70; PULSE 102; RESP 18; TEMP 36; BMI 26.3
[2024-02-12 10:20] VITALS: BP 115/67; PULSE 94; RESP 18; TEMP 36.4; BMI 26.3
--- NOTE | 2024-02-12 12:52 | PCM.WC.PN ---
History of Present Illness Date of Service: 02/12/24 Chief Complaint: dehisced lumbar surgical wound History of Wound: 63 year old white male with uncontrolled diabetes and had back surgery then dehisced and had an I&D done in . appears in severe pain with a wound vac that they want us to transfer of care. He also needs main managed also .He has home health from the hospital coming in 2 days a week and they change the vac once a week and the black foam has been sticking. He also picked up MRSA on cultures and is on 2 different antibiotics also. Progress of Wound: He has a very thin line of nonhealed skin and then he has that superior side of the wound it still has tendon showing. Much smaller in size but still there. EpiFix #6 applied today hopefully this will be his second to last her last 1 we will follow-up in 1 week and well with physical therapy. Subjective Subjective Patient is excited that it is healing well Objective Data Objective Data Again much smaller in size and EpiFix still has some tendon showing on the left superior side of the wound we will continue with EpiFix #6 Vital Signs: Vital Signs Temp Pulse Resp BP 97.5 F L 94 18 115/67 02/12/24 10:20 02/12/24 10:20 02/12/24 10:20 02/12/24 10:20 Weight: 168 lb Body Mass Index (BMI) 26.3 Physical Exam Const oriented x3 General Appearance: cooperative Exam Limitations: no limitations HEENT normocephalic Eyes PERRL General Eye: normal appearance of both eyes Resp normal respiratory effort Effort and Inspection: able to speak in complete sentences Auscultation: clear to auscultation bilaterally Cardio regular rate and regular rhythm Palpation: normal PMI Rate: regular rate Rhythm: regular rhythm Back/Spine Cervical Spine: cervical ROM normal Thoracic Spine / Upper Back: normal to inspection Lumbar Spine / Lower Back: normal to inspection Psych Appearance: grossly normal Speech: normal speech Thought Content: normal thought content Judgement: judgement good Debridement Note Debridement Note Wound debrided: lumbar dehisced wound Type of Debridement: Excisional debridement Anesthesia Used: 4% Lidocaine Solution and 5% Lidocaine Gel Depth: Down to and including healthy tissue and in the subcutaneous layer Percentage of wound debrided: 100 Instrument Used: 7mm curette Tissue Removed: devitalized tissue and fibrin Amount of bleeding with debridement: Mild Bleeding Controlled with: Compression and gauze Patient tolerated procedure: Patient tolerated procedure well Post-Debridement Measurements and Additional Note: Post-Debridement Measurements/Treatment - Nurse 1 - General Ulcer Assessment Start: 02/12/24 10:20 Freq: Status: Active Protocol: CULLEN Activity Type Activity Date Activity User E-sign Co-sign Detail Recorded Client Recorded Date Recorded By Document 02/12/24 10:20 DL ..25.7 02/12/24 10:28 DL 02/12/24 10:20 WC - Today's Visit Information Type of service Follow-up Visit (Physician/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 QUALITY MANAGEMENT ) Arrival Mode Ambulatory Transfer Assistance None Patient Identification Verified (Name & Yes ) Patient Requires Transmission-Based No Precautions Height and Weight Body Mass Index (BMI) 26.3 BMI Classification Overweight Vital Signs Temperature (97.8 F-99.1 F) 97.5 F L Temperature Source Temporal Pulse Rate (60-100) 94 Pulse Location Monitor Respiratory Rate (12-18) 18 Respiratory rate source Observation Blood Pressure (90/60-120/80) 115/67 Blood Pressure Mean (mm Hg) 83 Source Monitor History Since Last Visit- (Skip if this is Patient's initial visit) Have you changed medications since your No last visit? Any new allergies or adverse reactions No Had a fall/change in ADL's that may No increase risk of falls Signs or symptoms of abuse and/or No neglect since last visit Have you been in the hospital since your No last visit? Has dressing in place as prescribed Yes Has compression in place as prescribed N/A Has offloadiing in place as prescribed Yes Experienced any changes in pain level or No management Pain Scale: 0-10 Numeric Is Patient Pain Free? Yes - Nurse 1 - General Ulcer Measurement Start: 02/12/24 10:20 Freq: Status: Active Protocol: Activity Type Activity Date Activity User E-sign Co-sign Detail Recorded Client Recorded Date Recorded By Document 02/12/24 10:20 DL ..25.7 02/12/24 10:28 DL 02/12/24 10:20 Wound Center Nurse 1 back -Current Size (cm) - Length 3.9 -Current Size (cm) - Width 0.5 -Current Size (cm) - Depth 0.1 -Total Square Cm 1.95 -Photo Taken Yes -Exudate Amt Medium -Wound Margin Distinct, Outline Attached -Granulation Amt Large (67-100%) -Granulation Quality [place] -Necrosis Amt None Present (0 %) -Structure Exposed N/A -Texture (Neena-wound Skin Appearance) Scarring -Moisture (Neena-wound Skin Appearance) No Abnormality -Color (Neena-wound Skin Appearance) No Abnormality -Temperature (Neena-wound Skin No Abnormality Appearance) (Pt Warm) -Ulcer Cleansing Soap and Water -Foul Odor after Cleansing No -Anesthetic Used 5% Lidocaine Gel WC - Nurse 2 - General Ulcer CM Notes Start: 02/12/24 10:20 Freq: Status: Active Protocol: Activity Type Activity Date Activity User E-sign Co-sign Detail Recorded Client Recorded Date Recorded By Document 02/12/24 10:35 DS 1 02/12/24 10:37 DS 02/12/24 10:35 Wound Center Nurse 2 -Time 10:36 -Correct Patient Yes -Correct Side, Site, Position Yes -Correct Procedure Yes -Procedure Performed Yes -Type of Procedure Debridement -Clinical Debridement Subcutaneous -Tissue Removed Subcutaneous -Post Debridement (cm) - Length 4.7 -Post Debridement (cm) - Width 0.5 -Post Debridement (cm) - Depth 0.1 -Total Square (Post) (cm) 2.35 -Area of Debridement (cm) - Length 4.7 -Area of Debridement (cm) - Width 0.5 -Total Square (Area) (cm) 2.35 -Tunneling No -Undermining/Tunneling No -Circular Undermining No -Wound/Ulcer Outcome Not Healed -Bioengineered Tissue Yes -Type of Bioengineered Tissue Epifix -Expiration Date 09/05/28 -Product Lot Number [id number] -Percent Used 100 -Lot number of Saline Used [id number] -Bleeding Controlled with Pressure -Treatment Response Procedure Tolerated Well -Debridement - Subq, 1st 20sq cm No -Apply Skin Sub - 1st 25 sq cm - Legs 1 -Epifix (per sq cm) 4 Pain Scale: 0-10 Numeric Is Patient Pain Free? Yes ESTELLE - Nurse 3 - General Ulcer D/C NN Start: 02/12/24 10:20 Freq: Status: Active Protocol: Activity Type Activity Date Activity User E-sign Co-sign Detail Recorded Client Recorded Date Recorded By Document 02/12/24 10:49 DL [email or web address] 02/12/24 10:50 DL 02/12/24 10:49 Wound Care Center Nurse 3 back -Foul Odor after Cleansing No -Primary Dressing Applied Aquacel Extra -Other Dressing epifix -Primary Dressing Covered/Secured with Dry Gauze, Secured with Tape -Aquacel Extra 1 Treatment Response Procedure Tolerated Well Pain Scale: 0-10 Numeric Is Patient Pain Free? Yes WC - Visit Discharge Discharge Condition Stable Ambulatory Status Ambulatory Transportation Private Auto Assessment/Plan Assessment/Plan (1) Lumbar stenosis: CODE(S): M48.061 - Spinal stenosis, lumbar region without neurogenic claudication QUALIFIERS: Neurogenic claudication status: without neurogenic claudication Qualified Code(s): M48.061 - Spinal stenosis, lumbar region without neurogenic claudication PLAN: EpiFix #6 applied to wound base Covered with Adaptic touch then and Steri-Strips and then Aquacel extra over top Continue physical therapy Follow-up in 1 week (2) Dehiscence of surgical wound: CODE(S): T81.31XA - Disruption of external operation (surgical) wound, not elsewhere classified, initial encounter QUALIFIERS: Encounter type: initial encounter Qualified Code(s): T81.31XA - Disruption of external operation (surgical) wound, not elsewhere classified, initial encounter (3) 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 Patient has been drinking Jacoby and making a big difference in his wound care
[2024-02-26 10:27] VITALS: BP 129/71; PULSE 92; RESP 18; TEMP 36.5; BMI 26.3
--- NOTE | 2024-02-26 12:53 | PCM.WC.PN ---
History of Present Illness Date of Service: 02/26/24 Chief Complaint: dehisced lumbar surgical wound History of Wound: 63 year old white male with uncontrolled diabetes and had back surgery then dehisced and had an I&D done in . appears in severe pain with a wound vac that they want us to transfer of care. He also needs main managed also .He has home health from the hospital coming in 2 days a week and they change the vac once a week and the black foam has been sticking. He also picked up MRSA on cultures and is on 2 different antibiotics also. Progress of Wound: Quarter of an inch is still not covered and it is showing through with the tendon and the spine on the superior side of the wound. Subjective Subjective and are very excited that they are coming to an end. Objective Data Objective Data Patient is still tolerating the EpiFix will continue using that on the 1 section could be healed in the next week or 2. Vital Signs: Vital Signs Temp Pulse Resp BP 97.7 F L 92 18 129/71 H 02/26/24 10:27 02/26/24 10:27 02/26/24 10:27 02/26/24 10:27 Weight: 168 lb Body Mass Index (BMI) 26.3 Lab / Micro Data Attestation: I reviewed the patient's lab results. Physical Exam Const oriented x3 General Appearance: cooperative Exam Limitations: no limitations HEENT normocephalic Eyes PERRL General Eye: normal appearance of both eyes Resp normal respiratory effort Effort and Inspection: able to speak in complete sentences Auscultation: clear to auscultation bilaterally Cardio regular rate and regular rhythm Palpation: normal PMI Rate: regular rate Rhythm: regular rhythm Back/Spine Cervical Spine: cervical ROM normal Thoracic Spine / Upper Back: normal to inspection Lumbar Spine / Lower Back: normal to inspection Psych Appearance: grossly normal Speech: normal speech Thought Content: normal thought content Judgement: judgement good Debridement Note Debridement Note Wound debrided: lumbar dehisced wound Type of Debridement: Excisional debridement Anesthesia Used: 4% Lidocaine Solution and 5% Lidocaine Gel Depth: Down to and including healthy tissue and in the subcutaneous layer Percentage of wound debrided: 100 Instrument Used: 7mm curette Tissue Removed: devitalized tissue and fibrin Amount of bleeding with debridement: Mild Bleeding Controlled with: Compression and gauze Patient tolerated procedure: Patient tolerated procedure well Post-Debridement Measurements and Additional Note: Post-Debridement Measurements/Treatment WC - Nurse 1 - General Ulcer Assessment Start: 02/12/24 10:20 Freq: Status: Active Protocol: CULLEN Activity Type Activity Date Activity User E-sign Co-sign Detail Recorded Client Recorded Date Recorded By Document 02/12/24 10:20 DL [id number] 02/12/24 10:28 DL Document 02/26/24 10:27 DL [id number] 02/26/24 10:32 DL 02/12/24 02/26/24 10:20 10:27 WC - Today's Visit Information Type of service Follow-up Visit Follow-up Visit (Physician/DRAWER HARDWARE WORKER (Physician/DRAWER HARDWARE WORKER ) ) Arrival Mode Ambulatory Ambulatory Transfer Assistance None None Patient Identification Verified (Name & Yes Yes ) Patient Requires Transmission-Based No No Precautions Height and Weight Body Mass Index (BMI) 26.3 26.3 BMI Classification Overweight Overweight Vital Signs Temperature (97.8 F-99.1 F) 97.5 F L 97.7 F L Temperature Source Temporal Oral Pulse Rate (60-100) 94 92 Pulse Location Monitor Monitor Respiratory Rate (12-18) 18 18 Respiratory rate source Observation Observation Blood Pressure (90/60-120/80) 115/67 129/71 H Blood Pressure Mean (mm Hg) 83 90 Source Monitor Monitor History Since Last Visit- (Skip if this is Patient's initial visit) Have you changed medications since your No No last visit? Any new allergies or adverse reactions No No Had a fall/change in ADL's that may No No increase risk of falls Signs or symptoms of abuse and/or No No neglect since last visit Have you been in the hospital since your No No last visit? Has dressing in place as prescribed Yes Yes Has compression in place as prescribed N/A N/A Has offloadiing in place as prescribed Yes Yes Experienced any changes in pain level or No No management Pain Scale: 0-10 Numeric Is Patient Pain Free? Yes Yes ESTELLE - Nurse 1 - General Ulcer Measurement Start: 02/12/24 10:20 Freq: Status: Active Protocol: Activity Type Activity Date Activity User E-sign Co-sign Detail Recorded Client Recorded Date Recorded By Document 02/12/24 10:20 DL [email or web address] 02/12/24 10:28 DL Document 02/26/24 10:27 DL [id number] 02/26/24 10:32 DL 02/12/24 02/26/24 10:20 10:27 Wound Center Nurse 1 back -Current Size (cm) - Length 3.9 0.7 -Current Size (cm) - Width 0.5 0.4 -Current Size (cm) - Depth 0.1 0.1 -Total Square Cm 1.95 0.28 -Photo Taken Yes Yes -Exudate Amt Medium Small -Exudate Type Serosanguineous -Wound Margin Distinct, Distinct, Outline Outline Attached Attached -Granulation Amt Large (67-100%) Large (67-100%) -Granulation Quality [place] -Necrosis Amt None Present (0 None Present (0 %) %) -Structure Exposed N/A Tendon,Fascia -Texture (Neena-wound Skin Appearance) Scarring Scarring -Moisture (Neena-wound Skin Appearance) No Abnormality No Abnormality -Color (Neena-wound Skin Appearance) No Abnormality No Abnormality -Temperature (Neena-wound Skin No Abnormality No Abnormality Appearance) (Pt Warm) (Pt Warm) -Ulcer Cleansing Soap and Water Soap and Water -Foul Odor after Cleansing No -Anesthetic Used 5% Lidocaine 4% Lidocaine Gel Solution WC - Nurse 2 - General Ulcer CM Notes Start: 02/12/24 10:20 Freq: Status: Active Protocol: Activity Type Activity Date Activity User E-sign Co-sign Detail Recorded Client Recorded Date Recorded By Document 02/12/24 10:35 DS 1 02/12/24 10:37 DS Document 02/26/24 10:46 [facility] [id number] 02/26/24 10:52 [facility] 02/12/24 02/26/24 10:35 10:46 Wound Center Nurse 2 back -Time 10:36 10:46 -Correct Patient Yes Yes -Correct Side, Site, Position Yes Yes -Correct Procedure Yes Yes -Procedure Performed Yes Yes -Type of Procedure Debridement Debridement -Clinical Debridement Subcutaneous Subcutaneous -Tissue Removed Subcutaneous Subcutaneous -Post Debridement (cm) - Length 4.7 0.9 -Post Debridement (cm) - Width 0.5 0.4 -Post Debridement (cm) - Depth 0.1 0.1 -Total Square (Post) (cm) 2.35 0.36 -Area of Debridement (cm) - Length 4.7 0.9 -Area of Debridement (cm) - Width 0.5 0.4 -Total Square (Area) (cm) 2.35 0.36 -Tunneling No No -Undermining/Tunneling No No -Circular Undermining No No -Wound/Ulcer Outcome Not Healed Not Healed -Ulcer Cleansing Rinsed/ Irrigated with Saline -Foul Odor after Cleansing No -Bioengineered Tissue Yes -Type of Bioengineered Tissue Epifix Epifix 18mm Disc -Expiration Date 09/05/28 08/08/28 -Product Lot Number [id number] -Percent Used 100 100 -Lot number of Saline Used [id number] -Bleeding Controlled with Pressure Pressure -Treatment Response Procedure Procedure Tolerated Well Tolerated Well -Debridement - Subq, 1st 20sq cm No No -Apply Skin Sub - 1st 25 sq cm - Legs 1 1 -Epifix (per sq cm) 4 -Epifix 18mm Disc 3 Pain Scale: 0-10 Numeric Is Patient Pain Free? Yes Yes - Nurse 3 - General Ulcer D/C NN Start: 02/12/24 10:20 Freq: Status: Active Protocol: Activity Type Activity Date Activity User E-sign Co-sign Detail Recorded Client Recorded Date Recorded By Document 02/12/24 10:49 DL [id number] 02/12/24 10:50 DL Document 02/26/24 11:00 [facility] [id number] 02/26/24 11:00 [facility] 02/12/24 02/26/24 10:49 11:00 Wound Care Center Nurse 3 back -Foul Odor after Cleansing No -Primary Dressing Applied Aquacel Extra Aquacel Extra -Other Dressing epifix abd -Primary Dressing Covered/Secured with Dry Gauze, Secured with Secured with Tape Tape -Other Covering epifix -Aquacel Extra 1 1 Treatment Response Procedure Procedure Tolerated Well Tolerated Well Pain Scale: 0-10 Numeric Is Patient Pain Free? Yes Yes - Visit Discharge Discharge Condition Stable Stable Ambulatory Status Ambulatory Ambulatory Transportation Private Auto Private Auto Accompanied by Assessment/Plan Assessment/Plan (1) Lumbar stenosis: CODE(S): M48.061 - Spinal stenosis, lumbar region without neurogenic claudication QUALIFIERS: Neurogenic claudication status: without neurogenic claudication Qualified Code(s): M48.061 - Spinal stenosis, lumbar region without neurogenic claudication PLAN: EpiFix #7 applied to wound base Covered with Adaptic touch then and Steri-Strips and then Aquacel extra over top Continue physical therapy Follow-up in 1 week (2) Dehiscence of surgical wound: CODE(S): T81.31XA - Disruption of external operation (surgical) wound, not elsewhere classified, initial encounter QUALIFIERS: Encounter type: initial encounter Qualified Code(s): T81.31XA - Disruption of external operation (surgical) wound, not elsewhere classified, initial encounter (3) 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 Patient has been drinking Jacoby and making a big difference in his wound care
--- NOTE | 2024-02-27 10:16 | WC ---
PHOTO 02/12/24 LUMBAR
--- NOTE | 2024-02-27 13:39 | WC ---
PHOTO 02/26/24 LUMBAR
[2024-03-04 10:13] VITALS: BP 133/67; PULSE 99; RESP 18; TEMP 36.4; BMI 26.3
--- NOTE | 2024-03-04 12:32 | PN.PCM_ITS ---
History of Present Illness Date of Service: 03/04/24 Chief Complaint: dehisced lumbar surgical wound History of Wound: 63 year old white male with uncontrolled diabetes and had back surgery then dehisced and had an I&D done in . appears in severe pain with a wound vac that they want us to transfer of care. He also needs main managed also .He has home health from the hospital coming in 2 days a week and they change the vac once a week and the black foam has been sticking. He also picked up MRSA on cultures and is on 2 different antibiotics also. Progress of Wound: Less than quarter of an inch is still not covered and it is showing through with the tendon and the spine on the superior side of the wound. EpiFix #8 applied hopefully this will be his last week. The rest of the wound is healed and looks beautiful it is getting flat and flesh-colored and blending very nicely. Subjective Subjective and are very pleased with outcomes Objective Data Objective Data Measurement is very small 1 cm and we will apply the #8 to the area he should heal within the next 1 to 2 weeks. No sign of infection no redness no discharge Vital Signs: Vital Signs Temp Pulse Resp BP 97.5 F L 99 18 133/67 H 03/04/24 10:13 03/04/24 10:13 03/04/24 10:13 03/04/24 10:13 Weight: 168 lb Body Mass Index (BMI) 26.3 Lab / Micro Data Attestation: I reviewed the patient's lab results. Physical Exam Const oriented x3 General Appearance: cooperative Exam Limitations: no limitations HEENT normocephalic Eyes PERRL General Eye: normal appearance of both eyes Resp normal respiratory effort Effort and Inspection: able to speak in complete sentences Auscultation: clear to auscultation bilaterally Cardio regular rate and regular rhythm Palpation: normal PMI Rate: regular rate Rhythm: regular rhythm Back/Spine Cervical Spine: cervical ROM normal Thoracic Spine / Upper Back: normal to inspection Lumbar Spine / Lower Back: normal to inspection Psych Appearance: grossly normal Speech: normal speech Thought Content: normal thought content Judgement: judgement good Debridement Note Debridement Note Wound debrided: lumbar dehisced wound Type of Debridement: Excisional debridement Anesthesia Used: 5% Lidocaine Gel Depth: Down to and including healthy tissue and in the subcutaneous layer Percentage of wound debrided: 100 Instrument Used: 3mm curette Tissue Removed: devitalized tissue and fibrin Amount of bleeding with debridement: None Bleeding Controlled with: Compression and gauze Patient tolerated procedure: Patient tolerated procedure well Post-Debridement Measurements and Additional Note: Post-Debridement Measurements/Treatment WC - Nurse 1 - General Ulcer Assessment Start: 02/12/24 10:20 Freq: Status: Active Protocol: CULLEN Activity Type Activity Date Activity User E-sign Co-sign Detail Recorded Client Recorded Date Recorded By Document 02/12/24 10:20 DL [email or web address] 02/12/24 10:28 DL Document 02/26/24 10:27 DL [id number] 02/26/24 10:32 DL Document 03/04/24 10:13 DL [id number] 03/04/24 10:18 DL 02/12/24 02/26/24 03/04/24 10:20 10:27 10:13 WC - Today's Visit Information Type of service Follow-up Visit Follow-up Visit Follow-up Visit (Physician/MEDICAL LAB ASSISTANT (Physician/MEDICAL LAB ASSISTANT (Physician/MEDICAL LAB ASSISTANT ) ) ) Arrival Mode Ambulatory Ambulatory Ambulatory Transfer Assistance None None None Patient Identification Verified (Name & Yes Yes Yes ) Patient Requires Transmission-Based No No No Precautions Height and Weight Body Mass Index (BMI) 26.3 26.3 26.3 BMI Classification Overweight Overweight Overweight Vital Signs Temperature (97.8 F-99.1 F) 97.5 F L 97.7 F L 97.5 F L Temperature Source Temporal Oral Temporal Pulse Rate (60-100) 94 92 99 Pulse Location Monitor Monitor Monitor Respiratory Rate (12-18) 18 18 18 Respiratory rate source Observation Observation Observation Blood Pressure (90/60-120/80) 115/67 129/71 H 133/67 H Blood Pressure Mean (mm Hg) 83 90 89 Source Monitor Monitor Monitor History Since Last Visit- (Skip if this is Patient's initial visit) Have you changed medications since your No No No last visit? Any new allergies or adverse reactions No No No Had a fall/change in ADL's that may No No No increase risk of falls Signs or symptoms of abuse and/or No No No neglect since last visit Have you been in the hospital since your No No No last visit? Has dressing in place as prescribed Yes Yes Yes Has compression in place as prescribed N/A N/A N/A Has offloadiing in place as prescribed Yes Yes Yes Experienced any changes in pain level or No No No management Pain Scale: 0-10 Numeric Is Patient Pain Free? Yes Yes Yes WC - Nurse 1 - General Ulcer Measurement Start: 02/12/24 10:20 Freq: Status: Active Protocol: Activity Type Activity Date Activity User E-sign Co-sign Detail Recorded Client Recorded Date Recorded By Document 02/12/24 10:20 DL [email or web address] 02/12/24 10:28 DL Document 02/26/24 10:27 DL [id number] 02/26/24 10:32 DL Document 03/04/24 10:13 DL [id number] 03/04/24 10:18 DL 02/12/24 02/26/24 03/04/24 10:20 10:27 10:13 Wound Center Nurse 1 back -Current Size (cm) - Length 3.9 0.7 0.8 -Current Size (cm) - Width 0.5 0.4 0.3 -Current Size (cm) - Depth 0.1 0.1 0.2 -Total Square Cm 1.95 0.28 0.24 -Photo Taken Yes Yes Yes -Exudate Amt Medium Small Medium -Exudate Type Serosanguineous Serosanguineous -Wound Margin Distinct, Distinct, Distinct, Outline Outline Outline Attached Attached Attached -Granulation Amt Large (67-100%) Large (67-100%) Large (67-100%) -Granulation Quality [place] -Necrosis Amt None Present (0 None Present (0 None Present (0 %) %) %) -Necrotic Tissue Type Adherent Slough -Structure Exposed N/A Tendon,Fascia N/A -Texture (Neena-wound Skin Appearance) Scarring Scarring Scarring -Moisture (Neena-wound Skin Appearance) No Abnormality No Abnormality No Abnormality -Color (Neena-wound Skin Appearance) No Abnormality No Abnormality No Abnormality -Temperature (Neena-wound Skin No Abnormality No Abnormality No Abnormality Appearance) (Pt Warm) (Pt Warm) (Pt Warm) -Ulcer Cleansing Soap and Water Soap and Water Soap and Water -Foul Odor after Cleansing No No -Anesthetic Used 5% Lidocaine 4% Lidocaine 5% Lidocaine Gel Solution Gel WC - Nurse 2 - General Ulcer CM Notes Start: 02/12/24 10:20 Freq: Status: Active Protocol: Activity Type Activity Date Activity User E-sign Co-sign Detail Recorded Client Recorded Date Recorded By Document 02/12/24 10:35 DS 1 02/12/24 10:37 DS Document 02/26/24 10:46 [facility] [id number] 02/26/24 10:52 [facility] 02/12/24 02/26/24 10:35 10:46 Wound Center Nurse 2 back -Time 10:36 10:46 -Correct Patient Yes Yes -Correct Side, Site, Position Yes Yes -Correct Procedure Yes Yes -Procedure Performed Yes Yes -Type of Procedure Debridement Debridement -Clinical Debridement Subcutaneous Subcutaneous -Tissue Removed Subcutaneous Subcutaneous -Post Debridement (cm) - Length 4.7 0.9 -Post Debridement (cm) - Width 0.5 0.4 -Post Debridement (cm) - Depth 0.1 0.1 -Total Square (Post) (cm) 2.35 0.36 -Area of Debridement (cm) - Length 4.7 0.9 -Area of Debridement (cm) - Width 0.5 0.4 -Total Square (Area) (cm) 2.35 0.36 -Tunneling No No -Undermining/Tunneling No No -Circular Undermining No No -Wound/Ulcer Outcome Not Healed Not Healed -Ulcer Cleansing Rinsed/ Irrigated with Saline -Foul Odor after Cleansing No -Bioengineered Tissue Yes -Type of Bioengineered Tissue Epifix Epifix 18mm Disc -Expiration Date 09/05/28 08/08/28 -Product Lot Number [id number] -Percent Used 100 100 -Lot number of Saline Used [id number] -Bleeding Controlled with Pressure Pressure -Treatment Response Procedure Procedure Tolerated Well Tolerated Well -Debridement - Subq, 1st 20sq cm No No -Apply Skin Sub - 1st 25 sq cm - Legs 1 1 -Epifix (per sq cm) 4 -Epifix 18mm Disc 3 Pain Scale: 0-10 Numeric Is Patient Pain Free? Yes Yes WC - Nurse 3 - General Ulcer D/C NN Start: 02/12/24 10:20 Freq: Status: Active Protocol: Activity Type Activity Date Activity User E-sign Co-sign Detail Recorded Client Recorded Date Recorded By Document 02/12/24 10:49 DL [email or web address] 02/12/24 10:50 DL Document 02/26/24 11:00 BM [id number] 02/26/24 11:00 BMF Document 03/04/24 10:52 RB [id number] 03/04/24 10:53 RB 02/12/24 02/26/24 03/04/24 10:49 11:00 10:52 Wound Care Center Nurse 3 back -Foul Odor after Cleansing No -Primary Dressing Applied Aquacel Extra Aquacel Extra Fibracol Plus 4x4 -Other Dressing epifix abd abd -Primary Dressing Covered/Secured with Dry Gauze, Secured with Secured with Secured with Tape Tape Tape -Other Covering epifix -Aquacel Extra 1 1 -Fibracol Plus 4x4 1 Treatment Response Procedure Procedure Procedure Tolerated Well Tolerated Well Tolerated Well Pain Scale: 0-10 Numeric Is Patient Pain Free? Yes Yes Yes WC - Visit Discharge Discharge Condition Stable Stable Stable Ambulatory Status Ambulatory Ambulatory Ambulatory Transportation Private Auto Private Auto Private Auto Accompanied by Medication Reconcilliation completed & No provided to patient/care provider Clinical Summary of Care Provided Yes Assessment/Plan Assessment/Plan (1) Lumbar stenosis: CODE(S): M48.061 - Spinal stenosis, lumbar region without neurogenic claudication QUALIFIERS: Neurogenic claudication status: without neurogenic claudication Qualified Code(s): M48.061 - Spinal stenosis, lumbar region without neurogenic claudication PLAN: EpiFix #8 applied to wound base Covered with Adaptic touch then and Steri-Strips and then Aquacel extra over top Continue physical therapy Follow-up in 1 week (2) Dehiscence of surgical wound: CODE(S): T81.31XA - Disruption of external operation (surgical) wound, not elsewhere classified, initial encounter QUALIFIERS: Encounter type: initial encounter Qualified Code(s): T81.31XA - Disruption of external operation (surgical) wound, not elsewhere classified, initial encounter (3) 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 Patient has been drinking Jacoby and making a big difference in his wound care
== END 2024-03-07 23:59 | disposition home or self-care (01) ==
LOC: WC 10:00
PROVIDERS: Referring Provider Orthopaedic Surgery; Visit Provider Nurse Practitioner
DX: T81.31XA Disruption of external operation (surgical) wound, not elsewhere classified, initial encounter (principal); L98.425 Non-pressure chronic ulcer of back with muscle involvement without evidence of necrosis; E11.622 Type 2 diabetes mellitus with other skin ulcer; Y83.8 Other surgical procedures as the cause of abnormal reaction of the patient, or of later complication, without mention of misadventure at the time of the procedure; Z79.84 Long term (current) use of oral hypoglycemic drugs; Z79.85 Long-term (current) use of injectable non-insulin antidiabetic drugs; Z79.899 Other long term (current) drug therapy
CPT/HCPCS: 15271; Q4186

== ENCOUNTER 2024-03-25 10:00 | Outpatient (RCR) | payer BC, SELFPAY ==
[2024-03-08 00:46] VITALS: BP 124/70; PULSE 102; RESP 18; TEMP 36; BMI 26.3
[2024-03-11 10:22] VITALS: BP 123/80; PULSE 99; RESP 18; TEMP 36.3; BMI 26.3
--- NOTE | 2024-03-11 12:44 | PN.PCM_ITS ---
History of Present Illness Date of Service: 03/11/24 Chief Complaint: dehisced lumbar surgical wound History of Wound: 63 year old white male with uncontrolled diabetes and had back surgery then dehisced and had an I&D done in . appears in severe pain with a wound vac that they want us to transfer of care. He also needs main managed also .He has home health from the hospital coming in 2 days a week and they change the vac once a week and the black foam has been sticking. He also picked up MRSA on cultures and is on 2 different antibiotics also. Progress of Wound: The wound is progressing very well but still has an open area that shows connective tissue there may be like 1/4 inch long. Will again use EpiFix and layer it on there to make sure that it covers that wound well and hopefully next week he will be healed. Subjective Subjective and who is very anxious to be healed so he can go back to work Objective Data Objective Data No sign of infection healing slowly but are trying to get those tendons covered which is like a quarter and showing we will continue to use the EpiFix and hopefully he will heal within the next week. Vital Signs: Vital Signs Temp Pulse Resp BP 97.4 F L 99 18 123/80 H 03/11/24 10:22 03/11/24 10:22 03/11/24 10:22 03/11/24 10:22 Weight: 168 lb Body Mass Index (BMI) 26.3 Physical Exam Const oriented x3 General Appearance: cooperative Exam Limitations: no limitations HEENT normocephalic Eyes PERRL General Eye: normal appearance of both eyes Resp normal respiratory effort Effort and Inspection: able to speak in complete sentences Auscultation: clear to auscultation bilaterally Cardio regular rate and regular rhythm Palpation: normal PMI Rate: regular rate Rhythm: regular rhythm Back/Spine Cervical Spine: cervical ROM normal Thoracic Spine / Upper Back: normal to inspection Lumbar Spine / Lower Back: normal to inspection Psych Appearance: grossly normal Speech: normal speech Thought Content: normal thought content Judgement: judgement good Debridement Note Debridement Note Wound debrided: lumbar dehisced wound Type of Debridement: Excisional debridement Anesthesia Used: 5% Lidocaine Gel Depth: Down to and including healthy tissue and in the subcutaneous layer Percentage of wound debrided: 100 Instrument Used: 3mm curette Tissue Removed: devitalized tissue and fibrin Amount of bleeding with debridement: None Bleeding Controlled with: Compression and gauze Patient tolerated procedure: Patient tolerated procedure well Post-Debridement Measurements and Additional Note: Post-Debridement Measurements/Treatment - Nurse 1 - General Ulcer Assessment Start: 03/11/24 10:20 Freq: Status: Active Protocol: CULLEN Activity Type Activity Date Activity User E-sign Co-sign Detail Recorded Client Recorded Date Recorded By Document 03/11/24 10:22 MAURO [id number] 03/11/24 10:29 DL 03/11/24 10:22 WC - Today's Visit Information Type of service Follow-up Visit (Physician/PYROTECHNIC ASSEMBLER ) Arrival Mode Ambulatory Transfer Assistance None Patient Identification Verified (Name & Yes ) Patient Requires Transmission-Based No Precautions Height and Weight Body Mass Index (BMI) 26.3 BMI Classification Overweight Vital Signs Temperature (97.8 F-99.1 F) 97.4 F L Temperature Source Temporal Pulse Rate (60-100) 99 Pulse Location Monitor Respiratory Rate (12-18) 18 Respiratory rate source Observation Blood Pressure (90/60-120/80) 123/80 H Blood Pressure Mean (mm Hg) 94 Source Monitor History Since Last Visit- (Skip if this is Patient's initial visit) Have you changed medications since your No last visit? Any new allergies or adverse reactions No Had a fall/change in ADL's that may No increase risk of falls Signs or symptoms of abuse and/or No neglect since last visit Have you been in the hospital since your No last visit? Has dressing in place as prescribed Yes Has compression in place as prescribed N/A Has offloadiing in place as prescribed Yes Experienced any changes in pain level or No management Pain Scale: 0-10 Numeric Is Patient Pain Free? Yes - Nurse 1 - General Ulcer Measurement Start: 03/11/24 10:20 Freq: Status: Active Protocol: Activity Type Activity Date Activity User E-sign Co-sign Detail Recorded Client Recorded Date Recorded By Document 03/11/24 10:22 MAURO [id number] 03/11/24 10:29 DL 03/11/24 10:22 Wound Center Nurse 1 back -Current Size (cm) - Length 0.3 -Current Size (cm) - Width 0.2 -Current Size (cm) - Depth 0.1 -Total Square Cm 0.06 -Photo Taken Yes -Exudate Amt Small -Exudate Type Serosanguineous -Wound Margin Distinct, Outline Attached -Granulation Amt Large (67-100%) -Granulation Quality [place] -Necrosis Amt None Present (0 %) -Structure Exposed Fascia -Texture (Neena-wound Skin Appearance) Scarring -Moisture (Neena-wound Skin Appearance) No Abnormality -Color (Neena-wound Skin Appearance) No Abnormality -Temperature (Neena-wound Skin No Abnormality Appearance) (Pt Warm) -Tenderness on Palpation (Neena-wound No Skin Appearance) -Ulcer Cleansing Soap and Water -Foul Odor after Cleansing No -Anesthetic Used 5% Lidocaine Gel - Nurse 2 - General Ulcer CM Notes Start: 03/11/24 10:20 Freq: Status: Active Protocol: Activity Type Activity Date Activity User E-sign Co-sign Detail Recorded Client Recorded Date Recorded By Document 03/11/24 10:42 [facility] [id number] 03/11/24 10:48 [facility] 03/11/24 10:42 Wound Center Nurse 2 -Time 10:43 -Correct Patient Yes -Correct Side, Site, Position Yes -Correct Procedure Yes -Procedure Performed Yes -Type of Procedure Debridement -Clinical Debridement Subcutaneous -Tissue Removed Subcutaneous -Post Debridement (cm) - Length 0.8 -Post Debridement (cm) - Width 0.3 -Post Debridement (cm) - Depth 0.2 -Total Square (Post) (cm) 0.24 -Area of Debridement (cm) - Length 0.8 -Area of Debridement (cm) - Width 0.3 -Total Square (Area) (cm) 0.24 -Tunneling No -Undermining/Tunneling No -Circular Undermining No -Wound/Ulcer Outcome Not Healed -Ulcer Cleansing Rinsed/ Irrigated with Saline -Foul Odor after Cleansing No -Bioengineered Tissue No -Type of Bioengineered Tissue Epifix 18mm Disc -Expiration Date 10/06/28 -Product Lot Number [id number] -Percent Used 100 -Lot number of Saline Used [id number] -Bleeding Controlled with Pressure -Treatment Response Procedure Tolerated Well -Debridement - Subq, 1st 20sq cm No -Apply Skin Sub - 1st 25 sq cm - Legs 1 -Epifix Mesh (per sq cm) 3 Pain Scale: 0-10 Numeric Is Patient Pain Free? Yes - Nurse 3 - General Ulcer D/C NN Start: 03/11/24 10:20 Freq: Status: Active Protocol: Activity Type Activity Date Activity User E-sign Co-sign Detail Recorded Client Recorded Date Recorded By Document 03/11/24 10:52 [facility] [id number] 03/11/24 10:53 [facility] 03/11/24 10:52 Wound Care Center Nurse 3 back -Primary Dressing Applied Aquacel Extra -Other Dressing epi -Primary Dressing Covered/Secured with Secured with Tape -Other Covering abd -Aquacel Extra 1 Pain Scale: 0-10 Numeric Is Patient Pain Free? Yes WC - Visit Discharge Discharge Condition Stable Ambulatory Status Ambulatory Transportation Private Auto Assessment/Plan Assessment/Plan (1) Lumbar stenosis: CODE(S): M48.061 - Spinal stenosis, lumbar region without neurogenic claudication QUALIFIERS: Neurogenic claudication status: without neurogenic claudication Qualified Code(s): M48.061 - Spinal stenosis, lumbar region without neurogenic claudication PLAN: EpiFix #9 applied to wound base Covered with Adaptic touch then and Steri-Strips and then Aquacel extra over top Continue physical therapy Follow-up in 1 week (2) Dehiscence of surgical wound: CODE(S): T81.31XA - Disruption of external operation (surgical) wound, not elsewhere classified, initial encounter QUALIFIERS: Encounter type: initial encounter Qualified Code(s): T81.31XA - Disruption of external operation (surgical) wound, not elsewhere classified, initial encounter (3) 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 Patient has been drinking Jacoby and making a big difference in his wound care
[2024-03-18 10:12] VITALS: BP 148/73; PULSE 86; RESP 18; TEMP 36.4; BMI 26.3
--- NOTE | 2024-03-18 11:05 | PN.PCM_ITS ---
History of Present Illness Date of Service: 03/18/24 Chief Complaint: dehisced lumbar surgical wound History of Wound: 63 year old white male with uncontrolled diabetes and had back surgery then dehisced and had an I&D done in . appears in severe pain with a wound vac that they want us to transfer of care. He also needs main managed also .He has home health from the hospital coming in 2 days a week and they change the vac once a week and the black foam has been sticking. He also picked up MRSA on cultures and is on 2 different antibiotics also. Progress of Wound: Still has a very small slit of his back that still open. He is not going to be on his last epi fix today so hopefully this is the answer. Will follow him up in 1 week it is healing beautifully except he has 1 little slit that still open Subjective Subjective Patient and are very anxious about outcomes Objective Data Objective Data Will continue using EpiFix #10 for closure over his tendon still a slit opening still visible. No sign of infection doing well otherwise just anxious to be done Vital Signs: Vital Signs Temp Pulse Resp BP 97.6 F L 86 18 148/73 H 03/18/24 10:12 03/18/24 10:12 03/18/24 10:12 03/18/24 10:12 Weight: 168 lb Body Mass Index (BMI) 26.3 Physical Exam Const oriented x3 General Appearance: cooperative Exam Limitations: no limitations HEENT normocephalic Eyes PERRL General Eye: normal appearance of both eyes Resp normal respiratory effort Effort and Inspection: able to speak in complete sentences Auscultation: clear to auscultation bilaterally Cardio regular rate and regular rhythm Palpation: normal PMI Rate: regular rate Rhythm: regular rhythm Back/Spine Cervical Spine: cervical ROM normal Thoracic Spine / Upper Back: normal to inspection Lumbar Spine / Lower Back: normal to inspection Psych Appearance: grossly normal Speech: normal speech Thought Content: normal thought content Judgement: judgement good Debridement Note Debridement Note Wound debrided: lumbar dehisced wound Type of Debridement: Excisional debridement Anesthesia Used: 5% Lidocaine Gel Depth: Down to and including healthy tissue and in the subcutaneous layer Percentage of wound debrided: 100 Instrument Used: 3mm curette Tissue Removed: devitalized tissue and fibrin Amount of bleeding with debridement: None Bleeding Controlled with: Compression and gauze Patient tolerated procedure: Patient tolerated procedure well Post-Debridement Measurements and Additional Note: Post-Debridement Measurements/Treatment WC - Nurse 1 - General Ulcer Assessment Start: 03/11/24 10:20 Freq: Status: Active Protocol: CULLEN Activity Type Activity Date Activity User E-sign Co-sign Detail Recorded Client Recorded Date Recorded By Document 03/11/24 10:22 DL [id number] 03/11/24 10:29 DL Document 03/18/24 10:12 DL [id number] 03/18/24 10:18 DL 03/11/24 03/18/24 10:22 10:12 WC - Today's Visit Information Type of service Follow-up Visit Follow-up Visit (Physician/SUPERVISORY AIR INTERCEPT CONTROLLER (Physician/SUPERVISORY AIR INTERCEPT CONTROLLER ) ) Arrival Mode Ambulatory Transfer Assistance None None Patient Identification Verified (Name & Yes Yes ) Patient Requires Transmission-Based No No Precautions Height and Weight Body Mass Index (BMI) 26.3 26.3 BMI Classification Overweight Overweight Vital Signs Temperature (97.8 F-99.1 F) 97.4 F L 97.6 F L Temperature Source Temporal Temporal Pulse Rate (60-100) 99 86 Pulse Location Monitor Monitor Respiratory Rate (12-18) 18 18 Respiratory rate source Observation Observation Blood Pressure (90/60-120/80) 123/80 H 148/73 H Blood Pressure Mean (mm Hg) 94 98 Source Monitor Monitor History Since Last Visit- (Skip if this is Patient's initial visit) Have you changed medications since your No No last visit? Any new allergies or adverse reactions No No Had a fall/change in ADL's that may No No increase risk of falls Signs or symptoms of abuse and/or No No neglect since last visit Have you been in the hospital since your No No last visit? Has dressing in place as prescribed Yes Yes Has compression in place as prescribed N/A N/A Has offloadiing in place as prescribed Yes Yes Experienced any changes in pain level or No No management Pain Scale: 0-10 Numeric Is Patient Pain Free? Yes Yes ESTELLE - Nurse 1 - General Ulcer Measurement Start: 03/11/24 10:20 Freq: Status: Active Protocol: Activity Type Activity Date Activity User E-sign Co-sign Detail Recorded Client Recorded Date Recorded By Document 03/11/24 10:22 DL [id number] 03/11/24 10:29 DL Document 03/18/24 10:12 DL [id number] 03/18/24 10:18 DL 03/11/24 03/18/24 10:22 10:12 Wound Center Nurse 1 back -Current Size (cm) - Length 0.3 0.2 -Current Size (cm) - Width 0.2 0.2 -Current Size (cm) - Depth 0.1 0.2 -Total Square Cm 0.06 0.04 -Photo Taken Yes -Exudate Amt Small Small -Exudate Type Serosanguineous Serosanguineous -Wound Margin Distinct, Distinct, Outline Outline Attached Attached -Granulation Amt Large (67-100%) Small (1-33%) -Granulation Quality [place] -Necrosis Amt None Present (0 None Present (0 %) %) -Structure Exposed Fascia Fascia -Texture (Neena-wound Skin Appearance) Scarring Scarring -Moisture (Neena-wound Skin Appearance) No Abnormality No Abnormality -Color (Neena-wound Skin Appearance) No Abnormality No Abnormality -Temperature (Neena-wound Skin No Abnormality No Abnormality Appearance) (Pt Warm) (Pt Warm) -Tenderness on Palpation (Neena-wound No No Skin Appearance) -Ulcer Cleansing Soap and Water Soap and Water -Foul Odor after Cleansing No No -Anesthetic Used 5% Lidocaine 5% Lidocaine Gel Gel WC - Nurse 2 - General Ulcer CM Notes Start: 03/11/24 10:20 Freq: Status: Active Protocol: Activity Type Activity Date Activity User E-sign Co-sign Detail Recorded Client Recorded Date Recorded By Document 03/11/24 10:42 [facility] [id number] 03/11/24 10:48 [facility] Document 03/18/24 10:34 [facility] [id number] 03/18/24 10:40 [facility] 03/11/24 03/18/24 10:42 10:34 Wound Center Nurse 2 back -Time 10:43 10:35 -Correct Patient Yes Yes -Correct Side, Site, Position Yes Yes -Correct Procedure Yes Yes -Procedure Performed Yes Yes -Type of Procedure Debridement Debridement -Clinical Debridement Subcutaneous Subcutaneous -Tissue Removed Subcutaneous Subcutaneous -Post Debridement (cm) - Length 0.8 0.5 -Post Debridement (cm) - Width 0.3 0.2 -Post Debridement (cm) - Depth 0.2 0.2 -Total Square (Post) (cm) 0.24 0.10 -Area of Debridement (cm) - Length 0.8 0.5 -Area of Debridement (cm) - Width 0.3 0.2 -Total Square (Area) (cm) 0.24 0.10 -Tunneling No No -Undermining/Tunneling No No -Circular Undermining No No -Wound/Ulcer Outcome Not Healed Not Healed -Ulcer Cleansing Rinsed/ Rinsed/ Irrigated with Irrigated with Saline Saline -Foul Odor after Cleansing No No -Bioengineered Tissue No Yes -Type of Bioengineered Tissue Epifix 18mm Epifix 18mm Disc Disc -Expiration Date 10/06/28 10/06/28 -Product Lot Number [id number] -Percent Used 100 100 -Lot number of Saline Used [id number] -Bleeding Controlled with Pressure Pressure -Treatment Response Procedure Procedure Tolerated Well Tolerated Well -Debridement - Subq, 1st 20sq cm No No -Apply Skin Sub - 1st 25 sq cm - Legs 1 1 -Epifix 18mm Disc 3 -Epifix Mesh (per sq cm) 3 Pain Scale: 0-10 Numeric Is Patient Pain Free? Yes Yes - Nurse 3 - General Ulcer D/C NN Start: 03/11/24 10:20 Freq: Status: Active Protocol: Activity Type Activity Date Activity User E-sign Co-sign Detail Recorded Client Recorded Date Recorded By Document 03/11/24 10:52 [facility] [id number] 03/11/24 10:53 [facility] Document 03/18/24 10:42 [facility] [id number] 03/18/24 10:42 [facility] 03/11/24 03/18/24 10:52 10:42 Wound Care Center Nurse 3 back -Primary Dressing Applied Aquacel Extra Aquacel Extra -Other Dressing epi -Primary Dressing Covered/Secured with Secured with Secured with Tape Tape -Other Covering abd abd -Aquacel Extra 1 1 Pain Scale: 0-10 Numeric Is Patient Pain Free? Yes Yes - Visit Discharge Discharge Condition Stable Stable Ambulatory Status Ambulatory Ambulatory Transportation Private Auto Private Auto Assessment/Plan Assessment/Plan (1) Lumbar stenosis: CODE(S): M48.061 - Spinal stenosis, lumbar region without neurogenic claudication QUALIFIERS: Neurogenic claudication status: without neurogenic claudication Qualified Code(s): M48.061 - Spinal stenosis, lumbar region without neurogenic claudication PLAN: EpiFix #10 applied to wound base Covered with Adaptic touch then and Steri-Strips and then Aquacel extra over top Continue physical therapy Follow-up in 1 week (2) Dehiscence of surgical wound: CODE(S): T81.31XA - Disruption of external operation (surgical) wound, not elsewhere classified, initial encounter QUALIFIERS: Encounter type: initial encounter Qualified Code(s): T81.31XA - Disruption of external operation (surgical) wound, not elsewhere classified, initial encounter (3) 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 Patient has been drinking Jacoby and making a big difference in his wound care
[2024-03-25 10:26] VITALS: BP 136/71; PULSE 82; RESP 16; TEMP 36.4; BMI 26.3
--- NOTE | 2024-03-25 12:13 | PN.PCM_ITS ---
History of Present Illness Date of Service: 03/25/24 Chief Complaint: dehisced lumbar surgical wound History of Wound: 63 year old white male with uncontrolled diabetes and had back surgery then dehisced and had an I&D done in . appears in severe pain with a wound vac that they want us to transfer of care. He also needs main managed also .He has home health from the hospital coming in 2 days a week and they change the vac once a week and the black foam has been sticking. He also picked up MRSA on cultures and is on 2 different antibiotics also. Progress of Wound: Back is completely covered with skin there is no sign of infection either patient will be discharged from the wound center Subjective Subjective Patient is very pleased with outcomes Objective Data Objective Data Back is healed no sign of anything though infection skin well-approximated they can follow-up with their surgeon and go back to work. Vital Signs: Vital Signs Temp Pulse Resp BP 97.6 F L 82 16 136/71 H 03/25/24 10:26 03/25/24 10:26 03/25/24 10:26 03/25/24 10:26 Weight: 168 lb Body Mass Index (BMI) 26.3 Physical Exam Const oriented x3 General Appearance: cooperative Exam Limitations: no limitations HEENT normocephalic Eyes PERRL General Eye: normal appearance of both eyes Resp normal respiratory effort Effort and Inspection: able to speak in complete sentences Auscultation: clear to auscultation bilaterally Cardio regular rate and regular rhythm Palpation: normal PMI Rate: regular rate Rhythm: regular rhythm Back/Spine Cervical Spine: cervical ROM normal Thoracic Spine / Upper Back: normal to inspection Lumbar Spine / Lower Back: normal to inspection Psych Appearance: grossly normal Speech: normal speech Thought Content: normal thought content Judgement: judgement good Debridement Note Debridement Note No debridement was completed: No debridement was completed today Assessment/Plan Assessment/Plan (1) Lumbar stenosis: CODE(S): M48.061 - Spinal stenosis, lumbar region without neurogenic claudication QUALIFIERS: Neurogenic claudication status: without neurogenic claudication Qualified Code(s): M48.061 - Spinal stenosis, lumbar region without neurogenic claudication PLAN: Discharge from the wound center follow-up as needed (2) Dehiscence of surgical wound: CODE(S): T81.31XA - Disruption of external operation (surgical) wound, not elsewhere classified, initial encounter QUALIFIERS: Encounter type: initial encounter Qualified Code(s): T81.31XA - Disruption of external operation (surgical) wound, not elsewhere classified, initial encounter (3) 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: CODE(S): L98.425 - 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 Patient has been drinking Jacoby and making a big difference in his wound care
--- NOTE | 2024-03-26 08:29 | WC ---
PHOTO 03/18/24 LUMBAR
== END 2024-03-25 10:41 | disposition home or self-care (01) ==
LOC: WC 10:00
PROVIDERS: Referring Provider Orthopaedic Surgery; Visit Provider Nurse Practitioner
DX: T81.31XA Disruption of external operation (surgical) wound, not elsewhere classified, initial encounter (principal); L98.425 Non-pressure chronic ulcer of back with muscle involvement without evidence of necrosis; E11.622 Type 2 diabetes mellitus with other skin ulcer; B95.62 Methicillin resistant Staphylococcus aureus infection as the cause of diseases classified elsewhere; Z79.84 Long term (current) use of oral hypoglycemic drugs; Z79.85 Long-term (current) use of injectable non-insulin antidiabetic drugs; Z79.899 Other long term (current) drug therapy
CPT/HCPCS: 15271; 99212; Q4186; G0463

== ENCOUNTER → 2024-05-04 | Outpatient (CLI) | payer BC, SELFPAY ==
[2024-05-04 17:45] LABS: PSA,Total - Annual Screen 2.53 ng/mL (0.00-4.00)
== END | disposition home or self-care (01) ==
LOC: LAB 14:57
PROVIDERS: Referring Provider Urology; Visit Provider Urology
DX: Z12.5 Encounter for screening for malignant neoplasm of prostate (principal)
CPT/HCPCS: 36415; 84153; G0103

== ENCOUNTER → 2024-05-19 | Outpatient (CLI) | payer BC, SELFPAY ==
[2024-05-19 16:18] LABS: Hematocrit 37.9 % (40-54); Hemoglobin 12.5 g/dL (13.0-16.5); Mean Corpuscular Hgb 29.2 pg (27.0-32.0); Mean Corpuscular Volume 88.6 fL (80-94); Mean Platelet Vol. 10.3 fl (6.2-12.0); Platelet Count 212 K/mm3 (150-450); RBC Distribution Width CV 13.3 % (11.6-14.6); RBC Distribution Width SD 43.5 fl (35.1-43.9); Red Blood Count 4.28 M/mm3 (4.6-6.2)
[2024-05-19 16:50] LABS: Anion Gap 5 (5-15); BUN 23 mg/dL (7-18); Calcium,Total 9.6 mg/dL (8.5-10.1); Chloride 103 mmol/L (98-107); Creatinine, Serum 0.82 mg/dL (0.70-1.30); EST Glomerular Filtration Rate 101 mL/min (>60); Est Glom Filt Rate - Afr Amer 122 mL/min (>60); Glucose 128 mg/dL (74-106); Potassium 4.7 mmol/L (3.5-5.1); Sodium Level 136 mmol/L (136-145)
== END | disposition home or self-care (01) ==
LOC: LAB 15:47
PROVIDERS: Referring Provider Urology; Visit Provider Urology
DX: Z01.812 Encounter for preprocedural laboratory examination (principal)
CPT/HCPCS: 36415; 80048; 85027

== ENCOUNTER → 2024-06-24 | Outpatient (CLI) | payer BC, SELFPAY ==
[2024-06-24 15:43] LABS: Hematocrit 35.6 % (40-54); Hemoglobin 12.1 g/dL (13.0-16.5); Mean Corpuscular Hgb 30.4 pg (27.0-32.0); Mean Corpuscular Volume 89.4 fL (80-94); Mean Platelet Vol. 10.1 fl (6.2-12.0); Platelet Count 188 K/mm3 (150-450); RBC Distribution Width CV 12.8 % (11.6-14.6); Red Blood Count 3.98 M/mm3 (4.6-6.2); White Blood Count 3.5 K/mm3 (4.4-11.0)
[2024-06-24 16:08] LABS: Erythrocyte Sedimentation Rate 2 mm/hr (0-20)
[2024-06-24 16:20] LABS: Anion Gap 6 (5-15); BUN 20 mg/dL (7-18); BUN/Creat Ratio 19.6 RATIO (10-20); CRP < 2.90 mg/L (0.0-3.0); Calcium,Total 9.3 mg/dL (8.5-10.1); Chloride 104 mmol/L (98-107); Creatinine, Serum 1.02 mg/dL (0.70-1.30); EST Glomerular Filtration Rate 79 mL/min (>60); Est Glom Filt Rate - Afr Amer 95 mL/min (>60); Glucose 129 mg/dL (74-106); Potassium 4.3 mmol/L (3.5-5.1); Sodium Level 136 mmol/L (136-145)
== END | disposition home or self-care (01) ==
LOC: LAB 15:12
PROVIDERS: Referring Provider Internal Medicine Infectious Disease; Visit Provider Internal Medicine Infectious Disease
DX: M86.9 Osteomyelitis, unspecified (principal)
CPT/HCPCS: 36415; 80048; 85027; 85652; 86140

== ENCOUNTER → 2024-07-21 | Outpatient (CLI) | payer BC, SELFPAY ==
--- NOTE | 2024-07-21 15:54 | MRI_ITS ---
STUDY: MRI LUMBAR SPINE WITH AND WITHOUT CONTRAST REASON FOR EXAM: Male, 63 years old. pain -- s/p lumbar fusion w/ history of infection TECHNIQUE: Standardized fat and water weighted pulse sequences were obtained in the sagittal and axial planes. IV 16ml clariscan was administered for the contrast portion of the examination. COMPARISON: September 03, 2023 FINDINGS: T12-L1: Normal endplates. Normal disc height, hydration and morphology. Normal bilateral facet joints. Normal central canal and bilateral lateral recesses. Normal bilateral intervertebral neural foramina. Normal lumbar lordosis. There is no substantial scoliosis. Normal conus medullaris that terminates at T12-L1 L1-2: Normal endplates. Normal disc height, hydration and morphology. Normal bilateral facet joints. Normal central canal and bilateral lateral recesses. Normal bilateral intervertebral neural foramina. L2-3: Normal endplates. Normal disc height, desiccation and minor annular bulge. Minor facet arthropathy and thickening of ligamenta flava. Mild to moderate narrowing of central canal exaggerated by posterior epidural fat. Normal bilateral lateral recesses. Mild bilateral neural foraminal encroachment. L3-4: Status post bilateral laminectomy and posterior fusion. Normal endplates. Normal disc height, hydration and morphology. Facet arthropathy slightly worse on the right. Normal central canal and bilateral lateral recesses. Mild left neural foraminal stenosis and moderate narrowing on the right secondary to disc and bony hypertrophy. L4-5: [Post bilateral laminectomy and posterior fusion Normal endplates. Normal disc height, desiccation and normal morphology. Normal bilateral facet joints. Normal central canal and bilateral lateral recesses. Normal bilateral intervertebral neural foramina. L5-S1: Status post bilateral laminectomy and posterior fusion Normal endplates. Normal disc height, desiccation mild annular bulge. Facet arthropathy.. Mild narrowing of the central canal. Normal bilateral lateral recesses. Moderate bilateral neural foraminal stenosis. Normal visualized sacral ala. Normal visualized paraspinous soft tissue structures. No abnormal enhancement following contrast administration The postsurgical changes are new finding since prior exam and there is improvement of the disc disease at L4-5 MRI/Spine Lumbar W/WO Contrast IMPRESSION: Post surgical change status post bilateral laminectomy and posterior fusion at L3-4, L4-5 and L5-S1. No acute fracture or dislocation [Multilevel spinal stenosis secondary to disc disease and bony hypertrophy No evidence for acute osteomyelitis or septic arthritis Findings as above Electronically Signed: Rolf Fung MD at 20:34 EST ,
== END | disposition home or self-care (01) ==
LOC: MRI 15:51
PROVIDERS: Referring Provider Orthopaedic Surgery Orthopaedic Surgery of the Spine; Visit Provider Orthopaedic Surgery Orthopaedic Surgery of the Spine
DX: M43.26 Fusion of spine, lumbar region (principal); Z86.19 Personal history of other infectious and parasitic diseases

== ENCOUNTER → 2024-09-09 | Outpatient (CLI) | payer BC, SELFPAY ==
--- NOTE | 2024-09-09 18:50 | CT_ITS ---
PROCEDURE: CT scan of the lumbar spine without contrast administration. REASON FOR EXAM: Chronic low back pain. . TECHNIQUE: Lumbar spine CT without contrast. COMPARISON: Comparison is made with prior MRI of the lumbar spine dated July 21, 2024. FINDINGS: Vertebrae: The patient is status post intrapedicular screw and otilio fixation at the L3-L4 and L4-L5 levels with prosthetic disc placement. Alignment: No spondylolisthesis. L1-2: Mild disc space narrowing. Anterior spondylosis. No significant stenosis seen. L2-3: Mild degree of disc space narrowing. Spondylosis. Mild degree of bilateral neural foraminal stenosis due to hypertrophy of the facet joints bilaterally slightly worse on the right side. Mild diffuse posterior disc bulge. L3-4: Status post intrapedicular screw fixation. There is evidence of bone grafting along the facet joints bilaterally. Mild bilateral neural foraminal stenosis right greater than left. L4-5: Status post intrapedicular screw fixation and prosthetic disc placement. The patient is status post laminectomy. Posterior spondylosis. No evidence of spinal stenosis. L5-S1: Status post intrapedicular screw fixation and prosthetic disc placement. Status post laminectomy. Posterior spondylosis. Mild degree of bilateral neural foraminal stenosis. Sacrum: Visualized upper sacrum and SI joints are unremarkable. Visualized retroperitoneal structures are unremarkable. CT/Spine Lumbar without Contrast IMPRESSION: Status post intrapedicular screw fixation and otilio fixation at the L3-L4, L4-L5 and L5-S1 levels with evidence of disc space narrowing and multilevel neural foraminal stenosis. One or more dose reduction techniques were used (e.g., Automated exposure contr ol, adjustment of the mA and/or kV according to patient size, use of iterative reconstruction technique). Reading Location: [facility]
== END | disposition home or self-care (01) ==
PROVIDERS: Referring Provider Orthopaedic Surgery Orthopaedic Surgery of the Spine; Visit Provider Orthopaedic Surgery Orthopaedic Surgery of the Spine
DX: S32.009K Unspecified fracture of unspecified lumbar vertebra, subsequent encounter for fracture with nonunion (principal); X58.XXXD Exposure to other specified factors, subsequent encounter
CPT/HCPCS: 72131

== ENCOUNTER 2024-11-13 10:42 | Observation (INO) | payer BC, SELFPAY ==
--- NOTE | 2024-11-04 14:11 | PAT.ANE_ITS ---
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 When Was Last Pacemaker Check QUESTION #4 FULL TEXT: You/Your Family Experience fever (hyperthermia) with Anesthesia Last Oral Intake Last Oral intake: Last Oral Intake NPO since Meds taken in AM with sips of water? 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 Has anyone observed you stop No 11/04/24 13:12 breathing during sleep? STOP Results Positive 11/04/24 13:12 QUESTION #5 FULL TEXT : Do you snore loudly (louder than talking or can be heard through closed doors)? 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 Specify any problems Hx of Preganancy in last 3 N/A 11/04/24 13:12 Months Nurse Filling Out Transfusion VCHRISTIN 11/04/24 13:12 & Questions: Date: 11/04/24 11/04/24 13:12 Time: 13:13 11/04/24 13:12 Patient unable to answer at this time (ie. confused, unrespo /Reproduction History /Reproductive History - morning show newscast producer: /Reproductive Hx- morning show newscast producer Hx Now No 11/04/24 13:12 Gestational Age (in weeks): EDC: Hx Hx Para Hx Section SAB No 11/04/24 13:12 PFSH Medical History (Updated 11/04/24 @ 13:11 by Veronica Lindsay) CPAP (continuous positive airway pressure) dependence Sleep apnea Wears glasses Diabetes Arthritis Prostate disease Low iron High cholesterol Back pain Injury of head and neck Blackout Dietary restriction Gastric reflux Non-smoker Asthma Shortness of breath on exertion Leg cramps History of pain when walking History of echocardiogram History of irregular heartbeat Home Medications ?Medication ?Instructions ?Recorded ?Last Taken ?Type doxazosin 8 mg tablet 8 mg PO DAILY bladder 10/10/23 04:45 History dulaglutide 1.5 mg/0.5 mL 3 mg subcut JALLOH diabetes 09/0511/01/24 History subcutaneous pen injector (Trulicity) metformin 1,000 mg tablet 1,000 mg PO BID sugar Unknown History omeprazole 20 mg capsule,delayed 20 mg PO BID acid ref lux 09/16/23 10/10/23 04:45 History release pravastatin 40 mg tablet 40 mg PO QHS cholesterol 05/31 Unknown History biotin 1 mg capsule 1 mg PO QDAY 06/15/24 Unknow n History doxycycline hyclate 100 mg capsule 100 mg PO BID 06/15 Unknown History multivitamin 1 tab PO QAM 06/15/24 Unknow n History zinc glycinate 20 mg capsule 20 mg PO ONCE 06/15/24 Un known History albuterol sulfate 90 mcg/actuation 2 inh inhalation Q6 H 11/04/24 Unknown History breath activated powder inhaler fluticasone furoate 100 1 inh inhalation DAILY 11/04 Unknown History mcg/actuation blister powder for inhalation (Arnuity Ellipta) Allergy/AdvReac Type Severity Reaction Status Date / Time gabapentin AdvReac Severe suicidal Verified 11/04/24 13:02 Family History Other CVA (cerebral vascular accident) Diabetes Surgical History (Updated 11/04/24 @ 13:11 by Veronica Lindsay) History of lumbar fusion Hx of surgical procedure Hx of tonsillectomy Hx of colonoscopy Social History household members: spouse Smoking Status: Never smoker alcohol intake: never Audit: Pertinent Findings Pertinent Findings EKG Perinent findings: 10/28/2023. Normal sinus rhythm 87 bpm. Normal EKG. Recommendation Anesthesia Recommendation Anesthesia recommendation: OPTIMIZED for anesthesia
[2024-11-05 16:51] LABS: Hematocrit 35.7 % (40-54); Hemoglobin 12.2 g/dL (13.0-16.5); Mean Corp Hgb Conc 34.2 g/dL (32-36); Mean Corpuscular Hgb 30.2 pg (27.0-32.0); Mean Corpuscular Volume 88.4 fL (80-94); Mean Platelet Vol. 10.8 fl (6.2-12.0); Platelet Count 190 K/mm3 (150-450); RBC Distribution Width CV 11.9 % (11.6-14.6); RBC Distribution Width SD 38.5 fl (35.1-43.9); Red Blood Count 4.04 M/mm3 (4.6-6.2); White Blood Count 3.7 K/mm3 (4.4-11.0)
[2024-11-05 17:43] LABS: Anion Gap 12 (5-15); BUN 19 mg/dL (4-19); BUN/Creat Ratio 20.1 RATIO (10-20); Calcium,Total 9.4 mg/dL (7.6-11.0); Carbon Dioxide 22.3 mmol/L (21.0-32.0); Chloride 101 mmol/L (98-108); Creatinine, Serum 0.96 mg/dL (0.70-1.20); EST Glomerular Filtration Rate 88 (>60); Glucose 188 mg/dL (70-99); Potassium 4.3 mmol/L (3.3-5.1); Sodium Level 135 mmol/L (133-145)
[2024-11-05 18:46] LABS: Hemoglobin A1c 7.2 % (<=5.6)
[2024-11-13] VITALS (15 sets, daily range): BP systolic 110–159; BP diastolic 43–79; PULSE 57–81; RESP 16–20; TEMP 36.1–36.9; O2SAT 94–98; BMI 28.0
--- NOTE | 2024-11-13 08:45 | EKG12_ITS ---
Test Reason : P Blood Pressure : */* mmHG Vent. Rate : 64 BPM Atrial Rate : 64 BPM P-R Int : 156 ms QRS Dur : 96 ms QT Int : 420 ms P-R-T Axes : 26 61 72 degrees QTcB Int : 433 ms Normal sinus rhythm with sinus arrhythmia Normal ECG When compared with ECG of 28-Oct-2023 04:31, No significant change was found Confirmed by Raffi Avila ([id number]), editor managing director JUAN MEYERS ([id number]) on 11/16/2024 11:57:25 AM Referred By: Al Brunson Confirmed By: Raffi Avila
[2024-11-13] MEDS: Lactated Ringers 1,000 ML 15 ML IV (08:54)
[2024-11-13 09:15] LABS: Bedside Glucose 138 mg/dL (74-106)
--- NOTE | 2024-11-13 09:36 | PCM.PRE.AN2 ---
ASA Classification* ASA Classification ASA Classification: 3 Assessment & Plan Anesthesia* Anesthesia Assessment Anesthesia Assessment: Discussed sedation and/or anesthesia options, risks, benefits, and alternatives with patient/parents/legal guardian/POA. Questions invited. The patient/parents/legal guardian/POA seems to understand and agrees to proceed with anesthesia plan. Reviewed the physical assessment, medical history, allergy history and patient home medications list prior to surgery/procedure/anesthetic and documented any changes. Performed airway and anesthesia risk assessments. Anesthesia Type Anesthesia Type: General History Source History Obtained from:: Patient, Chart and Significant Other Anesthesia Focused Assessment* Temperature: 98.1 F Pulse Rate: 59 Blood Pressure: 144/65 Respiratory Rate: 16 Pulse Ox: 98 Oxygen Delivery Method: Room Air Airway Assessment Mouth opens: >3 cm Mallampati Score: II Teeth Condition: Intact and Chipped/Broken Neck Range of motion (ROM): Full ROM Focused Labs Anesthesia Preop lab: CBC WBC 3.7 K/mm3 (4.4-11.0) L 11/05/24 16:11/05/24 RBC 4.04 M/mm3 (4.6-6.2) L 11/05/24 16:11/05/24 Hgb 12.2 g/dL (13.0-16.5) L 11/05/24 16:11/05/24 Hct 35.7 % (40-54) L 11/05/24 16:11/05/24 Plt Count 190 K/mm3 (150-450) 11/05/24 16:11/05/24 CHEMISTRY Potassium 4.3 mmol/L (3.3-5.1) 11/05/24 16:11/05/24 Sodium 135 mmol/L (133-145) 11/05/24 16:11/05/24 Magnesium 2.0 mg/dL (1.6-2.6) 10/10/23 06:22 10/10/23 BUN 19 mg/dL (4-19) 11/05/24 16:11/05/24 Creatinine 0.96 mg/dL (0.70-1.20) 11/05/24 16:11/05/24 Glucose 188 mg/dL (70-99) H 11/05/24 16:11/05/24 POC Glucose 138 mg/dL (74-106) H 11/13/24 08:58 11/13/24 COAG Pre-Assessment Diagnosis/Proposed Procedure Planned Operative Procedure(s): Cysto,TUR,Prostate,Olympus Anesthesia History 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 When Was Last Pacemaker Check QUESTION #4 FULL TEXT: You/Your Family Experience fever (hyperthermia) with Anesthesia Last Oral Intake Last Oral intake: Last Oral Intake NPO since 07:00 11/13/24 08:56 Meds taken in AM with sips of Yes 11/13/24 08:56 water? Meds patient instructed to take am of surgery Any additional information?: Yes Meds patient instructed to take am of surgery: albuterol, omeprazole PONV PONV - construction job titles: PONV - construction job titles Female No 11/04/24 13:12 HX of Motion Sickness Yes 11/04/24 13:12 HX of N/V After Surgery No 11/04/24 13:12 Non-Smoker Yes 11/04/24 13:12 Duration of Surgery greater No 11/04/24 13:12 than 60 minutes Number of Risk Factors 2 11/04/24 13:12 PONV Score Moderate Risk 11/04/24 13:12 Height & Weight Height & Weight: Anesthesia: Height & Weight Height 5 ft 7 in 11/13/24 08:56 Weight: 81.4 kg 11/13/24 08:56 Body Mass Index (BMI) 28.0 11/13/24 08:56 Respiratory Assessment Respiratory Assessment - construction job titles: Respiratory Tract Infection Hx - construction job titles Hx Respiratory Tract Infection No 11/04/24 13:12 STOP Sleep Apnea STOP Sleep Apnea - construction job titles: STOP Sleep Apnea - construction job titles Hx Hypertension No 11/04/24 13:12 Hx Sleep Apnea Yes 11/04/24 13:12 CPAP Yes 11/04/24 13:12 BIPAP No 11/04/24 13:12 Do you snore loudly (louder No 11/04/24 13:12 than talking or can be heard Do you often feel tired/ No 11/04/24 13:12 fatigued/ sleepy during daytime? Has anyone observed you stop No 11/04/24 13:12 breathing during sleep? STOP Results Positive 11/04/24 13:12 QUESTION #5 FULL TEXT : Do you snore loudly (louder than talking or can be heard through closed doors)? 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 Specify any problems Hx of Preganancy in last 3 N/A 11/04/24 13:12 Months Nurse Filling Out Transfusion VCHRISTIN 11/04/24 13:12 & Questions: Date: 11/04/24 11/04/24 13:12 Time: 13:13 11/04/24 13:12 Patient unable to answer at this time (ie. confused, unrespo /Reproduction History /Reproductive History - construction job titles: /Reproductive Hx- construction job titles Hx Now No 11/04/24 13:12 Gestational Age (in weeks): EDC: Hx Hx Para Hx Section SAB No 11/04/24 13:12 Active Medications Active Medications: Current Medications Generic Name Dose Route Start Last Admin Trade Name Freq PRN Reason Stop Dose Admin Cefazolin Sodium 2 gm/ Sodium 110 mls @ 150 mls/hr 11/13/24 12:00 Chloride IV 11/13/24 12:43 INTRAOP ONE Lactated Ringer's 1,000 mls @ 15 mls/hr 11/13/24 08:45 11/13/24 08:54 IV 15 mls/hr .Q48H CARLOS Administration PFSH Medical History CPAP (continuous positive airway pressure) dependence Sleep apnea Wears glasses Diabetes Arthritis Prostate disease Low iron High cholesterol Back pain Injury of head and neck Blackout Dietary restriction Gastric reflux Non-smoker Asthma Shortness of breath on exertion Leg cramps History of pain when walking History of echocardiogram History of irregular heartbeat Home Medications ?Medication ?Instructions ?Recorded ?Last Taken ?Type doxazosin 8 mg tablet 8 mg PO DAILY bladder 09/16/23 10/10/23 04:45 History dulaglutide 1.5 mg/0.5 mL 3 mg subcut JALLOH diabetes 09/16/23 11/01/24 History subcutaneous pen injector (Trulicity) metformin 1,000 mg tablet 1,000 mg PO BID sugar 09/16/23 Unknown History omeprazole 20 mg capsule,delayed 20 mg PO BID acid reflux 09/16/23 11/13/24 07:00 History release pravastatin 40 mg tablet 40 mg PO QHS cholesterol 09/16/23 Unknown History biotin 1 mg capsule 1 mg PO QDAY 06/15/24 Unknown History doxycycline hyclate 100 mg capsule 100 mg PO BID 06/15/24 Unknown History multivitamin 1 tab PO QAM 06/15/24 Unknown History zinc glycinate 20 mg capsule 20 mg PO ONCE 06/15/24 Unknown History albuterol sulfate 90 mcg/actuation 2 inh inhalation Q6H 11/04/24 11/13/24 07:00 History breath activated powder inhaler fluticasone furoate 100 1 inh inhalation DAILY 11/04/24 Unknown History mcg/actuation blister powder for inhalation (Arnuity Ellipta) Allergy/AdvReac Type Severity Reaction Status Date / Time gabapentin AdvReac Severe suicidal Verified 11/13/24 08:47 Family History Other CVA (cerebral vascular accident) Diabetes Surgical History History of lumbar fusion Hx of surgical procedure Hx of tonsillectomy Hx of colonoscopy Social History household members: spouse Smoking Status: Never smoker alcohol intake: never Review of Systems (Anesthesia) ROS Narrative System reviewed and no additional complaints, except as documented. Physical Exam Const alert and oriented x3 HEENT dentition normal Neck full ROM Cardio regular rate Extremity full ROM Neuro oriented x3 and moves all extremities
--- NOTE | 2024-11-13 10:03 | PCM.HP.STD ---
[facility] - General General Date of Service: 11/13/24 Chief Complaint: BPH with obstruction [facility] Narrative MARGE MICHAUD, is a 64 M who presents for transurethral resection of the prostate for obstructive prostate. [facility] Medical History CPAP (continuous positive airway pressure) dependence Sleep apnea Wears glasses Diabetes Arthritis Prostate disease Low iron High cholesterol Back pain Injury of head and neck Blackout Dietary restriction Gastric reflux Non-smoker Asthma Shortness of breath on exertion Leg cramps History of pain when walking History of echocardiogram History of irregular heartbeat Home Medications ?Medication ?Instructions ?Recorded ?Last Taken ?Type doxazosin 8 mg tablet 8 mg PO DAILY bladder 09/16/23 10/10/23 04:45 History dulaglutide 1.5 mg/0.5 mL 3 mg subcut JALLOH diabetes 09/16/23 11/01/24 History subcutaneous pen injector (Trulicity) metformin 1,000 mg tablet 1,000 mg PO BID sugar 09/16/23 Unknown History omeprazole 20 mg capsule,delayed 20 mg PO BID acid reflux 09/16/23 11/13/24 07:00 History release pravastatin 40 mg tablet 40 mg PO QHS cholesterol 09/16/23 Unknown History biotin 1 mg capsule 1 mg PO QDAY 06/15/24 Unknown History doxycycline hyclate 100 mg capsule 100 mg PO BID 06/15/24 Unknown History multivitamin 1 tab PO QAM 06/15/24 Unknown History zinc glycinate 20 mg capsule 20 mg PO ONCE 06/15/24 Unknown History albuterol sulfate 90 mcg/actuation 2 inh inhalation Q6H 11/04/24 11/13/24 07:00 History breath activated powder inhaler fluticasone furoate 100 1 inh inhalation DAILY 11/04/24 Unknown History mcg/actuation blister powder for inhalation (Arnuity Ellipta) Allergy/AdvReac Type Severity Reaction Status Date / Time gabapentin AdvReac Severe suicidal Verified 11/13/24 08:47 Family History Other CVA (cerebral vascular accident) Diabetes Surgical History History of lumbar fusion Hx of surgical procedure Hx of tonsillectomy Hx of colonoscopy Social History household members: spouse Smoking Status: Never smoker alcohol intake: never Vital Signs Vital Signs Vital Signs: 11/13/24 08:56 11/13/24 08:56 11/13/24 09:42 Temperature 98.1 F 98.1 F Temperature Source Temporal Pulse Rate 59 L 59 L Respiratory Rate 16 16 Respiratory Pattern Normal Blood Pressure 144/65 H 144/65 H Blood Pressure Mean 91 Blood Pressure Source Monitor Blood Pressure Position Semi-Fowlers Blood Pressure Location Right Arm Pulse Ox 98 98 Oxygen Delivery Method Room Air Room Air Weight Weight: 81.4 kg Body Mass Index (BMI) 28.0 Results Lab / Micro Data 11/05/24 16:05 11/05/24 16:05 Labs: Laboratory Results - last 24 hr 11/13/24 08:58: POC Glucose 138 H
--- NOTE | 2024-11-13 10:30 | PROS_PTH ---
PATIENT: MARGE MICHAUD LOC: MS3 U#:[id number] AGE/SX: 64/M ROOM: [facility] [place] RE11/13/[address]: Dr. Al Brunson MD : 1960 BED: 1 DIS: 11/14/2024 SPEC #: [id number] RECD: 11/13/24 13:26 STATUS: IVETH RELele #: [id number] LUCIUS: 11/13/24 10:[address]: Al Brunson DEPT: SURGICAL PATHOLOGY RECD BY: Timmy Huerta ENTERED: 11/13/24 13:43 SP TYPE: TURP OTHR DR: Dr. Meliton Rosado, DO Tissues: A - Prostate, NOS Procedures: Surgery Specimen Level IV HEADER OPERATION: Cysto, transurethral resection, prostate PRE-OP DIAGNOSIS: Benign prostatic hyperplasia with lower urinary tract symptoms TISSUE SUBMITTED: A- Prostate tissue MICROSCOPIC DIAGNOSIS A. Prostate, transurethral resection: * Benign prostatic tissue with glandular and stromal hyperplasia MICROSCOPIC DESCRIPTION Slides are reviewed. GROSS DESCRIPTION A. Received in formalin in a container labeled with the patient's name, date of , and prostate tissue are multiple green-pink, rubbery, and irregular fragments of soft tissue measuring 5.5 x 5.0 x 1.7 cm in aggregate and 6.2 g together. Submitted in toto in A1-8. [facility] 11-13-2024 CPT:41834
--- NOTE | 2024-11-13 10:42 | DCINST_ITS ---
Discharge Instructions Diet Discharge Diet: No restrictions and Light diet - advance as tolerated DC O2, CPAP, BIPAP needs Home O2 Discharge instructions: No Dressing / Incision Discharge Activity: Return to Normal Activity and May Not Drive (while taking narcotic pain medications.) Dressing / Incision Call your doctor if you observe: Fever of 101 or Higher and Uncontrolled pain Suture Line Care: Avoid Pulling/Pushing and Avoid Pinching/Bending Follow Up Care Please Follow Up With: Al Brunson MD When: Call [phone] for an appointment Test Results: Test results from this visit will be discussed in further detail at your follow- up appointment, if applicable. Discharge Plan Admission Primary Reason for Your Visit: turp Attending Provider: Al Brunson Primary Care Provider: Meliton Rosado Instructions Print Language: Upper Sorbian Discharge Orders/Prescriptions Prescriptions: New ibuprofen 600 mg tablet 600 mg PO Q6H PRN (Reason: pain) Qty: 20 0RF acetaminophen 500 mg capsule 500 mg PO Q4H PRN (Reason: pain) Qty: 20 0RF Continued doxycycline hyclate 100 mg capsule 100 mg PO BID multivitamin Tablet 1 tab PO QAM biotin 1 mg capsule 1 mg PO QDAY zinc glycinate 20 mg capsule 20 mg PO ONCE metformin 1,000 mg tablet 1,000 mg PO BID Patient Comments: TAKE 1 TABLET BY MOUTH TWICE A DAY Trulicity 1.5 mg/0.5 mL pen injector 3 mg SUBCUT JALLOH Patient Comments: INJECT 1.5MG UNDER THE SKIN ONCE WEEKLY doxazosin 8 mg tablet 8 mg PO DAILY Patient Comments: TAKE 1 TABLET BY MOUTH EVERY DAY pravastatin 40 mg tablet 40 mg PO QHS Patient Comments: TAKE 1 TABLET BY MOUTH EVERY NIGHT AT BEDTIME omeprazole 20 mg capsule,delayed release(DR/EC) 20 mg PO BID Patient Comments: TAKE 1 CAPSULE BY MOUTH TWICE A DAY BEFORE MEALS Arnuity Ellipta 100 mcg/actuation blister with device 1 inh INHALATION DAILY albuterol sulfate 90 mcg/actuation aerosol powdr breath activated 2 inh inhalation Q6H Referrals / Follow Up: Al Brunson MD [Med Staff - Active Staff] - Meliton Rosado DO [Primary Care Provider] - Disposition Disposition (needs filled in before D/C Order can be placed): Home, Self Care
[2024-11-13] MEDS: Cefazolin 2 GM in 0.9% Normal Saline (100mL Bag) 100 ML IV (10:58)
--- NOTE | 2024-11-13 11:21 | OP.PCM_ITS ---
Operative Report (Standard) Operative Information Date of Procedure: 11/13/24 Pre-Operative Diagnosis: BPH with obstruction Post-Operative Diagnosis: The same Surgery/Procedure Performed: Transurethral section of prostate compressor battery pellets: No Type of Anesthesia: General RN Documented Start/Stop Times: Operation Date: 11/13/24 10:30 Case Time Into Pre-Op 11/13/24 08:37 Out of Pre-Op 11/13/24 10:32 Procedure Start Time: 10:46 Procedure Stop Time: 11:22 Select all DRAINS/GRAFTS/IMPLANTS that apply: Drains Drain details: 22 Burkinan three-way catheter Estimated Blood Loss: 2 cc Specimen collected: Yes Description of specimen(s) removed: Prostate tissue Description of surgery: In the preoperative setting I discussed with the patient how the surgery would be done with expect afterwards. We discussed how a prostate resection is done and we discussed the risk of the surgery including, bleeding, infection, retrograde ejaculation, changes with ejaculation or intercourse,. We discussed the possibility that the resection of the prostate may not alleviate his urinary symptoms. We discussed the small risk of developing scar tissue along the urethral channel and strictures. We also discussed the chance of the prostate could grow back and he may need further surgery or treatment in the future for prostate problems. Patient was taken back to the operating room, timeout procedure was performed, he was identified and marked and placed on the operating room table. He underwent general anesthesia. He was placed in dorsolithotomy position. Penis and testicles were prepped and draped in usual sterile fashion. Went into the bladder using the visual obturator with a resectoscope. Once inside the bladder identified the right and left ureteral orifice. I then identified the prostate and the anatomy of the prostate. I marked out the area of the sphincter and the verumontanum was identified. I then proceeded with the prostate resection first resected the median lobe. And then resected the right lobe of the prostate. Then to resect the left lobe of the prostate. I then resected the apical tissue of the prostate. This was a complete resection of all obstructive tissue to improve voiding and relieve obstruction. I then made sure that there was no injury to the sphincter or the verumontanum was still intact. At the end of the resection all the chips were Ellik out of the bladder. I then identified the left and right ureteral orifice and these were confirmed to be in good position and effluxing and not injured. The resectoscope was removed, a 22 Burkinan catheter was placed into the bladder on continuous irrigation. And the urine was fairly light pink color and draining normally. He was taken back to the PACU in good condition. Surgical Findings: Prostate channel resected wide open Complications Complications: No Admit VTE Documentation VTE Present on Admission: No VTE Mechan Device Prophylaxis: SCD's VTE Pharm Prophylaxis ordered?: No
--- NOTE | 2024-11-13 11:33 | PCM.POST.ANE ---
Anesthesia: Postop Eval I Current Vital Signs Temperature: 97 F Pulse Rate: 78 Blood Pressure: 159/79 Respiratory Rate: 16 Pulse Ox: 95 Oxygen Delivery Method: Room Air Assessment Airway patent: Yes Spontaneous unlabored respirations: Yes Mental status: Awake and Calm nausea: No Vomiting: No Anesthesia Complication: No Fluid Hydration Crystalloid volume administer (ml): 750 Total IV fluid infused: 750 Progress Note Anesthesia document: Postop Eval 1 completed: Yes
--- NOTE | 2024-11-13 12:31 | POSTOPAN2_ITS ---
Anesthesia Postop Eval I Sum Postop Eval Completion status Anesthesia document: Postop Eval 1 completed: Yes Anesthesia Postop Eval I Summary Anesthesia Postop Eval I Summary: Anesthesia Postop Eval I: Assessment Summary Airway patent Yes 11/13/24 11:33 [email or web address] Spontaneous unlabored Yes 11/13/24 11:33 [email or web address] respirations Mental status Awake,Calm 11/13/24 11:33 [email or web address] nausea No 11/13/24 11:33 [email or web address] Vomiting No 11/13/24 11:33 [email or web address] Anesthesia Postop Eval I: Fluid Summary Crystalloid volume administer 750 11/13/24 11:33 [email or web address] (ml) Colloids volume administered ( ml) Blood Product volume administered (ml) Total IV fluid infused 750 11/13/24 11:33 [email or web address] Anesthesia Postop Eval I: Summary Notes Anesthesia Complication No 11/13/24 11:33 [email or web address] Anesthesia Complication Comment: Post-operative progress note Anesthesia: Postop Eval II Evaluation Mental status: Awake and Calm Pain Level: 4 nausea: No Vomiting: No
--- NOTE | 2024-11-13 12:31 | PCM.POSTANE2 ---
Anesthesia Postop Eval I Sum Postop Eval Completion status Anesthesia document: Postop Eval 1 completed: Yes Anesthesia Postop Eval I Summary Anesthesia Postop Eval I Summary: Anesthesia Postop Eval I: Assessment Summary Airway patent Yes 11/13/24 11:33 [email or web address] Spontaneous unlabored Yes 11/13/24 11:33 [email or web address] respirations Mental status Awake,Calm 11/13/24 11:33 [email or web address] nausea No 11/13/24 11:33 [email or web address] Vomiting No 11/13/24 11:33 [email or web address] Anesthesia Postop Eval I: Fluid Summary Crystalloid volume administer 750 11/13/24 11:33 [email or web address] (ml) Colloids volume administered ( ml) Blood Product volume administered (ml) Total IV fluid infused 750 11/13/24 11:33 [email or web address] Anesthesia Postop Eval I: Summary Notes Anesthesia Complication No 11/13/24 11:33 [email or web address] Anesthesia Complication Comment: Post-operative progress note Anesthesia: Postop Eval II Evaluation Mental status: Awake and Calm Pain Level: 4 nausea: No Vomiting: No
[2024-11-13] MEDS: 0.9% Normal Saline (1000mL) 1,000 ML 150 ML IV ×2 (12:37→19:38)
[2024-11-13] MEDS: Ketorolac 15 MG/ML Vial IV ×3 (12:37→23:58)
[2024-11-13] MEDS: Albuterol 2.5 MG/3 ML VIAL.NEB. INHALATION ×2 (13:31→20:22)
[2024-11-13] MEDS: metFORMIN HCl 1,000 MG Tablet 1000 MG PO (17:21)
[2024-11-13] MEDS: Budesonide Respules 0.5 MG/2 ML AMPUL.NEB. INHALATION (20:22)
[2024-11-13] MEDS: Docusate Sodium 100 MG Capsule 200 MG PO (22:42)
[2024-11-13] MEDS: Pantoprazole Sodium 20 MG Tablet PO (22:42)
[2024-11-13] MEDS: Ciprofloxacin 400 MG/200 ML BAG 200 MG IV (22:42)
[2024-11-13] MEDS: Pravastatin 40 MG Tablet PO (22:42)
[2024-11-14 01:15] VITALS: PULSE 76; RESP 20
[2024-11-14] MEDS: Albuterol 2.5 MG/3 ML VIAL.NEB. INHALATION ×2 (01:16→07:55)
[2024-11-14 04:38] VITALS: BP 125/61; PULSE 73; RESP 18; TEMP 36.6; O2SAT 98
[2024-11-14] MEDS: Acetaminophen 325 MG Tablet 650 MG PO (04:44)
[2024-11-14] MEDS: Ketorolac 15 MG/ML Vial IV ×2 (06:08→11:39)
[2024-11-14] MEDS: 0.9% Saline Lock 10 ML Syringe IV ×2 (06:09→11:39)
[2024-11-14 06:52] LABS: Absolute Lymphocyte Count 0.92 X10^3/uL (0.83-4.51); Absolute Neutrophil Count 6.3 X10^3/uL (2.0-7.7); Basophil# 0.01 X10^3/uL; Basophil% 0.1 % (0-1); Eosinophil# 0.01 X10^3/uL; Eosinophils% 0.1 % (0-5); Hemoglobin 11.7 g/dL (13.0-16.5); Lymphocyte # 0.92 X10^3/ul (0.83-4.51); Lymphocyte % 11.7 % (19-41); Mean Corp Hgb Conc 34.4 g/dL (32-36); Mean Corpuscular Hgb 30.5 pg (27.0-32.0); Mean Corpuscular Volume 88.8 fL (80-94); Mean Platelet Vol. 10.4 fl (6.2-12.0); Monocyte# 0.66 X10^3/uL; Monocyte% 8.4 % (0-10); NRBC Flagged by Analyzer 0 % (0-5); Neutrophil # 6.25 X10^3/uL (2.7-7.7); Neutrophil % 79.4 % (47-70); Platelet Count 166 K/mm3 (150-450); RBC Distribution Width CV 12.5 % (11.6-14.6); RBC Distribution Width SD 40.3 fl (35.1-43.9); Red Blood Count 3.83 M/mm3 (4.6-6.2); White Blood Count 7.9 K/mm3 (4.4-11.0)
[2024-11-14 07:16] LABS: Anion Gap 11 (5-15); BUN 12 mg/dL (4-19); BUN/Creat Ratio 15.4 RATIO (10-20); Calcium,Total 8.3 mg/dL (7.6-11.0); Carbon Dioxide 21.9 mmol/L (21.0-32.0); Chloride 105 mmol/L (98-108); Creatinine, Serum 0.76 mg/dL (0.70-1.20); EST Glomerular Filtration Rate 101 (>60); Estimated Creatinine Clearance 101.63 ml/min (50-250); Glucose 195 mg/dL (70-99); Potassium 3.8 mmol/L (3.3-5.1); Sodium Level 137 mmol/L (133-145)
[2024-11-14] MEDS: Budesonide Respules 0.5 MG/2 ML AMPUL.NEB. INHALATION (07:55)
[2024-11-14 07:56] VITALS: PULSE 65; RESP 18; O2SAT 98
--- NOTE | 2024-11-14 08:44 | PN.URO_ITS ---
Subjective Subjective s/p turp urine clear d/c dan home after he voids Objective Data Objective Data Vital Signs: Vital Signs Temp Pulse Resp BP Pulse Ox O2 Del Method 97.9 F 65 18 125/61 H 98 Room Air 11/14/24 04:38 11/14/24 07:56 11/14/24 07:56 11/14/24 04:38 11/14/24 07:56 11/14/24 07:56 Oxygen Delivery Method Room Air Weight: 81.4 kg Body Mass Index (BMI) 28.0 Intake & Output: Intake and Output for Last 24 Hours 11/12/24 11/13/24 11/14/24 23:59 23:59 23:59 Intake Total 1999 Output Total 1899 Balance 100 / 100 0 / 0 Lab / Micro Data 11/14/24 06:16 11/14/24 06:16 Labs: Laboratory Results - last 24 hr 11/13/24 08:58: POC Glucose 138 H 11/14/24 06:16: WBC 7.9, RBC 3.83 L, Hgb 11.7 L, Hct 34.0 L, MCV 88.8, MCH 30.5, MCHC 34.4, RDW Std Deviation 40.3, RDW Coeff of Jacob 12.5, Plt Count 166, MPV 10.4, Immature Gran % (Auto) 0.300, Neut % (Auto) 79.4 H, Lymph % (Auto) 11.7 L, Holmes % (Auto) 8.4, Eos % (Auto) 0.1, Baso % (Auto) 0.1, Absolute Neuts (auto) 6.3, Absolute Lymphs (auto) 0.92, Nucleated RBC % 0, Sodium 137, Potassium 3.8, Chloride 105, Carbon Dioxide 21.9, Anion Gap 11, BUN 12, Creatinine 0.76, Estim Creat Clear Calc 101.63, Est GFR (MDRD) Non-Af 101, BUN/Creatinine Ratio 15.4, G lucose 195 H, Calcium 8.3
[2024-11-14 08:57] VITALS: BP 131/48; PULSE 81; RESP 16; TEMP 36.5; O2SAT 98
[2024-11-14] MEDS: Doxazosin 4 MG Tablet 8 MG PO (09:17)
[2024-11-14] MEDS: Docusate Sodium 100 MG Capsule 200 MG PO (09:17)
[2024-11-14] MEDS: Pantoprazole Sodium 20 MG Tablet PO (09:18)
[2024-11-14] MEDS: metFORMIN HCl 1,000 MG Tablet 1000 MG PO (09:18)
[2024-11-14 09:21] VITALS: PULSE 90
[2024-11-14 11:37] VITALS: BP 154/57; PULSE 70; RESP 18; TEMP 36.7; O2SAT 98
== END 2024-11-14 13:03 | disposition home or self-care (01) ==
LOC: SDC 11:53 → MS3 11:53
PROVIDERS: Anesthesiology; Admitting Provider Urology; Referring Provider Urology; Visit Provider Urology
PROC: (CPT 52601; principal; 2024-11-13 10:20)
DX: N40.1 Benign prostatic hyperplasia with lower urinary tract symptoms (principal); E11.9 Type 2 diabetes mellitus without complications; R35.1 Nocturia; R39.12 Poor urinary stream; R39.11 Hesitancy of micturition; R32 Unspecified urinary incontinence; E78.00 Pure hypercholesterolemia, unspecified; J45.20 Mild intermittent asthma, uncomplicated; K21.9 Gastro-esophageal reflux disease without esophagitis; Z79.84 Long term (current) use of oral hypoglycemic drugs; Z79.85 Long-term (current) use of injectable non-insulin antidiabetic drugs; Z79.899 Other long term (current) drug therapy
CPT/HCPCS: 52601; 00914; 36415; 80048; 82962; 83036; 85025; 85027; 88305; 93005; 94640; 94668; 96361; 96365; 96375; 96376; 99221; A4216; G0378; J0744; J2405